=== PATIENT | male | born 1945 | race Caucasian/White ===

== ENCOUNTER 2019-08-12 12:36 | Outpatient (CLI) | payer MEDICARE, MEDICAID, SELFPAY ==
--- NOTE | 2019-08-12 16:00 | XR_ITS ---
WS: [id number] LUMBAR SPINE FLEXION AND EXTENSION TECHNIQUE: 3 views of the lumbar spine: Lateral neutral, flexion, and extension views. CLINICAL INFORMATION: Low back COMPARISON: None. FINDINGS: Normal lumbar alignment on the neutral view. No instability on the flexion and extension views. Moderate spondylitic changes with anterior wedging T12, L1, and L2. Anterior hypertrophic changes in the lower thoracic and upper lumbar spine. Moderate facet arthropathy L4-L5 and L5-S1. Aortic calcifi cation. XR/XR lumbar spine f/e only [id number] IMPRESSION: 1. Normal lumbar alignment on the neutral view. No instability on flexion/exte nsion. 2. Chronic anterior wedging T12, L1, L2.
== END 2019-08-12 12:37 | disposition home or self-care (01) ==
LOC: RADWPI 12:42
PROVIDERS: Family Provider Family Medicine; PCP Nurse Practitioner; Visit Provider Licensed Practical Nurse
DX: M54.5 Low back pain (principal); M48.55XA Collapsed vertebra, not elsewhere classified, thoracolumbar region, initial encounter for fracture; X58.XXXA Exposure to other specified factors, initial encounter
CPT/HCPCS: 72120

== ENCOUNTER 2019-08-12 13:11 | Outpatient (CLI) | payer MEDICARE, MEDICAID, SELFPAY ==
--- NOTE | 2019-08-12 15:30 | MR_ITS ---
WS: [id number] MRI LUMBAR SPINE NONCONTRAST TECHNIQUE: Sagittal T1, T2 and STIR imaging. Axial T1 and T2 imaging. CLINICAL INFORMATION: ACUTE LOW BACK PAIN COMPARISON: None. FINDINGS: Mild lumbar curve. No acute compression. No high-grade central canal stenosis. Mild spondylitic barajas es. L1-L2: Mild annular bulging. Mild facet arthropathy. Spinal canal and foramen are patent. L2-L3: Mild annular bulging with slight narrowing of the subarticular recess bilaterally. Mild facet arthropathy. L3-L4: Mild annular bulging with slight narrowing of the left subarticular recess. Mild to moderate f acet arthropathy. Mild left and no significant right foraminal narrowing. L4-L5: Mild annular bulging with slight effacement of ventral thecal sac. Moderate facet arthropathy. Spinal canal and foramen are patent. L5-S1: Mild disc osteophyte complex with endplate ridging. Mild left greater than right bony foramina l narrowing. Mild facet arthropathy. Spinal canal is patent. Bilateral renal cortical atrophy. Partially visualized renal cysts. Normal caliber infrarenal abdomin al aorta. Mild spondylitic changes in the cervical spine seen on the sterile technician imaging. MR/MR lumbar spine wo con* [id number] IMPRESSION: 1. Mild lumbar curve. No acute compression. No high-grade central canal stenos is. 2. Annular bulging L3-4 with slight impingement traversing left L4 nerve root. Mild left foraminal narrowing at this level. Mild to moderate facet arthropath y at this level. 3. Mild left greater than right L5-S1 bony foraminal narrowing. 4. Minimal narrowing of the left subarticular recess L2-3. 5. Moderate facet arthropathy L4-5.
== END 2019-08-12 13:12 | disposition home or self-care (01) ==
LOC: RADWPI 13:16
PROVIDERS: Family Provider Family Medicine; PCP Nurse Practitioner; Visit Provider Nurse Practitioner
DX: M54.5 Low back pain (principal); M47.896 Other spondylosis, lumbar region
CPT/HCPCS: 72148

== ENCOUNTER 2020-11-06 10:29 | Emergency (ER) | payer MEDICARE, MEDICAID, SELFPAY ==
[2020-11-06 10:54] VITALS: BP 143/85; PULSE 76; RESP 16; TEMP 36.8; O2SAT 95; BMI 25.8
[2020-11-06 11:02] VITALS: BP 138/80; PULSE 72; RESP 18; O2SAT 100
--- NOTE | 2020-11-06 11:11 | ED_ITS ---
HPI - Eye Problem General: Chief complaint: Eye Problems Stated complaint: L eye/red, possably poked it with something Time Seen by Provider: 11/06/20 10:37 History of Present Illness: HPI Narrative: 75-year-old male presents with painless red eye. Patient noticed this morning. He does not recall poking himself in the eye or any other kind of trauma it is not affecting his vision he has no eye pain or discomfort. Patient is on aspirin and Plavix chief complaint: eye redness Onset (ago): hour(s) Onset description: sudden Duration: constant Location: left eye Place: home Mechanism: none Severity: mild Associated symptoms: Denies cough, fever(s), headache(s), nausea, neck pain, numbness, rhinorrhea, short of breath, vomiting or weakness Treatments Prior to Arrival: none Review of Systems Const: Denies: fever(s) ENMT: Denies: throat pain, ear or mastoid pain, nasal discharge or nasal congestion Card: Denies: chest pain, edema, dyspnea on exertion or orthopnea Resp: Denies: dyspnea, productive cough or non-productive cough GI: Denies: nausea or vomiting : Denies: flank pain, dysuria, urinary frequency or urinary urgency Musc: Denies: neck pain Skin/Breast: Denies: rash or pruritus Neuro: Denies: headache(s) PFSH ED PFSH: Medical History Cancer of prostate Intervertebral disc disorder with radiculopathy of lumbosacral region Surgical History Hx of heart surgery Family History Father Lung disease Mother Chronic kidney disease (CKD) Hypertension Social History Smoking and tobacco status: former smoker Alcohol intake: never Household members: spouse Marital status: Current occupational status: retired History of recent travel: No Physical Exam Const: COMMON NORMALS: no acute distress GENERAL APPEARANCE: cooperative and comfortable ORIENTATION/CONSCIOUSNESS: Yes awake, Yes oriented to person, Yes oriented to place and Yes oriented to time HENMT: COMMON NORMALS: normocephalic and atraumatic HEAD & SCALP: normocephalic and atraumatic Eye: COMMON NORMALS: Equal, round and reactive pupils present, EOMs intact bilaterally and no scleral icterus GENERAL EYE: normal light reflex VISUAL ACUITY: Yes acuity normal VISUAL EDEN: No peripheral vision loss, No central vision loss, No left visual field cut and No right visual field cut SCLERA: scleral abnormal Laterality of scleral abnormality: positive left hemorrhage (Mild) PUPIL: Yes Equal, round and reactive pupils present DIRECT OPHTHALMOSCOPY: Yes normal light reflex OTHER: Subconjunctival hemorrhage left eye inferior to the cornea no chemosis no evidence of foreign bodies the rest of the sclera superiorly appears normal. There is no purulent drainage. Neck/C-Spine: COMMON NORMALS: no JVD Resp: COMMON NORMALS: normal respiratory effort, No retractions, No use of accessory muscles and clear to auscultation bilaterally AUSCULTATION: clear to auscultation bilaterally Cardio: COMMON NORMALS: no JVD, regular rate, regular rhythm and No murmurs present (Cardio) RATE: regular rate RHYTHM: regular rhythm Neuro: SENSORIUM/ORIENTATION: Yes oriented to person, Yes oriented to place and Yes oriented to time Course Vital Signs: Vital signs: Vital Signs Temperature 98.2 F 11/06/20 10:54 Pulse Rate 72 11/06/20 11:17 Respiratory Rate 18 11/06/20 11:17 Blood Pressure 138/80 11/06/20 11:17 Pulse Oximetry 100 11/06/20 11:17 MDM - Eye Problem MDM Narrative: Medical decision making narrative: Discussed diagnosis. Can use cold compresses. Patient reassured to follow-up with his primary care doctor return if has any worsening or change in vision. Discharge Plan Discharge Patient Disposition: Home Clinical Impression: Subconjunctival hemorrhage Condition: Stable Prescriptions: No Action One-A-Day Men's 50Plus(ginkgo) 400-300-120 mcg-mcg-mg tablet PO DAILY RF: 0 docusate sodium [Colace] 100 mg capsule 100 mg PO DAILY RF: 0 sennosides 25 mg tablet 25 mg PO DAILY RF: 0 carvedilol [Coreg] 6.25 mg tablet 6.25 mg PO BID RF: 0 duloxetine [Cymbalta] 60 mg capsule,delayed release(DR/EC) 60 mg PO DAILY RF: 0 Protonix [address] for susp in packet 40 mg PO DAILY RF: 0 clopidogrel 75 mg tablet 75 mg PO DAILY RF: 0 cyanocobalamin (vitamin B-12) 1,000 mcg/mL syringe 1,000 mcg .Route .MONTHLY RF: 0 divalproex 250 mg tablet,delayed release (DR/EC) 250 mg PO DAILY RF: 0 escitalopram oxalate 10 mg tablet 10 mg PO DAILY RF: 0 gabapentin 300 mg capsule 300 mg PO QID RF: 0 lisinopril 10 mg tablet 10 mg PO DAILY RF: 0 losartan 50 mg tablet 50 mg PO DAILY RF: 0 mirtazapine 15 mg tablet 15 mg PO DAILY RF: 0 pravastatin 10 mg tablet 10 mg PO DAILY RF: 0 ropinirole 1 mg tablet 1 mg PO DAILY RF: 0 topiramate 25 mg tablet 25 mg PO BID RF: 0 Discharge Orders: Discharge ED (Routine); Ordered 11/06/20 Ordered By: Jr Seymour Referrals: Joseline Madison FNP [Primary Care Provider] - Discharge Diet: Usual diet Discharge Activity: Resume usual activity Patient Instructions: Opioid Safety Activity Restrictions/Additional Instructions: Follow-up if worsens as any change in vision. 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
[2020-11-06 11:17] VITALS: BP 138/80; PULSE 72; RESP 18; O2SAT 100
== END 2020-11-06 11:17 | disposition home or self-care (01) ==
PROVIDERS: Emergency Provider Family Medicine; PCP Nurse Practitioner
DX: H11.32 Conjunctival hemorrhage, left eye (principal); Z85.46 Personal history of malignant neoplasm of prostate; Z87.891 Personal history of nicotine dependence
CPT/HCPCS: 99282

== ENCOUNTER 2021-03-22 09:30 | Outpatient (CLI) | payer MEDICARE, MEDICAID, SELFPAY ==
--- NOTE | 2021-03-22 09:37 | USCV_ITS ---
Camilo Zuniga Age: 76 Gender: M : 1945 Exam Date: 03/22/2021 09:37 Ordering Phys: Joseline Madison AUTOMOBILE LOCATOR Technologist: Melanie Arias Barrel Endshaker Adjuster [place] [facility] [place]: INTERMITTENT CLADICATION RIGHT LEFT Brachial 140.00 mmHg Brachial 152.00 mmHg Pressure (mmHg) Waveform Pressure (mmHg) Waveform 166.00 DIESEL ENGINE ENGINEER 169.00 157.00 DPA 153.00 1.09 Ankle/Brachial Index 1.11 131.00 Pre-Exercise Toe Pressure 133.00 0.86 Pre-Exercise Toe/Brachial Index 0.88 FINDINGS Normal resting KEVIN on the left side Normal resting TBI on the left side CONCLUSIONS No significant arterial obstruction on the left side, based on the above findings Dr Holly Lora MD [facility] (Electronically Signed) Final Date: 22 March 2021 17:53 S
== END 2021-03-22 09:31 | disposition home or self-care (01) ==
PROVIDERS: PCP Nurse Practitioner; Visit Provider Nurse Practitioner
DX: I73.9 Peripheral vascular disease, unspecified (principal)
CPT/HCPCS: 93922

== ENCOUNTER 2021-07-22 10:48 | Emergency (ER) | payer MEDICARE, MEDICAID, SELFPAY ==
[2021-07-22 10:55] VITALS: BP 159/75; PULSE 76; RESP 18; TEMP 36.8; O2SAT 99
--- NOTE | 2021-07-22 11:24 | ECG_ITS ---
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 Measurements Intervals [place] Rate: 65 P: 77 FL: 194 QRS: 5 QRSD: 90 T: 77 QT: 383 QTc: 400 Interpretive Statements SINUS RHYTHM WITH SINUS ARRHYTHMIA No previous ECG available for comparison Electronically Signed On 07-22-2021 20:19:10 CDT by Holly Lora M.D. [id number]
--- NOTE | 2021-07-22 11:24 | CT_ITS ---
WS: [id number] CT HEAD TECHNIQUE: Noncontrast CT of the head obtained from the skullbase to the vertex. CLINICAL INFORMATION: AMS COMPARISON: MRI 2019 DLP: 844.[address] scans at [facility] use at least one of these dose optimization techniques: automated e xposure control; mA and/or kV adjustment per patient size (includes targeted exams where dose is matc hed to clinical indication); or iterative reconstruction. FINDINGS: No evidence of intracranial hemorrhage or mass effect. Ventricular system and basal cisterns are emery nt. Moderate small vessel changes with moderate parenchymal volume loss. Chronic lacunar infarcts in the periventricular white matter and RIGHT caudate. Chronic lacunar infarcts in the bilateral basal g anglia. Intracranial vascular calcification. Paranasal sinuses are well aerated. Mastoid air cells we ll aerated CT/CT head wo con* [id number] IMPRESSION: 1. No evidence of intracranial hemorrhage or mass effect. 2. Moderate small vessel changes with moderate parenchymal volume loss. 3. Chronic lacunar infarcts in the bilateral basal ganglia. 4. Intracranial vascular calcification. 5. No acute intracranial findings.
--- NOTE | 2021-07-22 11:29 | W.ED.PSYCHS ---
HPI - Psych General: Chief Complaint: Psychiatric Symptoms Stated Complaint: psych eval Time Seen by Provider: 07/22/21 11:03 Source: patient and family (Spouse and daughter) Mode of arrival: ambulatory Limitations: no limitations History of Present Illness: This patient was transported to the emergency department by his daughter as well as his spouse this morning. They report that he has had changes in his behavior over the past several weeks. They also alleged that he has been smoking marijuana on occasion and they are concerned there might be something other than marijuana in the substance has been smoking given his changes in behavior. His daughter reports that he has been making references to a lot and that she saw him yesterday with multiple cigarette prater to his perineum upper legs and genitalia. They have provided an affidavit of support for further mental health evaluation. The patient denies using any street drugs. He denies any particular complaints at this time. He does launched into a soliloquy about and life in the [place] of life. MD complaint: suicidal ideation Context: recent drug abuse and not taking psychiatric medications Associated symptoms: Reports delusions and suicidal ideation Review of Systems Const: Denies: fever(s) or chills Eyes: Denies: change in vision ENMT: Denies: throat pain, odynophagia or hoarseness Card: Denies: chest pain, palpitations or irregular heart rhythm Resp: Denies: dyspnea, productive cough or non-productive cough GI: Denies: abdominal pain, nausea or vomiting : Reports: erectile dysfunction; Denies: flank pain, difficulty urinating or dysuria Musc: Denies: neck pain, back pain or extremity pain Neuro: Denies: headache(s), numbness in extremities, weakness in extremities or difficulty walking Psych: Reports: suicidal ideation Endo: Denies: polyuria or polydipsia PFSH ED PFSH: Medical History Cancer of prostate Intervertebral disc disorder with radiculopathy of lumbosacral region Surgical History Hx of heart surgery Family History Father Lung disease Mother Chronic kidney disease (CKD) Hypertension Social History Smoking and tobacco status: former smoker Alcohol intake: never Household members: spouse Marital status: Current occupational status: retired History of recent travel: No Physical Exam Narrative: EXAM NARRATIVE: The patient makes good eye contact and appears to be comfortable. He is quite loquacious. Const: COMMON NORMALS: no acute distress, average body habitus and alert GENERAL APPEARANCE: cooperative HENMT: COMMON NORMALS: normocephalic, atraumatic, Normal nasal mucous membranes and turbinates present and moist oral mucous membranes HEAD & SCALP: normocephalic and atraumatic NOSE: Normal nasal mucous membranes and turbinates present Eye: COMMON NORMALS: Equal, round and reactive pupils present, EOMs intact bilaterally and conjunctivae normal CONJUNCTIVA: Yes conjunctivae normal PUPIL: Yes Equal, round and reactive pupils present Neck/C-Spine: COMMON NORMALS: full ROM, no lymphadenopathy, no JVD and No carotid bruits Lymph: LYMPHATIC: no lymphadenopathy noted Chest: COMMONS NORMALS: normal inspection of the chest Resp: COMMON NORMALS: normal respiratory effort, No retractions and No use of accessory muscles EFFORT & INSPECTION: Yes able to speak in complete sentences Cardio: COMMON NORMALS: no JVD, regular rate, regular rhythm, S2 normal heart sound present, No murmurs present (Cardio) and Peripheral pulses 2+ throughout RATE: regular rate RHYTHM: regular rhythm HEART SOUNDS: S2 normal heart sound present PERIPHERAL PULSES: Peripheral pulses 2+ throughout GI: COMMON NORMALS: Normal to inspection, nondistended, normoactive bowel sounds present and Soft to palpation PALPATION: Yes Soft to palpation : MALE GROIN/PERINEUM EXAM: Yes Genital lesions present (He has a circular crusted lesion on the skin of his left scrotum. No drain) PENIS: Genital lesions present (He has a circular crusted lesion on the skin of his left scrotum. No drain) Back/Pelvis: COMMON NORMALS: thoracic and lumbar spine normal to inspection, no thoracic nor lumbar tenderness and thoraco-lumbar ROM normal Extremity: COMMON NORMALS: full ROM, capillary refill normal, no joint enlargement and no pedal edema NARRATIVE EXTREMITY EXAM: External examination was remarkable on inspection for several ecchymosis on the anterior thighs bilaterally. Appear to be in a various stages of healing. Normal range of motion. No deformity etc. Neuro: COMMON NORMALS: moves all extremities, no focal motor deficits and no sensory deficits noted SENSORIUM/ORIENTATION: Yes alert CRANIAL NERVES: Yes CN normal except as noted Psych: COMMON NORMALS: cooperative and speech normal ACTIVITY/MOTOR BEHAVIOR: Yes appropriate eye contact SPEECH: Yes normal speech MOOD & AFFECT: Yes expansive affect THOUGHT PROCESS: Circumstantial thought process present, Loose association thought process present and Tangential thought process present THOUGHT CONTENT: Yes delusions ATTENTION/CONCENTRATION: Yes attention grossly intact INSIGHT: questionable Skin: COMMON NORMALS: turgor normal NARRATIVE SKIN EXAM: He has ecchymosis on skin of the anterior thighs as noted above. He also has the crusted circular lesion on his left scrotum. He also has a circular crusted lesion on the right lower abdomen. GENERAL SKIN EXAM: turgor normal Course Reevaluation(s): Reevaluation #1: Patient remains cooperative. All laboratories and other ancillary studies have returned. Only outlier that he shows a on a urine drug screen is positive for benzodiazepines. This is not on his usual medication list so it is unclear whether this is false positive or he has surreptitiously had access to this type of medication. We will be consulting outside mental health facilities for geriatric psych transfer. Time: 14:49 Reevaluation #2: Stable pending acceptance at an outside facility. Time: 17:57 Consultations: Consultation #1: I spoke with the advanced nurse practitioner from [facility] health facility and we discussed the patient's presentation and uncertainty of suicidality and need for further evaluation. I did express some concern that he might decide to elope once he arrived at their facility however they further discussed the patient's desire for further treatment and he expressed to them that he was desirous of same so the process was continued in terms of transfer to [facility]. Time: 22:57 Vital Signs: Vital signs: Vital Signs Temperature 98.3 F 07/22/21 10:55 Pulse Rate 62 07/22/21 19:36 Respiratory Rate 18 07/22/21 19:36 Blood Pressure 163/80 07/22/21 19:36 Pulse Oximetry 100 07/22/21 18:43 [facility] - Psych Medical Decision Making Patient presented with family to the emergency department because of concerns about self injury, suicidal ideation as well as change in behavior over the past several weeks. His clinical examination is reassuring today. He does have areas of what appears to be historically self inflicted injury but none of which constitutes any severe injury or evidence of infection etc. at this time. He has a rather bizarre affect with loosening of associations and some delusionary projection. His suicidality is indeterminate at this time. Thyroid studies as well as CT of the head are unrevealing for any potential contributing factors to his current psychosis. He is medically stable at this time to be evaluated by mental health facility. Lab Data I reviewed the patient's lab results. : 07/22/21 11:44 07/22/21 11:[address] 07/22/21 11:24 IMPRESSION: 1. No evidence of intracranial hemorrhage or mass effect. 2. Moderate small vessel changes with moderate parenchymal volume loss. 3. Chronic lacunar infarcts in the bilateral basal ganglia. 4. Intracranial vascular calcification. 5. No acute intracranial findings. Laboratory Results WBC 8.1 10^3/uL (4.0-10.0) 07/22/21 11:44 RBC 4.29 10^6/uL (4.1-5.3) 07/22/21 11:44 Hgb 13.9 g/dL (11.7-16.6) 07/22/21 11:44 Hct 43.1 % (42.0-52.0) 07/22/21 11:44 MCV 100.5 fl (80-94) H 07/22/21 11:44 MCH 32.4 pg (28.0-34.0) 07/22/21 11:44 MCHC 32.3 g/dL (30.0-36.0) 07/22/21 11:44 RDW 14.2 % (12.1-15.1) 07/22/21 11:44 Plt Count 304 10^3/cmm (130-400) 07/22/21 11:44 MPV 9.8 fL (7.4-10.4) 07/22/21 11:44 Neut % (Auto) 75.3 % 07/22/21 11:44 Lymph % (Auto) 15.7 % 07/22/21 11:44 [place] % (Auto) 8.3 % 07/22/21 11:44 Eos % (Auto) 0.2 % 07/22/21 11:44 Baso % (Auto) 0.4 % 07/22/21 11:44 Neut # (Auto) 6.10 10^3/uL (1.8-7.7) 07/22/21 11:44 Lymph # (Auto) 1.3 10^3/uL (0.8-4.8) 07/22/21 11:44 [place] # (Auto) 0.7 10^3/uL (0.2-0.9) 07/22/21 11:44 Eos # (Auto) 0.0 10^3/uL (0.0-0.8) 07/22/21 11:44 Baso # (Auto) 0.0 10^3/uL (0.0-0.1) 07/22/21 11:44 Nucleated RBC % (auto) 0 % 07/22/21 11:44 Nucleated RBCs # 0.0 /100WBC 07/22/21 11:44 Sodium 136 mmol/L (136-145) 07/22/21 11:44 Potassium 4.2 mmol/L (3.5-5.1) 07/22/21 11:44 Chloride 100 mmol/L (98-107) 07/22/21 11:44 Carbon Dioxide 21 mmol/L (22-29) L 07/22/21 11:44 Anion Gap 19.2 (5-19) H 07/22/21 11:44 BUN 22 mg/dL (8-23) 07/22/21 11:44 Creatinine 1.6 mg/dL (0.7-1.2) H 07/22/21 11:44 GFR Calculation Not Reportable 07/22/21 11:44 Glucose 80 mg/dL (65-115) 07/22/21 11:44 Calculated Osmolality 284 mOsm/kg (285-295) L 07/22/21 11:44 Calcium 9.0 mg/dL (8.5-10.5) 07/22/21 11:44 Total Bilirubin 0.3 mg/dL (0.15-1.2) 07/22/21 11:44 AST 19 U/L (0-40) 07/22/21 11:44 ALT 14 U/L (0-41) 07/22/21 11:44 Alkaline Phosphatase 61 IU/L (40-130) 07/22/21 11:44 Total Protein 7.1 g/dL (6.6-8.7) 07/22/21 11:44 Albumin 4.2 g/dL (3.5-5.2) 07/22/21 11:44 Globulin 2.9 g/dL (1.3-4.6) 07/22/21 11:44 Vitamin B12 1272 pg/mL (232-1245) H 07/22/21 11:44 Folate 10.0 ng/mL (4.5-32.2) 07/22/21 11:44 TSH 2.19 uIU/mL (0.27-4.20) 07/22/21 11:44 Free T4 0.82 ng/dL (0.82-1.77) 07/22/21 11:44 Urine Color Yellow (Yellow) 07/22/21 13:21 Urine Appearance Clear (CLEAR) 07/22/21 13:21 Urine pH 6 (5-7) 07/22/21 13:21 Ur Specific [place] 1.020 (1.005-1.030) 07/22/21 13:21 Urine Protein Neg (Negative) 07/22/21 13:21 Urine Glucose (UA) Norm (Normal) 07/22/21 13:21 Urine Ketones 2+ (Negative) H 07/22/21 13:21 Urine Blood Neg (Negative) 07/22/21 13:21 Urine Nitrate Negative (Negative) 07/22/21 13:21 Urine Bilirubin Neg (Negative) 07/22/21 13:21 Urine Urobilinogen Norm mg/dL (Negative) 07/22/21 13:21 Ur Leukocyte Esterase Negative (Negative) 07/22/21 13:21 Urine RBC Cancelled 07/22/21 13:21 Urine WBC Cancelled 07/22/21 13:21 Ur Squamous Epith Cells Cancelled 07/22/21 13:21 Ur Transition Epith Cell Cancelled 07/22/21 13:21 Ur Renal Epithelial Cell Cancelled 07/22/21 13:21 Calcium Oxalate Crystal Cancelled 07/22/21 13:21 Uric Acid Crystals Cancelled 07/22/21 13:21 Triple Phos Crystals Cancelled 07/22/21 13:21 Other Crystals Cancelled 07/22/21 13:21 Amorphous Sediment Cancelled 07/22/21 13:21 Urine Bacteria Cancelled 07/22/21 13:21 Hyaline Casts Cancelled 07/22/21 13:21 Fine Granular Casts Cancelled 07/22/21 13:21 Coarse Granular Casts Cancelled 07/22/21 13:21 RBC Casts Cancelled 07/22/21 13:21 Other Casts Cancelled 07/22/21 13:21 Urine Mucus Cancelled 07/22/21 13:21 Urine Trichomonas Cancelled 07/22/21 13:21 Urine Yeast Cancelled 07/22/21 13:21 Urine Sperm Cancelled 07/22/21 13:21 Ur Oval Fat Bodies Cancelled 07/22/21 13:21 Salicylates < 0.3 mg/dL (3-10) L 07/22/21 11:44 Urine Opiates Screen Negative ng/mL (Negative) 07/22/21 13:21 Acetaminophen < 5.0 ug/mL (10-30) L 07/22/21 11:44 Ur Barbiturates Screen Negative ng/mL (Negative) 07/22/21 13:21 Ur Phencyclidine Scrn Negative ng/mL (Negative) 07/22/21 13:21 Ur Amphetamines Screen Negative ng/mL (Negative) 07/22/21 13:21 U Benzodiazepines Scrn Positive ng/mL (Negative) H 07/22/21 13:21 Urine Cocaine Screen Negative ng/mL (Negative) 07/22/21 13:21 U Marijuana (THC) Screen Negative ng/mL (Negative) 07/22/21 13:21 Ethyl Alcohol < 10 mg/dL (0-10) 07/22/21 11:44 RPR Nonreactive (Nonreactive) 07/22/21 11:44 SARS-CoV-2 Ag (Rapid) Negative (Negative) 07/22/21 17:24 EKG Data EKG 1: I personally reviewed and interpreted this EKG as follows: EKG interpretation time: 11:43 Interpretation: Patient's resting EKG shows ventricular rate of 65 bpm. Predominant rate is sinus with occasional episode of sinus arrhythmia. [place] QRS interval and durations are normal. QTc duration is normal. [place] is normal as well. No acute ST-T wave changes. Discharge Plan Discharge Clinical Impression: Acute psychosis, Suicidal ideation Condition: Stable Prescriptions: No Action docusate sodium [Colace] 100 mg capsule 100 mg PO QAM 0RF carvedilol [Coreg] 6.25 mg tablet 6.25 mg PO BID 0RF Rx Instructions: must administer with a meal/food clopidogrel 75 mg tablet 75 mg PO QAM 0RF divalproex 250 mg tablet,delayed release (DR/EC) 250 mg PO QAM 0RF losartan 50 mg tablet 50 mg PO BEDTIME 0RF ropinirole 1 mg tablet 1 mg PO BEDTIME 0RF topiramate 25 mg tablet 25 mg PO BID 0RF hydralazine 10 mg tablet 10 mg PO BID 0RF prazosin 1 mg capsule 1 mg PO BEDTIME 0RF isosorbide mononitrate 30 mg tablet extended release 24 hr 30 mg PO QAM 0RF pantoprazole 40 mg tablet,delayed release (DR/EC) 40 mg PO QAM 0RF cyanocobalamin (vitamin B-12) 1,000 mcg/mL Solution 1,000 mcg IM Q30D 0RF furosemide 20 mg tablet 20 mg PO DAILY PRN (Reason: Edema) 0RF albuterol sulfate 90 mcg/actuation HFA aerosol inhaler 2 puff INHALATION Q6H PRN (Reason: Shortness Of Breath) 0RF Men's Multivitamin 400-20-300 mcg Tablet 1 tab PO DAILY 0RF Discharge Orders: Transfer Out of Facility (Order); Ordered 07/22/21 Ordered By: Trevin Marrero Referrals: Joseline Madison FNP [Primary Care Provider] - Coding Level of Care Code ED Nurse Emergency Room for Chg Fwd Exam Comprehensive
[2021-07-22 11:48] LABS: Basophils % 0.4 %; Eosinophils % 0.2 %; Hematocrit 43.1 % (42.0-52.0); Hemoglobin 13.9 g/dL (11.7-16.6); Lymphocytes # 1.3 10^3/uL (0.8-4.8); Lymphocytes % 15.7 %; Mean Corpuscular HGB Conc 32.3 g/dL (30.0-36.0); Mean Corpuscular Hemoglobin 32.4 pg (28.0-34.0); Mean Corpuscular Volume 100.5 fl (80-94); Mean Platelet Volume 9.8 fL (7.4-10.4); Monocytes # 0.7 10^3/uL (0.2-0.9); Monocytes % 8.3 %; Neutrophils % 75.3 %; Nucleated Red Blood Cells % 0 %; Platelet Count 304 10^3/cmm (130-400); Red Blood Count 4.29 10^6/uL (4.1-5.3); Red Cell Distribution Width 14.2 % (12.1-15.1); White Blood Count 8.1 10^3/uL (4.0-10.0)
--- NOTE | 2021-07-22 11:58 | PC.PHAR ---
pts daughters states she takes care of the pts medications-pts daughter states stop giving the pt prazosin 1mg on 07/18/21-states she thinks it was causing the pt problems-notes are made in the pharmacy comments
[2021-07-22 12:25] LABS: Alanine Aminotransferase 14 U/L (0-41); Albumin Level 4.2 g/dL (3.5-5.2); Alkaline Phosphatase 61 IU/L (40-130); Anion Gap 19.2 (5-19); Aspartate Amino Transferase 19 U/L (0-40); Blood Urea Nitrogen 22 mg/dL (8-23); Carbon Dioxide 21 mmol/L (22-29); Chloride 100 mmol/L (98-107); Globulin 2.9 g/dL (1.3-4.6); Glucose 80 mg/dL (65-115); Osmolality Calculated 284 mOsm/kg (285-295); Potassium 4.2 mmol/L (3.5-5.1); Sodium 136 mmol/L (136-145); Thyroid Stimulating Hormone 2.19 uIU/mL (0.27-4.20); Total Bilirubin 0.3 mg/dL (0.15-1.2); Total Protein 7.1 g/dL (6.6-8.7)
[2021-07-22 12:32] LABS: Acetaminophen < 5.0 ug/mL (10-30); Salicylate < 0.3 mg/dL (3-10)
[2021-07-22 13:06] LABS: Alcohol Level < 10 mg/dL (0-10)
[2021-07-22 14:15] LABS: Charge for UA Resulting for Rev
[2021-07-22 14:25] LABS: Add Urine Microscopic? NO; Bilirubin Urine Neg (Negative); Blood Urine Neg (Negative); Glucose Urine UA Norm (Normal); Ketones Urine 2+ (Negative); Leukocyte Esterase Urine Negative (Negative); Nitrate Urine Negative (Negative); Protein Urine Neg (Negative); Urine Appearance Clear (CLEAR); Urine Color Yellow (Yellow); Urobilinogen Urine Norm (Negative); pH Urine 6 (5-7)
[2021-07-22 14:31] LABS: Amphetamines Screen Urine Negative (Negative); Barbiturates Screen Urine Negative (Negative); Benzodiazepines Screen Urine Positive (Negative); Cocaine Screen Urine Negative (Negative); Opiate Screen Urine Negative (Negative); PCP Screen Urine Negative (Negative); THC Screen Urine Negative (Negative)
[2021-07-22 18:00] LABS: SARS Covid-2 Antigen Negative (Negative)
[2021-07-22 18:26] LABS: Free T4 Free Thyroxine 0.82 ng/dL (0.82-1.77)
[2021-07-22 18:33] LABS: Rapid Plasma Reagin Syphilis Nonreactive (Nonreactive)
[2021-07-22 18:43] VITALS: BP 159/79; PULSE 59; RESP 16; O2SAT 100
[2021-07-22 18:46] LABS: Vitamin B12 1272 pg/mL (232-1245)
[2021-07-22 19:36] VITALS: BP 163/80; PULSE 62; RESP 18
[2021-07-22 23:15] VITALS: BP 134/69; PULSE 62; RESP 16; TEMP 36.7; O2SAT 97
[2021-07-23 00:42] VITALS: BP 134/69; PULSE 62; RESP 16; O2SAT 97
== END 2021-07-23 00:45 ==
PROVIDERS: Emergency Provider Emergency Medicine; PCP Nurse Practitioner
DX: F23 Brief psychotic disorder (principal); R45.851 Suicidal ideations
CPT/HCPCS: 70450; 80053; 80306; 80307; 81003; 82607; 82746; 84439; 84443; 85025; 86592; 87426; 93005; 99285

== ENCOUNTER 2021-09-12 18:26 | Inpatient (IN) | payer MEDICARE, MEDICAID, SELFPAY ==
[2021-09-12] VITALS (9 sets, daily range): BP systolic 141–172; BP diastolic 66–81; PULSE 45–49; RESP 12–22; TEMP 36.9; O2SAT 97–100; BMI 20.7; BMI 20.5
--- NOTE | 2021-09-12 18:58 | XRR_ITS ---
PROCEDURE INFORMATION: Exam: XR Chest Exam date and time: 09/12/2021 7:16 PM Age: 76 years old Clinical indication: Angina; Additional info: Cp TECHNIQUE: Imaging protocol: Radiologic exam of the chest. Views: 1 view. COMPARISON: No relevant prior studies available. FINDINGS: Lungs: Calcified granuloma in the left lung. The lungs are otherwise clear. Pleural spaces: Unremarkable. No pleural effusion. No pneumothorax. Heart/Mediastinum: Unremarkable. No cardiomegaly. Bones/joints: Unremarkable. XR/XR chest 1V portable [id number] IMPRESSION: No acute finding.
--- NOTE | 2021-09-12 18:58 | ECG_ITS ---
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 Measurements Intervals Tyler Rate: 44 P: 64 IL: 215 QRS: 3 QRSD: 90 T: 62 QT: 449 QTc: 388 Interpretive Statements SINUS BRADYCARDIA WITH FIRST DEGREE AV BLOCK Compared to ECG 07/22/2021 11:41:17 First degree AV block now present Sinus rhythm no longer present Sinus arrhythmia no longer present Electronically Signed On 09-12-2021 23:25:45 CDT by Zach Hamilton M.D. [email or web address] medical centerAppSenseadena fayette medical center.Onsite Care/store/OM/[id number]
--- NOTE | 2021-09-12 19:08 | W.ED.GENADLT ---
HPI - General Adult General: Chief complaint: General Medical Stated complaint: Low B/P Time Seen by Provider: 09/12/21 18:40 Source: patient Mode of arrival: ambulatory Limitations: no limitations History of Present Illness: 76-year-old male states that over the last 5 to 6 days he has been having increasing dizziness along with syncopal events. He states that he has had multiple episodes of passing out. He states that he just feels heavy and he has had low heart rate and low blood pressure. He states anytime he stands he feels like he is going to pass out. He is bradycardic here he does take carvedilol at home. He denies any pain anywhere denies headache denies chest pain. Denies any shortness of breath. Denies any fever cough. Associated symptoms: Reports syncope; Deny dyspnea, headache(s), nausea, rash or vomiting Review of Systems Const: Denies: fever(s), chills, body aches or change in appetite Eyes: Denies: blurry vision or eye discomfort ENMT: Denies: throat pain or dental pain Card: Reports: syncope and pre-syncope Resp: Denies: dyspnea GI: Denies: abdominal pain, nausea, vomiting or diarrhea : Denies: dysuria Musc: Denies: neck pain or back pain Skin/Breast: Denies: rash Neuro: Denies: headache(s) Psych: Denies: depression Steve/Lymph: Denies: easy bruising All/Imm: Denies: urticaria PFSH ED PFSH: Medical History Cancer of prostate Intervertebral disc disorder with radiculopathy of lumbosacral region Psychiatric care Surgical History Hx of heart surgery Family History Father Lung disease Mother Chronic kidney disease (CKD) Hypertension Social History Smoking and tobacco status: former smoker Alcohol intake: never Household members: spouse Marital status: Current occupational status: retired History of recent travel: No Physical Exam Const: COMMON NORMALS: no acute distress, patient oriented x3 and healthy appearing HENMT: COMMON NORMALS: normocephalic and atraumatic HEAD & SCALP: normocephalic and atraumatic Eye: COMMON NORMALS: Equal, round and reactive pupils present and EOMs intact bilaterally PUPIL: Yes Equal, round and reactive pupils present Neck/C-Spine: COMMON NORMALS: full ROM and supple Chest: COMMONS NORMALS: normal inspection of the chest and normal palpation of entire chest wall Resp: COMMON NORMALS: normal respiratory effort, No retractions, No use of accessory muscles and clear to auscultation bilaterally AUSCULTATION: clear to auscultation bilaterally Cardio: COMMON NORMALS: regular rate, regular rhythm and No murmurs present (Cardio) RATE: regular rate and bradycardic RHYTHM: regular rhythm GI: COMMON NORMALS: Normal to inspection, nondistended, normoactive bowel sounds present, Soft to palpation, non-tender and no masses PALPATION: Yes Soft to palpation Extremity: COMMON NORMALS: normal to inspection and full ROM Neuro: COMMON NORMALS: patient oriented x3, moves all extremities and no focal motor deficits Psych: COMMON NORMALS: mental status grossly normal, Normal thought process present and cooperative THOUGHT PROCESS: Normal thought process present Skin: COMMON NORMALS: no rashes or lesions noted and no wounds GENERAL SKIN EXAM: no rashes or lesions noted Course Vital Signs: Vital signs: Vital Signs Temperature 98.5 F 09/12/21 18:47 Pulse Rate 48 L 09/12/21 20:00 Respiratory Rate 16 09/12/21 20:00 Blood Pressure 164/78 09/12/21 20:00 Pulse Oximetry 100 09/12/21 20:00 [facility] - General Adult Medical Decision Making Patient presents here with syncopal events. He is bradycardic here and hyponatremic who could be causing the syncope his blood pressure here has been normal he states its been running low at home. He is on carvedilol. Spoke to the hospitalist and will admit at this time for observation. Lab Data : 09/12/21 19:13 09/12/21 19:13 Radiology Impressions Chest X-Ray 09/12/21 18:58 IMPRESSION: No acute finding. Laboratory Results WBC 6.0 10^3/uL (4.0-10.0) 09/12/21 19:13 RBC 3.74 10^6/uL (4.1-5.3) L 09/12/21 19:13 Hgb 12.2 g/dL (11.7-16.6) 09/12/21 19:13 Hct 34.2 % (42.0-52.0) L 09/12/21 19:13 MCV 91.4 fl (80-94) 09/12/21 19:13 MCH 32.6 pg (28.0-34.0) 09/12/21 19:13 MCHC 35.7 g/dL (30.0-36.0) 09/12/21 19:13 RDW 12.8 % (12.1-15.1) 09/12/21 19:13 Plt Count 264 10^3/cmm (130-400) 09/12/21 19:13 MPV 9.6 fL (7.4-10.4) 09/12/21 19:13 Neut % (Auto) 55.8 % 09/12/21 19:13 Lymph % (Auto) 33.3 % 09/12/21 19:13 Eagle % (Auto) 9.2 % 09/12/21 19:13 Eos % (Auto) 1.0 % 09/12/21 19:13 Baso % (Auto) 0.5 % 09/12/21 19:13 Neut # (Auto) 3.35 10^3/uL (1.8-7.7) 09/12/21 19:13 Lymph # (Auto) 2.0 10^3/uL (0.8-4.8) 09/12/21 19:13 Eagle # (Auto) 0.6 10^3/uL (0.2-0.9) 09/12/21 19:13 Eos # (Auto) 0.1 10^3/uL (0.0-0.8) 09/12/21 19:13 Baso # (Auto) 0.0 10^3/uL (0.0-0.1) 09/12/21 19:13 Nucleated RBC % (auto) 0 % 09/12/21 19:13 Nucleated RBCs # 0.0 /100WBC 09/12/21 19:13 Sodium 126 mmol/L (136-145) L 09/12/21 19:13 Potassium 4.2 mmol/L (3.5-5.1) 09/12/21 19:13 Chloride 91 mmol/L (98-107) L 09/12/21 19:13 Carbon Dioxide 25 mmol/L (22-29) 09/12/21 19:13 Anion Gap 14.2 (5-19) 09/12/21 19:13 BUN 15 mg/dL (8-23) 09/12/21 19:13 Creatinine 1.4 mg/dL (0.7-1.2) H 09/12/21 19:13 GFR Calculation Not Reportable 09/12/21 19:13 Glucose 92 mg/dL (65-115) 09/12/21 19:13 Calculated Osmolality 262 mOsm/kg (285-295) L 09/12/21 19:13 Calcium 8.9 mg/dL (8.5-10.5) 09/12/21 19:13 Total Bilirubin 0.3 mg/dL (0.15-1.2) 09/12/21 19:13 AST 15 U/L (0-40) 09/12/21 19:13 ALT 11 U/L (0-41) 09/12/21 19:13 Alkaline Phosphatase 59 IU/L (40-130) 09/12/21 19:13 Troponin T Baseline 14 ng/L (0-15) 09/12/21 19:13 NT-Pro-B Natriuret Pep 884 pg/mL (0-450) H 09/12/21 19:13 Total Protein 6.9 g/dL (6.6-8.7) 09/12/21 19:13 Albumin 4.1 g/dL (3.5-5.2) 09/12/21 19:13 Globulin 2.8 g/dL (1.3-4.6) 09/12/21 19:13 EKG Data EKG 1: I personally reviewed and interpreted this EKG as follows: EKG interpretation date: 09/12/21 EKG interpretation time: 19:05 Interpretation: sinus carlos hr [address] or t wave abnormalities qrs 90 qtc 401 Computer generated interpretation: Chest X-Ray 09/12/21 18:58 IMPRESSION: No acute finding. Discharge Plan Discharge Patient Disposition: Admitted As Inpatient Clinical Impression: Syncope, Bradycardia, Hyponatremia Condition: Stable Coding Level of Care Code ED Amusement [employer]creation Card Checker for Chg Fwd Exam Comprehensive
[2021-09-12 19:29] LABS: Basophils % 0.5 %; Eosinophils # 0.1 10^3/uL (0.0-0.8); Hematocrit 34.2 % (42.0-52.0); Hemoglobin 12.2 g/dL (11.7-16.6); Lymphocytes % 33.3 %; Mean Corpuscular HGB Conc 35.7 g/dL (30.0-36.0); Mean Corpuscular Hemoglobin 32.6 pg (28.0-34.0); Mean Corpuscular Volume 91.4 fl (80-94); Mean Platelet Volume 9.6 fL (7.4-10.4); Monocytes # 0.6 10^3/uL (0.2-0.9); Monocytes % 9.2 %; Neutrophils # 3.35 10^3/uL (1.8-7.7); Neutrophils % 55.8 %; Nucleated Red Blood Cells % 0 %; Platelet Count 264 10^3/cmm (130-400); Red Blood Count 3.74 10^6/uL (4.1-5.3); Red Cell Distribution Width 12.8 % (12.1-15.1)
[2021-09-12 20:03] LABS: Troponin(5th) Baseline 14 ng/L (0-15)
[2021-09-12 20:08] LABS: Alanine Aminotransferase 11 U/L (0-41); Albumin Level 4.1 g/dL (3.5-5.2); Alkaline Phosphatase 59 IU/L (40-130); Anion Gap 14.2 (5-19); Aspartate Amino Transferase 15 U/L (0-40); Blood Urea Nitrogen 15 mg/dL (8-23); Calcium 8.9 mg/dL (8.5-10.5); Carbon Dioxide 25 mmol/L (22-29); Chloride 91 mmol/L (98-107); Globulin 2.8 g/dL (1.3-4.6); Glucose 92 mg/dL (65-115); NT Pro B Type Natriuretic Pept 884 pg/mL (0-450); Osmolality Calculated 262 mOsm/kg (285-295); Potassium 4.2 mmol/L (3.5-5.1); Sodium 126 mmol/L (136-145); Total Bilirubin 0.3 mg/dL (0.15-1.2); Total Protein 6.9 g/dL (6.6-8.7)
--- NOTE | 2021-09-12 20:58 | ECG_ITS ---
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 Measurements Intervals Raymond Rate: 46 P: 62 VT: 221 QRS: -1 QRSD: 94 T: 67 QT: 467 QTc: 408 Interpretive Statements SINUS BRADYCARDIA WITH FIRST DEGREE AV BLOCK Compared to ECG 09/12/2021 19:05:49 No significant changes Electronically Signed On 09-12-2021 23:26:04 CDT by Zach Hamilton M.D. [email or web address] va medical [email or web address]'s hospital of columbus.ipvive/store/OM/[id number]
[2021-09-12 21:14] LABS: Troponin 5 2HR 12.48 ng/L (0-15)
[2021-09-12 21:25] LABS: Troponin 5 2HR Delta -1.52 ABS# (0-10)
--- NOTE | 2021-09-12 23:15 | PM.HP ---
Providers/Chief Complaint Admitting Physician: Liseth Haque MD Primary Care Provider: GILLIAN Peters Chief Complaint: Low B/P History of Present Illness Camilo Zuniga is a 76 year old male who was brought to the emergency room today by his daughter and his with chief complaints of recurrent syncope that has been happening over the past 1 week. Episodes are described as passing out when patient goes from being completely normal to excessively somnolent all of a sudden, slumps over, has had his dentures fall out of his mouth several times, lasts for about 5 minutes at a time. No tonic-clonic movements or no postictal complaints after any of these episodes. Symptoms have happened with a frequency of at least 3-4 times over the past week, estimates may have been more frequent, perhaps missed at nighttime. No clear precipitant identified for the symptoms. Patient complains of mild chest discomfort during some of these episodes, however denies any palpitations, dyspnea. On 1 such episode 1 week ago, he was noted to be hypotensive with systolic blood pressure in the 50s to 60s and also bradycardic in the 40s. He has a history of CHF, CAD for which she had a stent placed several years ago in [place]. He is also on Lasix which has recently been discontinued 1 week ago due to findings of hyponatremia and possible dehydration when evaluated by primary care provider a week ago. Recent history is significant for acute psychotic episode in early July 2021 for which he had presented to the emergency room and transferred thereafter to a [facility] facility in [place]. It appears that the episode was attributed to a combination of topiramate and unknown drug use. Per his family, one of his family members had recently brought him medical marijuana for restless legs , however later it was suspected that the cigarettes were additionally laced with K2. Since his admission in July, he has been taken off of topiramate, divalproex has been reduced to once a day. He was additionally prescribed an antipsychotic, however family is uncertain of the name at this point. They will bring the records in the morning. He followed up with his primary care provider 1 week ago and was noted to have hyponatremia(sodium not known at this time), hyperkalemia. His medications were adjusted and he was taken off Lasix. Temazepam was additionally added which helped with his sleep. Since cutting back on divalproex, his mental status is much improved per the family. At this present time he is alert awake oriented , at his baseline. Hyponatremia was attributed to dehydration and patient was advised to drink plenty of water. Family estimates he is drinking about 6 L of free well water a day. He did take additional sodium chloride tablets 1 week ago for 3 days and then discontinued the same. Sodium today is noted again to be low at 126. Other past history is notable for CKD stage III, baseline creatinine between 1.4-1.6. He has longstanding urinary incontinence since prostate surgery 14 years ago. Topiramate was additionally prescribed several years ago for a diagnosis of suspected bipolar personality disorder. He has CAD CHF as stated above, has not had an echocardiogram in at least 3 to 4 years. Also notable history of CEA on the right side and multiple mini strokes . CT head taken 1 month ago showed moderate small vessel changes and chronic lacunar infarcts in bilateral basal ganglia. Mental status is currently back to baseline, much improved since 1 month ago. No recent history of fever, chills, abdominal pain, nausea or vomiting. Had diarrhea 2 days ago which is now resolved. Has a history of chronic cough, suspected to be related to COPD. Family has needed to use prn oxygen at home, with noted oxygen levels down to 67% on some occasions. has noted bilateral lower extremity swelling since stopping the Lasix. Review of Systems General: Reports: 10 or more systems reviewed and unremarkable except in HPI and below Const: Denies: fever(s), chills or body aches Eyes: Denies: change in vision, blurry vision or photophobia ENMT: Reports: hoarseness; Denies: throat pain, enlarged tonsils, odynophagia or nasal congestion Card: Denies: chest pain, palpitations, irregular heart rhythm, edema, swelling of feet/ankles, lightheadedness, pre-syncope, dyspnea on exertion or orthopnea Resp: Denies: dyspnea, productive cough, non-productive cough, wheezing, stridor, pain on inspiration, change in phlegm color, hemoptysis or chest congestion GI: Denies: abdominal pain, nausea, vomiting, hematemesis, coffee ground emesis, dysphagia, heartburn, diarrhea, constipation, GI cramping, change in stool character, hematochezia or melena : Denies: flank pain, dysuria, urinary frequency, urinary urgency, urinary hesitancy or hematuria Musc: Denies: neck pain, back pain, extremity pain, joint swelling, joint warmth or deformity Neuro: Denies: headache(s), numbness in extremities, weakness in extremities, sensory changes, difficulty walking, frequent falls, dizziness, vertigo, behavioral changes, Slurred speech present or seizure-like activity Psych: Denies: anxiety, depression, suicidal ideation or homicidal ideation Endo: Denies: polyuria, polydipsia, tired all the time, cold intolerance or hot flashes Steve/Lymph: Denies: easy bruising or easy bleeding Medications/Allergies Home Medications Medication Instructions Recorded Confirmed Last Taken Type carvedilol 6.25 mg tablet (Coreg) 6.25 mg PO BID 08/04/19 07/22/21 07/21/21 History clopidogrel 75 mg tablet 75 mg PO QAM 08/04/19 07/22/21 07/21/21 History divalproex 250 mg tablet,delayed 250 mg PO QAM tab 08/04/19 07/22/21 07/21/21 History release losartan 50 mg tablet 50 mg PO BEDTIME 08/04/19 07/22/21 07/21/21 History ropinirole 1 mg tablet 1 mg PO BEDTIME 08/04/19 07/22/21 07/21/21 History topiramate 25 mg tablet 25 mg PO BID 08/04/19 07/22/21 07/21/21 History docusate sodium 100 mg capsule 100 mg PO QAM 08/06/19 07/22/21 07/21/21 History (Colace) albuterol sulfate 90 mcg/actuation 2 puff INHALATION Q6H PRN 07/22/21 07/22/21 Unknown History aerosol inhaler cyanocobalamin (vitamin B-12) 1,000 mcg IM Q30D 07/22/21 07/22/21 Unknown History 1,000 mcg/mL injection solution furosemide 20 mg tablet 20 mg PO DAILY PRN 07/22/21 07/22/21 Unknown History hydralazine 10 mg tablet 10 mg PO BID 07/22/21 07/22/21 07/21/21 History isosorbide mononitrate 30 mg 30 mg PO QAM 07/22/21 07/22/21 07/21/21 History tablet,extended release 24 hr lgurhbhr-ohfqfjla-pthxz acid 400 1 tab PO DAILY 07/22/21 07/22/21 07/21/21 History mcg-vit K 20 mcg-lycop 300 mcg tablet (Men's Multivitamin) pantoprazole 40 mg tablet,delayed 40 mg PO QAM 07/22/21 07/22/21 07/21/21 History release prazosin 1 mg capsule 1 mg PO BEDTIME 07/22/21 07/22/21 07/18/21 History pts daughter stopped Allergies Allergy/AdvReac Type Severity Reaction Status Date / Time No Known Allergies Allergy Verified 07/22/21 11:47 Additional Medication Information Above medication list is currently not confirmed, family will bring in most recent medication list tomorrow morning PFSH Acute PFSH: Medical History (Updated 09/12/21 @ 23:36 by Liseth Haque MD) Benign essential HTN Cancer of prostate Combined hyperlipidemia Intervertebral disc disorder with radiculopathy of lumbosacral region Pernicious anemia Psychiatric care Surgical History (Updated 09/12/21 @ 23:36 by Liseth Haque MD) History of heart artery stent Hx of heart surgery Family History Father Lung disease Mother Chronic kidney disease (CKD) Hypertension Social History Smoking and tobacco status: former smoker Alcohol intake: never Household members: spouse Marital status: Current occupational status: retired History of recent travel: No Other PFSH information: Supplemental PFSH Information: Patient has a history of coronary artery disease, stents placed several years ago, CHF, restless leg syndrome, remote history of hepatitis, uncertain at this time if it was hepatitis B or C, history of carotid endarterectomy on the right side, possible COPD, CVA, CKD stage III Vitals/I&O/Wt Last Vital Signs Temp 98.5 F 09/12/21 18:47 Pulse 45 L 09/12/21 21:00 Resp 16 09/12/21 21:00 BP 159/76 09/12/21 21:00 Pulse Ox 99 09/12/21 21:00 Weight last 48 hrs Weight 63.503 kg Physical Exam Narrative: GEN: Awake, alert and oriented, no acute distress, lying comfortably in bed HEENT: PERRLA, EOMI Chest: Anterior chest wall small lipoma versus fibroma approximately 3 x 3 cm in size noted just below the left shoulder. CVS: S1S2 N RS: CTA B/L Abd: Soft, nt/nd , bs+, no hepatosplenomegaly WEED CONTROLLER: no grossfocal neuro motordeficits, moves all extremities in bed, no facial asymmetry Extremities: Minimal bilateral pitting edema Data : 09/12/21 19:13 09/12/21 19:13 Other Labs: Radiology Impressions Chest X-Ray 09/12/21 18:58 IMPRESSION: No acute finding. Laboratory Results WBC 6.0 10^3/uL (4.0-10.0) 09/12/21 19:13 RBC 3.74 10^6/uL (4.1-5.3) L 09/12/21 19:13 Hgb 12.2 g/dL (11.7-16.6) 09/12/21 19:13 Hct 34.2 % (42.0-52.0) L 09/12/21 19:13 MCV 91.4 fl (80-94) 09/12/21 19:13 MCH 32.6 pg (28.0-34.0) 09/12/21 19:13 MCHC 35.7 g/dL (30.0-36.0) 09/12/21 19:13 RDW 12.8 % (12.1-15.1) 09/12/21 19:13 Plt Count 264 10^3/cmm (130-400) 09/12/21 19:13 MPV 9.6 fL (7.4-10.4) 09/12/21 19:13 Neut % (Auto) 55.8 % 09/12/21 19:13 Lymph % (Auto) 33.3 % 09/12/21 19:13 Gates % (Auto) 9.2 % 09/12/21 19:13 Eos % (Auto) 1.0 % 09/12/21 19:13 Baso % (Auto) 0.5 % 09/12/21 19:13 Neut # (Auto) 3.35 10^3/uL (1.8-7.7) 09/12/21 19:13 Lymph # (Auto) 2.0 10^3/uL (0.8-4.8) 09/12/21 19:13 Gates # (Auto) 0.6 10^3/uL (0.2-0.9) 09/12/21 19:13 Eos # (Auto) 0.1 10^3/uL (0.0-0.8) 09/12/21 19:13 Baso # (Auto) 0.0 10^3/uL (0.0-0.1) 09/12/21 19:13 Nucleated RBC % (auto) 0 % 09/12/21 19:13 Nucleated RBCs # 0.0 /100WBC 09/12/21 19:13 Sodium 126 mmol/L (136-145) L 09/12/21 19:13 Potassium 4.2 mmol/L (3.5-5.1) 09/12/21 19:13 Chloride 91 mmol/L (98-107) L 09/12/21 19:13 Carbon Dioxide 25 mmol/L (22-29) 09/12/21 19:13 Anion Gap 14.2 (5-19) 09/12/21 19:13 BUN 15 mg/dL (8-23) 09/12/21 19:13 Creatinine 1.4 mg/dL (0.7-1.2) H 09/12/21 19:13 GFR Calculation Not Reportable 09/12/21 19:13 Glucose 92 mg/dL (65-115) 09/12/21 19:13 Calculated Osmolality 262 mOsm/kg (285-295) L 09/12/21 19:13 Calcium 8.9 mg/dL (8.5-10.5) 09/12/21 19:13 Total Bilirubin 0.3 mg/dL (0.15-1.2) 09/12/21 19:13 AST 15 U/L (0-40) 09/12/21 19:13 ALT 11 U/L (0-41) 09/12/21 19:13 Alkaline Phosphatase 59 IU/L (40-130) 09/12/21 19:13 Troponin T Baseline 14 ng/L (0-15) 09/12/21 19:13 Troponin T 120 Minute 12.48 ng/L (0-15) 09/12/21 20:40 Delta Troponin T -1.52 ABS# (0-10) L 09/12/21 20:40 NT-Pro-B Natriuret Pep 884 pg/mL (0-450) H 09/12/21 19:13 Total Protein 6.9 g/dL (6.6-8.7) 09/12/21 19:13 Albumin 4.1 g/dL (3.5-5.2) 09/12/21 19:13 Globulin 2.8 g/dL (1.3-4.6) 09/12/21 19:13 A&P Assessment and plan (1) Syncope: Recurrent syncope over the past week. Cause currently under evaluation. Possibilities include related to bradycardia as noted on EKG today. At the time of exam patient is noted to have sinus bradycardia on telemetry with heart rate ranging between 46 to 58 bpm. EKG today is without any acute ST-T wave changes. Baseline troponin and 2-hour delta negative for ACS. Denies current chest pain. Check echocardiogram. Patient has a past medical history of coronary artery disease and some regional wall motion abnormalities per daughter's history, however findings of last echocardiogram are not available at this time. Past history additionally of carotid endarterectomy, will check carotid bilateral ultrasound today Overnight telemetry monitoring. Reported episode of hypotension and bradycardia 1 week ago, will hold hydralazine for now. Blood pressure currently ranging between 1 40-1 60 systolic. Continuing losartan and Imdur. Check orthostatics. Per family patient's mentation is currently back to normal after having had an acute psychotic episode 1 month ago, thought to be related to illicit substances in combination with topiramate. The latter has since been discontinued. Patient's hyponatremia with sodium levels of 126 may be contributing, however appears less likely given that family reports overall gross improvement with regards to mental status. History of hypoxia at home with O2 sats down to 67%, thought to be related to undiagnosed COPD. Patient does have a chronic cough, not recently worsened. Chest x-ray is clear. At this present time patient is saturating between 94 to 98% on room air at rest. Past history of hepatitis B versus C, will check serology and ammonia levels. LFTS within range Status: Acute (2) Bradycardia: May be related to carvedilol, will hold the same for now and monitor patient closely on telemetry. echocardiogram as above. Status: Acute (3) Hyponatremia: Hypotonic hyponatremia on labs with serum osmolality 262, sodium 126. Check urine lytes Per history, evaluated by PCP 1 week ago at which point sodium was also noted to be low, however unknown number at this time. It was thought to be related to dehydration. Alternate possibilities include SIADH related to recent changes in psych medications versus excessive free water consumption to the tune of 6 L/d. Has a history of CHF, however not grossly fluid overloaded at this time. Fluid restriction to 1.5L /day Repeat CMP with am labs Status: Acute Plan # CAD: continue Plavix # h/o COPD: Continue albuterol prn , no signs of exacerbation currently # recent acute psychosis, resolved. # CHF, unknown if systolic or diastolic, f/up echocardiogram. # CKD III, cr currently at baseline. Attestations Medical Necessity Statement*: Anticipate >2midnight admission for evaluation of recurrent syncope, hyponatremia and bradycardia. Coding Level of Care Code Acute Director Of Personnel for Jennifer Lopez Diagnoses Syncope R55 Bradycardia R00.1 Hyponatremia E87.1
[2021-09-12 23:41] LABS: Potassium, Radom Urine 7 mmol/L; Urine Random Sodium 23 mmol/L
[2021-09-12 23:42] LABS: Urine Random Chloride 16 mmol/L
[2021-09-13] VITALS (13 sets, daily range): BP systolic 103–175; BP diastolic 49–88; PULSE 46–91; RESP 16–18; TEMP 36.4–37; O2SAT 94–99
--- NOTE | 2021-09-13 00:10 | USCV_ITS ---
Camilo Zuniga Age: 76 Gender: M : 1945 Exam Date: 09/13/2021 02:12 Ordering Phys: Liseth Haque MD Technologist: DOMINIQUE [place] [facility] [place]: recurrent syncope. No hx cardiac intervention per patient. BP: 175 / 88 HR: 46 Rhythm: Sinus bradycardia Technical Quality: Adequate MEASUREMENTS (Male / Female) Normal Values 2D ECHO LV Diastolic Diameter PLAX 4.0 cm 4.2 - 5.9 / 3.9 - 5.3 cm LV Systolic Diameter PLAX 2.6 cm IVS Diastolic Thickness 1.3 cm 0.6 - 1.0 / 0.6 - 0.9 cm IVS Systolic Thickness 1.9 cm LVPW Diastolic Thickness 1.1 cm 0.6 - 1.0 / 0.6 - 0.9 cm LVPW Systolic Thickness 1.6 cm LVOT Diameter 2.1 cm LV Ejection Fraction 2D Teich 63.8 % LV Ejection Fraction MOD 2C 68.4 % LV Ejection Fraction 2C AL 68.5 % LA Diameter 4.0 cm LA Width 3.4 cm LA Height 4.7 cm RA Width 3.3 cm RA Height 4.7 cm Aorta at Sinotubular Diameter 3.1 cm IVC Diameter 1.5 cm M-MODE Aortic Annulus Diameter 3.3 cm LA Ao Ratio MM 1.2 MV E Point Septal Separation 0.4 cm DOPPLER AV Peak Velocity 97.0 cm/s LVOT Peak Velocity 95.0 cm/s AV Area Cont Eq vti 3.2 cm squared AV Area Cont Eq pk 3.3 cm squared MV Peak Velocity 110.0 cm/s MV Area PHT 5.0 cm squared Mitral E to A Ratio 0.8 MV E' Velocity 39.5 cm/s Mitral E to MV E' Ratio 9.6 Mitral E to LV E' Lateral Ratio 10.9 Mitral E to LV E' Septal Ratio 8.6 TR Peak Velocity 240.8 cm/s TR Peak Gradient 23.2 mmHg TV Peak E Velocity 50.0 cm/s Right Atrial Pressure 5.0 mmHg Pulmonary Artery Systolic Pressu 28.2 mmHg PV Peak Velocity 116.0 cm/s FINDINGS Left Ventricle Normal left ventricular size and systolic function, EF 68 %. No regional wall motion abnormalities. Mild left ventricular hypertrophy. Grade I/IV diastolic dysfunction (abnormal relaxation filling pattern), normal to mildly elevated filling pressures. Right Ventricle The right ventricle is normal in size and function. Right Atrium The right atrium is normal in size. Left Atrium The left atrium is normal in size. Mitral Valve Trace mitral valve regurgitation. Aortic Valve Thickened aortic valve. Tricuspid Valve Trace tricuspid valve regurgitation. Pulmonic Valve No gross abnormalities noted Pericardium Normal pericardium without effusion. Aorta Normal ascending aorta dimension. IVC Normal IVC dimension with >50% respiratory change of the inferior vena cava. CONCLUSIONS Normal left ventricular size and systolic function, EF 68 %. No regional wall motion abnormalities. Mild left ventricular hypertrophy. Grade I/IV diastolic dysfunction (abnormal relaxation filling pattern), normal to mildly elevated filling pressures. Trace mitral valve regurgitation. Trace tricuspid valve regurgitation. Estimated pulmonary artery peak systolic pressure 28 mmHg. There is no pericardial effusion. There are no intracardiac masses. No similar previous studies are available for comparison Dr Holly Lora MD FAC (Electronically Signed) Final Date: 13 September 2021 07:46 S
--- NOTE | 2021-09-13 00:10 | USCV_ITS ---
Camilo Zuniga Age: 76 Gender: M : 1945 Exam Date: 09/13/2021 01:36 Ordering Phys: Liseth Hqaue MD Technologist: DOMINIQUE [place]am Location[place] [facility] [place]ication: RECURENT SYNCOPE Risk Factors: Previous Vascular Surgery: Right Brachial BP: / Left Brachial BP: / Right Left Velocity (cm/s) Spectral Plaque Velocity (cm/s) Spectral Plaque Syst/Diast Broadening Syst/Diast Broadening 63.90/ 15.40 Prox CCA 78.90 / 22.30 60.60/ 12.10 Mid CCA 77.60 / 21.00 55.90/ 14.00 Distal CCA 65.70 / 17.10 122.30/27.60 Prox ICA 133.10/ 32.40 129.10/28.40 Mid ICA 131.30/ 30.60 71.70/ 22.10 Distal ICA 116.90/ 43.20 56.70 ECA 65.70 2.02 ICA/CCA 1.69 Antegrade Vertebral Antegrade / cm/s / cm/s Tri Subclavian Tri FINDINGS Comparison: none available. No significant elevation of systolic or diastolic velocities. Mild plaque in the bifurcations. Antegrade vertebral arteries. CONCLUSIONS Bilateral ICA stenosis less than 50%. Mild carotid atherosclerosis. Dr. Sana Hernandez DO (Electronically Signed) Final Date: 14 September 2021 09:47 S
[2021-09-13] MEDS: temazepam 15 mg Capsule PO ×2 (00:36→21:00)
[2021-09-13 00:48] LABS: Ammonia 15 umol/L (16-60)
--- NOTE | 2021-09-13 00:58 | ECG_ITS ---
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 Measurements Intervals Angela Rate: 47 P: 66 VT: 218 QRS: -33 QRSD: 96 T: 78 QT: 460 QTc: 408 Interpretive Statements SINUS BRADYCARDIA WITH FIRST DEGREE AV BLOCK LEFT AXIS DEVIATION [QRS AXIS < -30] POSSIBLE RIGHT VENTRICULAR CONDUCTION DELAY [RSR (QR) IN V1/V2] SEPTAL MYOCARDIAL INFARCTION , OF INDETERMINATE AGE [40+ ms Q WAVE IN V1/V2] Compared to ECG 09/12/2021 20:58:34 Left-axis deviation now present Myocardial infarct finding now present Electronically Signed On 09-13-2021 20:10:19 CDT by Holly Lora M.D. [id number]
[2021-09-13 02:46] LABS: Basophils % 0.5 %; Eosinophils # 0.1 10^3/uL (0.0-0.8); Eosinophils % 1.3 %; Hematocrit 32.4 % (42.0-52.0); Hemoglobin 11.5 g/dL (11.7-16.6); Lymphocytes # 1.8 10^3/uL (0.8-4.8); Lymphocytes % 29.1 %; Mean Corpuscular HGB Conc 35.5 g/dL (30.0-36.0); Mean Corpuscular Hemoglobin 32.2 pg (28.0-34.0); Mean Corpuscular Volume 90.8 fl (80-94); Mean Platelet Volume 9.9 fL (7.4-10.4); Monocytes # 0.6 10^3/uL (0.2-0.9); Monocytes % 10.6 %; Neutrophils % 58.3 %; Nucleated Red Blood Cells % 0 %; Platelet Count 247 10^3/cmm (130-400); Red Blood Count 3.57 10^6/uL (4.1-5.3); Red Cell Distribution Width 12.5 % (12.1-15.1)
[2021-09-13 03:17] LABS: Troponin 5 6HR 15.06 ng/L (0-15)
[2021-09-13 03:19] LABS: Troponin 5 6HR Delta 1.06 ng/L (0-12)
[2021-09-13 03:20] LABS: Thyroid Stimulating Hormone 2.45 uIU/mL (0.27-4.20)
[2021-09-13 03:26] LABS: Cortisol Random 7.64 ug/dL (2.47-19.5)
[2021-09-13 03:32] LABS: Hepatitis A Antibody IgM Non-Reactive (Nonreactive); Hepatitis B Core AB, Total Reactive (Nonreactive); Hepatitis B Surface AB 516.6 (11.5-1000); Hepatitis B Surface Antigen Non-Reactive (Nonreactive); Hepatitis C Virus Antibody Non-Reactive (Nonreactive)
[2021-09-13 05:52] LABS: Alanine Aminotransferase 10 U/L (0-41); Albumin Level 3.9 g/dL (3.5-5.2); Alkaline Phosphatase 52 IU/L (40-130); Anion Gap 13.1 (5-19); Aspartate Amino Transferase 13 U/L (0-40); Blood Urea Nitrogen 14 mg/dL (8-23); Calcium 8.8 mg/dL (8.5-10.5); Carbon Dioxide 26 mmol/L (22-29); Chloride 96 mmol/L (98-107); Globulin 2.6 g/dL (1.3-4.6); Glucose 86 mg/dL (65-115); Osmolality Calculated 272 mOsm/kg (285-295); Potassium 4.1 mmol/L (3.5-5.1); Sodium 131 mmol/L (136-145); Total Bilirubin 0.4 mg/dL (0.15-1.2); Total Protein 6.5 g/dL (6.6-8.7)
[2021-09-13] MEDS: docusate sodium 100 mg Capsule PO (06:13)
[2021-09-13] MEDS: enoxaparin 30 mg/0.3 mL Syringe SUBCUT (06:13)
[2021-09-13] MEDS: clopidogrel 75 mg Tablet PO (06:13)
[2021-09-13] MEDS: isosorbide mononitrate ER 30 mg Tablet PO (06:13)
[2021-09-13] MEDS: pantoprazole DR 40 mg Tablet PO (09:17)
--- NOTE | 2021-09-13 11:54 | PC.CHAP ---
Pastoral Care Encounter/Spiritual Assessment Type of Contact [] Declined roll grinder visit [] Patient/Family/Request visit [] Outpatient visit [] Follow-up visit [] Physician referral [] Code/Alert [x] Routine visit [] Staff referral [] Actively dying [] Patient sleeping [] Family support [] [] Out of room [] Palliative care [] [] Receiving care in room [] Pre-surgical visit [] Trauma [] Long length of stay [] ICU visit [] Other: Relational/Emotional Strength [x] Patient feels connected with others/family/visitors/staff [] Distress [] Loneliness/isolation [] Abandonment Spirituality of Patient [x] Person of Linh [] Attends Jehovah[employer] Witness of their Lin[place] [x] Believes in Prayer [] Reads Bible or Pentecostalism materials [] There are Spiritual issues to be addressed 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 Interventions [x] Prayer [x] Active listening [x] Non-anxious presence [x] Spiritual/emotional support [] Crisis/trauma care [] Spiritual counseling [] Bereavement support [] Provided bereavement packet [] Provided Bible/devotional materials [] Provided toy/stuffed animal, coloring book to patient or family member [] Provided Communion [] Anointing/Protem [] Salvation [x] Completed spiritual assessment [] Other: Impact on Illness or Injury [] Angry [] Fearful [] Anxious [] Often cries [] Exhaustion [] Unable to work [] Unable to attend voodoo [] Unable to walk/stand [] Unable to read [] Unable to drive [] Unable to eat/drink [] Unable to sleep [] Unable to be with family [] Patient intubated [] Other: Summary Time spent with patient 15 min
--- NOTE | 2021-09-13 17:33 | PC.PHAR ---
pt unable to verify - pt states daughter helps with medications - attempted to call daughter with no response. verified by Laurel Barros
--- NOTE | 2021-09-13 17:55 | P.PN_ITS ---
Subjective Subjective: Patient was examined this morning, nursing staff at bedside, patient is alert oriented x3, follows all commands, is able to stand on his own, his orthostats systolic blood pressures dropped about 10 points when he stands up, but no lightheadedness, dizziness, he tells me that he thinks it is all the psychotropic medications he has been on has been causing his lightheadedness, his passing out episodes, and his low heart rate -He tells me that the reason he was started on psychotropic medications, was because he was going through a personal rediscover he -He tells me that he believes in the [employer] [place] and there fire dance, he tells me that he attempted as fire ants, but was too physically grueling -So he has been trying to rediscover himself through different stoics and classical fingers, trying to achieve enlightenment, and trying to discover himself, he has been trying to discover peace within himself -He denies any suicidal ideation, no homicidal ideation, denies seeing or hearing things are not there -Currently he denies any lightheadedness, no dizziness, no nausea, no vomiting Vitals/I&O/Wt Last Vital Signs Temp 98.3 F 09/13/21 16:00 Pulse 52 L 09/13/21 16:00 Resp 16 09/13/21 16:00 BP 126/88 09/13/21 16:00 Pulse Ox 96 09/13/21 16:00 09/13/21 09/13/21 09/13/21 06:59 14:59 22:59 Intake Total 480 / 480 360 / 360 Output Total 1100 / 1100 Balance -620 / -620 360 / 360 Weight last 48 hrs Weight 63.503 kg Weight 63.049 kg Weight 63.503 kg Physical Exam Const: COMMON NORMALS: no acute distress and patient oriented x3 Resp: COMMON NORMALS: normal respiratory effort, No retractions, No use of accessory muscles and clear to auscultation bilaterally AUSCULTATION: clear to auscultation bilaterally Cardio: COMMON NORMALS: regular rate, regular rhythm, S1 normal heart sound present and S2 normal heart sound present RATE: regular rate RHYTHM: regular rhythm HEART SOUNDS: S1 normal heart sound present and S2 normal heart sound present GI: COMMON NORMALS: Normal to inspection, nondistended, normoactive bowel sounds present, Soft to palpation, non-tender and No hepatosplenomegaly present PALPATION: Yes Soft to palpation and Yes No hepatosplenomegaly present Extremity: COMMON NORMALS: no pedal edema Neuro: COMMON NORMALS: patient oriented x3, CN's II-XII intact bilaterally, moves all extremities and no focal motor deficits Psych: ATTITUDE: Yes calm SPEECH: Yes excessive and Yes rapid MOOD & AFFECT: Yes euthymic mood THOUGHT PROCESS: disorganized THOUGHT CONTENT: No Suicidality present, No Homicidality present, No delusions and No Hallucination(s) present Data : 09/13/21 01:45 09/13/21 04:56 A&P Assessment and plan (1) Syncope: Recurrent syncope over the past week. Cause currently under evaluation. Possibilities include related to bradycardia as noted on EKG today. At the time of exam patient is noted to have sinus bradycardia on telemetry with heart rate ranging between 46 to 58 bpm. EKG today is without any acute ST-T wave changes. Baseline troponin and 2-hour delta negative for ACS. Denies current chest pain. Check echocardiogram. Patient has a past medical history of coronary artery disease and some regional wall motion abnormalities per daughter's history, however findings of last echocardiogram are not available at this time. Past history additionally of carotid endarterectomy, will check carotid bilateral ultrasound today Overnight telemetry monitoring. Reported episode of hypotension and bradycardia 1 week ago, will hold hydralazine for now. Blood pressure currently ranging between 1 40-1 60 systolic. Continuing losartan and Imdur. Check orthostatics. Per family patient's mentation is currently back to normal after having had an acute psychotic episode 1 month ago, thought to be related to illicit substances in combination with topiramate. The latter has since been discontinued. Patient's hyponatremia with sodium levels of 126 may be contributing, however appears less likely given that family reports overall gross improvement with regards to mental status. History of hypoxia at home with O2 sats down to 67%, thought to be related to undiagnosed COPD. Patient does have a chronic cough, not recently worsened. Chest x-ray is clear. At this present time patient is saturating between 94 to 98% on room air at rest. -Will obtain CT of the head, carotid artery ultrasound, cardiac echo, telemetry monitoring -Repeat orthostatic vitals -Likely syncope related to psychotropic medications, polypharmacy Status: Acute (2) Bradycardia: May be related to carvedilol, will hold the same for now and monitor patient closely on telemetry. echocardiogram as above. Status: Acute (3) Hyponatremia: Hypotonic hyponatremia on labs with serum osmolality 262, sodium 131 Check urine lytes Per history, evaluated by PCP 1 week ago at which point sodium was also noted to be low, however unknown number at this time. It was thought to be related to dehydration. Alternate possibilities include SIADH related to recent changes in psych medications versus excessive free water consumption to the tune of 6 L/d. Has a history of CHF, however not grossly fluid overloaded at this time. Fluid restriction to 1.5L /day Repeat CMP with am labs Status: Acute Plan # CAD: continue Plavix # h/o COPD: Continue albuterol prn , no signs of exacerbation currently # recent acute psychosis, resolved. # CHF, unknown if systolic or diastolic, f/up echocardiogram. # CKD III, cr currently at baseline. #History of acute psychosis, does have pressured speech, no suicidal ideation, no homicidal ideation, denies seeing hearing things are not there, his speech does seem pressured, does have grandiose ideas, will have psychiatry come by and see him Attestations Medical Necessity Statement*: Patient requires hospitalization for hyponatremia, bradycardia, syncope Coding Level of Care Code Acute Retrieval Specialist for Jennifer Lopez Diagnoses Syncope R55 Bradycardia R00.1 Hyponatremia E87.1
--- NOTE | 2021-09-13 20:47 | PC.NURSE ---
i reported low pulse 58 to nurse
[2021-09-13] MEDS: prazosin 1 mg Capsule PO (21:00)
[2021-09-13] MEDS: ropinirole 1 mg Tablet PO (21:00)
[2021-09-14] VITALS (7 sets, daily range): BP systolic 119–134; BP diastolic 69–74; PULSE 51–79; RESP 16–18; TEMP 36.6–36.8; O2SAT 94–99
[2021-09-14 04:59] LABS: Basophils % 0.6 %; Eosinophils # 0.1 10^3/uL (0.0-0.8); Eosinophils % 1.5 %; Hemoglobin 11.7 g/dL (11.7-16.6); Lymphocytes # 2.2 10^3/uL (0.8-4.8); Lymphocytes % 31.4 %; Mean Corpuscular HGB Conc 34.4 g/dL (30.0-36.0); Mean Corpuscular Hemoglobin 32.1 pg (28.0-34.0); Mean Corpuscular Volume 93.2 fl (80-94); Mean Platelet Volume 9.9 fL (7.4-10.4); Monocytes # 0.7 10^3/uL (0.2-0.9); Monocytes % 10.6 %; Neutrophils # 3.83 10^3/uL (1.8-7.7); Neutrophils % 55.6 %; Nucleated Red Blood Cells % 0 %; Platelet Count 251 10^3/cmm (130-400); Red Blood Count 3.65 10^6/uL (4.1-5.3); White Blood Count 6.9 10^3/uL (4.0-10.0)
[2021-09-14 05:16] LABS: Alanine Aminotransferase 9 U/L (0-41); Albumin Level 3.7 g/dL (3.5-5.2); Alkaline Phosphatase 53 IU/L (40-130); Anion Gap 13.5 (5-19); Aspartate Amino Transferase 11 U/L (0-40); Blood Urea Nitrogen 24 mg/dL (8-23); Carbon Dioxide 27 mmol/L (22-29); Chloride 97 mmol/L (98-107); Globulin 2.6 g/dL (1.3-4.6); Glucose 90 mg/dL (65-115); Osmolality Calculated 280 mOsm/kg (285-295); Phosphorus 4.1 mg/dL (2.5-4.5); Potassium 4.5 mmol/L (3.5-5.1); Sodium 133 mmol/L (136-145); Total Bilirubin 0.2 mg/dL (0.15-1.2); Total Protein 6.3 g/dL (6.6-8.7)
--- NOTE | 2021-09-14 08:00 | CT_ITS ---
WS: [id number] CT HEAD NONCONTRAST HISTORY: ams TECHNIQUE: Contiguous axial imaging performed through the brain in 2.5 mm imaging. Bone and soft tiss ue windows. Sagittal and coronal reformats reviewed. All CT scans at [facility] use at least one of these dose optimization techniques: automated exposure control; mA and/or kV adjustment per pa tient size (includes targeted exams where dose is matched to clinical indication); or iterative recon struction. DLP: 1507.42 mGy.cm COMPARISON: 07/22/2021 No acute intracranial hemorrhage, midline shift or mass effect. Moderate small vessel ischemic changes and atrophy. Remote lacunar infarcts in the caudate heads. Sma ll lacunar infarcts in the external capsules bilaterally. Ventricles: Normal size with no hydrocephalus. No inferior displacement of cerebellar tonsils. Paranasal sinuses: As visualized are clear. Mastoid air cells: Well pneumatized. Calvarium and scalp: Skull is intact with no soft tissue edema or swelling. CT/CT head wo con* [id number] IMPRESSION: 1. No acute intracranial hemorrhage or edema. 2. Moderate atrophy and small vessel ischemic disease and chronic lacunar infa rcts, stable.
[2021-09-14] MEDS: pantoprazole DR 40 mg Tablet PO (09:55)
[2021-09-14] MEDS: clopidogrel 75 mg Tablet PO (09:55)
[2021-09-14] MEDS: docusate sodium 100 mg Capsule PO (09:55)
[2021-09-14] MEDS: enoxaparin 30 mg/0.3 mL Syringe SUBCUT (09:55)
[2021-09-14] MEDS: isosorbide mononitrate ER 30 mg Tablet PO (09:55)
--- NOTE | 2021-09-14 12:45 | PM.DCS ---
Discharge Providers Date of Admission: 09/12/21 20:35 Date of Discharge: September 14, 2021 Attending Provider at Admission: Liseth Haque MD Attending Provider at Discharge: Maximino Persaud MD Primary Care Provider: GILLIAN Peters Diagnoses at Discharge Discharge Diagnosis (1) Syncope: Status: Acute (2) Bradycardia: Status: Acute (3) Hyponatremia: Status: Acute Reason for Visit Reason for Visit: Low B/P Hospital Course Hospital Course This is a 76-year-old male with a past medical history of prostate cancer status post prostatectomy, history of CAD, history of CHF, history of stent placement, history of CVA, history of TIAs, CKD stage III, history of COPD, recently had a hospitalization at external facility for acute psychosis episode, at a geriatric psychiatric facility, in [place], was started on multiple psychotropic medications. Since then he describes feeling lightheaded, dizzy, presyncopal symptoms, concerns for low sodium, and low heart rate Patient was admitted to [facility] for hyponatremia, presyncope, bradycardia For his hyponatremia, likely a combination of Depakote, Topamax, and losartan. These medications were stopped during his hospitalization, his serum sodiums improved to 133, no repeat episodes of lightheadedness or dizziness. On discharge discontinue these medications. Follow-up with primary care provider for recheck serum sodium in 1 week. For his bradycardia, EKG showed first-degree AV block, he continued to have bradycardia episodes during his hospitalizations, his orthostats were unremarkable, no significant telemetry events. Likely a combination of his carvedilol, and hydralazine which have been stopped. Continue to discontinue on discharge, follow-up with cardiology in 1 week. Patient was advised if he were to have recurrent lightheadedness or dizziness episode, the emergency room. ct head 1.? No acute intracranial hemorrhage or edema. 2.? Moderate atrophy and small vessel ischemic disease and chronic lacunar infarcts, stable carotid artery us Bilateral ICA stenosis less than 50%. ?Mild carotid atherosclerosis. cardiac echo Normal left ventricular size and systolic function, EF 68 %. No ?regional wall motion abnormalities. Mild left ventricular ?hypertrophy. Grade I/IV diastolic dysfunction (abnormal ?relaxation filling pattern), normal to mildly elevated filling ?pressures. ?Trace mitral valve regurgitation. ?Trace tricuspid valve regurgitation. ?Estimated pulmonary artery peak systolic pressure 28 mmHg. ?There is no pericardial effusion. ?There are no intracardiac masses. ?No similar previous studies are available for comparison For his psychotropic medications -He was taking Risperdal but this was stopped roughly 2 weeks ago due to concerns for hyponatremia, presyncope, continue to discontinue on discharge -I have stopped his Topamax, Depakote -Psychiatry evaluated patient, no changes, follow-up with [facility] Physical Exam Const: COMMON NORMALS: no acute distress and patient oriented x3 Neck/C-Spine: COMMON NORMALS: no JVD Resp: COMMON NORMALS: normal respiratory effort, No retractions, No use of accessory muscles and clear to auscultation bilaterally AUSCULTATION: clear to auscultation bilaterally Cardio: COMMON NORMALS: no JVD, regular rhythm, S1 normal heart sound present and S2 normal heart sound present RATE: bradycardic RHYTHM: regular rhythm HEART SOUNDS: S1 normal heart sound present and S2 normal heart sound present GI: COMMON NORMALS: Normal to inspection, nondistended, normoactive bowel sounds present, Soft to palpation, non-tender and No hepatosplenomegaly present PALPATION: Yes Soft to palpation and Yes No hepatosplenomegaly present Extremity: COMMON NORMALS: no pedal edema Neuro: COMMON NORMALS: patient oriented x3 Psych: COMMON NORMALS: mental status grossly normal Discharge Data Studies Completed and Pending Completed Studies During Hospitalization Category Date Time Status CT head wo con* [id number] Routine Cat Scan 09/14/21 08:00 Completed XR chest 1V portable [id number] Stat Exams 09/12/21 18:58 Completed CV carotid duplex BI* [id number] Routine Ultrasound 09/13/21 00:10 Completed CV. echo complete* [id number] Routine Ultrasound 09/13/21 00:10 Completed Pending at discharge Category Date Time Status Complete Blood Count w/Auto AM LABS Lab 09/15/21 04:00 Ordered Complete Blood Count w/Auto AM LABS Lab 09/16/21 04:00 Ordered Comprehensive Metabolic Panel AM LABS Lab 09/15/21 04:00 Ordered Comprehensive Metabolic Panel AM LABS Lab 09/16/21 04:00 Ordered Magnesium AM LABS Lab 09/15/21 04:00 Ordered Magnesium AM LABS Lab 09/16/21 04:00 Ordered Phosphorus AM LABS Lab 09/15/21 04:00 Ordered Phosphorus AM LABS Lab 09/16/21 04:00 Ordered Radiology Impressions Chest X-Ray 09/12/21 18:58 IMPRESSION: No acute finding. Head CT 09/14/21 08:00 IMPRESSION: 1. No acute intracranial hemorrhage or edema. 2. Moderate atrophy and small vessel ischemic disease and chronic lacunar infarcts, stable. Laboratory Results WBC 6.9 10^3/uL (4.0-10.0) 09/14/21 04:09 RBC 3.65 10^6/uL (4.1-5.3) L 09/14/21 04:09 Hgb 11.7 g/dL (11.7-16.6) 09/14/21 04:09 Hct 34.0 % (42.0-52.0) L 09/14/21 04:09 MCV 93.2 fl (80-94) 09/14/21 04:09 MCH 32.1 pg (28.0-34.0) 09/14/21 04:09 MCHC 34.4 g/dL (30.0-36.0) 09/14/21 04:09 RDW 13.0 % (12.1-15.1) 09/14/21 04:09 Plt Count 251 10^3/cmm (130-400) 09/14/21 04:09 MPV 9.9 fL (7.4-10.4) 09/14/21 04:09 Neut % (Auto) 55.6 % 09/14/21 04:09 Lymph % (Auto) 31.4 % 09/14/21 04:09 Menard % (Auto) 10.6 % 09/14/21 04:09 Eos % (Auto) 1.5 % 09/14/21 04:09 Baso % (Auto) 0.6 % 09/14/21 04:09 Neut # (Auto) 3.83 10^3/uL (1.8-7.7) 09/14/21 04:09 Lymph # (Auto) 2.2 10^3/uL (0.8-4.8) 09/14/21 04:09 Menard # (Auto) 0.7 10^3/uL (0.2-0.9) 09/14/21 04:09 Eos # (Auto) 0.1 10^3/uL (0.0-0.8) 09/14/21 04:09 Baso # (Auto) 0.0 10^3/uL (0.0-0.1) 09/14/21 04:09 Nucleated RBC % (auto) 0 % 09/14/21 04:09 Nucleated RBCs # 0.0 /100WBC 09/14/21 04:09 Sodium 133 mmol/L (136-145) L 09/14/21 04:09 Potassium 4.5 mmol/L (3.5-5.1) 09/14/21 04:09 Chloride 97 mmol/L (98-107) L 09/14/21 04:09 Carbon Dioxide 27 mmol/L (22-29) 09/14/21 04:09 Anion Gap 13.5 (5-19) 09/14/21 04:09 BUN 24 mg/dL (8-23) H 09/14/21 04:09 Creatinine 1.5 mg/dL (0.7-1.2) H 09/14/21 04:09 GFR Calculation Not Reportable 09/14/21 04:09 Glucose 90 mg/dL (65-115) 09/14/21 04:09 Calculated Osmolality 280 mOsm/kg (285-295) L 09/14/21 04:09 Calcium 9.0 mg/dL (8.5-10.5) 09/14/21 04:09 Phosphorus 4.1 mg/dL (2.5-4.5) 09/14/21 04:09 Magnesium 2.0 mg/dL (1.7-2.3) 09/14/21 04:09 Total Bilirubin 0.2 mg/dL (0.15-1.2) 09/14/21 04:09 AST 11 U/L (0-40) 09/14/21 04:09 ALT 9 U/L (0-41) 09/14/21 04:09 Alkaline Phosphatase 53 IU/L (40-130) 09/14/21 04:09 Ammonia 15 umol/L (16-60) L 09/12/21 23:35 Troponin T Baseline 14 ng/L (0-15) 09/12/21 19:13 Troponin T 120 Minute 12.48 ng/L (0-15) 09/12/21 20:40 Delta Troponin T -1.52 ABS# (0-10) L 09/12/21 20:40 Troponin T Hi Sens 6Hr 15.06 ng/L (0-15) H 09/13/21 01:45 Troponin T Hi Sens 6Hr Delta 1.06 ng/L (0-12) 09/13/21 01:45 NT-Pro-B Natriuret Pep 884 pg/mL (0-450) H 09/12/21 19:13 Total Protein 6.3 g/dL (6.6-8.7) L 09/14/21 04:09 Albumin 3.7 g/dL (3.5-5.2) 09/14/21 04:09 Globulin 2.6 g/dL (1.3-4.6) 09/14/21 04:09 TSH 2.45 uIU/mL (0.27-4.20) 09/13/21 01:45 TSH Cancelled 09/13/21 01:45 Random Cortisol 7.64 ug/dL (2.47-19.5) 09/13/21 01:45 Ur Random Sodium 23 mmol/L 09/12/21 23:27 Ur Random Potassium 7 mmol/L 09/12/21 23:27 Ur Random Chloride 16 mmol/L 09/12/21 23:27 Hepatitis A IgM Ab Non-reactive (Nonreactive) 09/12/21 01:45 Hep Bs Antigen Non-reactive (Nonreactive) 09/12/21 01:45 Hep Bs Antibody 516.6 (11.5-1000) 09/12/21 01:45 Hep B Core Total Ab Reactive (Nonreactive) H 09/12/21 01:45 Hepatitis C Antibody Non-reactive (Nonreactive) 09/12/21 01:45 Vitals Last Vital Signs Temp 98.1 F 09/14/21 07:59 Pulse 51 L 09/14/21 11:51 Resp 18 09/14/21 11:51 BP 134/73 09/14/21 11:51 Pulse Ox 94 09/14/21 11:51 Discharge Plan Discharge Patient Disposition: Home Condition: Stable Prescriptions: Continued docusate sodium [Colace] 100 mg capsule 100 mg PO QAM 0RF clopidogrel 75 mg tablet 75 mg PO QAM 0RF ropinirole 1 mg tablet 1 mg PO BEDTIME 0RF temazepam 15 mg capsule 15 mg PO BEDTIME 0RF prazosin 1 mg capsule 1 mg PO BEDTIME 0RF pantoprazole 40 mg tablet,delayed release (DR/EC) 40 mg PO QAM 0RF cyanocobalamin (vitamin B-12) 1,000 mcg/mL Solution 1,000 mcg IM Q30D 0RF furosemide 20 mg tablet 20 mg PO DAILY PRN (Reason: Edema) 0RF albuterol sulfate 90 mcg/actuation HFA aerosol inhaler 2 puff INHALATION Q6H PRN (Reason: Shortness Of Breath) 0RF Men's Multivitamin 400-20-300 mcg Tablet 1 tab PO DAILY 0RF Changed isosorbide mononitrate 30 mg tablet extended release 24 hr 15 mg PO QAM Qty: 0 0RF Discontinued carvedilol [Coreg] 6.25 mg tablet 6.25 mg PO BID 0RF Rx Instructions: must administer with a meal/food divalproex 250 mg tablet,delayed release (DR/EC) 250 mg PO QAM 0RF losartan 50 mg tablet 50 mg PO BEDTIME 0RF topiramate 25 mg tablet 25 mg PO DAILY 0RF sodium chloride 1 gram Tablet 1,000 mg PO DAILY 0RF hydralazine 10 mg tablet 10 mg PO BID 0RF Discharge Orders: Discharge Order (Routine); Ordered 09/14/21 Ordered By: Maximino Persaud Referrals: Holly Lora MD [Physician] - 11/09/21 2:15 pm (sinus bradycardia) Joseline Madison FNP [Primary Care Provider] - 09/21/21 10:15 am Discharge Diet: Cardiac Discharge Activity: Resume usual activity Patient Instructions: Bradycardia, Syncope, Hyponatremia, Opioid Safety Activity Restrictions/Additional Instructions: - Please follow-up with cardiology -If you have recurrent lightheadedness, dizziness episodes please go to the emergency room -If you have thoughts of hurting yourself, thoughts of hurting others, or seeing or hearing things that are not there, please call 911 or go to the emergency room Discharge Attestations Time Spent in Discharge Care*: less than 30 min Quality Metrics Clinical Quality Measures [ No reported AMI, CVA or VTE this stay] Coding Level of Care Code Acute Chg FW DC note Exam Detailed Diagnoses Syncope R55 Bradycardia R00.1 Hyponatremia E87.1
[2021-09-14 13:05] LABS: Add Urine Microscopic? NO; Charge for UA Resulting for Rev
[2021-09-14 13:25] LABS: Bilirubin Urine Neg (Negative); Blood Urine Neg (Negative); Glucose Urine UA Norm (Normal); Ketones Urine Negative (Negative); Leukocyte Esterase Urine Negative (Negative); Nitrate Urine Negative (Negative); Protein Urine Neg (Negative); Specific Gravity, Urine 1.015 (1.005-1.030); Urine Appearance Clear (CLEAR); Urine Color Yellow (Yellow); Urobilinogen Urine Norm (Negative); pH Urine 5 (5-7)
== END 2021-09-14 16:37 | disposition home or self-care (01) | DRG 312 ==
LOC: ER 22:54 → MEDSURG 09-13 00:13
PROVIDERS: Admitting Provider Student in an Organized Health Care Education/Training Program; Emergency Provider Emergency Medicine; PCP Nurse Practitioner; Visit Provider Family Medicine
DX: R55 Syncope and collapse (principal); E87.1 Hypo-osmolality and hyponatremia; R00.1 Bradycardia, unspecified; I50.9 Heart failure, unspecified; I25.10 Atherosclerotic heart disease of native coronary artery without angina pectoris; N18.30 Chronic kidney disease, stage 3 unspecified; Z79.02 Long term (current) use of antithrombotics/antiplatelets; Z95.5 Presence of coronary angioplasty implant and graft; G25.81 Restless legs syndrome; Z86.73 Personal history of transient ischemic attack (TIA), and cerebral infarction without residual deficits; J44.9 Chronic obstructive pulmonary disease, unspecified; Z85.46 Personal history of malignant neoplasm of prostate
CPT/HCPCS: 36415; 70450; 71045; 80053; 81003; 82140; 82436; 82533; 83735; 83880; 84100; 84133; 84300; 84443; 84484; 85025; 86705; 86706; 86709; 86803; 87340; 93005; 93306; 93880; 96372; 99285; J1650

== ENCOUNTER 2021-09-25 22:37 | Emergency (ER) | payer MEDICARE, MEDICAID, SELFPAY ==
[2021-09-25 22:43] VITALS: BP 161/83; PULSE 54; RESP 17; TEMP 36.6; O2SAT 98; BMI 20.7
[2021-09-25 23:24] VITALS: BP 173/86; PULSE 61; RESP 17; O2SAT 100
--- NOTE | 2021-09-25 23:36 | XRR_ITS ---
PROCEDURE INFORMATION: Exam: XR Chest Exam date and time: 09/25/2021 11:42 PM Age: 76 years old Clinical indication: Other: Syncope TECHNIQUE: Imaging protocol: Radiologic exam of the chest. Views: 1 view. COMPARISON: CR (CHEST, ) 09/12/2021 7:16 PM FINDINGS: Lungs: Stable calcified nodularity seen in left mid hemithorax. Pleural spaces: Unremarkable. No pleural effusion. No pneumothorax. Heart/Mediastinum: Unremarkable. No cardiomegaly. Bones/joints: Unremarkable. XR/XR chest 1V portable [id number] IMPRESSION: There are no acute chest findings. Stable appearance of the chest compared with 09/12/2021.
--- NOTE | 2021-09-25 23:36 | CTR_ITS ---
PROCEDURE INFORMATION: Exam: CT Head Without Contrast Exam date and time: 09/25/2021 11:52 PM Age: 76 years old Clinical indication: Weakness, extremity; Prior surgery; Surgery date: 6+ months; Surgery type: Carotids; Additional info: Syncope TECHNIQUE: Imaging protocol: Computed tomography of the head without contrast. Radiation optimization: All CT scans at this facility use at least one of these dose optimization techniques: automated exposure control; mA and/or kV adjustment per patient size (includes targeted exams where dose is matched to clinical indication); or iterative reconstruction. COMPARISON: CT head wo con* [id number] 09/14/2021 8:30 AM RADIATION DOSE METRICS: Total DLP (mGy-cm): 1060.78 FINDINGS: Brain: There is mild diffuse cerebral atrophy. Patchy areas of hypoattenuation are seen in the deep white matter the cerebral hemispheres compatible with deep white matter microvascular disease. Focal hypoattenuation seen within the basal ganglia and external capsules bilaterally, left slightly more prominent than right compatible with chronic lacunar infarctions. These appear stable compared with 09/14/2021. Cerebral ventricles: No ventriculomegaly. Paranasal sinuses: Visualized sinuses are unremarkable. No fluid levels. Mastoid air cells: Visualized mastoid air cells are well aerated. Bones/joints: Unremarkable. No acute fracture. Soft tissues: Unremarkable. CT/CT head wo con* [id number] IMPRESSION: There are no acute intracranial findings. Stable head CT compared with 09/14/2021.
--- NOTE | 2021-09-25 23:36 | ECG_ITS ---
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 Measurements Intervals Sabina Rate: 51 P: 59 ID: [id number] QRS: -38 QRSD: 93 T: 70 QT: 440 QTc: 406 Interpretive Statements SINUS BRADYCARDIA LEFT AXIS DEVIATION [QRS AXIS < -30] Compared to ECG 09/13/2021 02:50:13 First degree AV block no longer present Myocardial infarct finding no longer present Electronically Signed On 09-26-2021 18:22:49 CDT by Zach Hamilton M.D. [email or web address]
[2021-09-25 23:44] LABS: Basophils % 0.5 %; Eosinophils # 0.1 10^3/uL (0.0-0.8); Eosinophils % 1.1 %; Hemoglobin 11.2 g/dL (11.7-16.6); Lymphocytes # 1.7 10^3/uL (0.8-4.8); Lymphocytes % 29.9 %; Mean Corpuscular HGB Conc 33.9 g/dL (30.0-36.0); Mean Corpuscular Hemoglobin 32.8 pg (28.0-34.0); Mean Corpuscular Volume 96.8 fl (80-94); Mean Platelet Volume 9.1 fL (7.4-10.4); Monocytes # 0.6 10^3/uL (0.2-0.9); Monocytes % 10.6 %; Neutrophils % 57.7 %; Nucleated Red Blood Cells % 0 %; Platelet Count 237 10^3/cmm (130-400); Red Blood Count 3.41 10^6/uL (4.1-5.3); Red Cell Distribution Width 13.4 % (12.1-15.1); White Blood Count 5.6 10^3/uL (4.0-10.0)
[2021-09-25 23:48] LABS: Add Urine Microscopic? NO; Charge for UA Resulting for Rev
[2021-09-25 23:52] LABS: Bilirubin Urine Neg (Negative); Blood Urine Neg (Negative); Glucose Urine UA Norm (Normal); Ketones Urine Negative (Negative); Leukocyte Esterase Urine Negative (Negative); Nitrate Urine Negative (Negative); Protein Urine Neg (Negative); Specific Gravity, Urine 1.005 (1.005-1.030); Urine Appearance Clear (CLEAR); Urine Color Yellow (Yellow); Urobilinogen Urine Norm (Negative); pH Urine 6 (5-7)
[2021-09-25 23:59] LABS: Troponin(5th) Baseline 15 ng/L (0-15)
[2021-09-26 00:05] LABS: Alanine Aminotransferase 13 U/L (0-41); Albumin Level 3.9 g/dL (3.5-5.2); Alkaline Phosphatase 66 IU/L (40-130); Anion Gap 15.1 (5-19); Aspartate Amino Transferase 14 U/L (0-40); Blood Urea Nitrogen 19 mg/dL (8-23); Calcium 8.6 mg/dL (8.5-10.5); Carbon Dioxide 25 mmol/L (22-29); Chloride 98 mmol/L (98-107); Globulin 2.8 g/dL (1.3-4.6); Glucose 88 mg/dL (65-115); NT Pro B Type Natriuretic Pept 616 pg/mL (0-450); Osmolality Calculated 280 mOsm/kg (285-295); Potassium 4.1 mmol/L (3.5-5.1); Sodium 134 mmol/L (136-145); Total Bilirubin 0.2 mg/dL (0.15-1.2); Total Protein 6.7 g/dL (6.6-8.7)
--- NOTE | 2021-09-26 00:20 | ED_ITS ---
HPI - Syncope General: Chief Complaint: Syncope Stated Complaint: passing out episodes Time Seen by Provider: 09/25/21 23:00 History of Present Illness: 76-year-old male, admitted recently for bradycardia. He was taken off of his carvedilol. He returns tonight with repeated episodes of near syncope or falling out. He notes that his eyes stay open, and he can somewhat hear and know what is going on around him during these episodes, but he is unable to bring himself out of these episodes. He never fully loses consciousness. There is no confusion following. He denies chest pa in during these episodes. He denies significant shortness of breath. These are happening multiple times per day. He has not been taking his carvedilol. The only medications he takes or what is listed. MD complaint: felt faint and almost passed out Onset (ago): day(s) Description of event: other Prodromal symptoms: none Witnessed: Yes - by Bystander Context: at rest Injuries sustained associated with event: none Associated symptoms: Deny abdominal pain, chest pain, fever(s), headache(s), lightheadedness, nausea, short of breath or weakness History: history of CAD Review of Systems Const: Denies: fever(s) Eyes: Denies: change in vision ENMT: Denies: throat pain Card: Denies: chest pain or lightheadedness GI: Denies: abdominal pain or nausea Neuro: Denies: headache(s) PFS ED PFSH: Medical History Benign essential HTN Cancer of prostate Combined hyperlipidemia Intervertebral disc disorder with radiculopathy of lumbosacral region Pernicious anemia Psychiatric care Surgical History History of heart artery stent Hx of heart surgery Family History Father Lung disease Mother Chronic kidney disease (CKD) Hypertension Social History Smoking and tobacco status: former smoker Alcohol intake: never Household members: spouse Marital status: Current occupational status: retired History of recent travel: No Physical Exam Const: COMMON NORMALS: no acute distress and alert 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 HENMT: COMMON NORMALS: normocephalic, atraumatic and Normal external nose present HEAD & SCALP: normocephalic and atraumatic NOSE: Normal external nose present TEETH & GINGIVA: Yes edentulous Eye: COMMON NORMALS: Equal, round and reactive pupils present and EOMs intact bilaterally PUPIL: Yes Equal, round and reactive pupils present Neck/C-Spine: GENERAL: Yes trachea midline Chest: CHEST: Yes Symmetrical chest wall rise Resp: COMMON NORMALS: normal respiratory effort, No use of accessory muscles and clear to auscultation bilaterally AUSCULTATION: clear to auscultation bilaterally Cardio: COMMON NORMALS: regular rhythm RATE: bradycardic RHYTHM: regular rhythm GI: COMMON NORMALS: Normal to inspection, nondistended, normoactive bowel sounds present and Soft to palpation PALPATION: Yes Soft to palpation Extremity: COMMON NORMALS: normal to inspection and no pedal edema Neuro: FERNANDEZ COMA SCALE: document GCS findings Fernandez coma scale eye opening: Spontaneous Fernandez coma scale verbal response: Orientated [place] coma scale motor response: Obey commands Fernandez coma scale total score: 15 SENSORIUM/ORIENTATION: Yes alert SPEECH: speech normal SENSORY EXAM: Yes extremities (Intact) MOTOR EXAM: Normal motor muscle tone present throughout Psych: COMMON NORMALS: mental status grossly normal and cooperative Course Vital Signs: Vital signs: Vital Signs Temperature 97.9 F 09/25/21 22:43 Pulse Rate 61 09/26/21 01:12 Respiratory Rate 17 09/26/21 01:12 Blood Pressure 160/87 09/26/21 01:12 Pulse Oximetry 100 09/26/21 01:12 MDM - Syncope Medical Decision Making 76-year-old male with near syncopal episodes. He is bradycardic on exam. EKG shows sinus bradycardia with a MT interval of 21 ms. Rate is 50. He has left axis deviation and no acute ST changes. His chest x-ray is negative for acute change. His head CT is negative. His hemoglobin is 11. His creatinine is 1.5 which is his baseline. He has mild to moderately hypertensive here. Differential diagnosis includes bradycardia that is symptomatic, partial seizure, narcolepsy, etc. Results explained to patient and family. We will set the patient up for an outpatient Holter monitor. Further work-up as an outpatient. Lab Data : 09/25/21 23:24 09/25/21 23:24 Radiology Impressions Chest X-Ray 09/25/21 23:36 IMPRESSION: There are no acute chest findings. Stable appearance of the chest compared with 09/12/2021. Head CT 09/25/21 23:36 IMPRESSION: There are no acute intracranial findings. Stable head CT compared with 09/14/2021. Laboratory Results WBC 5.6 10^3/uL (4.0-10.0) 09/25/21 23:24 RBC 3.41 10^6/uL (4.1-5.3) L 09/25/21 23:24 Hgb 11.2 g/dL (11.7-16.6) L 09/25/21 23:24 Hct 33.0 % (42.0-52.0) L 09/25/21 23:24 MCV 96.8 fl (80-94) H 09/25/21 23:24 MCH 32.8 pg (28.0-34.0) 09/25/21 23:24 MCHC 33.9 g/dL (30.0-36.0) 09/25/21 23:24 RDW 13.4 % (12.1-15.1) 09/25/21 23:24 Plt Count 237 10^3/cmm (130-400) 09/25/21 23:24 MPV 9.1 fL (7.4-10.4) 09/25/21 23:24 Neut % (Auto) 57.7 % 09/25/21 23:24 Lymph % (Auto) 29.9 % 09/25/21 23:24 Wilkin % (Auto) 10.6 % 09/25/21 23:24 Eos % (Auto) 1.1 % 09/25/21 23:24 Baso % (Auto) 0.5 % 09/25/21 23:24 Neut # (Auto) 3.20 10^3/uL (1.8-7.7) 09/25/21 23: Lymph # (Auto) 1.7 10^3/uL (0.8-4.8) 09/25/21 23:24 Wilkin # (Auto) 0.6 10^3/uL (0.2-0.9) 09/25/21 23:24 Eos # (Auto) 0.1 10^3/uL (0.0-0.8) 09/25/21 23:24 Baso # (Auto) 0.0 10^3/uL (0.0-0.1) 09/25/21 23:24 Nucleated RBC % (auto) 0 % 09/25/21 23:24 Nucleated RBCs # 0.0 /100WBC 09/25/21 23:24 Sodium 134 mmol/L (136-145) L 09/25/21 23:24 Potassium 4.1 mmol/L (3.5-5.1) 09/25/21 23:24 Chloride 98 mmol/L (98-107) 09/25/21 23:24 Carbon Dioxide 25 mmol/L (22-29) 09/25/21 23:24 Anion Gap 15.1 (5-19) 09/25/21 23:24 BUN 19 mg/dL (8-23) 09/25/21 23:24 Creatinine 1.5 mg/dL (0.7-1.2) H 09/25/21 23:24 GFR Calculation Not Reportable 09/25/21 23:24 Glucose 88 mg/dL (65-115) 09/25/21 23:24 Calculated Osmolality 280 mOsm/kg (285-295) L 09/25/21 23:24 Calcium 8.6 mg/dL (8.5-10.5) 09/25/21 23:24 Total Bilirubin 0.2 mg/dL (0.15-1.2) 09/25/21 23:24 AST 14 U/L (0-40) 09/25/21 23:24 ALT 13 U/L (0-41) 09/25/21 23:24 Alkaline Phosphatase 66 IU/L (40-130) 09/25/21 23:24 Troponin T Baseline 15 ng/L (0-15) 09/25/21 23:24 NT-Pro-B Natriuret Pep 616 pg/mL (0-450) H 09/25/21 23:24 Total Protein 6.7 g/dL (6.6-8.7) 09/25/21 23:24 Albumin 3.9 g/dL (3.5-5.2) 09/25/21 23:24 Globulin 2.8 g/dL (1.3-4.6) 09/25/21 23:24 Urine Color Yellow (Yellow) 09/25/21 23:45 Urine Appearance Clear (CLEAR) 09/25/21 23:45 Urine pH 6 (5-7) 09/25/21 23:45 Ur Specific [place] 1.005 (1.005-1.030) 09/25/21 23:45 Urine Protein Neg (Negative) 09/25/21 23:45 Urine Glucose (UA) Norm (Normal) 09/25/21 23:45 Urine Ketones Negative (Negative) 09/25/21 23:45 Urine Blood Neg (Negative) 09/25/21 23:45 Urine Nitrate Negative (Negative) 09/25/21 23:45 Urine Bilirubin Neg (Negative) 09/25/21 23:45 Urine Urobilinogen Norm mg/dL (Negative) 09/25/21 23:45 Ur Leukocyte Esterase Negative (Negative) 09/25/21 23:45 Discharge Plan Discharge Patient Disposition: Home Clinical Impression: Pre-syncope, Bradycardia, sinus Condition: Stable Prescriptions: No Action docusate sodium [Colace] 100 mg capsule 100 mg PO QAM 0RF clopidogrel 75 mg tablet 75 mg PO QAM 0RF ropinirole 1 mg tablet 1 mg PO BEDTIME 0RF temazepam 15 mg capsule 15 mg PO BEDTIME 0RF isosorbide mononitrate 30 mg tablet extended release 24 hr 15 mg PO QAM Qty: 0 0RF prazosin 1 mg capsule 1 mg PO BEDTIME 0RF pantoprazole 40 mg tablet,delayed release (DR/EC) 40 mg PO QAM 0RF cyanocobalamin (vitamin B-12) 1,000 mcg/mL Solution 1,000 mcg IM Q30D 0RF furosemide 20 mg tablet 20 mg PO DAILY PRN (Reason: Edema) 0RF albuterol sulfate 90 mcg/actuation HFA aerosol inhaler 2 puff INHALATION Q6H PRN (Reason: Shortness Of Breath) 0RF Men's Multivitamin 400-20-300 mcg Tablet 1 tab PO DAILY 0RF Discharge Orders: Discharge ED (Routine); Ordered 09/26/21 Ordered By: Mark Walker Other Ambulatory Orders: ECG holter monitor 14 Days (Routine) Timeframe: 1 Week Facility: [facility] - Location: Radiology Ordered By: Mark Walker Referrals: Joseline Madison FNP [Primary Care Provider] - 1-3 days Patient Instructions: Bradycardia (ED), Near Syncope (ED) Activity Restrictions/Additional Instructions: Return for worsening episodes of syncope or passing out, chest discomfort, mental status changes, episodes of seizure, or other concerning symptoms. You will get a call to set up your outpatient Holter monitor. Coding Level of Care Code ED Molder Labels for Jennifer Fwd Exam Comprehensive
[2021-09-26 01:12] VITALS: BP 160/87; PULSE 61; RESP 17; O2SAT 100
--- NOTE | 2021-09-27 14:21 | DCPLANNER ---
Addendum entered by Dayanna Lizama 10/11/21 13:38: chef manager was told that the halter monitor was supposed to be cancelled. Original Note: chef manager had message to schedule an outpatient 14 day halter monitor for patient. chef manager sent order to heart care, patients information will be printed and reviewed. Clinic will call patient with appointment information.
== END 2021-09-26 01:38 | disposition home or self-care (01) ==
PROVIDERS: Emergency Provider Emergency Medicine; PCP Nurse Practitioner
DX: R55 Syncope and collapse (principal); R00.1 Bradycardia, unspecified; I10 Essential (primary) hypertension; E78.2 Mixed hyperlipidemia; Z79.02 Long term (current) use of antithrombotics/antiplatelets; Z87.891 Personal history of nicotine dependence
CPT/HCPCS: 70450; 71045; 80053; 81003; 83880; 84484; 85025; 93005; 99285

== ENCOUNTER 2021-09-26 20:32 | Emergency (ER) | payer MEDICARE, MEDICAID, SELFPAY ==
--- NOTE | 2021-09-26 20:33 | XRR_ITS ---
PROCEDURE INFORMATION: Exam: XR Chest Exam date and time: 09/26/2021 10:22 PM Age: 76 years old Clinical indication: Angina; Additional info: Cp TECHNIQUE: Imaging protocol: Radiologic exam of the chest. Views: 1 view. COMPARISON: CR (CHEST, ) 09/25/2021 11:42 PM FINDINGS: Lungs: Left mid lung field calcified granuloma similar to prior exam. Pleural spaces: Unremarkable. No pleural effusion. No pneumothorax. Heart/Mediastinum: Unremarkable. No cardiomegaly. Bones/joints: Unremarkable. XR/XR chest 1V portable [id number] IMPRESSION: Negative for infiltrate.
[2021-09-26 20:39] VITALS: BP 156/84; PULSE 66; RESP 16; TEMP 36.1; O2SAT 99; BMI 20.7
[2021-09-26 22:14] VITALS: BP 181/86; PULSE 53; RESP 18; O2SAT 100
[2021-09-26 22:30] VITALS: BP 185/87; PULSE 53; RESP 16; O2SAT 100
[2021-09-26 22:40] LABS: Basophils # 0.1 10^3/uL (0.0-0.1); Basophils % 0.9 %; Eosinophils # 0.1 10^3/uL (0.0-0.8); Eosinophils % 1.2 %; Hematocrit 37.4 % (42.0-52.0); Hemoglobin 13.2 g/dL (11.7-16.6); Lymphocytes # 2.2 10^3/uL (0.8-4.8); Lymphocytes % 31.4 %; Mean Corpuscular HGB Conc 35.3 g/dL (30.0-36.0); Mean Corpuscular Volume 93.5 fl (80-94); Mean Platelet Volume 9.2 fL (7.4-10.4); Monocytes # 0.6 10^3/uL (0.2-0.9); Monocytes % 9.1 %; Neutrophils # 3.91 10^3/uL (1.8-7.7); Neutrophils % 57.1 %; Nucleated Red Blood Cells % 0 %; Platelet Count 263 10^3/cmm (130-400); Red Cell Distribution Width 13.2 % (12.1-15.1); White Blood Count 6.8 10^3/uL (4.0-10.0)
--- NOTE | 2021-09-26 22:51 | W.ED.GENADLT ---
HPI - General Adult General: Chief complaint: General Medical Stated complaint: Lethargic/low heart rate Time Seen by Provider: 09/26/21 22:08 Source: patient Mode of arrival: ambulatory Limitations: no limitations History of Present Illness: 76-year-old male has been seen here multiple times for lightheadedness syncopal events. He states that today he is been sitting down and had multiple events where he had closed his eyes does not remember what happens but did have a full passing out. He denies any chest pain denies any headache denies any seizure-like activity has no focal deficits or slurred speech he states. Associated symptoms: Deny chest pain, dyspnea, headache(s), nausea, rash or vomiting Review of Systems Const: Denies: fever(s), chills, body aches or change in appetite Eyes: Denies: blurry vision or eye discomfort ENMT: Denies: throat pain or dental pain Card: Denies: chest pain Resp: Denies: dyspnea GI: Denies: abdominal pain, nausea, vomiting or diarrhea : Denies: dysuria Musc: Denies: neck pain or back pain Skin/Breast: Denies: rash Neuro: Denies: headache(s) Psych: Denies: depression Steve/Lymph: Denies: easy bruising All/Imm: Denies: urticaria PFSH ED PFSH: Medical History Benign essential HTN Cancer of prostate Combined hyperlipidemia Intervertebral disc disorder with radiculopathy of lumbosacral region Pernicious anemia Psychiatric care Surgical History History of heart artery stent Hx of heart surgery Family History Father Lung disease Mother Chronic kidney disease (CKD) Hypertension Social History Smoking and tobacco status: former smoker Alcohol intake: never Household members: spouse Marital status: Current occupational status: retired History of recent travel: No Physical Exam Const: COMMON NORMALS: no acute distress, patient oriented x3 and healthy appearing HENMT: COMMON NORMALS: normocephalic and atraumatic HEAD & SCALP: normocephalic and atraumatic Eye: COMMON NORMALS: Equal, round and reactive pupils present and EOMs intact bilaterally PUPIL: Yes Equal, round and reactive pupils present Neck/C-Spine: COMMON NORMALS: full ROM and supple Chest: COMMONS NORMALS: normal inspection of the chest and normal palpation of entire chest wall Resp: COMMON NORMALS: normal respiratory effort, No retractions, No use of accessory muscles and clear to auscultation bilaterally AUSCULTATION: clear to auscultation bilaterally Cardio: COMMON NORMALS: regular rate, regular rhythm and No murmurs present (Cardio) RATE: regular rate RHYTHM: regular rhythm GI: COMMON NORMALS: Normal to inspection, nondistended, normoactive bowel sounds present, Soft to palpation, non-tender and no masses PALPATION: Yes Soft to palpation Extremity: COMMON NORMALS: normal to inspection and full ROM Neuro: COMMON NORMALS: patient oriented x3, moves all extremities and no focal motor deficits Psych: COMMON NORMALS: mental status grossly normal, Normal thought process present and cooperative THOUGHT PROCESS: Normal thought process present Skin: COMMON NORMALS: no rashes or lesions noted and no wounds GENERAL SKIN EXAM: no rashes or lesions noted Course Vital Signs: Vital signs: Vital Signs Temperature 97 F L 09/26/21 20:39 Pulse Rate 53 L 09/26/21 22:30 Respiratory Rate 16 09/26/21 22:30 Blood Pressure 185/87 09/26/21 22:30 Pulse Oximetry 100 09/26/21 22:30 [facility] - General Adult Medical Decision Making Patient presents here with syncopal events he is well-appearing here he seen here yesterday he is admitted here recently as well he had a head CT yesterday was normal patient's blood work here is normal he stable for discharge I did recommend follow-up with his PCP likely needs an outpatient MRI he is return if worsening they understand agree to plan. Lab Data : 09/26/21 22:35 09/26/21 22:51 Radiology Impressions Chest X-Ray 09/26/21 20:33 IMPRESSION: Negative for infiltrate. Laboratory Results WBC 6.8 10^3/uL (4.0-10.0) 09/26/21 22:35 RBC 4.00 10^6/uL (4.1-5.3) L 09/26/21 22:35 Hgb 13.2 g/dL (11.7-16.6) 09/26/21: Hct 37.4 % (42.0-52.0) L 09/26/21: MCV 93.5 fl (80-94) 09/26/21: MCH 33.0 pg (28.0-34.0) 09/26/21: MCHC 35.3 g/dL (30.0-36.0) 09/26/21: RDW 13.2 % (12.1-15.1) 09/26/21: Plt Count 263 10^3/cmm (130-400) 09/26/21: MPV 9.2 fL (7.4-10.4) 09/26/21: Neut % (Auto) 57.1 % 09/26/21: Lymph % (Auto) 31.4 % 09/26/21: [place] % (Auto) 9.1 % 09/26/21: Eos % (Auto) 1.2 % 09/26/21: Baso % (Auto) 0.9 % 09/26/21: Neut # (Auto) 3.91 10^3/uL (1.8-7.7) 09/26/21: Lymph # (Auto) 2.2 10^3/uL (0.8-4.8) 09/26/21: [place] # (Auto) 0.6 10^3/uL (0.2-0.9) 09/26/21: Eos # (Auto) 0.1 10^3/uL (0.0-0.8) 09/26/21: Baso # (Auto) 0.1 10^3/uL (0.0-0.1) 09/26/21: Nucleated RBC % (auto) 0 % 09/26/21: Nucleated RBCs # 0.0 /100WBC 09/26/21: Sodium 131 mmol/L (136-145) L 09/26/21: Potassium 3.7 mmol/L (3.5-5.1) 09/26/21: Chloride 94 mmol/L (98-107) L 09/26/21 22:51 Carbon Dioxide 24 mmol/L (22-29) 09/26/21 22:51 Anion Gap 16.7 (5-19) 09/26/21 22:51 BUN 16 mg/dL (8-23) 09/26/21 22:51 Creatinine 1.5 mg/dL (0.7-1.2) H 09/26/21 22:51 GFR Calculation Not Reportable 09/26/21 22:51 Glucose 88 mg/dL (65-115) 09/26/21 22:51 Calculated Osmolality 273 mOsm/kg (285-295) L 09/26/21 22:51 Calcium 8.8 mg/dL (8.5-10.5) 09/26/21 22:51 Total Bilirubin 0.3 mg/dL (0.15-1.2) 09/26/21 22:51 AST 16 U/L (0-40) 09/26/21 22:51 ALT 16 U/L (0-41) 09/26/21 22:51 Alkaline Phosphatase 63 IU/L (40-130) 09/26/21 22:51 Troponin T Baseline 16 ng/L (0-15) H 09/26/21 22:35 Troponin T 120 Minute 16.10 ng/L (0-15) H 09/27/21 00:00 Delta Troponin T 0.10 ABS# (0-10) 09/27/21 00:00 Total Protein 7.2 g/dL (6.6-8.7) 09/26/21 22:51 Albumin 4.1 g/dL (3.5-5.2) 09/26/21 22:51 Globulin 3.1 g/dL (1.3-4.6) 09/26/21 22:51 Discharge Plan Discharge Patient Disposition: Home Clinical Impression: Syncope Qualifiers: Syncope type: unspecified Qualified Code(s): R55 - Syncope and collapse Condition: Stable Prescriptions: No Action docusate sodium [Colace] 100 mg capsule 100 mg PO QAM 0RF clopidogrel 75 mg tablet 75 mg PO QAM 0RF ropinirole 1 mg tablet 1 mg PO BEDTIME 0RF temazepam 15 mg capsule 15 mg PO BEDTIME 0RF isosorbide mononitrate 30 mg tablet extended release 24 hr 15 mg PO QAM Qty: 0 0RF prazosin 1 mg capsule 1 mg PO BEDTIME 0RF pantoprazole 40 mg tablet,delayed release (DR/EC) 40 mg PO QAM 0RF cyanocobalamin (vitamin B-12) 1,000 mcg/mL Solution 1,000 mcg IM Q30D 0RF furosemide 20 mg tablet 20 mg PO DAILY PRN (Reason: Edema) 0RF albuterol sulfate 90 mcg/actuation HFA aerosol inhaler 2 puff INHALATION Q6H PRN (Reason: Shortness Of Breath) 0RF Men's Multivitamin 400-20-300 mcg Tablet 1 tab PO DAILY 0RF Discharge Orders: Discharge ED (Routine); Ordered 09/27/21 Ordered By: Vazquez Cedeno Referrals: Joseline Madison FNP [Primary Care Provider] - 1-3 days Discharge Diet: Advance as tolerated Discharge Activity: Resume usual activity Patient Instructions: Syncope (ED) Coding Level of Care Code ED Membership Advisor for Jennifer Fwd Exam Comprehensive
[2021-09-26 23:04] LABS: Troponin(5th) Baseline 16 ng/L (0-15)
[2021-09-26 23:11] LABS: Alanine Aminotransferase 16 U/L (0-41); Albumin Level 4.1 g/dL (3.5-5.2); Alkaline Phosphatase 63 IU/L (40-130); Anion Gap 16.7 (5-19); Aspartate Amino Transferase 16 U/L (0-40); Blood Urea Nitrogen 16 mg/dL (8-23); Calcium 8.8 mg/dL (8.5-10.5); Carbon Dioxide 24 mmol/L (22-29); Chloride 94 mmol/L (98-107); Globulin 3.1 g/dL (1.3-4.6); Glucose 88 mg/dL (65-115); Osmolality Calculated 273 mOsm/kg (285-295); Potassium 3.7 mmol/L (3.5-5.1); Sodium 131 mmol/L (136-145); Total Bilirubin 0.3 mg/dL (0.15-1.2); Total Protein 7.2 g/dL (6.6-8.7)
[2021-09-27 01:00] VITALS: BP 164/84; PULSE 57; RESP 20; O2SAT 98
[2021-09-27 01:13] VITALS: BP 164/84; PULSE 57; RESP 20; O2SAT 98
== END 2021-09-27 01:15 | disposition home or self-care (01) ==
PROVIDERS: Emergency Provider Emergency Medicine; PCP Nurse Practitioner
DX: R55 Syncope and collapse (principal); Z79.02 Long term (current) use of antithrombotics/antiplatelets; I10 Essential (primary) hypertension; E78.2 Mixed hyperlipidemia; Z87.891 Personal history of nicotine dependence
CPT/HCPCS: 71045; 80053; 84484; 85025; 99285

== ENCOUNTER 2021-10-30 20:35 | Emergency (ER) | payer MEDICARE, MEDICAID, SELFPAY ==
--- NOTE | 2021-10-30 20:37 | XRR_ITS ---
PROCEDURE INFORMATION: Exam: XR Chest Exam date and time: 10/30/2021 8:54 PM Age: 76 years old Clinical indication: Chest pressure and other: Under left arm; Patient HX: C/O pain under left arm has been gradually increasing. HX of prostate cancer; Additional info: Cp TECHNIQUE: Imaging protocol: Radiologic exam of the chest. Views: 1 view. COMPARISON: CR (CHEST, ) 09/26/2021 10:22 PM FINDINGS: Lungs: There is calcified granuloma in the left lung. Visualized portions of the right lung are clear. Pleural spaces: Unremarkable. No pleural effusion. No pneumothorax. Heart/Mediastinum: Heart is within normal limits of size. Bones/joints: There are degenerative changes in the thoracic spine. XR/XR chest 1V portable [id number] IMPRESSION: No acute infiltrate.
--- NOTE | 2021-10-30 20:37 | ECG_ITS ---
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 Measurements Intervals Roma Rate: 64 P: 65 IN: 210 QRS: -37 QRSD: 95 T: 69 QT: 412 QTc: 427 Interpretive Statements SINUS RHYTHM WITH FIRST DEGREE AV BLOCK LEFT AXIS DEVIATION [QRS AXIS < -30] Compared to ECG 09/25/2021 23:13:24 First degree AV block now present Sinus bradycardia no longer present Electronically Signed On 10-31-2021 17:36:35 CDT by Zach Hamilton M.D. [id number]
[2021-10-30 20:39] VITALS: BP 171/80; PULSE 64; RESP 16; TEMP 36.8; O2SAT 96
--- NOTE | 2021-10-30 23:00 | ED_ITS ---
HPI - Chest Pain General: Chief Complaint: Chest Pain Stated Complaint: cp Time Seen by Provider: 10/30/21 22:53 Source: patient Mode of arrival: ambulatory Limitations: no limitations History of Present Illness: 76-year-old male states that roughly 4 to 5 hours ago he started having some sharp left-sided chest pain. He states that it hurts worse when he moves his arm and he has a tender spot he states is over his left chest wall when he touches it reproduces the pain. He denies any shortness of b reath denies any diaphoresis or nausea denies any fevers or cough. Associated symptoms: Deny abdominal pain, dyspnea, fever(s), nausea or vomiting Review of Systems Const: Denies: fever(s), chills, body aches or change in appetite Eyes: Denies: blurry vision or eye discomfort ENMT: Denies: throat pain or dental pain Card: Reports: chest pain Resp: Denies: dyspnea GI: Denies: abdominal pain, nausea, vomiting or diarrhea : Denies: dysuria Musc: Denies: neck pain or back pain Skin/Breast: Denies: rash Neuro: Denies: headache(s) Psych: Denies: depression Steve/Lymph: Denies: easy bruising All/Imm: Denies: urticaria PFSH ED PFSH: Medical History Benign essential HTN Cancer of prostate Combined hyperlipidemia Intervertebral disc disorder with radiculopathy of lumbosacral region Pernicious anemia Psychiatric care Surgical History History of heart artery stent Hx of heart surgery Family History Father Lung disease Mother Chronic kidney disease (CKD) Hypertension Social History Smoking and tobacco status: former smoker Alcohol intake: never Household members: spouse Marital status: Current occupational status: retired History of recent travel: No Physical Exam Const: COMMON NORMALS: no acute distress, patient oriented x3 and healthy appearing HENMT: COMMON NORMALS: normocephalic and atraumatic HEAD & SCALP: normocephalic and atraumatic Eye: COMMON NORMALS: Equal, round and reactive pupils present and EOMs intact bilaterally PUPIL: Yes Equal, round and reactive pupils present Neck/C-Spine: COMMON NORMALS: full ROM and supple Chest: COMMONS NORMALS: normal inspection of the chest OTHER: Point tender to left chest wall reproduces his pain Resp: COMMON NORMALS: normal respiratory effort, No retractions, No use of accessory muscles and clear to auscultation bilaterally AUSCULTATION: clear to auscultation bilaterally Cardio: COMMON NORMALS: regular rate, regular rhythm and No murmurs present (Cardio) RATE: regular rate RHYTHM: regular rhythm GI: COMMON NORMALS: Normal to inspection, nondistended, normoactive bowel sounds present, Soft to palpation, non-tender and no masses PALPATION: Yes Soft to palpation Extremity: COMMON NORMALS: normal to inspection and full ROM Neuro: COMMON NORMALS: patient oriented x3, moves all extremities and no focal motor deficits Psych: COMMON NORMALS: mental status grossly normal, Normal thought process present and cooperative THOUGHT PROCESS: Normal thought process present Skin: COMMON NORMALS: no rashes or lesions noted and no wounds GENERAL SKIN EXAM: no rashes or lesions noted Course Vital Signs: Vital signs: Vital Signs Temperature 98.3 F 10/30/21 20:39 Pulse Rate 64 10/30/21 20:39 Respiratory Rate 16 10/30/21 20:39 Blood Pressure 171/80 10/30/21 20:39 Pulse Oximetry 96 10/30/21 20:39 Oxygen Delivery Me thod 10/30/21 20:39 MDM - Chest Pain Medical Decision Making Patient presents with chest pain is likely chest wall pain he is point tender over the left side of his chest his troponin here is negative x-ray and EKG are normal he stable for discharge he is to follow-up with PCP and return if worsening. Lab Data : 10/30/21 22:50 10/30/21 22:50 Radiology Impressions Chest X-Ray 10/30/21 20:37 IMPRESSION: No acute infiltrate. Laboratory Results WBC 8.3 10^3/uL (4.0-10.0) 10/30/21 22:50 RBC 3.90 10^6/uL (4.1-5.3) L 10/30/21 22:50 Hgb 12.9 g/dL (11.7-16.6) 10/30/21 22:50 Hct 38.3 % (42.0-52.0) L 10/30/21:50 MCV 98.2 fl (80-94) H 10/30/21 22:50 MCH 33.1 pg (28.0-34.0) 10/30/21 22:50 MCHC 33.7 g/dL (30.0-36.0) 10/30/21 22:50 RDW 13.2 % (12.1-15.1) 10/30/21 22:50 Plt Count 295 10^3/cmm (130-400) 10/30/21 22:50 MPV 9.5 fL (7.4-10.4) 10/30/21 22:50 Neut % (Auto) 62.8 % 10/30/21 22:50 Lymph % (Auto) 26.4 % 10/30/21 22:50 [place] % (Auto) 8.2 % 10/30/21 22:50 Eos % (Auto) 1.7 % 10/30/21 22:50 Baso % (Auto) 0.5 % 10/30/21 22:50 Neut # (Auto) 5.20 10^3/uL (1.8-7.7) 10/30/21 22:50 Lymph # (Auto) 2.2 10^3/uL (0.8-4.8) 10/30/21 22:50 [place] # (Auto) 0.7 10^3/uL (0.2-0.9) 10/30/21 22:50 Eos # (Auto) 0.1 10^3/uL (0.0-0.8) 10/30/21 22:50 Baso # (Auto) 0.0 10^3/uL (0.0-0.1) 10/30/21 22:50 Nucleated RBC % (auto) 0 % 10/30/21:50 Nucleated RBCs # 0.0 /100WBC 10/30/21 22:50 Sodium 135 mmol/L (136-145) L 10/30/21 22:50 Potassium 4.5 mmol/L (3.5-5.1) 10/30/21 22:50 Chloride 96 mmol/L (98-107) L 10/30/21 22:50 Carbon Dioxide 27 mmol/L (22-29) 10/30/21 22:50 Anion Gap 16.5 (5-19) 10/30/21 22:50 BUN 17 mg/dL (8-23) 10/30/21 22:50 Creatinine 1.4 mg/dL (0.7-1.2) H 10/30/21 22:50 GFR Calculation Not Reportable 10/30/21 22:50 Glucose 86 mg/dL (65-115) 10/30/21 22:50 Calculated Osmolality 281 mOsm/kg (285-295) L 10/30/21 22:50 Calcium 9.3 mg/dL (8.5-10.5) 10/30/21 22:50 Total Bilirubin 0.3 mg/dL (0.15-1.2) 10/30/21 22:50 AST 19 U/L (0-40) 10/30/21 22:50 ALT 16 U/L (0-41) 10/30/21 22:50 Alkaline Phosphatase 72 IU/L (40-130) 10/30/21 22:50 Troponin T Baseline 15 ng/L (0-15) 10/30/21 22:50 Total Protein 7.2 g/dL (6.6-8.7) 10/30/21 22:50 Albumin 4.0 g/dL (3.5-5.2) 10/30/21 22:50 Globulin 3.2 g/dL (1.3-4.6) 10/30/21 22:50 EKG Data EKG 1: I personally reviewed and interpreted this EKG as follows: EKG interpretation date: 10/30/21 EKG interpretation time: 20:44 Interpretation: nsr hr [address] or t wave abnormalities qrs 95 qtc 422 Discharge Plan Discharge Patient Disposition: Home Clinical Impression: Chest wall pain Condition: Stable Prescriptions: New Naprosyn 500 mg tablet 500 mg PO BID PRN (Reason: pain) Qty: 20 0RF No Action docusate sodium [Colace] 100 mg capsule 100 mg PO QAM clopidogrel 75 mg tablet 75 mg PO QAM ropinirole 1 mg tablet 1 mg PO BEDTIME temazepam 15 mg capsule 15 mg PO BEDTIME isosorbide mononitrate 30 mg tablet extended release 24 hr 15 mg PO QAM Qty: 0 0RF prazosin 1 mg capsule 1 mg PO BEDTIME pantoprazole 40 mg tablet,delayed release (DR/EC) 40 mg PO QAM cyanocobalamin (vitamin B-12) 1,000 mcg/mL Solution 1,000 mcg IM Q30D furosemide 20 mg tablet 20 mg PO DAILY PRN (Reason: Edema) albuterol sulfate 90 mcg/actuation HFA aerosol inhaler 2 puff INHALATION Q6H PRN (Reason: Shortness Of Breath) Men's Multivitamin 400-20-300 mcg Tablet 1 tab PO DAILY Discharge Orders: Discharge ED (Routine); Ordered 10/30/21 Ordered By: Vazquez Cedeno Referrals: Joseline Madison FNP [Primary Care Provider] - 1-3 days Discharge Diet: Advance as tolerated Discharge Activity: Resume usual activity Patient Instructions: Chest Pain (ED) Coding Level of Care Code ED 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
[2021-10-30 23:02] LABS: Basophils % 0.5 %; Eosinophils # 0.1 10^3/uL (0.0-0.8); Eosinophils % 1.7 %; Hematocrit 38.3 % (42.0-52.0); Hemoglobin 12.9 g/dL (11.7-16.6); Lymphocytes # 2.2 10^3/uL (0.8-4.8); Lymphocytes % 26.4 %; Mean Corpuscular HGB Conc 33.7 g/dL (30.0-36.0); Mean Corpuscular Hemoglobin 33.1 pg (28.0-34.0); Mean Corpuscular Volume 98.2 fl (80-94); Mean Platelet Volume 9.5 fL (7.4-10.4); Monocytes # 0.7 10^3/uL (0.2-0.9); Monocytes % 8.2 %; Neutrophils % 62.8 %; Nucleated Red Blood Cells % 0 %; Platelet Count 295 10^3/cmm (130-400); Red Cell Distribution Width 13.2 % (12.1-15.1); White Blood Count 8.3 10^3/uL (4.0-10.0)
[2021-10-30 23:24] LABS: Alanine Aminotransferase 16 U/L (0-41); Alkaline Phosphatase 72 IU/L (40-130); Aspartate Amino Transferase 19 U/L (0-40); Blood Urea Nitrogen 17 mg/dL (8-23); Calcium 9.3 mg/dL (8.5-10.5); Carbon Dioxide 27 mmol/L (22-29); Chloride 96 mmol/L (98-107); Globulin 3.2 g/dL (1.3-4.6); Glucose 86 mg/dL (65-115); Osmolality Calculated 281 mOsm/kg (285-295); Sodium 135 mmol/L (136-145); Total Bilirubin 0.3 mg/dL (0.15-1.2); Total Protein 7.2 g/dL (6.6-8.7)
[2021-10-30 23:25] LABS: Anion Gap 16.5 (5-19); Potassium 4.5 mmol/L (3.5-5.1)
[2021-10-30 23:28] LABS: Troponin(5th) Baseline 15 ng/L (0-15)
[2021-10-31 00:06] VITALS: BP 173/85; PULSE 56; RESP 20; O2SAT 96
== END 2021-10-31 00:08 | disposition home or self-care (01) ==
PROVIDERS: Emergency Provider Emergency Medicine; PCP Nurse Practitioner
DX: R07.89 Other chest pain (principal); Z79.02 Long term (current) use of antithrombotics/antiplatelets; I10 Essential (primary) hypertension; Z85.46 Personal history of malignant neoplasm of prostate; E78.2 Mixed hyperlipidemia; Z87.891 Personal history of nicotine dependence
CPT/HCPCS: 71045; 80053; 84484; 85025; 93005; 99285

== ENCOUNTER 2021-12-01 19:07 | Emergency (ER) | payer MEDICARE, MEDICAID, SELFPAY | END 2021-12-01 19:47 | disposition left against medical advice (07) | LOC: ER 19:10 | PROVIDERS: Emergency Provider Family Medicine; PCP Nurse Practitioner | DX: Z53.21 Procedure and treatment not carried out due to patient leaving prior to being seen by health care provider (principal) ==

== ENCOUNTER 2021-12-27 11:35 | Emergency (ER) | payer MEDICARE, MEDICAID, SELFPAY ==
[2021-12-27 11:37] VITALS: BP 103/65; PULSE 91; RESP 18; TEMP 36.4; O2SAT 99; BMI 24.9
--- NOTE | 2021-12-27 11:53 | CT_ITS ---
WS: [id number] CT ABDOMEN AND PELVIS WITH CONTRAST HISTORY: abd pain TECHNIQUE: Imaging performed of the abdomen and pelvis with IV contrast. Single phase imaging of the abdomen. Coronal and sagittal reformats are submitted. All CT scans at [facility] use at [address] one of these dose optimization techniques: automated exposure control; mA and/or kV adjustment per patient size (includes targeted exams where dose is matched to clinical indication); or iterative re construction. IV CONTRAST: Omnipaque 350; 95 mL IV. Oral contrast: No DLP: 339.12 mGy.cm COMPARISON: None available. Lower thorax: Mild hyperinflation of the lung bases. Heart is normal size. No hiatal hernia. Liver/biliary system: Numerous small low-attenuation lesions throughout the liver. There are multiple tubular low-attenuation lesions within the LEFT lobe of the liver. Suspect this is duct related but no centrally obstructing lesion is identified. There are a few scattered low-attenuation lesions whic h are too small to characterize. Gallbladder: Normal. No gallstones or wall thickening. No pericholecystic fluid. Pancreas: Normal size pancreas and pancreatic duct. No adjacent inflammation. Spleen: Normal size spleen. No mass or infarct. Adrenal glands: Normal. Right kidney: Mild cortical thinning. There are a few very small superficial hypodensities. No renal obstruction. Left kidney: Cortical hypodensities. Mildly hyperdense cortical mass measuring 11 mm from the upper p ole may be early renal cell neoplasm. The remaining cortical hypodensities are too small to character ize or cysts. Aorta: Mild atherosclerosis with no aneurysm. Lymphadenopathy: None. Free fluid: None. GI tract: Fluid distended stomach. No small bowel obstruction. There are a few loops of small bowel w ith increased fluid. No obstructive pattern. Increased fecal material in the distal colon. No mass or obstruction. Abdominal wall: Unremarkable abdominal wall. No hernia. Pelvis: No free fluid or adenopathy within the pelvis. Bones: Mild degenerative changes throughout the facet joints. CT/CT abdomen pelvis w con* [id number] IMPRESSION: 1. No acute abdominal or pelvic abnormalities are identified. 2. Solid low-attenuation mass upper pole LEFT kidney suspicious for small sharonda l cell neoplasm. Recommend follow-up renal mass CT protocol in 3 months. There are additional too small to characterize hypodensities and cysts within each ki dney also. 3. Tubular low-attenuation masses in the LEFT lobe of the liver are probably a bnormally dilated ducts. No centrally obstructing neoplasm is identified. Recom mend short-term follow-up. CT follow-up in 3 months can be performed. This can be performed at the same time as the renal mass CT protocol. Evaluating for pos sible cholangiocarcinoma. 4. Atherosclerosis aorta.
--- NOTE | 2021-12-27 11:54 | W.ED.GENADLT ---
HPI - General Adult General: Chief complaint: Abdominal Pain Stated complaint: Abd pain Time Seen by Provider: 12/27/21 11:53 History of Present Illness: Patient is a 76-year-old male with history of hypertension, left-sided inguinal hernia, hyperlipidemia, previous prostate CA s/p prostatectomy presenting to the emergency room with complaints of left-sided groin pain. Patient tells me that he noticed a bulge in the left groin for the last 6-month. Last week, patient has had increasing pain while he was at [facility] [place]. Since discharge from [place], patient continues to have intermittent pain. Patient reports yesterday and today the pain has gotten significantly worse. Patient has intermittent bouts of pain associate with nausea without vomiting. Patient still able to have stool without any issues. In addition,, patient complains of left testicular pain. Patient denies any fever/chills, new penile discharge, dysuria, hematuria or polyuria. Patient denies any prior abdominal surgeries. Denies any melena/hematochezia. Onset:acute on chronic for 1 week Duration:ongoing Location:home Severity:moderate Associated symptoms: Deny chest pain, dyspnea, nausea, rash, palpitations or vomiting Review of Systems Const: Denies: fever(s) or chills Eyes: Denies: change in vision ENMT: Denies: mouth pain Card: Denies: chest pain or palpitations Resp: Denies: dyspnea or non-productive cough GI: Denies: abdominal pain, nausea, vomiting or diarrhea : Reports: other (+L groin pain and bulge, +L testicualr pain); Denies: dysuria Musc: Denies: extremity pain Skin/Breast: Denies: rash or new lesions Neuro: Denies: weakness in extremities Psych: Reports: other (Normal mood) Steve/Lymph: Denies: easy bruising PFSH ED PFSH: Medical History Benign essential HTN Cancer of prostate Combined hyperlipidemia Intervertebral disc disorder with radiculopathy of lumbosacral region Pernicious anemia Psychiatric care Surgical History History of heart artery stent Hx of heart surgery Family History Father Lung disease Mother Chronic kidney disease (CKD) Hypertension Social History Smoking and tobacco status: former smoker Alcohol intake: never Household members: spouse Marital status: Current occupational status: retired History of recent travel: No Physical Exam Const: COMMON NORMALS: alert HENMT: COMMON NORMALS: atraumatic HEAD & SCALP: atraumatic MOUTH: moist mucous membranes not abnormal Eye: COMMON NORMALS: EOMs intact bilaterally and conjunctivae normal CONJUNCTIVA: Yes conjunctivae normal Neck/C-Spine: COMMON NORMALS: full ROM and supple Resp: COMMON NORMALS: normal respiratory effort and clear to auscultation bilaterally AUSCULTATION: clear to auscultation bilaterally Cardio: COMMON NORMALS: regular rate RATE: regular rate GI: COMMON NORMALS: Soft to palpation and non-tender PALPATION: Yes Soft to palpation Extremity: COMMON NORMALS: full ROM Neuro: SENSORIUM/ORIENTATION: Yes alert MOTOR EXAM: No Abnormal motor strength present and Other motor observations present (no focal motor deficits) Psych: COMMON NORMALS: speech normal SPEECH: Yes normal speech MOOD & AFFECT: Yes euthymic mood Course Vital Signs: Vital signs: Vital Signs Temperature 97.6 F 12/27/21 11:37 Pulse Rate 67 12/27/21 13:26 Respiratory Rate 23 H 12/27/21 13:26 Blood Pressure 115/72 12/27/21 12:10 Pulse Oximetry 99 12/27/21 11:37 Oxygen Delivery Me thod 12/27/21 13:26 MDM - General Adult Medical Decision Making 68-year-old male presenting to the emergency room for evaluation of left groin pain and left-sided testicular pain on exam, patient has mild left testicular tenderness palpation. There is no swelling induration. Normal testicular lie. There is no palpable hernia. Ultrasound negative for any acute finding. Lactate within normal. CT abdomen pelvis negative for any acute emergent pathology. Patient was found to have dilated liver duct and left pole mass. Patient is hemodynamically stable in no acute distress. Patient does not complain acute pain currently. Lab work-up showed a sodium 124. Instructed patient follow-up with his primary care provider in 1 week for reassessment of sodium. Patient is also found to have creatinine 1.4 similar to baseline. Incidental findings of L kidney lesion and liver lesion discussed extensively with patient. Patient received a copy of the CT report with the documented findings. Patient is instructed to follow up urgently with specialists. I have given patient follow up with our test case developer to be seen by our outpatient by oncology for new findings of kidney mass. Patient aware of a call from our test case developer to schedule for appointment(s) and verbalizes understanding of the importance of following up. Disposition: Discharge. Patient counseled regarding diagnostic impression, treatment plan. Patient given ED strict return precautions to return for continuation, worsening, or development of new symptoms. Instructed to f/u w/ PCP and Urology regarding symptoms today. Patient verbalized understanding. Lab Data : 12/27/21 12:05 12/27/21 12:05 Radiology Impressions Abdomen/Pelvis CT 12/27/21 11:53 IMPRESSION: 1. No acute abdominal or pelvic abnormalities are identified. 2. Solid low-attenuation mass upper pole LEFT kidney suspicious for small renal cell neoplasm. Recommend follow-up renal mass CT protocol in 3 months. There are additional too small to characterize hypodensities and cysts within each kidney also. 3. Tubular low-attenuation masses in the LEFT lobe of the liver are probably abnormally dilated ducts. No centrally obstructing neoplasm is identified. Recommend short-term follow-up. CT follow-up in 3 months can be performed. This can be performed at the same time as the renal mass CT protocol. Evaluating for possible cholangiocarcinoma. 4. Atherosclerosis aorta. Scrotum Ultrasound 12/27/21 12:55 IMPRESSION: NORMAL TESTICULAR ULTRASOUND. Laboratory Results WBC 8.8 10^3/uL (4.0-10.0) 12/27/21 12:05 RBC 3.68 10^6/uL (4.1-5.3) L 12/27/21 12:05 Hgb 12.1 g/dL (11.7-16.6) 12/27/21 12:05 Hct 35.0 % (42.0-52.0) L 12/27/21 12:05 MCV 95.1 fl (80-94) H 12/27/21 12:05 MCH 32.9 pg (28.0-34.0) 12/27/21 12:05 MCHC 34.6 g/dL (30.0-36.0) 12/27/21 12:05 RDW 13.1 % (12.1-15.1) 12/27/21 12:05 Plt Count 304 10^3/cmm (130-400) 12/27/21 12:05 MPV 9.5 fL (7.4-10.4) 12/27/21 12:05 Neut % (Auto) 80.3 % 12/27/21 12:05 Lymph % (Auto) 10.4 % 12/27/21 12:05 Harrison % (Auto) 7.8 % 12/27/21 12:05 Eos % (Auto) 0.8 % 12/27/21 12:05 Baso % (Auto) 0.2 % 12/27/21 12:05 Neut # (Auto) 7.09 10^3/uL (1.8-7.7) 12/27/21 12:05 Lymph # (Auto) 0.9 10^3/uL (0.8-4.8) 12/27/21 12:05 Harrison # (Auto) 0.7 10^3/uL (0.2-0.9) 12/27/21 12:05 Eos # (Auto) 0.1 10^3/uL (0.0-0.8) 12/27/21 12:05 Baso # (Auto) 0.0 10^3/uL (0.0-0.1) 12/27/21 12:05 Nucleated RBC % (auto) 0 % 12/27/21 12:05 Nucleated RBCs # 0.0 /100WBC 12/27/21 12:05 Sodium 124 mmol/L (136-145) L 12/27/21 12:05 Potassium 4.8 mmol/L (3.5-5.1) 12/27/21 12:05 Chloride 88 mmol/L (98-107) L 12/27/21 12:05 Carbon Dioxide 26 mmol/L (22-29) 12/27/21 12:05 Anion Gap 14.8 (5-19) 12/27/21 12:05 BUN 13 mg/dL (8-23) 12/27/21 12:05 Creatinine 1.4 mg/dL (0.7-1.2) H 12/27/21 12:05 GFR Calculation Not Reportable 12/27/21 12:05 Glucose 106 mg/dL (65-115) 12/27/21 12:05 Calculated Osmolality 259 mOsm/kg (285-295) L 12/27/21 12:05 Lactate 1.6 mmol/L (0.5-2.2) 12/27/21 12:05 Calcium 8.6 mg/dL (8.5-10.5) 12/27/21 12:05 Total Bilirubin 0.4 mg/dL (0.15-1.2) 12/27/21 12:05 AST 15 U/L (0-40) 12/27/21 12:05 ALT 13 U/L (0-41) 12/27/21 12:05 Alkaline Phosphatase 71 U/L (40-130) 12/27/21 12:05 Total Protein 6.6 g/dL (6.6-8.7) 12/27/21 12:05 Albumin 3.9 g/dL (3.5-5.2) 12/27/21 12:05 Globulin 2.7 g/dL (1.3-4.6) 12/27/21 12:05 Lipase 29 U/L (13-60) 12/27/21 12:05 Urine Color Yellow (Yellow) 12/27/21 12:10 Urine Appearance Clear (CLEAR) 12/27/21 12:10 Urine pH 5 (5-7) 12/27/21 12:10 Ur Specific Dearing 1.015 (1.005-1.030) 12/27/21 12:10 Urine Protein Trace (Negative) 12/27/21 12:10 Urine Glucose (UA) Norm (Normal) 12/27/21 12:10 Urine Ketones 1+ (Negative) H 12/27/21 12:10 Urine Blood Neg (Negative) 12/27/21 12:10 Urine Nitrate Negative (Negative) 12/27/21 12:10 Urine Bilirubin Neg (Negative) 12/27/21 12:10 Urine Urobilinogen 1 mg/dL (Negative) H 12/27/21 12:10 Ur Leukocyte Esterase Trace (Negative) H 12/27/21 12:10 Urine RBC 0-4 /hpf (0-2) H 12/27/21 12:10 Urine WBC 0-4 /hpf (0-5) H 12/27/21 12:10 Ur Squamous Epith Cells 0-4 /hpf (0-5) H 12/27/21 12:10 Amorphous Sediment Not Reportable 12/27/21 12:10 Urine Bacteria Trace /hpf (NONE) 12/27/21 12:10 Imaging Data Other Imaging: Radiologist's impression: [facility] [address] [place] [id number] Ultrasound Report Signed Patient: Camilo Zuniga Unit #: [id number] : 1945 Age/Sex: 76 / M ADM Date: 12/27/21 Loc: ER Room/Bed: Attending Dr: Ordering Provider/Ordering MD: Lauro Beckford MD Date of Service: 12/27/21 Procedure(s): US scrotum [id number] Accession Number(s): [id number] Report Number: [id number] WS: [id number] TESTICULAR ULTRASOUND HISTORY: groin pain COMPARISON: None available. TECHNIQUE: Real-time and color Doppler imaging or utilized to perform a testicular ultrasound. Right testicle: 4.0 cm x 2.1 cm x 1.4 cm. Normal size and echogenicity. No mass or torsion. Normal color Doppler is present throughout. Systolic and diastolic velocities are both present. No significant hydrocele. Right epididymis: Normal epididymis with no increased vascularity. Left testicle: 3.4 cm x 2.0 cm x 1.4 cm. Normal size and echogenicity. No mass or torsion. Normal color Doppler is present throughout. Systolic and diastolic velocities are both present. No significant hydrocele. Left epididymis: Normal epididymis with no increased vascularity. US/US scrotum [id number] IMPRESSION: ? NORMAL TESTICULAR ULTRASOUND. ? ? Dictated By: Sana Hernandez DO Signed By: Sana Hernandez DO Signed Date/Time: 12/27/21 1400 DD/ 1358 [facility] [address] [place] [id number] Scan Report Signed Patient: Camilo Zuniga Unit #: [id number] : 1945 Age/Sex: 76 / M ADM Date: 12/27/21 Loc: ER Room/Bed: Attending Dr: Ordering Provider/Ordering MD: Lauro Beckford MD Date of Service: 12/27/21 Procedure(s): CT abdomen pelvis w con* [id number] Accession Number(s): [id number] Report Number: [id number] WS: [id number] CT ABDOMEN AND PELVIS WITH CONTRAST HISTORY: abd pain TECHNIQUE: Imaging performed of the abdomen and pelvis with IV contrast.? Single phase imaging of the abdomen. Coronal and sagittal reformats are submitted.? All CT scans at [facility] use at least one of these dose optimization techniques: automated exposure control; mA and/or kV adjustment per patient size (includes targeted exams where dose is matched to clinical indication); or iterative reconstruction. IV CONTRAST: Omnipaque 350; 95 mL IV. Oral contrast: No DLP: 339.12 mGy.cm COMPARISON: None available. Lower thorax: Mild hyperinflation of the lung bases. Heart is normal size. No hiatal hernia. Liver/biliary system: Numerous small low-attenuation lesions throughout the liver. There are multiple tubular low-attenuation lesions within the LEFT lobe of the liver. Suspect this is duct related but no centrally obstructing lesion is identified. There are a few scattered low-attenuation lesions which are too small to characterize. Gallbladder: Normal. No gallstones or wall thickening. No pericholecystic fluid.? Pancreas: Normal size pancreas and pancreatic duct. No adjacent inflammation. Spleen: Normal size spleen. No mass or infarct. Adrenal glands: Normal. Right kidney: Mild cortical thinning. There are a few very small superficial hypodensities. No renal obstruction. Left kidney: Cortical hypodensities. Mildly hyperdense cortical mass measuring 11 mm from the upper pole may be early renal cell neoplasm. The remaining cortical hypodensities are too small to characterize or cysts. Aorta: Mild atherosclerosis with no aneurysm. Lymphadenopathy: None. Free fluid: None. GI tract: Fluid distended stomach. No small bowel obstruction. There are a few loops of small bowel with increased fluid. No obstructive pattern. Increased fecal material in the distal colon. No mass or obstruction. Abdominal wall: Unremarkable abdominal wall. No hernia. Pelvis: No free fluid or adenopathy within the pelvis. Bones: Mild degenerative changes throughout the facet joints. CT/CT abdomen pelvis w con* [id number] IMPRESSION: ? 1.? No acute abdominal or pelvic abnormalities are identified. 2.? Solid low-attenuation mass upper pole LEFT kidney suspicious for small renal cell neoplasm. Recommend follow-up renal mass CT protocol in 3 months. There are additional too small to characterize hypodensities and cysts within each kidney also. 3.? Tubular low-attenuation masses in the LEFT lobe of the liver are probably abnormally dilated ducts. No centrally obstructing neoplasm is identified. Recommend short-term follow-up. CT follow-up in 3 months can be performed. This can be performed at the same time as the renal mass CT protocol. Evaluating for possible cholangiocarcinoma. 4.? Atherosclerosis aorta. ? Dictated By: Sana Hernandez DO Signed By: Sana Hernandez DO Signed Date/Time: 12/27/21 1323 DD/ 1310 Discharge Plan Discharge Patient Disposition: Home Clinical Impression: Hyponatremia Condition: Stable Prescriptions: New sodium chloride 1 gram tablet 1,000 mg PO DAILY 5 Days Qty: 5 0RF No Action clopidogrel 75 mg tablet 75 mg PO QAM naproxen [Naprosyn] 500 mg tablet 500 mg PO BID PRN (Reason: pain) Qty: 20 0RF risperidone 0.25 mg tablet 0.25 mg PO BID temazepam 30 mg Capsule 30 mg PO BEDTIME ropinirole 2 mg Tablet 2 mg PO BEDTIME buspirone 10 mg Tablet 10 mg PO TID Lexapro 10 mg Tablet 10 mg PO BEDTIME pantoprazole 40 mg tablet,delayed release (DR/EC) 40 mg PO QAM furosemide 20 mg tablet 20 mg PO DAILY PRN (Reason: Edema) albuterol sulfate 90 mcg/actuation HFA aerosol inhaler 2 puff INHALATION Q6H PRN (Reason: Shortness Of Breath) Discharge Orders: Discharge ED (Routine); Ordered 12/27/21 Ordered By: Lauro Beckford Referrals: Joseline Madison, OFFICE SERVICES REPRESENTATIVE [Primary Care Provider] - Discharge Diet: Advance as tolerated Discharge Activity: Increase activity as tolerated Patient Instructions: Abdominal Pain (ED), Groin Pain (ED) Activity Restrictions/Additional Instructions: Please come back if you have any worsening abdominal pain, fever or chills, nausea or vomiting, diarrhea, blood in the stool, inability hold down liquid or solids, or any new concerning complaints. Please have your sodium checked next week. Please take your salt tablets. Our test case developer will have you follow-up with Dr. Bruce in the next few days for left sided kidney mass. You would be expected to have a phone call with our test case developer who will put you on the schedule. You can expect a call from us in the next 2-3 days. If you don't hear from us, call us back in the emergency room at [phone]. Here's a copy of your CT report. Please follow up with your primary care provider an oncologist to determine your left kidney lesion [address] [address] [address] Scan Report Signed Patient: Camilo Zuniga Unit #: [id number] : 1945 Age/Sex: 76 / M ADM Date: 12/27/21 Loc: ER Room/Bed: Attending Dr: Ordering Provider/Ordering MD: Lauro Beckford MD Date of Service: 12/27/21 Procedure(s): CT abdomen pelvis w con* [id number] Accession Number(s): [id number] Report Number: [id number] WS: [id number] CT ABDOMEN AND PELVIS WITH CONTRAST HISTORY: abd pain TECHNIQUE: Imaging performed of the abdomen and pelvis with IV contrast.? Single phase imaging of the abdomen. Coronal and sagittal reformats are submitted.? All CT scans at [facility] use at least one of these dose optimization techniques: automated exposure control; mA and/or kV adjustment per patient size (includes targeted exams where dose is matched to clinical indication); or iterative reconstruction. IV CONTRAST: Omnipaque 350; 95 mL IV. Oral contrast: No DLP: 339.12 mGy.cm COMPARISON: None available. Lower thorax: Mild hyperinflation of the lung bases. Heart is normal size. No hiatal hernia. Liver/biliary system: Numerous small low-attenuation lesions throughout the liver. There are multiple tubular low-attenuation lesions within the LEFT lobe of the liver. Suspect this is duct related but no centrally obstructing lesion is identified. There are a few scattered low-attenuation lesions which are too small to characterize. Gallbladder: Normal. No gallstones or wall thickening. No pericholecystic fluid.? Pancreas: Normal size pancreas and pancreatic duct. No adjacent inflammation. Spleen: Normal size spleen. No mass or infarct. Adrenal glands: Normal. Right kidney: Mild cortical thinning. There are a few very small superficial hypodensities. No renal obstruction. Left kidney: Cortical hypodensities. Mildly hyperdense cortical mass measuring 11 mm from the upper pole may be early renal cell neoplasm. The remaining cortical hypodensities are too small to characterize or cysts. Aorta: Mild atherosclerosis with no aneurysm. Lymphadenopathy: None. Free fluid: None. GI tract: Fluid distended stomach. No small bowel obstruction. There are a few loops of small bowel with increased fluid. No obstructive pattern. Increased fecal material in the distal colon. No mass or obstruction. Abdominal wall: Unremarkable abdominal wall. No hernia. Pelvis: No free fluid or adenopathy within the pelvis. Bones: Mild degenerative changes throughout the facet joints. CT/CT abdomen pelvis w con* [id number] IMPRESSION: ? 1.? No acute abdominal or pelvic abnormalities are identified. 2.? Solid low-attenuation mass upper pole LEFT kidney suspicious for small renal cell neoplasm. Recommend follow-up renal mass CT protocol in 3 months. There are additional too small to characterize hypodensities and cysts within each kidney also. 3.? Tubular low-attenuation masses in the LEFT lobe of the liver are probably abnormally dilated ducts. No centrally obstructing neoplasm is identified. Recommend short-term follow-up. CT follow-up in 3 months can be performed. This can be performed at the same time as the renal mass CT protocol. Evaluating for possible cholangiocarcinoma. 4.? Atherosclerosis aorta. ? Dictated By: Sana Hernandez DO Signed By: Sana Hernandez DO Signed Date/Time: 12/27/21 1323 DD/ 1310 Coding Level of Care Code ED Stretching Machine Operator for Chg Fwd Exam Comprehensive
[2021-12-27 12:10] VITALS: BP 115/72; PULSE 71
[2021-12-27 12:31] LABS: Lactate (Lactic Acid level) 1.6 mmol/L (0.5-2.2)
[2021-12-27 12:32] LABS: Alanine Aminotransferase 13 U/L (0-41); Albumin Level 3.9 g/dL (3.5-5.2); Alkaline Phosphatase 71 U/L (40-130); Anion Gap 14.8 (5-19); Aspartate Amino Transferase 15 U/L (0-40); Blood Urea Nitrogen 13 mg/dL (8-23); Calcium 8.6 mg/dL (8.5-10.5); Carbon Dioxide 26 mmol/L (22-29); Chloride 88 mmol/L (98-107); Globulin 2.7 g/dL (1.3-4.6); Glucose 106 mg/dL (65-115); Lipase 29 U/L (13-60); Osmolality Calculated 259 mOsm/kg (285-295); Potassium 4.8 mmol/L (3.5-5.1); Sodium 124 mmol/L (136-145); Total Bilirubin 0.4 mg/dL (0.15-1.2); Total Protein 6.6 g/dL (6.6-8.7)
[2021-12-27 12:36] LABS: Add Urine Culture? No; Add Urine Microscopic? YES; Bacteria Urine TRACE /hpf; Bilirubin Urine Neg (Negative); Blood Urine Neg (Negative); Glucose Urine UA Norm (Normal); Ketones Urine 1+ (Negative); Leukocyte Esterase Urine Trace (Negative); Nitrate Urine Negative (Negative); Protein Urine Trace (Negative); RBC Urine 0-4 /hpf (0-2); Specific Gravity, Urine 1.015 (1.005-1.030); Squamous Epithelial Cell Urine 0-4 /hpf (0-5); Urine Appearance Clear (CLEAR); Urine Color Yellow (Yellow); Urobilinogen Urine 1 mg/dL (Negative); WBC Urine 0-4 /hpf (0-5); pH Urine 5 (5-7)
--- NOTE | 2021-12-27 12:55 | US_ITS ---
WS: [id number] TESTICULAR ULTRASOUND HISTORY: groin pain COMPARISON: None available. TECHNIQUE: Real-time and color Doppler imaging or utilized to perform a testicular ultrasound. Right testicle: 4.0 cm x 2.1 cm x 1.4 cm. Normal size and echogenicity. No mass or torsion. Normal color Doppler is present throughout. Systolic and diastolic velocities are both present. No significant hydrocele. Right epididymis: Normal epididymis with no increased vascularity. Left testicle: 3.4 cm x 2.0 cm x 1.4 cm. Normal size and echogenicity. No mass or torsion. Normal color Doppler is present throughout. Systolic and diastolic velocities are both present. No significant hydrocele. Left epididymis: Normal epididymis with no increased vascularity. US/US scrotum [id number] IMPRESSION: NORMAL TESTICULAR ULTRASOUND.
[2021-12-27 13:05] LABS: Basophils % 0.2 %; Eosinophils # 0.1 10^3/uL (0.0-0.8); Eosinophils % 0.8 %; Hemoglobin 12.1 g/dL (11.7-16.6); Lymphocytes # 0.9 10^3/uL (0.8-4.8); Lymphocytes % 10.4 %; Mean Corpuscular HGB Conc 34.6 g/dL (30.0-36.0); Mean Corpuscular Hemoglobin 32.9 pg (28.0-34.0); Mean Corpuscular Volume 95.1 fl (80-94); Mean Platelet Volume 9.5 fL (7.4-10.4); Monocytes # 0.7 10^3/uL (0.2-0.9); Monocytes % 7.8 %; Neutrophils # 7.09 10^3/uL (1.8-7.7); Neutrophils % 80.3 %; Nucleated Red Blood Cells % 0 %; Platelet Count 304 10^3/cmm (130-400); Red Blood Count 3.68 10^6/uL (4.1-5.3); Red Cell Distribution Width 13.1 % (12.1-15.1); White Blood Count 8.8 10^3/uL (4.0-10.0)
[2021-12-27] MEDS: iohexol 350 mg/mL 100 mL Btl IV (13:09)
[2021-12-27 13:26] VITALS: PULSE 67; RESP 23
--- NOTE | 2021-12-28 11:02 | DCPLANNER ---
Addendum entered by Dayanna Lizama 12/28/21 14:15: manager massage department received the following message from the urology clinic regarding referral: Urology and General Surgery does not do kidney biopsy's. In the past we have referred them to a building service worker. Sorry for the inconvenience. Please let us know if you have any questions. Thank you, Shelia manager massage department referred patient back to his primary care physician, so that the primary care physician can have close follow up with patient regarding follow up. Primary cares office stated that the office would take care of the referral to a building service worker for patient. manager massage department faxed patients information to Joseline Madison office. Original Note: manager massage department had message to refer [facility]. manager massage department called the center and spoke with Desiree, gave clinic patients information. manager massage department was told that patient would need to be seen by someone else before being seen by the cancer center, because patient needs to have a diagnosis of cancer so that patient can be treated. manager massage department sent patients information to the urology clinic to be reviewed, to see if patient can be seen at the clinic or where patient needs to be seen so that treatment can be started.
== END 2021-12-27 14:45 | disposition home or self-care (01) ==
PROVIDERS: Family Medicine; Emergency Provider Emergency Medicine; PCP Nurse Practitioner
DX: E87.1 Hypo-osmolality and hyponatremia (principal); Z79.02 Long term (current) use of antithrombotics/antiplatelets; I10 Essential (primary) hypertension; Z85.46 Personal history of malignant neoplasm of prostate; E78.2 Mixed hyperlipidemia; Z87.891 Personal history of nicotine dependence
CPT/HCPCS: 74177; 76870; 80053; 81001; 83605; 83690; 85025; 99285; Q9967

== ENCOUNTER 2021-12-28 10:36 | Emergency (ER) | payer MEDICARE, MEDICAID, SELFPAY ==
[2021-12-28 10:54] VITALS: BP 154/86; PULSE 82; RESP 16; TEMP 36.6; O2SAT 99; BMI 19.8
[2021-12-28 11:56] LABS: Basophils % 0.3 %; Eosinophils % 0.4 %; Hematocrit 34.3 % (42.0-52.0); Hemoglobin 11.9 g/dL (11.7-16.6); Lymphocytes # 0.8 10^3/uL (0.8-4.8); Lymphocytes % 8.9 %; Mean Corpuscular HGB Conc 34.7 g/dL (30.0-36.0); Mean Corpuscular Hemoglobin 33.1 pg (28.0-34.0); Mean Corpuscular Volume 95.3 fl (80-94); Mean Platelet Volume 9.2 fL (7.4-10.4); Monocytes # 0.6 10^3/uL (0.2-0.9); Monocytes % 6.8 %; Neutrophils # 7.44 10^3/uL (1.8-7.7); Neutrophils % 83.2 %; Nucleated Red Blood Cells % 0 %; Platelet Count 315 10^3/cmm (130-400); Red Cell Distribution Width 13.3 % (12.1-15.1)
[2021-12-28 12:00] VITALS: PULSE 67; O2SAT 94
--- NOTE | 2021-12-28 12:12 | ED_ITS ---
HPI - General Adult General: Chief complaint: GI Bleed Stated complaint: Blood from rectum Time Seen by Provider: 12/28/21 11:33 History of Present Illness: Patient is a 76-year-old male with a history of Hypertension, hyperlipidemia, pernicious anemia, left inguinal hernia, previous prostate CA status post prostatectomy presenting to the emergency room with concerns of blood in the stool x 2 episodes since discharge from the ED yesterday. Patient was initially seen yesterday for concerns of left-sided inguinal hernia pain. At that point, patient had a CT scan which showed new kidney lesions without any findings of diverticulitis or diverticulosis. In addition, patient's ultrasound was negative for any inguinal hernia or testicular pathology. Since discharge from the hospital yesterday, patient reported 2 episodes of bloody stool. Lower abdominal pain that radiates towards the back. Patient denies any hematuria, polyuria or dysuria. Patient reports nausea without any episodes of vomiting. Family became concerned for blood in the stool and decided come to the emergency room for evaluation. Onset: yesterrday night Duration:ongoing x 2 episodes of bloody stools Location:home Severity:moderate Associated symptoms: Reports nausea; Deny chest pain, dyspnea, rash, palpitations or vomiting Review of Systems Const: Denies: fever(s) or chills Eyes: Denies: change in vision ENMT: Denies: mouth pain Card: Denies: chest pain or palpitations Resp: Denies: dyspnea or non-productive cough GI: Reports: nausea and other (+constipation/blood in stool x 2 ); Denies: abdominal pain, vomiting or diarrhea : Denies: dysuria Musc: Denies: extremity pain Skin/Breast: Denies: rash or new lesions Neuro: Denies: weakness in extremities Psych: Reports: other (Normal mood) Steve/Lymph: Denies: easy bruising PFSH ED PFSH: Medical History Benign essential HTN Cancer of prostate Combined hyperlipidemia Intervertebral disc disorder with radiculopathy of lumbosacral region Pernicious anemia Psychiatric care Surgical History History of heart artery stent Hx of heart surgery Family History Father Lung disease Mother Chronic kidney disease (CKD) Hypertension Social History Smoking and tobacco status: former smoker Alcohol intake: never Household members: spouse Marital status: Current occupational status: retired History of recent travel: No Physical Exam Const: COMMON NORMALS: alert HENMT: COMMON NORMALS: atraumatic HEAD & SCALP: atraumatic MOUTH: moist mucous membranes not abnormal Eye: COMMON NORMALS: EOMs intact bilaterally and conjunctivae normal CONJUNCTIVA: Yes conjunctivae normal Neck/C-Spine: COMMON NORMALS: full ROM and supple Resp: COMMON NORMALS: normal respiratory effort and clear to auscultation bilaterally AUSCULTATION: clear to auscultation bilaterally Cardio: COMMON NORMALS: regular rate RATE: regular rate GI: COMMON NORMALS: Soft to palpation and non-tender PALPATION: Yes Soft to palpation OTHER: No focal TTP. NO guarding rebound, guarding, rigidity. No CVA tenderness to percussion. Neg Yoder/Neg McBurney's point tenderness, no suprabupic tenderness to palpation. Extremity: COMMON NORMALS: full ROM Neuro: SENSORIUM/ORIENTATION: Yes alert MOTOR EXAM: No Abnormal motor strength present and Other motor observations present (no focal motor deficits) Psych: COMMON NORMALS: speech normal SPEECH: Yes normal speech MOOD & AFFECT: Yes euthymic mood Course Vital Signs: Vital signs: Vital Signs Temperature 97.8 F 12/28/21 10:54 Pulse Rate 77 12/28/21 13:34 Respiratory Rate 16 12/28/21 10:54 Blood Pressure 182/91 12/28/21 13:34 Pulse Oximetry 95 12/28/21 13:34 Oxygen Delivery Me thod 12/28/21 13:34 [facility] - General Adult Medical Decision Making Patient is a 76-year-old male with a history of Hypertension, hyperlipidemia, pernicious anemia, left inguinal hernia, previous prostate CA status post prostatectomy presenting to the emergency room with concerns of blood in the stool x 2 episodes since discharge from the ED yesterday. On exam, patient hemodynamically stable. Closed exam did not show any hemorrhoids or anal fissure. Patient is noted to have mild streaks of blood in the stool. Patient's lab work-up showed hemoglobin 11.9 similar to baseline. Sodium 128 which is improving from 124 yesterday. Creatinine 1.5 which is similar to baseline. While observed in the emergency room, patient had an episode of shaking episode requiring Versed. Family tells me that patient has had extensive work-up in the past for these shaking episode and was never diagnosed with seizure. Patient is now back to baseline tolerating p.o. without any difficulty. At the present time, I discussed case with Dr. Gonzalez who recommend close outpatient follow-up in the office. No suspicion for other acute intra-abdominal pathology including SBO, biliary pathology, appendicitis, diverticulitis, or other emergent condition requiring surgery. I have given patient follow up with our rehabilitation case coordinator to be seen by our outpatient Dr. Gonzalez to determine if patient needs colonoscopy for bloody stool. Patient aware of a call from our rehabilitation case coordinator to schedule for appointment(s) and verbalizes understanding of the importance of following up. Rx Maalox/pepcid PRN dyspepsia, and zofran PRN nausea/vomiting Disposition: Discharge. Patient counseled regarding diagnostic impression, treatment plan. Patient given ED strict return precautions to return for contin uation, worsening, or development of new symptoms. Instructed to f/u w/ PCP and Dr. Gonzalez regarding symptoms today. Patient verbalized understanding. Lab Data : 12/28/21 11:50 12/28/21 11:50 Laboratory Results WBC 9.0 10^3/uL (4.0-10.0) 12/28/21 11:50 RBC 3.60 10^6/uL (4.1-5.3) L 12/28/21 11:50 Hgb 11.9 g/dL (11.7-16.6) 12/28/21 11:50 Hct 34.3 % (42.0-52.0) L 12/28/21 11:50 MCV 95.3 fl (80-94) H 12/28/21 11:50 MCH 33.1 pg (28.0-34.0) 12/28/21 11:50 MCHC 34.7 g/dL (30.0-36.0) 12/28/21 11:50 RDW 13.3 % (12.1-15.1) 12/28/21 11:50 Plt Count 315 10^3/cmm (130-400) 12/28/21 11:50 MPV 9.2 fL (7.4-10.4) 12/28/21 11:50 Neut % (Auto) 83.2 % 12/28/21 11:50 Lymph % (Auto) 8.9 % 12/28/21 11:50 Chambers % (Auto) 6.8 % 12/28/21 11:50 Eos % (Auto) 0.4 % 12/28/21 11:50 Baso % (Auto) 0.3 % 12/28/21 11:50 Neut # (Auto) 7.44 10^3/uL (1.8-7.7) 12/28/21 11:50 Lymph # (Auto) 0.8 10^3/uL (0.8-4.8) 12/28/21 11:50 Chambers # (Auto) 0.6 10^3/uL (0.2-0.9) 12/28/21 11:50 Eos # (Auto) 0.0 10^3/uL (0.0-0.8) 12/28/21 11:50 Baso # (Auto) 0.0 10^3/uL (0.0-0.1) 12/28/21 11:50 Nucleated RBC % (auto) 0 % 12/28/21 11:50 Nucleated RBCs # 0.0 /100WBC 12/28/21 11:50 Sodium 128 mmol/L (136-145) L 12/28/21 11:50 Potassium 4.8 mmol/L (3.5-5.1) 12/28/21 11:50 Chloride 92 mmol/L (98-107) L 12/28/21 11:50 Carbon Dioxide 25 mmol/L (22-29) 12/28/21 11:50 Anion Gap 15.8 (5-19) 12/28/21 11:50 BUN 14 mg/dL (8-23) 12/28/21 11:50 Creatinine 1.5 mg/dL (0.7-1.2) H 12/28/21 11:50 GFR Calculation Not Reportable 12/28/21 11:50 Glucose 90 mg/dL (65-115) 12/28/21 11:50 Calculated Osmolality 266 mOsm/kg (285-295) L 12/28/21 11:50 Calcium 8.7 mg/dL (8.5-10.5) 12/28/21 11:50 Total Bilirubin 0.2 mg/dL (0.15-1.2) 12/28/21 11:50 AST 16 U/L (0-40) 12/28/21 11:50 ALT 15 U/L (0-41) 12/28/21 11:50 Alkaline Phosphatase 79 U/L (40-130) 12/28/21 11:50 Total Protein 6.8 g/dL (6.6-8.7) 12/28/21 11:50 Albumin 3.9 g/dL (3.5-5.2) 12/28/21 11:50 Globulin 2.9 g/dL (1.3-4.6) 12/28/21 11:50 Lipase 28 U/L (13-60) 12/28/21 11:50 Discharge Plan Discharge Patient Disposition: Home Clinical Impression: Blood per rectum Condition: Stable Prescriptions: New Maalox Advanced 1,000-60 mg tablet,chewable 1 tab PO TID PRN (Reason: abdominal pain) 7 Days Qty: 21 0RF Pepcid 20 mg tablet 20 mg PO BID PRN (Reason: abdominal pain) 10 Days Qty: 20 0RF ondansetron 4 mg tablet,disintegrating 4 mg PO TID PRN (Reason: nausea and vomiting) 4 Days Qty: 12 0RF No Action clopidogrel 75 mg tablet 75 mg PO QAM risperidone 0.25 mg tablet 0.25 mg PO BID temazepam 30 mg Capsule 30 mg PO BEDTIME ropinirole 2 mg Tablet 2 mg PO BEDTIME buspirone 10 mg Tablet 10 mg PO TID escitalopram oxalate [Lexapro] 10 mg Tablet 10 mg PO BEDTIME Miralax 17 gram/dose Powder 4 g PO DAILY PRN (Reason: Constipation) Excedrin Migraine 250-250-65 mg Tablet 1 tab PO Q6H PRN (Reason: Migraine Headache) pantoprazole 40 mg tablet,delayed release (DR/EC) 40 mg PO QAM furosemide 20 mg tablet 20 mg PO DAILY PRN (Reason: Edema) albuterol sulfate 90 mcg/actuation HFA aerosol inhaler 2 puff INHALATION Q6H PRN (Reason: Shortness Of Breath) Discharge Orders: Discharge ED (Routine); Ordered 12/28/21 Ordered By: Lauro Beckford Referrals: Joseline Madison, CLINICAL NUTRITIONIST [Primary Care Provider] - Discharge Diet: Advance as tolerated Discharge Activity: Increase activity as tolerated Patient Instructions: Rectal Bleeding (ED) Activity Restrictions/Additional Instructions: Please come back if you have any worsening abdominal pain, fever or chills, nausea or vomiting, diarrhea, blood in the stool, inability hold down liquid or solids, or any new concerning complaints. Our rehabilitation case coordinator will have you follow-up with Dr. Gonzalez in the next few days. You would be expected to have a phone call with our rehabilitation case coordinator who will put you on the schedule. You can expect a call from us in the next 2-3 days. If you don't hear from us, call us back in the emergency room at [phone]. Coding Level of Care Code ED Extension Supervisor for Jennifer Fwd Exam Comprehensive
[2021-12-28 12:31] LABS: Alanine Aminotransferase 15 U/L (0-41); Albumin Level 3.9 g/dL (3.5-5.2); Alkaline Phosphatase 79 U/L (40-130); Aspartate Amino Transferase 16 U/L (0-40); Blood Urea Nitrogen 14 mg/dL (8-23); Calcium 8.7 mg/dL (8.5-10.5); Carbon Dioxide 25 mmol/L (22-29); Chloride 92 mmol/L (98-107); Globulin 2.9 g/dL (1.3-4.6); Glucose 90 mg/dL (65-115); Lipase 28 U/L (13-60); Osmolality Calculated 266 mOsm/kg (285-295); Sodium 128 mmol/L (136-145); Total Bilirubin 0.2 mg/dL (0.15-1.2); Total Protein 6.8 g/dL (6.6-8.7)
[2021-12-28 12:34] LABS: Anion Gap 15.8 (5-19); Potassium 4.8 mmol/L (3.5-5.1)
[2021-12-28 12:48] VITALS: BP 190/161; PULSE 77; O2SAT 97
[2021-12-28] MEDS: midazolam 1 mg/mL INJ 2 mL 2 MG IVP (13:32)
[2021-12-28 13:34] VITALS: BP 182/91; PULSE 77; O2SAT 95
--- NOTE | 2021-12-28 14:36 | DCPLANNER ---
Addendum entered by Dayanna Lizama 01/04/22 14:54: subcontract manager received the following message from the general surgery clinic regarding follow up appointment: phone call kept ringing mailing patient a letter due to multiple times attempted to reach patient. Patient will need to see dr. Celeste On 12/29/21 @ 14:57 Jill Gómez Wrote To [employer] Front Off per Shelia Patient will need to see dr. Celeste due to [facility] attempted to call patient and he hung up twice. On 12/28/21 @ 14:40 Jill Gómez Wrote To [employer] Off [facility] patient.. Will need to check with our manger to double check. but dr. Gonzalez Cannot see [facility] as of right now in the office. subcontract manager spoke with patients daughter and explained that when patient is ready to schedule an appointment to just call clinic and schedule an appointment. Original Note: subcontract manager had message to schedule a follow up appointment for patient with general surgery. subcontract manager sent patients information to the front office staff at general surgery. Patients information will be printed and reviewed. Clinic will call patient with appointment information.
== END 2021-12-28 14:48 | disposition home or self-care (01) ==
PROVIDERS: Emergency Provider Emergency Medicine; PCP Nurse Practitioner
DX: K62.5 Hemorrhage of anus and rectum (principal); Z79.02 Long term (current) use of antithrombotics/antiplatelets; I10 Essential (primary) hypertension; Z85.46 Personal history of malignant neoplasm of prostate; E78.2 Mixed hyperlipidemia; Z87.891 Personal history of nicotine dependence
CPT/HCPCS: 80053; 82274; 83630; 83690; 85025; 87506; 96374; 99284; J2250

== ENCOUNTER → 2022-02-16 09:44 | Outpatient (BNVA) | payer MEDICARE, MEDICAID, SELFPAY | PROVIDERS: PCP Nurse Practitioner; Referring Provider Nurse Practitioner; Visit Provider Physician Assistant | DX: X58.XXXA Exposure to other specified factors, initial encounter (principal); S32.029A Unspecified fracture of second lumbar vertebra, initial encounter for closed fracture; S32.039A Unspecified fracture of third lumbar vertebra, initial encounter for closed fracture; M47.816 Spondylosis without myelopathy or radiculopathy, lumbar region; M47.818 Spondylosis without myelopathy or radiculopathy, sacral and sacrococcygeal region | CPT/HCPCS: 72100; 99203 ==

== ENCOUNTER 2022-02-16 11:45 | Outpatient (CLI) | payer MEDICARE, MEDICAID, SELFPAY | END 2022-02-16 11:46 | disposition home or self-care (01) | LOC: SPT 11:48 | PROVIDERS: PCP Nurse Practitioner; Visit Provider Physician Assistant | DX: Z46.89 Encounter for fitting and adjustment of other specified devices (principal); S32.000D Wedge compression fracture of unspecified lumbar vertebra, subsequent encounter for fracture with routine healing; X58.XXXD Exposure to other specified factors, subsequent encounter; M51.17 Intervertebral disc disorders with radiculopathy, lumbosacral region | CPT/HCPCS: 97760; L0456 ==

== ENCOUNTER 2022-03-09 08:58 | Outpatient (CLI) | payer MEDICARE, MEDICAID, SELFPAY ==
--- NOTE | 2022-03-09 08:45 | MR_ITS ---
WS: [id number] MRI LUMBAR SPINE NONCONTRAST TECHNIQUE: Sagittal T1, T2 and STIR imaging. Axial T1 and T2 imaging. CLINICAL INFORMATION: pain COMPARISON: MRI August 12, 2019 FINDINGS: Mild lumbar curve. Compression fracture superior endplate L3 with diffuse edema. No significant retro pulsion. Mild loss vertebral body height measuring approximately 20%. Small amount of edema in the di sc space at L2-L3. Findings consistent with recent acute compression. New anterior wedging at T1 with new mild compression of the superior endplate at T3. This appears new since the prior MRI August 12, 2019. This is probably chronic. L1-L2: Mild annular bulging. Mild facet arthropathy. Spinal canal and foramen are patent. L2-L3: Mild annular bulging with slight narrowing of the subarticular recess bilaterally LEFT greater than RIGHT. Mild facet arthropathy. Mild LEFT foraminal narrowing. L3-L4: Mild annular bulging with slight effacement of the ventral thecal sac. Mild LEFT foraminal meredith rowing. Moderate facet arthropathy. Spinal canal and RIGHT foramen are patent. L4-L5:Mild annular bulging with narrowing of the subarticular recess bilaterally. Impingement daily ing L5 nerve roots bilaterally. Moderate facet arthropathy. Foramen are patent. L5-S1: Mild disc osteophytic ridging. Spinal canal is patent. Mild RIGHT foraminal narrowing. Partially visualized solid appearing LEFT renal lesion measuring 13 mm suspicious for renal neoplasm. Recommend further evaluation with ultrasound. Additional smaller cortical cyst LEFT kidney. Edema partially visualized in the far RIGHT lateral sacrum and ilium. This is indeterminant and inade quately visualized. This can be further evaluated with MRI sacrum. IMPRESSION: 1. Solid appearing lesion upper pole LEFT kidney measuring 13 x 12 mm suspicious for renal neoplasm. Recommend further evaluation with ultrasound or contrast-enhanced CT. 2. Mild compression superior endplate L3 with diffuse edema consistent with acute compression. Only minimal loss vertebral body height measuring 20%. No retropulsion. Edema in the disc space. 3. No other acute compression fractures. 4. Annular bulging L4-L5 with slight impingement traversing L5 nerve roots bilaterally. 5. Mild narrowing of the subarticular recess bilaterally L2-L3 with mild LEFT foraminal narrowing. 6. Mild LEFT L3-L4 and RIGHT L5-S1 foraminal narrowing. 7. Edema partially visualized in the far RIGHT lateral sacrum and ilium. This is indeterminant and i nadequately visualized. This can be further evaluated with MRI sacrum. 8. New anterior wedging at T1 with new mild compression of the superior endplate at T3. This appears new since the prior MRI August 12, 2019 but appears chronic..
== END 2022-03-09 08:59 | disposition home or self-care (01) ==
LOC: RAD 08:59
PROVIDERS: PCP Nurse Practitioner; Visit Provider Physician Assistant
DX: N28.9 Disorder of kidney and ureter, unspecified (principal); M51.26 Other intervertebral disc displacement, lumbar region; R60.0 Localized edema; M48.54XA Collapsed vertebra, not elsewhere classified, thoracic region, initial encounter for fracture
CPT/HCPCS: 72148

== ENCOUNTER → 2022-03-16 13:01 | Outpatient (BNVA) | payer MEDICARE, MEDICAID, SELFPAY | PROVIDERS: PCP Nurse Practitioner; Visit Provider Physician Assistant | DX: X58.XXXA Exposure to other specified factors, initial encounter (principal); S32.030A Wedge compression fracture of third lumbar vertebra, initial encounter for closed fracture | CPT/HCPCS: 99213 ==

== ENCOUNTER 2022-04-03 12:22 | Outpatient (CLI) | payer MEDICARE, MEDICAID, SELFPAY | END 2022-04-03 12:23 | disposition home or self-care (01) | LOC: RT 12:24 | PROVIDERS: PCP Nurse Practitioner; Visit Provider Orthopaedic Surgery | DX: Z13.6 Encounter for screening for cardiovascular disorders (principal) | CPT/HCPCS: 93005 ==

== ENCOUNTER 2022-04-10 05:41 | Day surgery (SDC) | payer MEDICARE, MEDICAID, SELFPAY ==
--- NOTE | 2022-04-03 07:57 | ECG_ITS ---
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 Measurements Intervals [place] Rate: 78 P: 60 IA: 202 QRS: -26 QRSD: 88 T: 80 QT: 358 QTc: 409 Interpretive Statements SINUS RHYTHM BORDERLINE LEFT AXIS DEVIATION [QRS AXIS < -20] NONSPECIFIC T-WAVE ABNORMALITY Compared to ECG 10/30/2021 20:44:16 T-wave abnormality now present First degree AV block no longer present Electronically Signed On 04-03-2022 10:00:17 GERONTOLOGICAL NURSE PRACTITIONER by Zach Hamilton M.D. [email or web address] general [email or web address] [email or web address] [id number]
[2022-04-03 08:22] VITALS: BMI 19.5
[2022-04-03 09:41] LABS: Anion Gap 13.5 (5-19); Blood Urea Nitrogen 22 mg/dL (8-23); Calcium 9.7 mg/dL (8.5-10.5); Carbon Dioxide 26 mmol/L (22-29); Chloride 100 mmol/L (98-107); Glucose 91 mg/dL (65-115); Osmolality Calculated 283 mOsm/kg (285-295); Potassium 4.5 mmol/L (3.5-5.1); Sodium 135 mmol/L (136-145)
--- NOTE | 2022-04-03 15:11 | P.ANESASSM_ITS ---
Pre-Anesthetic Assessment Height/Weight: Height 1.75 m Weight 59.874 kg Preop Diagnosis: L3 Compression Fracture Operation Date: 04/10/22 07:00 Proposed Procedures p Kyphoplasty L3 24217/S32.030A(Not Applicable) - Adalid Huerta DO Familial anesthetic complications: none Was Beta Rickey taken within 24 hours: N/A Was Clonidine taken within 24 hours: N/A Social No alcohol and No tobacco (h/o smoking) Exam alert, oriented x 3 and regular rate & rhythm Airway Submandibular: within normal limits Cervical ROM: within normal limits Mallampati: Class II Dentition: false Pulmonary Chronic Obstructive Pulmonary Disease CV/HEM Coronary Artery Disease (stent), Hypertension, Myocardial Infarction and Peripheral Vascular Disease GI Gastroesophageal Reflux Disease Neuropsych Anxiety and Depression schizoaffective Anesthetic Plan ASA status: 3 Anesthesia: General Medications/Allergies Home Medications Medication Instructions Recorded Confirmed Last Taken Type clopidogrel 75 mg tablet 75 mg PO QAM 08/04/19 04/03/22 12/28/21 History albuterol sulfate 90 mcg/actuation 2 puff inhalation Q6H PRN 07/22/21 04/03/22 Unknown History aerosol inhaler Shortness Of Breath furosemide 20 mg tablet 20 mg PO DAILY PRN Edema 07/22/21 04/03/22 Unknown History pantoprazole 40 mg tablet,delayed 40 mg PO QAM 07/22/21 04/03/22 04/02/22 History release escitalopram oxalate 10 mg tablet 10 mg PO BEDTIME 12/27/21 04/03/22 12/27/21 History (Lexapro) risperidone 0.25 mg tablet 0.25 mg PO BID 12/27/21 04/03/22 04/02/22 History ropinirole 2 mg tablet 2 mg PO BEDTIME 12/27/21 04/03/22 04/02/22 History temazepam 30 mg capsule 30 mg PO BEDTIME 12/27/21 04/03/22 04/02/22 History excvcoj-fgykmsevblokp-lxsfiiel 250 1 tab PO Q6H PRN Migraine Headache 12/28/21 04/03/22 12/28/21 History mg-250 mg-65 mg tablet (Excedrin Migraine) polyethylene glycol 3350 17 4 g PO DAILY PRN Constipation 12/28/21 04/03/22 Unknown History gram/dose oral powder (Miralax) TLSO Brace #1 ea 02/16/22 03/16/22 Unknown Rx paliperidone palmitate 156 mg/mL 156 mg IM Q30D 02/16/22 04/03/22 04/01/22 History intramuscular syringe (Invega Sustenna) tramadol 50 mg tablet 50 mg PO Q4H PRN pain #30 tabs 03/16/22 04/03/22 Unknown Rx Allergies Allergy/AdvReac Type Severity Reaction Status Date / Time simvastatin Allergy Unknown Verified 03/16/22 13:09 [facility] Anesthesia Medical History Benign essential HTN Cancer of prostate Combined hyperlipidemia Intervertebral disc disorder with radiculopathy of lumbosacral region Pernicious anemia Psychiatric care Surgical History History of heart artery stent Hx of heart surgery Family History Father Lung disease Mother Chronic kidney disease (CKD) Hypertension Social History Smoking and tobacco status: former smoker Alcohol intake: never Household members: spouse Marital status: Current occupational status: retired History of recent travel: No Data Anesthesia 04/03/22 08:30 BMP 04/03/22 08:30 Sodium 135 L Potassium 4.5 Chloride 100 Carbon Dioxide 26 BUN 22 Creatinine 1.5 H Glucose 91 Calcium 9.7 Cardiac Studies: Echocardiogram 09/13/21
[2022-04-10] VITALS (8 sets, daily range): BP systolic 110–177; BP diastolic 59–96; PULSE 59–72; RESP 10–18; TEMP 36.1–37.1; O2SAT 95–100
--- NOTE | 2022-04-10 05:45 | SC_ITS ---
WS: [id number] Exam: C-arm FL for Kyphoplasty Date/Time of Exam: 04/10/2022 5:45 AM Reason For Exam: L3 Kyphoplasty AP and lateral intraoperative C-arm images of the lower lumbar spine are submitted for evaluation. Th e images depict kyphoplasty involving the L3 vertebral body. The appearance is satisfactory. Moderat e compression fracture of L3 is noted showing some additional loss in vertebral height since the [facility] study of 02/16/2022. SC/C-arm FL for Kyphoplasty IMPRESSION: 1. L3 kyphoplasty satisfactory in appearance.
[2022-04-10] MEDS: sodium chloride 0.9% 1,000 ML 30 ML IV (06:10)
--- NOTE | 2022-04-10 06:37 | W.PM.OPSUD ---
Surgery/Procedure H&P Update DATE OF PROCEDURE: April 10, 2022 DATE H&P PERFORMED: 03/16/22 PREOP DIAGNOSIS: L3 Compression Fracture PLANNED PROCEDURE: Operation Date: 04/10/22 07:00 Proposed Procedures p Kyphoplasty L3 68698/S32.030A(Not Applicable) - Adalid Huerta DO
--- NOTE | 2022-04-10 06:43 | P.ANESUD_ITS ---
Pre-Anesthetic Update Pre-Anesthetic Assessment: Date of Surgery/Procedure: 04/10/22 Preop Vanessa gnosis: L3 Compression Fracture Proposed Procedure: Operation Date: 04/10/22 07:00 Proposed Procedures p Kyphoplasty L3 62615/S32.030A(Not Applicable) - Adalid Huerta, DO Any changes to Pre-Anesthetic Assessment?: No Last Intake: Intake Last Liquid Date 04/09/22 Last Liquid Time 19:30 Last Solid Date 04/09/22 Last Solid Time 19:30 Vitals: Temperature 98.8 F 04/10/22 06:00 Temperature Source Temporal Artery S can 04/10/22 06:00 Pulse Rate 72 04/10/22 06:00 Respiratory Rate 18 04/10/22 06:00 Blood Pressure 110/59 04/10/22 06:00 Blood Pressure Reema n 76 04/10/22 06:00 Pulse Oximetry 99 04/10/22 06:00 Oxygen Delivery Me thod 04/10/22 06:05 Exam: Pre-Anes Outpt Exam: alert, oriented x 3, clear to auscultation bilaterally and regular rate & rhythm Cardiac Studies: Echocardiogram 09/13/21
[2022-04-10] MEDS: ceFAZolin 2,000 MG in sodium chloride 0.9% (plus) 50 ML 100 MG IV (06:57)
[2022-04-10] MEDS: iohexol 300 mg/mL 50 mL Btl (OR ONLY) XX (07:30)
--- NOTE | 2022-04-10 08:04 | P.OP_ITS ---
Operative Report Date of procedure: April 10, 2022 Pre-op diagnosis: Preop Diagnosis wedge oteoporotic traumatic L3 Compression Fracture Post-op diagnosis: same Procedure done: 1. L3 Kyphoplasty 2. Biopsy L3 vertebral body Pathology: L3 Vertebral body Surgeon: Adalid Huerta [employer] Supervisor: none Estimated blood loss (mL): 5 Procedure: 1. L3 Kyphoplasty 2. Biopsy L3 vertebral body Patient is brought to the operative suite after undergoing anesthesia was placed in the prone position orders and patient well-padded. Patient was prepped rakesh ped in sterile fashion. Skin incision is made over the L3 vertebral body over the left pedicle. This was confirmed under C-arm guidance. The C-arm was biplanar we had to see arms in the room AP and lateral fluoroscopy were taken throughout the entire case. The starting awl was inserted. Then a biopsy was taken and this was done with a biopsy tube and was used to tap it and bone from this was then sent to pathology. The drill was then inserted and then the balloon was inserted the balloon was elevated and then removed after deflating and then the cement was injected AP lateral fluoroscopy ensure the cement was in poor position. And then tubes were removed AP lateral fluoroscopy ensure that the cement was in good position as was the fracture. And wound was irrigated and closed with nylon suture. Sterile dressings were applied patient was transferred to the PACU in stable condition.
[2022-04-10] MEDS: HYDROcodone-acetaminophen 5-325 mg Tablet 1 TAB PO (08:32)
--- NOTE | 2022-04-10 16:27 | ANE.PACU2 ---
Inpatient post-anesthesia follow up: Airway intact: Yes Vital signs: Temperature 97.5 F Pulse Rate 59 Respiratory Rate 18 Blood Pressure 177/96 Pulse Oximetry 96 Oxygen Delivery Me thod Room Air Oxygen Flow Rate 6 Fraction of Inspir ed Oxygen Hydration adequate: Yes Nausea and vomiting: No Pain level: 1 Mental status: Baseline
== END 2022-04-10 09:01 | disposition home or self-care (01) ==
PROVIDERS: Anesthesiology; PCP Nurse Practitioner; Visit Provider Orthopaedic Surgery
PROC: (CPT 20251; principal; 2022-04-10 07:00)
DX: S32.030A Wedge compression fracture of third lumbar vertebra, initial encounter for closed fracture (principal); X58.XXXA Exposure to other specified factors, initial encounter; J44.9 Chronic obstructive pulmonary disease, unspecified; I25.10 Atherosclerotic heart disease of native coronary artery without angina pectoris; Z95.5 Presence of coronary angioplasty implant and graft; I10 Essential (primary) hypertension; I25.2 Old myocardial infarction; I73.9 Peripheral vascular disease, unspecified; K21.9 Gastro-esophageal reflux disease without esophagitis; F41.9 Anxiety disorder, unspecified; F32.A Depression, unspecified; Z79.82 Long term (current) use of aspirin; Z87.891 Personal history of nicotine dependence
CPT/HCPCS: 20251; 22514; 76000; 80048; 88307; 88311; J0131; J0690; J1100; J2370; J2405; J2704; J3010; J3490; J7030

== ENCOUNTER → 2022-05-02 08:12 | Outpatient (BNVA) | payer MEDICARE, MEDICAID, SELFPAY | PROVIDERS: PCP Nurse Practitioner; Visit Provider Orthopaedic Surgery | DX: M48.56XD Collapsed vertebra, not elsewhere classified, lumbar region, subsequent encounter for fracture with routine healing (principal) | CPT/HCPCS: 99213 ==

== ENCOUNTER → 2022-06-29 08:17 | Outpatient (BNVA) | payer MEDICARE, MEDICAID, SELFPAY | PROVIDERS: PCP Nurse Practitioner; Visit Provider Physician Assistant | DX: Z98.890 Other specified postprocedural states (principal); S32.030A Wedge compression fracture of third lumbar vertebra, initial encounter for closed fracture; X58.XXXA Exposure to other specified factors, initial encounter | CPT/HCPCS: 99213 ==

== ENCOUNTER 2022-07-13 10:33 | Emergency (ER) | payer MEDICARE, MEDICAID, SELFPAY ==
[2022-07-13] VITALS (7 sets, daily range): BP systolic 98–174; BP diastolic 4–94; PULSE 63–75; RESP 16; TEMP 36; O2SAT 95–98
--- NOTE | 2022-07-13 10:53 | ECG_ITS ---
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 Measurements Intervals [place] Rate: 73 P: 132 IA: 212 QRS: -9 QRSD: 97 T: 129 QT: 376 QTc: 414 Interpretive Statements ECTOPIC ATRIAL RHYTHM WITH FIRST DEGREE AV BLOCK POSSIBLE LEFT ATRIAL ENLARGEMENT [-0.1mV P-WAVE IN V1/V2] MODERATE T-WAVE ABNORMALITY, CONSIDER LATERAL ISCHEMIA [-0.1+ mV T-WAVE IN I/aVL/V5/V6] Compared to ECG 04/03/2022 08:34:36 Ectopic atrial rhythm now present First degree AV block now present Possible ischemia now present Sinus rhythm no longer present T-wave abnormality still present Electronically Signed On 07-13-2022 16:14:34 CDT by Kwadwo Baldwin M.D. [id number] f
--- NOTE | 2022-07-13 12:56 | CT_ITS ---
WS: [id number] CT HEAD TECHNIQUE: Noncontrast CT of the head obtained from the skullbase to the vertex. CLINICAL INFORMATION: weakness, dizziness COMPARISON: CT September 2021 DLP: 997.[address] scans at [facility] use at least one of these dose optimization techniques: automated e xposure control; mA and/or kV adjustment per patient size (includes targeted exams where dose is matc hed to clinical indication); or iterative reconstruction. FINDINGS: No evidence of intracranial hemorrhage or mass effect. Ventricular system and basal cisterns are emery nt. Moderate small vessel changes with moderate parenchymal volume loss. Tiny chronic lacunar infarct RIGHT caudate. Vascular calcification. No extra-axial fluid collections. No evidence of mass or mass effect. LEFT maxillary sinusitis with air-fluid level. Mastoid air cells well aerated. Normal posterior nasop harynx. CT/CT head wo con* [id number] IMPRESSION: 1. No evidence of intracranial hemorrhage or mass effect. 2. Moderate small vessel changes. Moderate parenchymal volume loss. 3. Vascular calcification. 4. Tiny chronic lacunar infarct RIGHT caudate. 5. LEFT maxillary sinusitis with air-fluid level. 6. No acute intracranial findings.
[2022-07-13 13:05] LABS: Basophils # 0.1 10^3/uL (0.0-0.1); Basophils % 0.7 %; Eosinophils # 0.1 10^3/uL (0.0-0.8); Eosinophils % 1.7 %; Hematocrit 37.8 % (42.0-52.0); Hemoglobin 12.2 g/dL (11.7-16.6); Lymphocytes # 1.7 10^3/uL (0.8-4.8); Mean Corpuscular HGB Conc 32.3 g/dL (30.0-36.0); Mean Corpuscular Hemoglobin 31.3 pg (28.0-34.0); Mean Corpuscular Volume 96.9 fl (80-94); Mean Platelet Volume 9.1 fL (7.4-10.4); Monocytes # 0.7 10^3/uL (0.2-0.9); Monocytes % 8.5 %; Neutrophils # 5.75 10^3/uL (1.8-7.7); Neutrophils % 68.9 %; Nucleated Red Blood Cells % 0 %; Platelet Count 302 10^3/cmm (130-400); Red Cell Distribution Width 13.6 % (12.1-15.1); White Blood Count 8.4 10^3/uL (4.0-10.0)
[2022-07-13 13:22] LABS: Alanine Aminotransferase 12 U/L (0-41); Albumin Level 4.1 g/dL (3.5-5.2); Alkaline Phosphatase 63 U/L (40-130); Anion Gap 13.4 (5-19); Aspartate Amino Transferase 18 U/L (0-40); Blood Urea Nitrogen 26 mg/dL (8-23); Calcium 9.1 mg/dL (8.5-10.5); Carbon Dioxide 28 mmol/L (22-29); Chloride 96 mmol/L (98-107); Globulin 3.2 g/dL (1.3-4.6); Glucose 89 mg/dL (65-115); Osmolality Calculated 280 mOsm/kg (285-295); Potassium 4.4 mmol/L (3.5-5.1); Sodium 133 mmol/L (136-145); Total Bilirubin 0.2 mg/dL (0.15-1.2); Total Protein 7.3 g/dL (6.6-8.7)
--- NOTE | 2022-07-13 14:24 | ED_ITS ---
HPI - Dizziness General: Chief Complaint: Dizziness Stated Complaint: Low B/P sent by PCP Time Seen by Provider: 07/13/22 12:54 Source: patient Mode of arrival: ambulatory History of Present Illness: HPI Narrative: 77-year-old male presents emergency room complaining of dizziness and lightheadedness been going on for over a month. He also reported having low blood pressures at times. No get lightheaded and pale he feels fine at this point he has no focal neurologic deficits. No recent change in medications. He does take a pretty large dose of temazepam each night. He is on clopidogrel. He has no symptoms at this time. MD elicited complaint: dizziness and lightheadedness Onset (ago): month(s) (1) Timing: gradual onset and unsure Severity: mild Description: lightheadedness and off-balance Exacerbating factors: nothing Relieving factors: nothing Associated symptoms: Denies abnormal vaginal bleeding, change in hearing, chest pain, chills, cough, diaphoresis, ear discharge, ear pressure, fevers/chills, headache(s), malaise, nausea, nasal congestion, palpitations, rash, short of breath, syncope, tinnitus, vomiting or weakness Associated neuro symptoms: Deny confusion, difficulty speaking, dysphagia, diplopia, extremity weakness, facial numbness, facial weakness, gait changes, numbness in extremities or visual changes Review of Systems Const: Denies: fever(s), chills, fatigue, malaise or diaphoresis ENMT: Denies: ear discharge, change in hearing, tinnitus or nasal congestion Card: Denies: chest pain, palpitations or syncope Resp: Denies: dyspnea, productive cough or non-productive cough GI: Denies: nausea, vomiting or dysphagia : Denies: flank pain, dysuria, urinary frequency or urinary urgency Skin/Breast: Denies: rash or pruritus Neuro: Denies: headache(s), numbness in extremities or confusion PFSH ED PFSH: Medical History Benign essential HTN Cancer of prostate Combined hyperlipidemia Intervertebral disc disorder with radiculopathy of lumbosacral region Pernicious anemia Psychiatric care Surgical History History of heart artery stent Hx of heart surgery Family History Father Lung disease Mother Chronic kidney disease (CKD) Hypertension Social History Smoking and tobacco status: former smoker Alcohol intake: never Substance/Drug Use: never Household members: spouse Marital status: Current occupational status: retired Physical Exam Const: GENERAL APPEARANCE: cooperative and comfortable ORIENT ATION/CONSCIOUSNESS: Yes awake, Yes oriented to person, Yes oriented to place and Yes oriented to time HENMT: COMMON NORMALS: normocephalic, atraumatic and hearing grossly normal bilaterally HEAD & SCALP: normocephalic and atraumatic Resp: COMMON NORMALS: normal respiratory effort, No retractions, No use of accessory muscles and clear to auscultation bilaterally AUSCULTATION: clear to auscultation bilaterally Cardio: COMMON NORMALS: regular rate, regular rhythm and No murmurs present (Cardio) RATE: regular rate RHYTHM: regular rhythm GI: COMMON NORMALS: Soft to palpation and No hepatosplenomegaly present AUSCULTATION: Yes normoactive bowel sounds PALPATION: Yes Soft to palpation, No Tenderness to palpation present (GI), No Guarding due to palpation present (GI) and Yes No hepatosplenomegaly present Extremity: COMMON NORMALS: normal to inspection, capillary refill normal, no clubbing, cyanosis or edema, no calf tenderness and no pedal edema Neuro: SENSORIUM/ORIENTATION: Yes oriented to person, Yes oriented to place and Yes oriented to time Skin: COMMON NORMALS: no rashes or lesions noted GENERAL SKIN EXAM: no rashes or lesions noted Course Vital Signs: Vital signs: Vital Signs Temperature 96.8 F L 07/13/22 10:48 Pulse Rate 67 07/13/22 15:10 Respiratory Rate 16 07/13/22 10:48 Blood Pressure 147/4 07/13/22 15:10 Pulse Oximetry 95 07/13/22 15:10 Oxygen Delivery Me thod Room Air 07/13/22 12:41 MDM - Dizziness Medical Decision Making Labs imaging and EKG reviewed no acute ST changes noted. CT head unremarkable. Patient has had the symptoms for quite some time blood pressure stable orthostatics normal we will discharge him to his primary care doctor. No sign of focal ongoing neurologic deficits. Follow-up with his primary care doctor to monitor blood pressure. He is asymptomatic at this time. Medical Records I reviewed the patient's medical records. Lab Data I reviewed the patient's lab results. 07/13/22 12:50 07/13/22 12:[address] 07/13/22 12:56 IMPRESSION: 1. No evidence of intracranial hemorrhage or mass effect. 2. Moderate small vessel changes. Moderate parenchymal volume loss. 3. Vascular calcification. 4. Tiny chronic lacunar infarct RIGHT caudate. 5. LEFT maxillary sinusitis with air-fluid level. 6. No acute intracranial findings. Laboratory Results WBC 8.4 10^3/uL (4.0-10.0) 07/13/22 12:50 RBC 3.90 10^6/uL (4.1-5.3) L 07/13/22 12:50 Hgb 12.2 g/dL (11.7-16.6) 07/13/22 12:50 Hct 37.8 % (42.0-52.0) L 07/13/22 12:50 MCV 96.9 fl (80-94) H 07/13/22 12:50 MCH 31.3 pg (28.0-34.0) 07/13/22 12:50 MCHC 32.3 g/dL (30.0-36.0) 07/13/22 12:50 RDW 13.6 % (12.1-15.1) 07/13/22 12:50 Plt Count 302 10^3/cmm (130-400) 07/13/22 12:50 MPV 9.1 fL (7.4-10.4) 07/13/22 12:50 Neut % (Auto) 68.9 % 07/13/22 12:50 Lymph % (Auto) 20.0 % 07/13/22 12:50 [place] % (Auto) 8.5 % 07/13/22 12:50 Eos % (Auto) 1.7 % 07/13/22 12:50 Baso % (Auto) 0.7 % 07/13/22 12:50 Neut # (Auto) 5.75 10^3/uL (1.8-7.7) 07/13/22 12:50 Lymph # (Auto) 1.7 10^3/uL (0.8-4.8) 07/13/22 12:50 [place] # (Auto) 0.7 10^3/uL (0.2-0.9) 07/13/22 12:50 Eos # (Auto) 0.1 10^3/uL (0.0-0.8) 07/13/22 12:50 Baso # (Auto) 0.1 10^3/uL (0.0-0.1) 07/13/22 12:50 Nucleated RBC % (auto) 0 % 07/13/22 12:50 Nucleated RBCs # 0.0 /100WBC 07/13/22 12:50 Sodium 133 mmol/L (136-145) L 07/13/22 12:50 Potassium 4.4 mmol/L (3.5-5.1) 07/13/22 12:50 Chloride 96 mmol/L (98-107) L 07/13/22 12:50 Carbon Dioxide 28 mmol/L (22-29) 07/13/22 12:50 Anion Gap 13.4 (5-19) 07/13/22 12:50 BUN 26 mg/dL (8-23) H 07/13/22 12:50 Creatinine 1.5 mg/dL (0.7-1.2) H 07/13/22 12:50 GFR Calculation Not Reportable 07/13/22 12:50 Glucose 89 mg/dL (65-115) 07/13/22 12:50 Calculated Osmolality 280 mOsm/kg (285-295) L 07/13/22 12:50 Calcium 9.1 mg/dL (8.5-10.5) 07/13/22 12:50 Total Bilirubin 0.2 mg/dL (0.15-1.2) 07/13/22 12:50 AST 18 U/L (0-40) 07/13/22 12:50 ALT 12 U/L (0-41) 07/13/22 12:50 Alkaline Phosphatase 63 U/L (40-130) 07/13/22 12:50 Total Protein 7.3 g/dL (6.6-8.7) 07/13/22 12:50 Albumin 4.1 g/dL (3.5-5.2) 07/13/22 12:50 Globulin 3.2 g/dL (1.3-4.6) 07/13/22 12:50 Discharge Plan Discharge Patient Disposition: Home Clinical Impression: Dizziness, Benign essential HTN Condition: Stable Prescriptions: No Action clopidogrel 75 mg tablet 75 mg PO QAM Invega Sustenna 156 mg/mL syringe 156 mg IM Q30D (DME) TLSO Mackenzie See Rx Instructions .Route .MEDSUPPLY Qty: 1 0RF Rx Instructions: As directed tramadol 50 mg tablet 50 mg PO Q4H PRN (Reason: pain) Qty: 30 0RF temazepam 30 mg Capsule 30 mg PO BEDTIME ropinirole 2 mg Tablet 2 mg PO BEDTIME polyethylene glycol 3350 [Miralax] 17 gram/dose Powder 4 g PO DAILY PRN (Reason: Constipation) pantoprazole 40 mg tablet,delayed release (DR/EC) 40 mg PO QAM furosemide 20 mg tablet 20 mg PO DAILY PRN (Reason: Edema) albuterol sulfate 90 mcg/actuation HFA aerosol inhaler 2 puff INHALATION Q6H PRN (Reason: Shortness Of Breath) buspirone 10 mg tablet 10 mg PO QPM gabapentin 300 mg capsule 300 mg PO QID dicyclomine 10 mg capsule 10 mg PO DAILY Discharge Orders: Discharge ED (Routine); Ordered 07/13/22 Ordered By: Jr Seymour Referrals: Joseline Madison FNP [Primary Care Provider] - Discharge Diet: Usual diet Discharge Activity: Resume usual activity Patient Instructions: Opioid Safety, Pain Management Activity Restrictions/Additional Instructions: Thank you for choosing [facility] for your healthcare needs today. Please realize this is an emergency room and that we are providing you with a me dical screening exam and this may not be complete and all inclusive of all the testing and or work up that you may need to determine your ailment or severity of your illness. It is very important that you follow up as instructed or that you return to the Emergency Department should you have concerns or if your condition changes or worsens in any way. You were seen today for lightheaded and dizziness. You had also mentioned that you had low blood pressure at times. Your blood pressure here was normal including blood pressure sitting lying and standing. The remainder of your labs and head CT were not significantly abnormal. Your creatinine is mildly elevated and should be monitored by your primary care doctor. Recommend you follow-up with your doctor within the next week to reevaluate. Coding Level of Care Code ED [employer] Manager for Jennifer Lopez
== END 2022-07-13 15:11 | disposition home or self-care (01) ==
PROVIDERS: Emergency Provider Family Medicine; PCP Nurse Practitioner
DX: I10 Essential (primary) hypertension (principal); R42 Dizziness and giddiness
CPT/HCPCS: 70450; 80053; 85025; 93005; 99285

== ENCOUNTER 2022-07-23 21:15 | Emergency (ER) | payer MEDICARE, MEDICAID, SELFPAY ==
[2022-07-23 21:16] VITALS: BP 109/76; PULSE 75; RESP 16; TEMP 36.6; O2SAT 95; BMI 21.4
[2022-07-23 21:42] VITALS: BP 119/64; PULSE 66; RESP 16; O2SAT 94
--- NOTE | 2022-07-23 21:44 | XRR_ITS ---
PROCEDURE INFORMATION: Exam: XR Chest Exam date and time: 07/23/2022 10:07 PM Age: 77 years old Clinical indication: Other: Poss aspiration of food; Additional info: Concerned for aspirated food TECHNIQUE: Imaging protocol: Radiologic exam of the chest. Views: 2 views. COMPARISON: CR XR chest 1V portable [id number] 10/30/2021 8:54 PM FINDINGS: Lungs: Lungs are clear bilaterally. Stable calcified granuloma in the left lower lobe. There is no evidence for aspirated food contents on the chest radiograph. Pleural spaces: No pleural effusion. No pneumothorax. Heart/Mediastinum: The cardiac silhouette and mediastinal contours are unremarkable. Vasculature: Stable vascular calcifications in the aorta. Bones/joints: Unremarkable for age. XR/XR chest 2V* [id number] IMPRESSION: 1. No acute cardiopulmonary process. 2. Stable calcified granuloma in the left lower lobe. There is no evidence for aspirated food contents on the chest radiograph. CT scan of the chest may be obtained for further evaluation if there is continuing clinical concern for aspirated food. 3. Incidental/nonacute findings are listed in the report.
--- NOTE | 2022-07-23 21:47 | ED_ITS ---
HPI - SOB/Dyspnea General: Chief Complaint: Airway/Esophagus Foreign Body Stated Complaint: Choking On A Potato Time Seen by Provider: 07/23/22 21:32 History of Present Illness: HPI Narrative: 77-year-old male presents to the emergency department with a family chief complaint of throat pain apparently prior to arrival the patient was eating a hot potato was trying to swallow it whole in which he got the potato stuck in his upper airway in which she was in acute respiratory distress. The patient was able to get it dislodged while his was helping him he presents to the ER with no difficulty breathing currently reports a moderate sore throat he rep orts no abdominal pain or chest pain. Patient was brought in for further assessment and management. Apparently patient is a known history of esophageal issues in which he has to thoroughly chew or grind his food. Associated symptoms: Deny abdominal pain, chest pain, extremity pain, fever(s), nausea, palpitations or vomiting Review of Systems General: Reports: 10 or more systems reviewed and unremarkable except in HPI and below Const: Denies: fever(s), chills, fatigue or malaise Eyes: Denies: change in vision or blurry vision Card: Denies: chest pain or palpitations Resp: Reports: dyspnea and other (Throat pain) GI: Denies: abdominal pain, nausea or vomiting : Denies: flank pain Musc: Denies: extremity pain or extremity swelling Skin/Breast: Denies: rash or pruritus Neuro: Denies: headache(s) Psych: Denies: anxiety or depression Steve/Lymph: Denies: easy bleeding All/Imm: Denies: urticaria, throat swelling or facial swelling PFSH ED PFSH: Medical History Benign essential HTN Cancer of prostate Combined hyperlipidemia Intervertebral disc disorder with radiculopathy of lumbosacral region Pernicious anemia Psychiatric care Surgical History History of heart artery stent Hx of heart surgery Family History Father Lung disease Mother Chronic kidney disease (CKD) Hypertension Social History Smoking and tobacco status: former smoker Alcohol intake: never Substance/Drug Use: never Household members: spouse Marital status: Current occupational status: retired Physical Exam Narrative: EXAM NARRATIVE: Patient appears nontoxic appears in no obvious acute respiratory distress. Const: COMMON NORMALS: no acute distress, patient oriented x3 and healthy appearing HENMT: COMMON NORMALS: normocephalic, atraumatic and Normal nasal mucous membranes and turbinates present (Mild erythema appreciated the posterior oropharynx no obvious exudates) HEAD & SCALP: normocephalic and atraumatic NOSE: Normal nasal mucous membranes and turbinates present (Mild erythema appreciated the posterior oropharynx no obvious exudates) OTHER: No stridor apparent no respiratory issues apparent oxygenation is 96% on room air Eye: COMMON NORMALS: Equal, round and reactive pupils present and EOMs intact bilaterally PUPIL: Yes Equal, round and reactive pupils present Neck/C-Spine: COMMON NORMALS: full ROM, supple and no JVD Lymph: LYMPHATIC: no lymphadenopathy noted Chest: COMMONS NORMALS: normal inspection of the chest and normal palpation of entire chest wall Resp: COMMON NORMALS: normal respiratory effort, No retractions and clear to auscultation bilaterally EFFORT & INSPECTION: Yes able to speak in complete sentences and Yes symmetric chest movement AUSCULTATION: clear to auscultation bilaterally Cardio: COMMON NORMALS: no JVD, regular rate and regular rhythm RATE: regular rate RHYTHM: regular rhythm GI: COMMON NORMALS: Normal to inspection, nondistended, normoactive bowel sounds present, Soft to palpation and non-tender INSPECTION: Yes normal to inspection PALPATION: Yes Soft to palpation : COMMON NORMALS: Yes no CVA tenderness BLADDER/KIDNEY EXAM: Yes no CVA tenderness Back/Pelvis: COMMON NORMALS: no CVA tenderness Extremity: COMMON NORMALS: normal to inspection and full ROM Neuro: COMMON NORMALS: patient oriented x3, CN's II-XII intact bilaterally, moves all extremities and no focal motor deficits Psych: COMMON NORMALS: mental status grossly normal, Normal thought process present, cooperative and normal affect THOUGHT PROCESS: Normal thought process present Skin: COMMON NORMALS: no rashes or lesions noted GENERAL SKIN EXAM: no rashes or lesions noted Course Vital Signs: Vital signs: Vital Signs Temperature 97.8 F 07/23/22 21:16 Pulse Rate 66 07/23/22 21:42 Respiratory Rate 16 07/23/22 21:42 Blood Pressure 119/64 07/23/22 21:42 Pulse Oximetry 94 07/23/22 21:42 Oxygen Delivery Me thod Room Air 07/23/22 21:16 MDM - SOB/Dyspnea Medical Decision Making Due to patient's symptoms and condition a dose of oral Decadron will be provided patient will undergo up p.o. challenge to further rule out esophageal food bolus in which a basic chest x-ray will be obtained patient will be continued to be observed in the ER in which he had additional aspiration risk or other additional concerns anticipate discharge home. Patient be started on additional steroids for home next couple days advised use [id number] Tylenol or ibuprofen per package instructions for any breakthrough discomfort or throat pain which patient found advised to return the interim if any of his symptoms persist or worsen otherwise follow with primary care in 3 to 5 days Lab Data Labs/Radiology: Radiology Impressions Chest X-Ray 07/23/22 21:44 IMPRESSION: 1. No acute cardiopulmonary process. 2. Stable calcified granuloma in the left lower lobe. There is no evidence for aspirated food contents on the chest radiograph. CT scan of the chest may be obtained for further evaluation if there is continuing clinical concern for aspirated food. 3. Incidental/nonacute findings are listed in the report. Discharge Plan Discharge Patient Disposition: Home Clinical Impression: Aspiration of food Qualifiers: Encounter type: sequela Qualified Code(s): T17.928S - Food in respiratory tract, part unspecified causing other injury, sequela Condition: Stable Prescriptions: New prednisone 20 mg tablet 20 mg PO BID 3 Days Qty: 6 0RF No Action clopidogrel 75 mg tablet 75 mg PO QAM Invega Sustenna 156 mg/mL syringe 156 mg IM Q30D (DME) TLSO Kamce See Rx Instructions .Route .MEDSUPPLY Qty: 1 0RF Rx Instructions: As directed tramadol 50 mg tablet 50 mg PO Q4H PRN (Reason: pain) Qty: 30 0RF temazepam 30 mg Capsule 30 mg PO BEDTIME ropinirole 2 mg Tablet 2 mg PO BEDTIME polyethylene glycol 3350 [Miralax] 17 gram/dose Powder 4 g PO DAILY PRN (Reason: Constipation) pantoprazole 40 mg tablet,delayed release (DR/EC) 40 mg PO QAM furosemide 20 mg tablet 20 mg PO DAILY PRN (Reason: Edema) albuterol sulfate 90 mcg/actuation HFA aerosol inhaler 2 puff INHALATION Q6H PRN (Reason: Shortness Of Breath) buspirone 10 mg tablet 10 mg PO QPM gabapentin 300 mg capsule 300 mg PO QID dicyclomine 10 mg capsule 10 mg PO DAILY Discharge Orders: Discharge ED (Routine); Ordered 07/23/22 Ordered By: Sudhakar Gomez Referrals: Joseline Madison FNP [Primary Care Provider] - Discharge Diet: Soft Mechanical Discharge Activity: Increase activity as tolerated Patient Instructions: Aspiration Precautions (ED) Activity Restrictions/Additional Instructions: Please follow-up with your doctor in 2 to 3 days, please take medications as prescribed please chew to chew your food and grind it up prior to eating it is reduce likelihood of this happening again please return the interim if any of your symptoms persist or worse. Coding Level of Care Code ED Insurance Actuary for Jennifer Lopez
[2022-07-23] MEDS: dexamethasone 4 mg Tablet 10 MG PO (21:50)
[2022-07-23 22:48] VITALS: BP 119/64; PULSE 66; RESP 16; TEMP 36.6; O2SAT 94
== END 2022-07-23 22:50 | disposition home or self-care (01) ==
PROVIDERS: Emergency Provider Emergency Medicine; PCP Nurse Practitioner
DX: T17.928A Food in respiratory tract, part unspecified causing other injury, initial encounter (principal); Z79.02 Long term (current) use of antithrombotics/antiplatelets; I10 Essential (primary) hypertension; Z85.46 Personal history of malignant neoplasm of prostate; E78.2 Mixed hyperlipidemia; Z87.891 Personal history of nicotine dependence; X58.XXXA Exposure to other specified factors, initial encounter
CPT/HCPCS: 71046; 99283; J8540

== ENCOUNTER 2022-11-10 19:12 | Emergency (ER) | payer MEDICARE, MEDICAID, SELFPAY ==
[2022-11-10 19:25] VITALS: BP 123/75; PULSE 74; RESP 16; TEMP 36.8; O2SAT 100; BMI 21.4
[2022-11-10 19:33] VITALS: BP 160/97; PULSE 71; RESP 14; O2SAT 96
[2022-11-10] MEDS: dexamethasone 10 mg/mL INJ IM (20:31)
[2022-11-10] MEDS: diphenhydrAMINE 50 mg Capsule PO (20:31)
[2022-11-10 21:05] VITALS: RESP 18; O2SAT 98
--- NOTE | 2022-11-10 22:20 | ED_ITS ---
HPI - Skin/Abscess/Foreign Bdy General: Chief complaint: Skin/Abscess/Foreign Body Stated complaint: right ear bleed Time Seen by Provider: 11/10/22 20:02 Source: patient and family Mode of arrival: ambulatory Limitations: no limitations History of Present Illness: Patient presents to the emergency department today accompanied by his family for evaluation treatment of concerns for foreign body in the right ear. Patient states that today he thought he felt a bug go into his ear. He used his finger and fingernail to try and take it out. Patient did get out a clump of something hard and black but, has had bleeding from the ear canal since that time. Family is also concerned as the patient has a rash on his face arms, lower legs, and somewhat on his abdomen. Patient states that they itch. Patient's also indicates she has similar spots. They have many dogs in the home and, they admit they have not had them treated for fleas recently and the dogs have been spending quite a bit of time outside. Review of Systems General: Reports: 10 or more systems reviewed and unremarkable except in HPI and below PFSH ED PFSH: Medical History Benign essential HTN Cancer of prostate Combined hyperlipidemia Intervertebral disc disorder with radiculopathy of lumbosacral region Pernicious anemia Surgical History History of heart artery stent Hx of heart surgery Family History Father Lung disease Mother Chronic kidney disease (CKD) Hypertension Social History Smoking and tobacco status: former smoker Alcohol intake: never Substance/Drug Use: never Household members: spouse Marital status: Current occupational status: retired Physical Exam Const: COMMON NORMALS: no acute distress, patient oriented x3 and alert HENMT: OTHER: Right TM shows no signs of trauma or perforation. Patient has an obvious abrasion with small amount of fresh blood present on the posterior wall of the mid right EAC. There is also dried blood throughout the canal and on the pinna of the ear. No signs of any retained foreign body. No cerumen present. Eye: COMMON NORMALS: Equal, round and reactive pupils present, EOMs intact bilaterally and conjunctivae normal CONJUNCTIVA: Yes conjunctivae normal PUPIL: Yes Equal, round and reactive pupils present Neck/C-Spine: COMMON NORMALS: no JVD Lymph: LYMPHATIC: no lymphadenopathy noted Resp: COMMON NORMALS: normal respiratory effort, No retractions and No use of accessory muscles Cardio: COMMON NORMALS: no JVD and regular rate RATE: regular rate : COMMON NORMALS: Yes no CVA tenderness BLADDER/KIDNEY EXAM: Yes no CVA tenderness Back/Pelvis: COMMON NORMALS: no CVA tenderness, thoracic and lumbar spine normal to inspection and thoraco-lumbar ROM normal Extremity: COMMON NORMALS: normal to inspection, full ROM and no pedal edema Neuro: COMMON NORMALS: patient oriented x3 SENSORIUM/ORIENTATION: Yes alert Skin: NARRATIVE SKIN EXAM: Patient's rash is comprised of several small, erythematous spots-most with a punctate central scabbing from scratching. No spots on the hands or wrists. No spots on the feet. Chest and back are spared for the most part. Course Vital Signs: Vital signs: Vital Signs Temperature 98.3 F 11/10/22 19:25 Pulse Rate 71 11/10/22 19:33 Respiratory Rate 18 11/10/22 21:05 Blood Pressure 160/97 11/10/22 19:33 Pulse Oximetry 98 11/10/22 21:05 Oxygen Delivery Me thod Room Air 11/10/22 19:25 MDM - Skin/Abscess/Foreign Bdy Medicial Decision Making Discussed with patient finding of a mid right EAC abrasion from trauma either from the foreign body or, his fingernail. Encouraged him not to stick anything else into the ear canal. We will treat with antibiotic eardrops to prevent infection of the wound. Patient's rash could very well be that of fleas. I do not think it is bedbugs as there are many dozen spots but, not 100s. Patient's webspaces, hands, and wrists are all spared and do not seem to be moving in an upward pattern from the extremities. Also, spots are on the face. I do not think this correlates with scabies. They do have many animals in the home which been quite a bit of time outside and have not been treated for fleas. Patient is given medication to help with the itching but, indicated the animals need to be checked and, treatment for carpet and linens/furniture in the home should also be checked and treated. Recommended follow-up appointment primary care for recheck next week. Differential Diagnosis Likely viral exanthem, herpes zoster, cellulitis, eczema, insect bites, impetigo and contact dermatitis Discharge Plan Discharge Patient Disposition: Home Clinical Impression: Abrasion of right ear canal, Dermatitis Condition: Stable Prescriptions: New fgzjfmxh-fedewhsgv-FN 3.5-10,000-1 mg/mL-unit/mL-% drops,suspension 4 drp otic (ear) Q8H Qty: 10 0RF prednisone 20 mg tablet 20 mg PO BID 5 Days Qty: 10 0RF No Action clopidogrel 75 mg tablet 75 mg PO QAM Invega Sustenna 156 mg/mL syringe 156 mg IM Q30D (DME) TLSO Brace See Rx Instructions .Route .MEDSUPPLY Qty: 1 0RF Rx Instructions: As directed tramadol 50 mg tablet 50 mg PO Q4H PRN (Reason: pain) Qty: 30 0RF temazepam 30 mg Capsule 30 mg PO BEDTIME ropinirole 2 mg Tablet 2 mg PO BEDTIME polyethylene glycol 3350 [Miralax] 17 gram/dose Powder 4 g PO DAILY PRN (Reason: Constipation) pantoprazole 40 mg tablet,delayed release (DR/EC) 40 mg PO QAM furosemide 20 mg tablet 20 mg PO DAILY PRN (Reason: Edema) albuterol sulfate 90 mcg/actuation HFA aerosol inhaler 2 puff INHALATION Q6H PRN (Reason: Shortness Of Breath) buspirone 10 mg tablet 10 mg PO QPM gabapentin 300 mg capsule 300 mg PO QID dicyclomine 10 mg capsule 10 mg PO DAILY Discharge Orders: Discharge ED (Routine); Ordered 11/10/22 Ordered By: Muna Medeiros Referrals: Joseline Madison FNP [Primary Care Provider] - Discharge Diet: Usual diet Discharge Activity: Increase activity as tolerated Activity Restrictions/Additional Instructions: Your examination shows no signs of damage to your eardrum. I see no signs of any residual foreign material. There is an abrasion in the ear canal which is causing the blood and, does put you at risk for infection. We are starting you on antibiotic eardrops. Apply 4 drops to your right ear as it is facing upwards and allow to saturate in the ear for 5 minutes before placing your head upright again. Do this 3 times a day for 1 week. Do not stick anything else in the ear as it can cause reinjury. I also think the itching you are experiencing is secondary to some type of bites-quite possibly fleabites and I do recommend treating pets, cloth furniture, and carpets for potential flea infestation. I provided you some medication for the next few days which you can take in addition to more Benadryl to help with your itching. Follow-up with primary care next week. Coding Level of Care Code ED Painter Chassis for Jennifer Lopez
== END 2022-11-10 21:06 | disposition home or self-care (01) ==
PROVIDERS: Emergency Provider Physician Assistant; PCP Nurse Practitioner
DX: S00.411A Abrasion of right ear, initial encounter (principal); L30.9 Dermatitis, unspecified; X58.XXXA Exposure to other specified factors, initial encounter
CPT/HCPCS: 96372; 99284; J1100; Q0163

== ENCOUNTER 2023-02-09 11:18 | Emergency (ER) | payer MEDICARE, MEDICAID, SELFPAY ==
[2023-02-09 12:01] VITALS: BP 121/74; PULSE 78; RESP 18; TEMP 36.6; O2SAT 97
[2023-02-09 12:04] LABS: Basophils # 0.1 10^3/uL (0.0-0.1); Basophils % 0.8 %; Eosinophils # 0.1 10^3/uL (0.0-0.8); Hematocrit 38.8 % (37-53); Lymphocytes # 1.4 10^3/uL (0.8-4.8); Lymphocytes % 17.7 %; Mean Corpuscular HGB Conc 32.2 g/dL (30-55); Mean Corpuscular Hemoglobin 30.6 pg (27-33); Mean Corpuscular Volume 95.1 fl (82-101); Mean Platelet Volume 9.3 fL (7.4-10.4); Monocytes # 0.5 10^3/uL (0.2-0.9); Monocytes % 6.9 %; Neutrophils # 5.66 10^3/uL (1.8-7.7); Neutrophils % 73.5 %; Nucleated Red Blood Cells % 0 %; Platelet Count 271 10^3/cmm (157-399); Red Blood Count 4.08 10^6/uL (3.85-5.65); Red Cell Distribution Width 13.8 % (12.1-15.1)
[2023-02-09 12:31] LABS: Alanine Aminotransferase 12 U/L (0-41); Albumin Level 3.6 g/dL (3.5-5.2); Alkaline Phosphatase 67 U/L (40-130); Anion Gap 14.7 (5-19); Aspartate Amino Transferase 17 U/L (0-40); Blood Urea Nitrogen 20 mg/dL (8-23); Calcium 9.3 mg/dL (8.5-10.5); Carbon Dioxide 25 mmol/L (22-29); Chloride 104 mmol/L (98-107); Globulin 3.1 g/dL (1.3-4.6); Glucose 117 mg/dL (65-115); Lipase 21 U/L (13-60); Osmolality Calculated 292 mOsm/kg (285-295); Potassium 4.7 mmol/L (3.5-5.1); Sodium 139 mmol/L (136-145); Total Bilirubin 0.2 mg/dL (0.15-1.2); Total Protein 6.7 g/dL (6.6-8.7)
--- NOTE | 2023-02-09 14:11 | XRR_ITS ---
PROCEDURE INFORMATION: Exam: XR Abdomen Exam date and time: 02/09/2023 2:45 PM Age: 78 years old Clinical indication: Generalized; Prior surgery; Surgery date: 6+ months; Surgery type: Prostatectomy; Patient HX: Abdominal pain; Constipation x 3 days; Nausea; HX prostate ca/hernia TECHNIQUE: Imaging protocol: Radiologic exam of the abdomen. Views: Frontal supine view of the abdomen. 1 View. COMPARISON: CT abdomen pelvis w con* [id number] 12/27/2021 12:56 PM FINDINGS: Tubes, catheters and devices: There are several pelvic clips. Gastrointestinal tract: Nondilated air containing large and small bowel loops. Mild to moderate fecal burden. Bones/joints: No acute findings. Mid lumbar kyphoplasty. XR/XR abdomen 1V* [id number] IMPRESSION: No acute findings.
--- NOTE | 2023-02-09 15:20 | PC.PHAR ---
SPOUSE STATES PT ONLY TAKING GALANTAMINE 8 MG, MEMANTINE 10 MG, AND FAMOTIDINE 20 MG. PTS' MED LIST SHOWS RECENT MEDS FOLLOWS: INVEGA SUSTENNA 156MG/ML FILLED 01/31/23, CLPIDOGREL 75 MG FILLED 11/26 90DS, PANTOPRAZOLE 40 MG FILLED 12/09 90DS. 02/09/23
[2023-02-09 16:02] LABS: Add Urine Microscopic? NO; Charge for UA Resulting for Rev
--- NOTE | 2023-02-09 16:03 | W.ED.ABDPA2 ---
HPI - Abdominal Pain General: Chief Complaint: Abdominal Pain Stated Complaint: reported pain in abd, nasuea, vomitting, gas Time Seen by Provider: 02/09/23 13:47 History of Present Illness: 78-year-old male presents to the emergency department with his family members. Patient states that he has had intermittent sharp cramping abdominal pain for several months. His daughter states that the patient has a history of intermittent constipation she feels that this may be the same issue. He states that sometimes after he eats the pain will come and go and waves. He denies nausea or vomiting. He does take MiraLAX intermittently for his constipation. At present the patient states his discomfort is a 1 or 2 when it does occur. Associated Symptoms: Reports constipation Review of Systems General: Reports: 10 or more systems reviewed and unremarkable except in HPI and below GI: Reports: abdominal pain and constipation PFSH ED PFSH: Medical History Benign essential HTN Cancer of prostate Combined hyperlipidemia Intervertebral disc disorder with radiculopathy of lumbosacral region Pernicious anemia Surgical History History of heart artery stent Hx of heart surgery Family History Father Lung disease Mother Chronic kidney disease (CKD) Hypertension Social History Smoking and tobacco/nicotine status: former use of tobacco/nicotine Alcohol intake: never Substance/Drug Use: never Household members: spouse Marital status: Current occupational status: retired Physical Exam Narrative: EXAM NARRATIVE: Constitutional: the patient appears well nourished and with normal development. Vital signs reviewed as documented. HENMT: Normocephalic, atraumatic. Extermal ears with normal appearance without drainage. Nose without drainage, normal appearance. Mucus membranes moist. Neck is supple, No jugular venous distension, trachea is midline, no appreciable carotid bruits. No lymphadenopathy. No meningeal signs. Flexion, extension and lateral rotation is without pain. Eyes: Pupils are equal, round, reactive to light and accommodation. No scleral icterus. Extra-ocular movement are intact. Thorax is symmetrical and with equal rise and fall with respirations. Resp: Lungs are clear to auscultation. No wheezes, rales, crackles or ronchi at present. Cardio: Regular rate and rhythm. Positive S1, S2. No appreciable murmurs, rubs or gallops. GI: Abdominal exam reveals normal bowel sounds to all quadrants. No organomegaly. No obvious palpable masses noted. No hepatomegally appreciated. Soft, nontender to palpation. Extremity: Extremities are non-edematous and both femoral and pedal pulses are 2+ and equal bilaterally. Moves all extremities well, sensation in all extremities. Neuro: Alert and oriented x4, person, place, time and situation. Cranial nerves II through XII are grossly intact, there is no focal neurological deficits that I can appreciate at present. Motor strength in the upper and lower extremities are equal and bilateral 5/5. Psych: Cooperative, calm, normal thought process, appropriate judgment. Skin: No lesions, rashes. No gross abnormalities noted. Back: Symmetrical, no obvious deformity, No CVA tenderness Course Vital Signs: Vital signs: Vital Signs Temperature 97.9 F 02/09/23 12:01 Pulse Rate 78 02/09/23 12:01 Respiratory Rate 18 02/09/23 12:01 Blood Pressure 121/74 02/09/23 12:01 Pulse Oximetry 97 02/09/23 12:01 Oxygen Delivery Me thod Room Air 02/09/23 12:01 MDM - Abdominal Pain Medical Decision Making Physical exam completed and documented, CBC, CMP and urinalysis obtained. I did obtain a plain film radiograph which demonstrates moderate stool burden with excessive gas. Patient is having a bowel movement and passing gas which lends against the diagnosis of obstruction. The family member state that he is more distended and has excessive flatus when he takes the MiraLAX. Differential diagnosis includes viral gastroenteritis, constipation, obstipation, dehydration. Medical Records I reviewed the patient's medical records. Lab Data I reviewed the patient's lab results. 02/09/23 11:58 02/09/23 11:58 Labs/Radiology: Radiology Impressions Abdomen X-Ray 02/09/23 14:11 IMPRESSION: No acute findings. Laboratory Results WBC 7.70 10^3/uL (3.29-11.43) 02/09/23 11:58 RBC 4.08 10^6/uL (3.85-5.65) 02/09/23 11:58 Hgb 12.50 g/dL (11.27-16.99) 02/09/23 11:58 Hct 38.8 % (37-53) 02/09/23 11:58 MCV 95.1 fl (82-101) 02/09/23 11:58 MCH 30.6 pg (27-33) 02/09/23 11:58 MCHC 32.2 g/dL (30-55) 02/09/23 11:58 RDW 13.8 % (12.1-15.1) 02/09/23 11:58 Plt Count 271 10^3/cmm (157-399) 02/09/23 11:58 MPV 9.3 fL (7.4-10.4) 02/09/23 11:58 Neut % (Auto) 73.5 % 02/09/23 11:58 Lymph % (Auto) 17.7 % 02/09/23 11:58 [place] % (Auto) 6.9 % 02/09/23 11:58 Eos % (Auto) 1.0 % 02/09/23 11:58 Baso % (Auto) 0.8 % 02/09/23 11:58 Neut # (Auto) 5.66 10^3/uL (1.8-7.7) 02/09/23 11:58 Lymph # (Auto) 1.4 10^3/uL (0.8-4.8) 02/09/23 11:58 [place] # (Auto) 0.5 10^3/uL (0.2-0.9) 02/09/23 11:58 Eos # (Auto) 0.1 10^3/uL (0.0-0.8) 02/09/23 11:58 Baso # (Auto) 0.1 10^3/uL (0.0-0.1) 02/09/23 11:58 Nucleated RBC % (auto) 0 % 02/09/23 11:58 Nucleated RBCs # 0.0 /100WBC 02/09/23 11:58 Sodium 139 mmol/L (136-145) 02/09/23 11:58 Potassium 4.7 mmol/L (3.5-5.1) 02/09/23 11:58 Chloride 104 mmol/L (98-107) 02/09/23 11:58 Carbon Dioxide 25 mmol/L (22-29) 02/09/23 11:58 Anion Gap 14.7 (5-19) 02/09/23 11:58 BUN 20 mg/dL (8-23) 02/09/23 11:58 Creatinine 1.9 mg/dL (0.7-1.2) H 02/09/23 11:58 GFR Calculation Not Reportable 02/09/23 11:58 Glucose 117 mg/dL (65-115) H 02/09/23 11:58 Calculated Osmolality 292 mOsm/kg (285-295) 02/09/23 11:58 Calcium 9.3 mg/dL (8.5-10.5) 02/09/23 11:58 Total Bilirubin 0.2 mg/dL (0.15-1.2) 02/09/23 11:58 AST 17 U/L (0-40) 02/09/23 11:58 ALT 12 U/L (0-41) 02/09/23 11:58 Alkaline Phosphatase 67 U/L (40-130) 02/09/23 11:58 Total Protein 6.7 g/dL (6.6-8.7) 02/09/23 11:58 Albumin 3.6 g/dL (3.5-5.2) 02/09/23 11:58 Globulin 3.1 g/dL (1.3-4.6) 02/09/23 11:58 Lipase 21 U/L (13-60) 02/09/23 11:58 Urine Color Yellow (Yellow) 02/09/23 15:56 Urine Appearance Clear (CLEAR) 02/09/23 15:56 Urine pH 6 (5-7) 02/09/23 15:56 Ur Specific [place] 1.015 (1.005-1.030) 02/09/23 15:56 Urine Protein Neg (Negative) 02/09/23 15:56 Urine Glucose (UA) Norm (Normal) 02/09/23 15:56 Urine Ketones 1+ (Negative) H 02/09/23 15:56 Urine Blood Neg (Negative) 02/09/23 15:56 Urine Nitrate Negative (Negative) 02/09/23 15:56 Urine Bilirubin Neg (Negative) 02/09/23 15:56 Urine Urobilinogen Norm mg/dL (Negative) 02/09/23 15:56 Ur Leukocyte Esterase Negative (Negative) 02/09/23 15:56 All radiology interpretation(s) finalized by discharge Discharge Plan Discharge Patient Disposition: Home Clinical Impression: Constipation, Excessive flatus Condition: Stable Prescriptions: New Senna-S 8.6-50 mg tablet 2 tab-cap PO DAILY Qty: 60 0RF No Action clopidogrel 75 mg tablet 75 mg PO QAM Invega Sustenna 156 mg/mL syringe 156 mg IM Q30D (DME) TLSO Brace See Rx Instructions .Route .MEDSUPPLY Qty: 1 0RF Rx Instructions: As directed famotidine 20 mg Tablet 20 mg PO BID galantamine 8 mg Tablet 8 mg PO BID Rx Instructions: administer with AM and PM meals memantine 10 mg Tablet 10 mg PO BID pantoprazole 40 mg tablet,delayed release (DR/EC) 40 mg PO QAM Discharge Orders: Discharge ED (Routine); Ordered 02/09/23 Ordered By: Idris Franks Referrals: Joseline Madison FNP [Primary Care Provider] - Discharge Diet: Advance as tolerated Discharge Activity: Resume usual activity Patient Instructions: Opioid Safety, Pain Management Activity Restrictions/Additional Instructions: Activity Restrictions/Additional Instructions: Thank you for choosing [facility] for your healthcare needs today. Please realize that you were seen in the Emergency Department and that we are providing you with an emergency medical screening exam and this may not be complete and all inclusive of all the testing and or medical work-up that you may need to determine your ailment or severity of your illness. It is very important that you follow-up as instructed with your Primary care provider or Specialist for additional evaluation and to discuss your medical treatment plan. You may return to the Emergency Department should you have concerns or if your condition changes or worsens in any way. Coding Level of Care Code ED Signal Operator Linguist for Jennifer Lopez
[2023-02-09 16:08] LABS: Bilirubin Urine Neg (Negative); Blood Urine Neg (Negative); Glucose Urine UA Norm (Normal); Ketones Urine 1+ (Negative); Leukocyte Esterase Urine Negative (Negative); Nitrate Urine Negative (Negative); Protein Urine Neg (Negative); Specific Gravity, Urine 1.015 (1.005-1.030); Urine Appearance Clear (CLEAR); Urine Color Yellow (Yellow); Urobilinogen Urine Norm (Negative); pH Urine 6 (5-7)
== END 2023-02-09 17:00 | disposition home or self-care (01) ==
PROVIDERS: Physician Assistant; Emergency Provider Internal Medicine; PCP Nurse Practitioner
DX: K59.00 Constipation, unspecified (principal); R14.3 Flatulence; Z79.02 Long term (current) use of antithrombotics/antiplatelets; I10 Essential (primary) hypertension; E78.2 Mixed hyperlipidemia; Z85.46 Personal history of malignant neoplasm of prostate; Z87.891 Personal history of nicotine dependence
CPT/HCPCS: 36415; 74018; 80053; 81003; 83690; 85025; 99284

== ENCOUNTER → 2023-03-23 11:27 | Outpatient (BNVA) | payer MEDICARE, MEDICAID, SELFPAY | PROVIDERS: PCP Nurse Practitioner; Visit Provider Surgery | DX: K92.2 Gastrointestinal hemorrhage, unspecified (principal); R10.9 Unspecified abdominal pain; K59.00 Constipation, unspecified | CPT/HCPCS: 99204 ==

== ENCOUNTER 2023-03-28 11:15 | Outpatient (CLI) | payer MEDICARE, MEDICAID, SELFPAY ==
--- NOTE | 2023-03-28 12:00 | CT_ITS ---
WS: [id number] CT ABDOMEN AND PELVIS WITH CONTRAST HISTORY: f/u of liver and kidney lesions TECHNIQUE: Imaging performed of the abdomen and pelvis with IV contrast. Single phase imaging of the abdomen. Coronal and sagittal reformats are submitted. All CT scans at [facility] use at [address] one of these dose optimization techniques: automated exposure control; mA and/or kV adjustment per patient size (includes targeted exams where dose is matched to clinical indication); or iterative re construction. IV CONTRAST: Omnipaque 350; 100 mL IV. Oral contrast: Yes. DLP: 369.89 mGy.cm COMPARISON: 12/27/2021 Lower thorax: Lung bases are clear. Heart is normal size. No hiatal hernia. Liver/biliary system: Normal size liver. There are multiple low-attenuation nodules predominantly in the LEFT lobe of the liver which appear tubular in configuration. Very similar compared to the prior examination. There are additional smaller cysts in the RIGHT lobe adjacent to the gallbladder fossa. There has been no progression or change since 12/27/2021. Probably a benign process. Gallbladder: Contracted. No para cholecystic fluid. Pancreas: Normal size pancreas and pancreatic duct. No adjacent inflammation. Spleen: Normal size spleen. No mass or infarct. Adrenal glands: Normal. Right kidney: Mild cortical thinning. No obstruction or mass. Left kidney: Moderate atrophy and cortical thinning. Previously described heterogeneous mass in the L EFT kidney has significantly decreased in size suggesting this was a benign cyst that has collapsed n ow measuring 7 mm as compared to 11 mm on the prior study. There is an additional smaller hyperdense mass measuring 8 mm that is new directly posteriorly. Aorta: Mild atherosclerosis with no aneurysm. Lymphadenopathy: None. Free fluid: None. GI tract: Moderate air distention of the stomach. No small bowel obstruction. Mild increased arthropa thy colon. No obstructive pattern. Normal appendix. Abdominal wall: Fat containing umbilical hernia. Pelvis: No free fluid or adenopathy within the pelvis. Mild diffuse bladder wall thickening. Bones: L3 vertebroplasty. IMPRESSION: 1. Previously described solid-appearing mass in the LEFT kidney has decreased in size from 11 mm to 7 mm. This is probably a complex cyst. 2. Tubular dilated cystic structures in the LEFT lobe of the liver and adjacent to the gallbladder a re similar to the prior study with no increase in extent. No solid mass. 3. No GI tract obstruction, no ascites or adenopathy. 4. New hyperdense mass measuring 8 mm extending posterior from the LEFT mid LEFT kidney. May be a he morrhagic cyst, cyst with increased protein, or early renal cell neoplasm. Consider follow-up renal C T mass protocol in 6 months.
[2023-03-28] MEDS: iohexol 350 mg/mL 500 mL Btl (per mL) PO (12:14)
[2023-03-28 12:42] LABS: Blood Urea Nitrogen 20 mg/dL (8-23)
[2023-03-28] MEDS: iohexol 350 mg/mL 500 mL Btl (per mL) IV (12:47)
== END 2023-03-28 11:16 | disposition home or self-care (01) ==
LOC: RAD 11:16
PROVIDERS: PCP Nurse Practitioner; Visit Provider Surgery
DX: R16.0 Hepatomegaly, not elsewhere classified (principal); N28.89 Other specified disorders of kidney and ureter
CPT/HCPCS: 74177; 82565; 84520; Q9967

== ENCOUNTER 2023-05-21 09:41 | Emergency (ER) | payer MEDICARE, MEDICAID, SELFPAY ==
[2023-05-21 10:04] VITALS: BP 173/90; PULSE 71; RESP 16; TEMP 36.5; O2SAT 93; BMI 25.1
--- NOTE | 2023-05-21 10:23 | XRR_ITS ---
PROCEDURE INFORMATION: Exam: XR Right Shoulder Exam date and time: 05/21/2023 10:40 AM Age: 78 years old Clinical indication: Injury or trauma; Fall; Blunt trauma (contusions or hematomas); Shoulder; Right; Additional info: Trauma/fall TECHNIQUE: Imaging protocol: Radiologic exam of the right shoulder. Views: 2 or more views. COMPARISON: [place] [id number] 05/21/2023 10:40 AM FINDINGS: Bones/joints: Slightly displaced comminuted fracture through the proximal right humerus. This extends from the surgical neck into the humeral head. Superimposed acromioclavicular and glenohumeral narrowing and spurring. Soft tissues: Normal. XR/XR shoulder RT min 2V* [id number] IMPRESSION: Fracture of the proximal humerus.
--- NOTE | 2023-05-21 10:23 | XRR_ITS ---
PROCEDURE INFORMATION: Exam: XR Right Humerus Exam date and time: 05/21/2023 10:40 AM Age: 78 years old Clinical indication: Injury or trauma; Fall; Blunt trauma (contusions or hematomas); Arm, upper; Right; Additional info: Trauma/fall TECHNIQUE: Imaging protocol: Radiologic exam of the right humerus. Views: 2 or more views. COMPARISON: CR XR shoulder RT min 2V* [id number] 05/21/2023 10:40 AM FINDINGS: Bones/joints: Mildly comminuted and minimally displaced fracture through the proximal head and neck of the right humerus. No more distal injury is seen. Soft tissues: Normal. XR/[place] [id number] IMPRESSION: Fracture of the proximal humerus.
--- NOTE | 2023-05-21 10:24 | ED_ITS ---
HPI - Extremity Injury (Upper) General: Chief Complaint: Fall Stated Complaint: fall,(05/20/23) right arm pain Time Seen by Provider: 05/21/23 10:10 Source: patient and family Mode of arrival: wheelchair Limitations: no limitations History of Present Illness: Patient is an 78-year-old male presents to ED today for evaluation of a right arm injury that he sustained yesterday following a fall. Family states he was walking at the park and slipped on [place] gravel and fell onto the right arm/shoulder. They state he complained of discomfort all evening long and was agreeable to come to the emergency department today. He denies striking his head or LOC during the fall. He is not having any neck or back pain. MD complaint: injury to: right, shoulder and arm Onset (ago): day(s) (yesterday) Other Extremity Injury: Right: shoulder Other injuries: none Place: outdoors Severity: moderate Relieving factors: immobilization Exacerbating factors: movement of extremity Context: fall Associated symptoms: Reports no associated symptoms; Denies neck pain or weakness in extremities Review of Systems Eyes: Denies: change in vision or blurry vision Card: Denies: chest pain, palpitations, syncope or pre-syncope Resp: Denies: dyspnea, pain on inspiration or chest congestion GI: Denies: abdominal pain or nausea Musc: Reports: extremity pain ( arm) and joint pain (R shoulder); Denies: neck pain or back pain Skin/Breast: Denies: rash Neuro: Denies: headache(s), numbness in extremities, weakness in extremities or sensory changes [facility] ED PFSH: Medical History Pernicious anemia Benign essential HTN Combined hyperlipidemia Intervertebral disc disorder with radiculopathy of lumbosacral region Cancer of prostate Surgical History History of heart artery stent Hx of heart surgery Family History Father Lung disease Mother Chronic kidney disease (CKD) Hypertension Social History Smoking and tobacco/nicotine status: former use of tobacco/nicotine Alcohol intake: never Substance/Drug Use: never Household members: spouse Marital status: Current occupational status: retired Physical Exam Const: COMMON NORMALS: no acute distress, patient oriented x3, no limitations and alert GENERAL APPEARANCE: cooperative ORIENTATION/CONSCIOUSNESS: Yes awake, Yes oriented to person and Yes oriented to time HENMT: COMMON NORMALS: normocephalic and atraumatic HEAD & SCALP: normal to inspection, normocephalic and atraumatic Neck/C-Spine: GENERAL: Yes normal visual inspection CERVICAL SPINE: No Cervical spine tenderness Chest: COMMONS NORMALS: normal inspection of the chest and normal palpation of entire chest wall Resp: COMMON NORMALS: normal respiratory effort and clear to auscultation bilaterally AUSCULTATION: clear to auscultation bilaterally Back/Pelvis: COMMON NORMALS: thoracic and lumbar spine normal to inspection and no thoracic nor lumbar tenderness Extremity: COMMON NORMALS: capillary refill normal and no clubbing, cyanosis or edema GENERAL: Yes normal exam except as noted RIGHT UPPER EXTREMITY: Yes shoulder joint and Yes upper arm OTHER: states his whole R upper extremity hurts and he holds arm against his body; careful examination reveals no obvious bony tenderness throughout hand or wrist and no deformities noted here; pulses are intact along with sensation; he does not seem to have any bony tenderness around the elbow; he reports maximum pain to R shoulder and upper arm that worsens with movement of wrist/elbow joints; he maintains flexion/extension of the wrist and digits against resistance and does not complain of dorsal paresthesias Neuro: COMMON NORMALS: patient oriented x3, moves all extremities, no focal motor deficits and no sensory deficits noted SENSORIUM/ORIENTATION: Yes alert, Yes oriented to person and Yes oriented to time Skin: TRAUMA: no lacerations or abrasions Course Vital Signs: Vital signs: Vital Signs Temperature 97.7 F 05/21/23 10:04 Pulse Rate 69 05/21/23 10:57 Respiratory Rate 14 05/21/23 10:38 Blood Pressure 185/92 05/21/23 10:57 Pulse Oximetry 95 05/21/23 10:57 Oxygen Delivery Me thod Room Air 05/21/23 10:57 MDM - Extremity Injury (Upper) Medical Decision Making Patient here with a proximal humeral fracture. He was placed in a sling and case management referral will be placed for orthopedic follow-up. Medical Records I reviewed the patient's medical records. Lab Data Radiology Impressions Humerus X-Ray 05/21/23 10:23 IMPRESSION: Fracture of the proximal humerus. Shoulder X-Ray 05/21/23 10:23 IMPRESSION: Fracture of the proximal humerus. All radiology interpretation(s) finalized by discharge Discharge Plan Discharge Patient Disposition: Home Clinical Impression: Fracture of proximal end of humerus Qualifiers: Encounter type: initial encounter Fracture type: closed Fracture morphology: other fracture Fracture alignment: nondisplaced Laterality: right Qualified Code(s): S42.294A - Other nondisplaced fracture of upper end of right humerus, initial encounter for closed fracture Condition: Stable Prescriptions: New hydrocodone-acetaminophen 5-325 mg tablet 1 tab PO Q6H PRN (Reason: pain) Qty: 14 0RF No Action (DME) TLSO Brace See Rx Instructions .Route .MEDSUPPLY Qty: 1 0RF Rx Instructions: As directed temazepam 30 mg capsule 30 mg PO QPM lactulose 10 gram/15 mL solution 30 ml PO BID PRN (Reason: Constipation) Linzess 290 mcg capsule 290 mcg PO DAILY pregabalin 100 mg capsule 100 mg PO BID biotin 5 mg Tablet 5 mg PO QPM melatonin 10 mg Tablet 10 mg PO QPM Senna-S 8.6-50 mg tablet 2 tab-cap PO DAILY PRN (Reason: Constipation) tramadol 50 mg tablet 50 mg PO Q6H bumetanide 1 mg tablet 1 mg PO DAILY pantoprazole 40 mg tablet,delayed release (DR/EC) 40 mg PO QAM Discharge Orders: Discharge ED (Routine); Ordered 05/21/23 Ordered By: Megha Emery Referrals: Joseline Madison FNP [Primary Care Provider] - Patient Instructions: Proximal Humerus Fracture (ED), Opioid Safety, Pain Management Activity Restrictions/Additional Instructions: You need to stay in your sling at all times apart from showering or bathing. Case management should reach out to you later this week to set you up with your follow-up orthopedic appointment. I will write you for pain medications. Do not take this with your normal tramadol. At any time you can get by with [id number] pain medications and your tramadol-do this. If you need something stronger we will have the hydrocodone you can use in place of the tramadol. Coding Level of Care Code ED Drug Inspector for Jennifer Lopez
[2023-05-21 10:38] VITALS: RESP 14; O2SAT 96
[2023-05-21] MEDS: morphine 4 mg/mL SDV 1 mL IM (10:38)
[2023-05-21 10:57] VITALS: BP 185/92; PULSE 69; O2SAT 95
--- NOTE | 2023-05-22 09:03 | DCPLANNER ---
Message sent to Ortho - follow-up orthopedic appointment JAE
== END 2023-05-21 11:50 | disposition home or self-care (01) ==
PROVIDERS: Emergency Provider Physician Assistant; PCP Nurse Practitioner
DX: S42.294A Other nondisplaced fracture of upper end of right humerus, initial encounter for closed fracture (principal); I10 Essential (primary) hypertension; E78.2 Mixed hyperlipidemia; Z85.46 Personal history of malignant neoplasm of prostate; Z87.891 Personal history of nicotine dependence; W01.0XXA Fall on same level from slipping, tripping and stumbling without subsequent striking against object, initial encounter; Y92.830 Public park as the place of occurrence of the external cause
CPT/HCPCS: 73030; 73060; 96372; 99284; J2270

== ENCOUNTER → 2023-05-25 08:24 | Outpatient (BNVA) | payer MEDICARE, MEDICAID, SELFPAY | PROVIDERS: PCP Nurse Practitioner; Referring Provider Physician Assistant; Visit Provider Student in an Organized Health Care Education/Training Program | DX: S42.294A Other nondisplaced fracture of upper end of right humerus, initial encounter for closed fracture (principal); W01.0XXA Fall on same level from slipping, tripping and stumbling without subsequent striking against object, initial encounter | CPT/HCPCS: 23600; 73030; 99203 ==

== ENCOUNTER → 2023-07-10 12:48 | Outpatient (BNVA) | payer MEDICARE, MEDICAID, SELFPAY | PROVIDERS: PCP Nurse Practitioner; Visit Provider Student in an Organized Health Care Education/Training Program | DX: S42.294A Other nondisplaced fracture of upper end of right humerus, initial encounter for closed fracture (principal); W17.89XA Other fall from one level to another, initial encounter | CPT/HCPCS: 73030; 99213 ==

== ENCOUNTER 2023-07-16 12:48 | Outpatient (CLI) | payer MEDICARE, MEDICAID, SELFPAY ==
[2023-07-16 13:24] LABS: Basophils # 0.1 10^3/uL (0.0-0.1); Basophils % 0.7 %; Eosinophils # 0.2 10^3/uL (0.0-0.8); Eosinophils % 2.1 %; Hematocrit 39.8 % (37-53); Lymphocytes % 26.6 %; Mean Corpuscular HGB Conc 32.9 g/dL (30-55); Mean Corpuscular Hemoglobin 31.2 pg (27-33); Mean Corpuscular Volume 94.8 fl (82-101); Mean Platelet Volume 10.3 fL (7.4-10.4); Monocytes # 0.7 10^3/uL (0.2-0.9); Neutrophils # 4.59 10^3/uL (1.8-7.7); Neutrophils % 61.5 %; Nucleated Red Blood Cells % 0 %; Platelet Count 269 10^3/cmm (157-399); Red Cell Distribution Width 14.2 % (12.1-15.1); White Blood Count 7.47 10^3/uL (3.29-11.43)
[2023-07-16 13:48] LABS: Calcium 8.7 mg/dL (8.5-10.5)
[2023-07-16 13:54] LABS: Parathyroid Hormone 35.5 pg/mL (15-65)
[2023-07-16 14:08] LABS: 25 Hydroxy Vitamin D 34 ng/mL (30-100); Albumin Level 4.1 g/dL (3.5-5.2); Anion Gap 15.5 (5-19); Blood Urea Nitrogen 21 mg/dL (8-23); Calcium 8.6 mg/dL (8.5-10.5); Carbon Dioxide 25 mmol/L (22-29); Chloride 103 mmol/L (98-107); Glucose 107 mg/dL (65-115); Phosphorus 4.4 mg/dL (2.5-4.5); Potassium 4.5 mmol/L (3.5-5.1); Sodium 139 mmol/L (136-145)
[2023-07-16 16:15] LABS: Creatinine Urine, Random 29 mg/dL (39-259); Microalbum Creatinine Ratio Ur 34 mg/dL (0-20); Microalbumin Random Urine 1 ug/dL (0-20)
== END 2023-07-16 12:49 | disposition home or self-care (01) ==
LOC: LAB 12:55
PROVIDERS: Visit Provider Internal Medicine
DX: I13.0 Hypertensive heart and chronic kidney disease with heart failure and stage 1 through stage 4 chronic kidney disease, or unspecified chronic kidney disease (principal); N18.32 Chronic kidney disease, stage 3b; I50.32 Chronic diastolic (congestive) heart failure; E55.9 Vitamin D deficiency, unspecified
CPT/HCPCS: 36415; 80069; 82044; 82306; 82310; 83970; 85025

== ENCOUNTER 2023-07-30 10:13 | Outpatient (RCR) | payer MEDICARE, MEDICAID, SELFPAY | END 2023-08-17 23:59 | disposition home or self-care (01) | LOC: SPT 10:13 | PROVIDERS: PCP Nurse Practitioner; Visit Provider Student in an Organized Health Care Education/Training Program | DX: S42.201D Unspecified fracture of upper end of right humerus, subsequent encounter for fracture with routine healing (principal); X58.XXXD Exposure to other specified factors, subsequent encounter | CPT/HCPCS: 97110; 97161 ==

== ENCOUNTER 2023-07-30 16:02 | Inpatient (IN) | payer MEDICARE, MEDICAID, SELFPAY ==
[2023-07-30] VITALS (7 sets, daily range): BP systolic 151–184; BP diastolic 79–94; PULSE 69–86; RESP 16–25; TEMP 36.4–36.6; O2SAT 95–96; BMI 27.0
--- NOTE | 2023-07-30 16:10 | XRR_ITS ---
PROCEDURE INFORMATION: Exam: XR Chest Exam date and time: 07/30/2023 4:27 PM Age: 78 years old Clinical indication: Other: Dizzy; Additional info: AMS TECHNIQUE: Imaging protocol: Radiologic exam of the chest. Views: 1 view. COMPARISON: CR XR chest 2V* [id number] 07/23/2022 10:07 PM FINDINGS: Lungs: Mild atelectasis in the lung bases. Calcified granuloma in the left lung. Shallow inspiration. The lungs are otherwise clear. Pleural spaces: Unremarkable. No pleural effusion. No pneumothorax. Heart/Mediastinum: Unremarkable. No cardiomegaly. Diaphragm: Gas-filled colon, interposed beneath the right diaphragm. Bones/joints: Chronic appearing incompletely healed proximal right humerus fracture. XR/XR chest 1V portable [id number] IMPRESSION: No acute findings.
--- NOTE | 2023-07-30 16:22 | ECG_ITS ---
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 Measurements Intervals [place] Rate: 66 P: 52 MD: 205 QRS: -45 QRSD: 97 T: 86 QT: 401 QTc: 422 Interpretive Statements SINUS RHYTHM PATTERN CONSISTENT WITH PULMONARY DISEASE LEFT ANTERIOR FASCICULAR BLOCK [QRS AXIS <= -45, QR IN I, RS IN II] SEPTAL MYOCARDIAL INFARCTION , OF INDETERMINATE AGE [40+ ms Q WAVE IN V1/V2] Compared to ECG 07/13/2022 10:53:13 Left anterior fascicular block now present Myocardial infarct finding now present Ectopic atrial rhythm no longer present First degree AV block no longer present T-wave abnormality no longer present Possible ischemia no longer present Electronically Signed On 07-30-2023 18:00:25 CDT by Holly Lora M.D. [email or web address]
[2023-07-30 16:49] LABS: Basophils % 0.3 %; Eosinophils # 0.2 10^3/uL (0.0-0.8); Eosinophils % 1.4 %; Hematocrit 46.3 % (37-53); Lymphocytes # 2.4 10^3/uL (0.8-4.8); Lymphocytes % 19.3 %; Mean Corpuscular HGB Conc 32.6 g/dL (30-55); Mean Corpuscular Hemoglobin 31.4 pg (27-33); Mean Corpuscular Volume 96.3 fl (82-101); Mean Platelet Volume 9.7 fL (7.4-10.4); Monocytes # 0.9 10^3/uL (0.2-0.9); Monocytes % 7.3 %; Neutrophils # 8.74 10^3/uL (1.8-7.7); Neutrophils % 71.4 %; Nucleated Red Blood Cells % 0 %; Platelet Count 296 10^3/cmm (157-399); Red Blood Count 4.81 10^6/uL (3.85-5.65); Red Cell Distribution Width 14.5 % (12.1-15.1); White Blood Count 12.24 10^3/uL (3.29-11.43)
[2023-07-30 17:04] LABS: Alanine Aminotransferase 18 U/L (0-41); Albumin Level 4.4 g/dL (3.5-5.2); Alkaline Phosphatase 130 U/L (40-130); Anion Gap 16.2 (5-19); Aspartate Amino Transferase 20 U/L (0-40); Blood Urea Nitrogen 36 mg/dL (8-23); Calcium 8.4 mg/dL (8.5-10.5); Carbon Dioxide 31 mmol/L (22-29); Chloride 99 mmol/L (98-107); Creatinine Clr Calc Pharmacy 34.4226; Globulin 3.7 g/dL (1.3-4.6); Glucose 102 mg/dL (65-115); Osmolality Calculated 303 mOsm/kg (285-295); Potassium 4.2 mmol/L (3.5-5.1); Sodium 142 mmol/L (136-145); Total Bilirubin 0.4 mg/dL (0.15-1.2); Total Protein 8.1 g/dL (6.6-8.7)
--- NOTE | 2023-07-30 18:35 | CTR_ITS ---
PROCEDURE INFORMATION: Exam: CTA Head With Contrast, Arteriography Exam date and time: 07/30/2023 7:26 PM Age: 78 years old Clinical indication: Visual disturbance; Additional info: Vision loss TECHNIQUE: Imaging protocol: Computed tomographic angiography of the head with contrast. Exam focused on the arteries. 3D rendering (Not supervised by radiologist): MIP and/or 3D reconstructed images were created by the technologist. Radiation optimization: All CT scans at this facility use at least one of these dose optimization techniques: automated exposure control; mA and/or kV adjustment per patient size (includes targeted exams where dose is matched to clinical indication); or iterative reconstruction. Contrast material: OMNI 250; Contrast volume: 80 ml; Contrast route: INTRAVENOUS (IV); COMPARISON: CT head wo con* [id number] 07/30/2023 7:01 PM RADIATION DOSE METRICS: Total DLP (mGy-cm): 512 FINDINGS: ANTERIOR CIRCULATION: Right internal carotid artery: Mild calcified plaque in the right carotid siphon without significant stenosis. Right middle cerebral artery: No occlusion or significant stenosis. No aneurysm. Right anterior cerebral artery: No occlusion or significant stenosis. No aneurysm. Left internal carotid artery: Mild calcified plaque in the left carotid siphon without significant stenosis. Left middle cerebral artery: No occlusion or significant stenosis. No aneurysm. Left anterior cerebral artery: No occlusion or significant stenosis. No aneurysm. POSTERIOR CIRCULATION: Right vertebral artery: Congenitally small right vertebral artery. The artery is well opacified with contrast and without stenosis. Left vertebral artery: No occlusion or significant stenosis. No aneurysm. Basilar artery: Approximate 4 mm distal left basilar artery aneurysm. No evidence of rupture. Right posterior cerebral artery: No occlusion or significant stenosis. No aneurysm. Left posterior cerebral artery: Congenitally small P1 segment of the left posterior cerebral artery with a patent posterior communicating artery. No stenosis or filling defect visualized. Brain: Hypodensity in the cortex and subcortical white matter of the medial left occipital lobe appears less conspicuous than on the previous noncontrast study. Moderate hypodensities in supratentorial periventricular and subcortical white matter, consistent with microangiopathy. No intracranial hemorrhage. Cerebral ventricles: No ventriculomegaly. Bones/joints: Unremarkable. No acute fracture. Soft tissues: Unremarkable. PROCEDURE INFORMATION: Exam: CTA Neck With Contrast Exam date and time: 07/30/2023 7:26 PM Age: 78 years old Clinical indication: Visual disturbance; Additional info: Vision loss TECHNIQUE: Imaging protocol: Computed tomographic angiography of the neck with contrast. Exam focused on the cervical segments of the vasculature. 3D rendering (Not supervised by radiologist): MIP and/or 3D reconstructed images were created by the technologist. Radiation optimization: All CT scans at this facility use at least one of these dose optimization techniques: automated exposure control; mA and/or kV adjustment per patient size (includes targeted exams where dose is matched to clinical indication); or iterative reconstruction. Contrast material: OMNI 250; Contrast volume: 80 ml; Contrast route: INTRAVENOUS (IV); COMPARISON: CT head wo con* [id number] 07/30/2023 7:01 PM RADIATION DOSE METRICS: Total DLP (mGy-cm): 512 FINDINGS: Right common carotid artery: No stenosis. No dissection or occlusion. Right internal carotid artery: Calcified and noncalcified plaque in the proximal right internal carotid artery with kinking and 30% stenosis. Right external carotid artery: No occlusion or stenosis of the origin. Left common carotid artery: Calcified plaque in the distal left common carotid artery without significant stenosis. Left internal carotid artery: Calcified plaque in the proximal left internal carotid artery with 0% stenosis. Left external carotid artery: No occlusion or stenosis of the origin. Right vertebral artery: Congenitally small right vertebral artery. There is faint contrast intermittently visualized in the proximal, mid and distal artery with intervening segments severe stenosis or near complete occlusion. Left vertebral artery: No stenosis. No dissection or occlusion. Left subclavian artery: Calcified plaque in the proximal left subclavian artery without significant stenosis. Lymph nodes: Prominent mediastinal and hilar lymph nodes are most likely reactive. Soft tissues: Normal. No significant soft tissue swelling. Bones/joints: Degenerative cervical spine. Mild superior T1 and T3 compression fractures. Lungs: Mild dependent atelectasis in both lungs. Parenchymal scarring in the left lung apex with calcifications. CT/CT angio headneck* [id number] IMPRESSION: 1. No large artery occlusion or stenosis. 2. 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 3. Acute versus subacute infarct in the medial left occipital lobe appears less conspicuous. IMPRESSION: 1. 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 This could represent vasculitis, atherosclerosis, or intraluminal thrombus. Dissection is considered less likely but cannot be entirely excluded. 2. Plaque with kinking in the proximal right internal carotid artery with 30% stenosis. REFERENCES: NASCET CRITERIA. The degree of stenosis in the cervical segment of the internal carotid artery is based on NASCET criteria. Normal is no stenosis. Mild is less than 50% stenosis. Moderate is 50-69% stenosis. Severe is 70% to 99% stenosis. Total occlusion is no detectable patent lumen.
--- NOTE | 2023-07-30 18:35 | CTR_ITS ---
PROCEDURE INFORMATION: Exam: CT Head Without Contrast Exam date and time: 07/30/2023 7:01 PM Age: 78 years old Clinical indication: Dizziness and visual disturbance; Additional info: Vision loss TECHNIQUE: Imaging protocol: Computed tomography of the head without contrast. Radiation optimization: All CT scans at this facility use at least one of these dose optimization techniques: automated exposure control; mA and/or kV adjustment per patient size (includes targeted exams where dose is matched to clinical indication); or iterative reconstruction. COMPARISON: CT head wo con* [id number] 07/13/2022 1:23 PM RADIATION DOSE METRICS: Total DLP (mGy-cm): 1063.43 FINDINGS: Brain: Diffuse cortical volume loss, in keeping with patient age. Stable moderate hypodensities in supratentorial periventricular and subcortical white matter, consistent with microangiopathy. No intracranial hemorrhage. New hypodensity in the cortex and subcortical white matter of the medial left occipital lobe. Cerebral ventricles: No ventriculomegaly. Paranasal sinuses: Visualized sinuses are unremarkable. No fluid levels. Mastoid air cells: Visualized mastoid air cells are well aerated. Orbital cavities: Prior cataract surgery. Bones: Unremarkable. No acute fracture. Soft tissues: Unremarkable. Vasculature: No hyperdense artery. CT/CT head wo con* [id number] IMPRESSION: 1. Acute versus subacute infarct in the medial left occipital lobe.
--- NOTE | 2023-07-30 18:56 | ED_ITS ---
HPI - Neuro Symptoms/Deficit 2 General: Chief Complaint: Neuro Symptoms/Deficit Stated Complaint: dr jaramillo, blurred vision, dizzy, weakness Time Seen by Provider: 07/30/23 18:32 Source: patient Mode of arrival: ambulatory Limitations: no limitations History of Present Illness: 78-year-old male states over the last 3 days he has lost peripheral vision on the right side of his periphery of both eyes. He states he had had a lens replacement done in May and thought it may be that and saw his portable router operator Dr. Reese today and had a normal eye exam and Dr. Reese told him is concerned he could have had a stroke patient states he is also had some dizziness unsteady gait and some slight confusion. He had mild headaches as well. Associated symptoms: Reports headache(s); Deny chest pain, nausea or vomiting Review of Systems 2 Const: Denies: fever(s), chills, body aches or change in appetite Eyes: Reports: change in vision ENMT: Denies: throat pain or dental pain Card: Denies: chest pain Resp: Denies: dyspnea GI: Denies: abdominal pain, nausea, vomiting or diarrhea Musc: Denies: neck pain or back pain Skin/Breast: Denies: rash Neuro: Reports: headache(s) PFSH ED 2 PFSH: Medical History Pernicious anemia Benign essential HTN Combined hyperlipidemia Intervertebral disc disorder with radiculopathy of lumbosacral region Cancer of prostate Surgical History History of heart artery stent Hx of heart surgery Family History Father Lung disease Mother Chronic kidney disease (CKD) Hypertension Social History Smoking and tobacco/nicotine status: former use of tobacco/nicotine Alcohol intake: never Substance/Drug Use: never Household members: spouse Marital status: Current occupational status: retired NIH stroke score 2 NIHSS: Level Of Consciousness - 1a: 0 Level Of Consciousness Questions - 1b: Both Correct Level Of Consciousness Commands - 1c: Both Correct Best Gaze - 2: Normal Visual Avila - 3: Complete Hemianopia Facial Palsy - 4: Normal Motor Arm Right - 5: No Drift Motor Arm Left - 5: No Drift Motor Leg Right - 6: No Drift Motor Leg Left - 6: No Drift Limb Ataxia - 7: A bsent Sensory - 8: Normal Best Language - 9: No Aphasia Dysarthia - 10: Normal Extinction And Inattention - 11: 0 Score: Total Score: 2 Physical Exam 2 Const: COMMON NORMALS: no acute distress, patient oriented x3 and healthy appearing HENMT: COMMON NORMALS: normocephalic and atraumatic HEAD & SCALP: n ormocephalic and atraumatic Eye: COMMON NORMALS: Equal, round and reactive pupils present and EOMs intact bilaterally PUPIL: Yes Equal, round and reactive pupils present OTHER: Vision loss to right peripheral vision Neck/C-Spine: COMMON NORMALS: full ROM and supple Chest: COMMONS NORMALS: normal inspection of the chest and normal palpation of entire chest wall Resp: COMMON NORMALS: normal respiratory effort, No retractions, No use of accessory muscles and clear to auscultation bilaterally AUSCULTATION: clear to auscultation bilaterally Cardio: COMMON NORMALS: regular rate, regular rhythm and No murmurs present (Cardio) RATE: regular rate RHYTHM: regular rhythm GI: COMMON NORMALS: Normal to inspection, nondistended, normoactive bowel sounds present, Soft to palpation, non-tender and no masses PALPATION: Yes Soft to palpation Extremity: COMMON NORMALS: normal to inspection and full ROM Neuro: COMMON NORMALS: patient oriented x3 and moves all extremities S PEECH: speech normal Psych: COMMON NORMALS: mental status grossly normal, Normal thought process present and cooperative THOUGHT PROCESS: Normal thought process present Skin: COMMON NORMALS: no rashes or lesions noted and no wounds GENERAL SKIN EXAM: no rashes or lesions noted Course 2 Vital Signs: Vital signs: Vital Signs Temperature 97.5 F L 07/30/23 16:15 Pulse Rate 70 07/30/23 16:15 Respiratory Rate 16 07/30/23 16:15 Blood Pressure 151/83 07/30/23 16:15 Pulse Oximetry 96 07/30/23 16:15 Oxygen Delivery Me thod Room Air 07/30/23 16:15 MDM - Neuro Symptoms/Deficit Medical Decision Making Patient presents with right peripheral vision loss CT does show likely of septal stroke symptoms been going on for days he is out of any treatment window I spoke to the hospitalist will admit. Medical Records I reviewed the patient's medical records. Lab Data I reviewed the patient's lab results. 07/30/23 16:38 07/30/23 16:38 Radiology Impressions Chest X-Ray 07/30/23 16:10 IMPRESSION: No acute findings. Head CT 07/30/23 18:35 IMPRESSION: 1. Acute versus subacute infarct in the medial left occipital lobe. Laboratory Results WBC 12.24 10^3/uL (3.29-11.43) H 07/30/23 16:38 RBC 4.81 10^6/uL (3.85-5.65) 07/30/23 16:38 Hgb 15.10 g/dL (11.27-16.99) 07/30/23 16:38 Hct 46.3 % (37-53) 07/30/23 16:38 MCV 96.3 fl (82-101) 07/30/23 16:38 MCH 31.4 pg (27-33) 07/30/23 16:38 MCHC 32.6 g/dL (30-55) 07/30/23 16:38 RDW 14.5 % (12.1-15.1) 07/30/23 16:38 Plt Count 296 10^3/cmm (157-399) 07/30/23 16:38 MPV 9.7 fL (7.4-10.4) 07/30/23 16:38 Neut % (Auto) 71.4 % 07/30/23 16:38 Lymph % (Auto) 19.3 % 07/30/23 16:38 Harper % (Auto) 7.3 % 07/30/23 16:38 Eos % (Auto) 1.4 % 07/30/23 16:38 Baso % (Auto) 0.3 % 07/30/23 16:38 Neut # (Auto) 8.74 10^3/uL (1.8-7.7) H 07/30/23 16:38 Lymph # (Auto) 2.4 10^3/uL (0.8-4.8) 07/30/23 16:38 Harper # (Auto) 0.9 10^3/uL (0.2-0.9) 07/30/23 16:38 Eos # (Auto) 0.2 10^3/uL (0.0-0.8) 07/30/23 16:38 Baso # (Auto) 0.0 10^3/uL (0.0-0.1) 07/30/23 16:38 Nucleated RBC % (auto) 0 % 07/30/23 16:38 Nucleated RBCs # 0.0 /100WBC 07/30/23 16:38 Sodium 142 mmol/L (136-145) 07/30/23 16:38 Potassium 4.2 mmol/L (3.5-5.1) 07/30/23 16:38 Chloride 99 mmol/L (98-107) 07/30/23 16:38 Carbon Dioxide 31 mmol/L (22-29) H 07/30/23 16:38 Anion Gap 16.2 (5-19) 07/30/23 16:38 BUN 36 mg/dL (8-23) H 07/30/23 16:38 Creatinine 1.8 mg/dL (0.7-1.2) H 07/30/23 16:38 GFR Calculation Not Reportable 07/30/23 16:38 Glucose 102 mg/dL (65-115) 07/30/23 16:38 Calculated Osmolality 303 mOsm/kg (285-295) H 07/30/23 16:38 Calcium 8.4 mg/dL (8.5-10.5) L 07/30/23 16:38 Total Bilirubin 0.4 mg/dL (0.15-1.2) 07/30/23 16:38 AST 20 U/L (0-40) 07/30/23 16:38 ALT 18 U/L (0-41) 07/30/23 16:38 Alkaline Phosphatase 130 U/L (40-130) 07/30/23 16:38 Total Protein 8.1 g/dL (6.6-8.7) 07/30/23 16:38 Albumin 4.4 g/dL (3.5-5.2) 07/30/23 16:38 Globulin 3.7 g/dL (1.3-4.6) 07/30/23 16:38 All radiology interpretation(s) finalized by discharge Discharge Plan Discharge Patient Disposition: Admitted As Inpatient Clinical Impression: Cerebrovascular accident Condition: Stable Prescriptions: No Action (DME) TLSO Brace See Rx Instructions .Route .MEDSUPPLY Qty: 1 0RF Rx Instructions: As directed temazepam 30 mg capsule 30 mg PO QPM lactulose 10 gram/15 mL solution 30 ml PO BID PRN (Reason: Constipation) Linzess 290 mcg capsule 290 mcg PO DAILY (DME) Shoulder Sling See Rx Instructions .Route .MEDSUPPLY Qty: 1 0RF Rx Instructions: As directed hydrocodone-acetaminophen 5-325 mg tablet 1 tab PO Q6H PRN (Reason: pain) 5 Days Qty: 20 0RF hydrocodone-acetaminophen 5-325 mg tablet 1 tab PO Q6H PRN (Reason: pain) 7 Days Qty: 28 0RF pregabalin 100 mg capsule 100 mg PO BID biotin 5 mg Tablet 5 mg PO QPM melatonin 10 mg Tablet 10 mg PO QPM Senna-S 8.6-50 mg tablet 2 tab-cap PO DAILY PRN (Reason: Constipation) tramadol 50 mg tablet 50 mg PO Q6H bumetanide 1 mg tablet 1 mg PO DAILY pantoprazole 40 mg tablet,delayed release (DR/EC) 40 mg PO QAM Referrals: Joseline Madison FNP [Primary Care Provider] - Coding Level of Care Code ED Differential Repairer for Jennifer Lopez
[2023-07-30] MEDS: iohexol 350 mg/mL 500 mL Btl (per mL) IV (19:09)
[2023-07-30] MEDS: sodium chloride 0.9% 1,000 ML 999 ML IV (19:47)
[2023-07-30 20:27] LABS: Add Urine Microscopic? NO; Charge for UA Resulting for Rev
[2023-07-30] MEDS: aspirin 81 mg Chew Tablet 324 MG PO (20:27)
[2023-07-30 20:40] LABS: Bilirubin Urine Neg (Negative); Blood Urine Neg (Negative); Glucose Urine UA Norm (Normal); Ketones Urine Negative (Negative); Nitrate Urine Negative (Negative); Protein Urine Neg (Negative); Sulfosalicylic Acid Urine Negative (Negative); Urine Appearance Clear (CLEAR); Urine Color Straw (Yellow); Urobilinogen Urine Norm (Negative); pH Urine 8 (5-7)
[2023-07-30 20:41] LABS: Leukocyte Esterase Urine Negative (Negative)
--- NOTE | 2023-07-30 22:14 | P.HP_ITS ---
Providers/Chief Complaint 2 Admitting Physician: Maximino Persaud MD Primary Care Provider: GILLIAN Peters Chief Complaint: dr jaramillo, blurred vision, dizzy, weakness History of Present Illness Camilo Zuniga is a 78 year old male recent fracture of the right humerus, history of pernicious anemia, hypertension, hyperlipidemia, cancer of the prostate, CAD, who presents to [facility] due to right peripheral vision loss, and unsteadiness on his feet. Patient tells me that on Sunday he noticed sudden onset of right peripheral vision loss, with unsteadiness on his feet, he tells me that he noticed blurriness in hazy lines in his right peripheral visual field that persisted to complete loss of his right peripheral visual field, with unsteadiness on his feet, and fatigue, no other focal weakness, no facial droop no slurring of his words, no weakness in any of his legs or his arms, no paresthesias, he did not want to come to the emergency room, so they waited until Sunday to go to Dr. Reese's office as they thought maybe it was his cataract that was producing an issue, Dr. Reese looked in his eye and did not see anything acute and directed the patient to come to the emergency room, here in the emergency room, he has been diagnosed with acute to subacute infarct of the medial left occipital lobe,NIH stroke scale 2, out of tPA window, out of window for any endovascular procedure, hospitalist team was called for admission Review of Systems 2 Const: Denies: fever(s) Eyes: Denies: change in vision Card: Denies: chest pain Resp: Denies: dyspnea GI: Denies: abdominal pain : Denies: flank pain Musc: Denies: back pain Neuro: Denies: headache(s) Medications/Allergies Home Medications Medication Instructions Recorded Confirmed Last Taken Type pantoprazole 40 mg tablet,delayed 40 mg PO QAM 07/22/21 07/10/23 05/21/23 History release TLSO Brace #1 ea 02/16/22 07/10/23 Unknown Rx lactulose 10 gram/15 mL oral 30 ml PO BID PRN Constipation 03/23/23 07/10/23 Unknown History solution linaclotide 290 mcg capsule 290 mcg PO DAILY 03/23/23 07/10/23 05/21/23 History (Linzess) temazepam 30 mg capsule 30 mg PO QPM 03/23/23 07/10/23 05/20/23 History biotin 5 mg tablet 5 mg PO QPM 05/21/23 07/10/23 05/20/23 History bumetanide 1 mg tablet 1 mg PO DAILY 05/21/23 07/10/23 05/21/23 History melatonin 10 mg tablet 10 mg PO QPM 05/21/23 07/10/23 05/20/23 History pregabalin 100 mg capsule 100 mg PO BID 05/21/23 07/10/23 05/21/23 History sennosides 8.6 mg-docusate sodium 2 tab-cap PO DAILY PRN Constipation 05/21/23 07/10/23 Unknown History 50 mg tablet (Senna-S) tramadol 50 mg tablet 50 mg PO Q6H 05/21/23 07/10/23 Unknown History Shoulder Sling #1 ea 05/25/23 07/10/23 Unknown Rx hydrocodone 5 mg-acetaminophen 325 1 tab PO Q6H PRN pain 7 days #28 05/25/23 07/10/23 Unknown Rx mg tablet tabs hydrocodone 5 mg-acetaminophen 325 1 tab PO Q6H PRN pain 5 days #20 06/14/23 07/10/23 Unknown Rx mg tablet tabs Allergies Allergy/AdvReac Type Severity Reaction Status Date / Time simvastatin Allergy Unknown Verified 07/30/23 16:20 PFSH Acute 2 PFSH: Medical History Pernicious anemia Benign essential HTN Combined hyperlipidemia Intervertebral disc disorder with radiculopathy of lumbosacral region Cancer of prostate Surgical History History of heart artery stent Hx of heart surgery Family History Father Lung disease Mother Chronic kidney disease (CKD) Hypertension Social History Smoking and tobacco/nicotine status: former use of tobacco/nicotine Alcohol intake: never Substance/Drug Use: never Household members: spouse Marital status: Current occupational status: retired Vitals/I&O/Wt Last Vital Signs Temp 97.5 F L 07/30/23 16:15 Pulse 69 07/30/23 21:00 Resp 18 07/30/23 21:00 BP 184/94 07/30/23 21:00 Pulse Ox 95 07/30/23 21:00 O2 Del Method Room Air 07/30/23 20:01 07/30/23 07/30/23 07/30/23 06:59 14:59 22:59 Intake Total 1000 / 1000 Balance 1000 / 1000 Weight last 48 hrs Weight 79.832 kg Physical Exam 2 Const: COMMON NORMALS: no acute distress and patient oriented x3 HENMT: COMMON NORMALS: normocephalic HEAD & SCALP: normocephalic Eye: COMMON NORMALS: Equal, round and reactive pupils present Neck/C-Spine: COMMON NORMALS: no JVD Resp: COMMON NORMALS: normal respiratory effort, No retractions, No use of accessory muscles and clear to auscultation bilaterally AUSCULTATION: clear to auscultation bilaterally Cardio: COMMON NORMALS: regular rate, regular rhythm, S1 normal heart sound present and S2 normal heart sound present RATE: regular rate RHYTHM: r egular rhythm HEART SOUNDS: S1 normal heart sound present and S2 normal heart sound present GI: COMMON NORMALS: Normal to inspection, nondistended, normoactive bowel sounds present, Soft to palpation and non-tender Extremity: COMMON NORMALS: no calf tenderness and no pedal edema OTHER: Right hand humerus, pain with palpation, minimal movement due to fracture Neuro: COMMON NORMALS: patient oriented x3, CN's II-XII intact bilaterally, moves all extremities and no focal motor deficits OTHER: Visual florez, right peripheral visual field loss, [id number] normal bilaterally, Psych: COMMON NORMALS: mental status grossly normal Data 07/30/23 16:38 07/30/23 16:38 A&P Assessment and plan (1) Cerebrovascular accident: Plan Acute CVA -Right peripheral visual loss, unsteadiness on his feet CT/CT angio headneck* [id number] IMPRESSION: 1. No large artery occlusion or stenosis. 2. 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 3. Acute versus subacute infarct in the medial left occipital lobe appears less conspicuous. IMPRESSION: 1. 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 This could represent vasculitis, atherosclerosis, or intraluminal thrombus. Dissection is considered less likely but cannot be entirely excluded. 2. Plaque with kinking in the proximal right internal carotid artery with 30% stenosis. ? Onset of symptoms was Sunday, out of tPA window, not a candidate for any vascular intervention currently -Spoke to neurology about CT scan findings, for distal basilar artery aneurysm, no acute intervention but it needs to be monitored, with repeat head CT with contrast in 6 months, for right vertebral segment narrowing and near complete occlusion, this also needs to be monitored as outpatient, will likely need to refer to neurosurgery Plan ? Monitor on MedSurg ? Neurochecks ? Night stroke scale ? Aspiration precautions ? Dysphagia screen ? PT OT ? Aspirin, Plavix ? Statin?cardiac echo ? Telemetry monitoring ? Out of the window for permissive hypertension, monitor blood pressures closely and treat ? Creatinine 1.8, received CTA with IV contrast, IV fluids monitor urine output monitor creatinine -ESR, ALEXIA ? Full code ? Lovenox for DVT prophylaxis Attestations 2 Medical Necessity Statement*: Patient requires hospitalization, inpatient, greater than 2 midnights, for acute CVA Diagnoses Cerebrovascular accident I63.9
[2023-07-30] MEDS: pantoprazole 40 mg SDV IVP (22:46)
[2023-07-30] MEDS: enoxaparin 40 mg/0.4 mL Syringe SUBCUT (22:46)
[2023-07-30] MEDS: sodium chloride 0.9% 1,000 ML 75 ML IV (22:47)
[2023-07-30] MEDS: atorvastatin 40 mg Tablet PO (23:21)
[2023-07-30] MEDS: temazepam 15 mg Capsule 30 MG PO (23:25)
[2023-07-30 23:31] LABS: INR 0.92 (0.8-1.2)
[2023-07-30 23:33] LABS: Erythrocyte Sedimentation Rate 9 mm/hr (0-10)
[2023-07-30 23:47] LABS: Chol HDL Ratio 3.16 mg/dL (1.0-5.00); Cholesterol 177 mg/dL (0-200); HDL Cholesterol 56 mg/dL (60-100); NT Pro B Type Natriuretic Pept 329 pg/mL (0-450); Thyroid Stimulating Hormone 2.57 uIU/mL (0.27-4.20); Triglycerides 404 mg/dL (0-150)
[2023-07-30 23:49] LABS: Estmated Average Glucose 111; Hemoglobin A1C 5.5 % (4.0-6.0)
[2023-07-31] VITALS: BP 160/72; PULSE 63; RESP 18; TEMP 36.7; O2SAT 95
[2023-07-31 00:05] LABS: LDL Cholesterol Direct 74 mg/dL (0-100)
[2023-07-31 00:56] VITALS: O2SAT 95
[2023-07-31 04:00] VITALS: BP 144/83; PULSE 68; RESP 18; TEMP 36.7; O2SAT 95
[2023-07-31 06:28] LABS: Basophils % 0.4 %; Eosinophils # 0.3 10^3/uL (0.0-0.8); Eosinophils % 2.5 %; Hematocrit 43.5 % (37-53); Lymphocytes # 1.3 10^3/uL (0.8-4.8); Lymphocytes % 11.2 %; Mean Corpuscular HGB Conc 32.6 g/dL (30-55); Mean Corpuscular Hemoglobin 30.9 pg (27-33); Mean Corpuscular Volume 94.6 fl (82-101); Mean Platelet Volume 10.2 fL (7.4-10.4); Monocytes # 0.8 10^3/uL (0.2-0.9); Monocytes % 7.1 %; Neutrophils # 8.89 10^3/uL (1.8-7.7); Neutrophils % 78.4 %; Nucleated Red Blood Cells % 0 %; Platelet Count 283 10^3/cmm (157-399); Red Cell Distribution Width 14.4 % (12.1-15.1); White Blood Count 11.33 10^3/uL (3.29-11.43)
[2023-07-31 06:44] LABS: Anion Gap 13.2 (5-19); Blood Urea Nitrogen 32 mg/dL (8-23); Calcium 8.4 mg/dL (8.5-10.5); Carbon Dioxide 30 mmol/L (22-29); Chloride 99 mmol/L (98-107); Creatinine Clr Calc Pharmacy 37.9151; Glucose 83 mg/dL (65-115); Osmolality Calculated 292 mOsm/kg (285-295); Potassium 4.2 mmol/L (3.5-5.1); Sodium 138 mmol/L (136-145)
--- OUTSIDE RECORDS SUMMARY | 2023-07-31 06:50 | XMS_ITS | Continuity of Care Document ---
Author Name Unknown Organization [facility] Address [facility] [address] 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 [place] [address]- Encounter Diagnosis Acute bronchitis(Discharge Diagnosis) - 07/23/23 Attending Physician: Joseline Ulloa Allergies, Adverse Reactions, Alerts No Known Allergies Assessment and Plan Extracted from: Title:Telehealth bronchitis Author:Joseline Ulloa Date:07/23/23 Impression and Plan Diagnosis Acute bronchitis ([id number] J20.9). Plan: Use Tylenol or Ibuprofen for pain or fever. Return to care if fevers last over 3 days or signs of respiratory distress or dehydration or not improving after 7- 10 days of symptoms. Patient Instructions: Counseled: Family, Regarding diagnosis, Regarding treatment, Regarding medications, Verbalized understanding. Orders Orders (Selected) Outpatient Orders Order [id number] office o/p est low meets or exceeds 20min (Charge): Quantity: 1, Acute bronchitis Prescriptions Prescribed Linzess 290 mcg oral capsule: = 1 cap(s), Oral, daily, # 90 cap(s), 21 Refill(s), Type: Maintenance, Pharmacy: [facility] #[id number], 1 cap(s) Oral daily, 67, in, 07/18/22 10:41:00 CDT, Height Measured, 163, lb, 02/26/23 10:21:00 SAFETY FIRE BOSS, Weight Measured Zithromax 250 mg oral tablet: = 1 packet(s), Oral, once, Instructions: as directed on package labeling, # 6 tab(s), 0 Refill(s), Type: Soft Stop, Pharmacy: [facility] #[id number], 1 packet(s) Oral once,Instr:as directed on package labeling, 67, in, 07/18/22 10:41:00 CDT, Heig... predniSONE 10 mg oral tablet: See Instructions, Instructions: 3x3 2x3 1x3, # 18 EA, 0 Refill(s), Type: Maintenance, Pharmacy: [facility] #[id number], 3x3 2x3 1x3, 67, in, 07/18/22 10:41:00 CDT, Height Measured, 163, lb, 02/26/23 10:21:00 SAFETY FIRE BOSS, Weight Measured. Immunizations Given and Recorded Vaccine Date Status Refusal Reason RSV vaccine preF3, recombinant 02/26/23 Given influenza virus vaccine, inactivated 01/25/23 Give n influenza virus vaccine, inactivated 01/30/22 Give n influenza virus vaccine, inactivated 01/19/21 Hemal rded influenza virus vaccine, inactivated 01/02/20 Give n influenza virus vaccine, inactivated 1 11/18/16 Re corded influenza virus vaccine, inactivated 01/12/12 Give n ZOS, shingles 2 07/27/17 Recorded ZOS, shingles 12/11/16 Recorded pneumococcal (PCV13) 12/11/16 Recorded influenza 11/04/15 Recorded 1Result Comment: [11/23/2016] high dose fluzone 2Result Comment: [08/06/2017] shingrix Medications Albuterol (Eqv-ProAir HFA) 90 mcg/inh inhalation aerosol 2 puff(s), Inhale, q6 hrs, # 6.7 g, 25, 2 Refill(s), Type: Maintenance, Pharmacy: [facility] #[id number], INHALE 2 PUFFS BY MOUTH EVERY 6 HOURS, 67, in, 01/19/21 13:36:00 CDT, Height Measured, 160, lb, 01/19/21 13:36:00 CDT, Weight Measured Start Date: 05/31/21 Status: Ordered Bentyl 10 mg oral capsule = 1 cap(s) ( 10 mg ), Oral, tid, Instructions: as needed, # 90 EA, 0 Refill(s), Type: Maintenance, Pharmacy: [facility] #[id number], 1 cap(s) Oral tid,Instr:as needed, 67, in, 05/31/22 14:44:00 CDT, Height Measured, 138, lb, 05/12/22 15:09:00 SAFETY FIRE BOSS, Weight Measured Start Date: 07/10/22 Status: Ordered bumetanide 1 mg oral tablet = 1 tab(s) ( 1 mg ), Oral, daily, # 90 tab(s), 0 Refill(s), Type: Maintenance, Pharmacy: [facility] #[id number], 1 tab(s) Oral daily, 67, in, 07/18/22 10:41:00 CDT, Height Measured, 163, lb, 02/26/23 10:21:00 SAFETY FIRE BOSS, Weight Measured Start Date: 04/30/23 Status: Ordered busPIRone 10 mg oral tablet = 1 tab(s) ( 10 mg ), Oral, tid, # 90 tab(s), 2 Refill(s), Type: Maintenance, Pharmacy: [facility] ([facility] ), 1 tab(s) Oral tid, , in, 07/18/22 10:41:00 CDT, Height Measured,149, lb, 07/18/22 10:41:00 CDT, Weight Measured Start Date: 09/08/22 Status: Ordered carvedilol 6.25 mg oral tablet = 1 tab(s), Oral, bid, # 180 tab(s), 1 Refill(s), Type: Maintenance, Pharmacy: [facility] [id number], TAKE 1 TABLET BY MOUTH TWICE DAILY, , in, 02/16/20 10:49:00 SAFETY FIRE BOSS, Height Measured,160, lb, 02/16/20 10:49:00 SAFETY FIRE BOSS, Weight Measured Start Date: 06/25/20 Status: Ordered clopidogrel 75 mg oral tablet = 1 tab(s), Oral, daily, # 90 tab(s), 1 Refill(s), Type: Maintenance, Pharmacy: [facility], TAKE 1 TABLET BY MOUTH DAILY, 67, in, 07/18/22 10:41:00 CDT, Height Measured, 163, lb, 02/26/23 10:21:00 SAFETY FIRE BOSS, Weight Measured Start Date: 04/19/23 Status: Ordered cyanocobalamin 1000 mcg/mL injectable solution See Instructions, Instructions: INJECT 1 ML INTRAMUSCULARLY MONTHLY AT DR OFFICE, # 1 mL, 11 Refill(s), Pharmacy: [facility], INJECT 1 ML INTRAMUSCULARLY MONTHLY AT DR JUAREZ Start Date: 11/19/18 Status: Ordered Cymbalta 60 mg oral delayed release capsule = 1 cap(s) ( 60 mg ), Oral, daily, # 90 cap(s), 1 Refill(s), Type: Maintenance, Pharmacy: [facility], D/C LEXAPRO, 1 cap(s) Oral daily, , in, 07/09/19 10:09:00 CDT, Height Measured, 160, lb, 07/09/19 10:09:00 CDT, Weight Measured Start Date: 07/09/19 Status: Ordered divalproex sodium 250 mg oral delayed release tablet = 1 tab(s), Oral, daily, # 90 tab(s), 0 Refill(s), Pharmacy: [facility], TAKE 1 TABLET BY MOUTH EVERY DAY, , in, 01/19/21 13:36:00 CDT, Height Measured, 160, lb, 01/19/21 13:36:00 CDT, Weight Measured Start Date: 04/26/21 Status: Ordered escitalopram 10 mg oral tablet = 1 tab(s), Oral, daily, # 90 tab(s), 1 Refill(s), Type: Maintenance, Pharmacy: [facility], TAKE 1 TABLET BY MOUTH DAILY, , in, 03/03/22 11:36:00 SAFETY FIRE BOSS, Height Measured, 138,lb, 03/03/22 11:36:00 SAFETY FIRE BOSS, Weight Measured Start Date: 03/30/22 Status: Ordered furosemide 20 mg oral tablet See Instructions, Instructions: TAKE 1 TABLET(20 MG) BY MOUTH DAILY, # 90 tab(s), 1 Refill(s), Type: Maintenance, Pharmacy: [facility], TAKE 1 TABLET(20 MG) BY MOUTH DAILY, , in, 01/19/21 13:36:00 CDT, Height Measured, 160, lb, 01/19/21 13:36:00 CDT, Weight Measured Start Date: 06/07/21 Status: Ordered Gabapentin 100 mg Gabapentin 100 mg, See Instructions, Instructions: 1 po tid, Supply, # 90 cap(s), 3 Refill(s), Type: Maintenance, Pharmacy: [facility] #[id number], 1 po tid, , in, 07/18/22 10:41:00 CDT, Height Measured, 149, lb, 07/18/22 10:41:00 CDT, Weight Measured Start Date: 11/28/22 Status: Ordered gabapentin 300 mg gabapentin 300 mg, See Instructions, Instructions: Take qid, Supply, # 120 EA, 3 Refill(s), Type: Maintenance, Pharmacy: [facility] #[id number], Take qid, 67, in, 07/18/22 10:41:00 CDT, Height Measured, 149, lb, 07/18/22 10:41:00 CDT, Weight Measured Start Date: 09/25/22 Status: Ordered gabapentin 300 mg oral capsule = 1 cap(s), Oral, qid, # 360 cap(s), 0 Refill(s), Type: Maintenance, Pharmacy: [facility] [id number], TAKE 1 CAPSULE BY MOUTH FOUR TIMES DAILY, , in, 07/09/19 10:09:00 CDT, Height Measured, 160, lb, 07/09/19 10:09:00 CDT, Weight Measured Start Date: 12/29/19 Status: Ordered Invega Sustenna 156 mg/mL intramuscular suspension, extended release = 1 mL, Subcutaneous, q4 wks, # 1 mL, 2 Refill(s), Type: Maintenance, Pharmacy: [facility] [id number] at [facility], INJECT 1 ML UNDER THE SKIN EVERY 4 WEEKS, , in, 07/18/22 10:41:00 CDT, Height Measured, 169, lb, 01/22/23 10:14:00 SAFETY FIRE BOSS, Weight Measured Start Date: 01/29/23 Status: Ordered isosorbide mononitrate 30 mg oral tablet, extended release = 1 tab(s) ( 30 mg ), Oral, qam, # 30 tab(s), 0 Refill(s), Type: Maintenance Start Date: 01/02/20 Status: Ordered lactulose 10 g/15 mL oral syrup = 30 mL ( 20 g ), Oral, bid, # 420 mL, 2 Refill(s), Type: Maintenance, Pharmacy: [facility] #[id number], 30 mL Oral bid, 67, in, 07/18/22 10:41:00 CDT, Height Measured, 163, lb, 02/26/23 10:21:00 SAFETY FIRE BOSS, Weight Measured Start Date: 02/26/23 Status: Ordered Linzess 290 mcg oral capsule = 1 cap(s), Oral, daily, # 90 cap(s), 21 Refill(s), Type: Maintenance, Pharmacy: [facility] #[id number], 1 cap(s) Oral daily, 67, in, 07/18/22 10:41:00 CDT, Height Measured, 163, lb, 02/26/23 10:21:00 SAFETY FIRE BOSS, Weight Measured Start Date: 07/23/23 Status: Ordered lisinopril 10 mg oral tablet = 1 tab(s) ( 10 mg ), Oral, daily, # 90 tab(s), 1 Refill(s), Type: Maintenance, Pharmacy: [facility], 1 tab(s) Oral daily, 67, in, 07/09/19 10:09:00 CDT, Height Measured, 160, lb, 07/09/19 10:09:00 CDT, Weight Measured Start Date: 07/09/19 Status: Ordered LORazepam 0.5 mg oral tablet = 1 tab(s) ( 0.5 mg ), Oral, q8 hrs, Instructions: PRN only agitation, PRN: for anxiety, # 30 tab(s), 0 Refill(s), Type: Maintenance, Pharmacy: [facility] #[id number], 1 tab(s) Oral q8 hrs,PRN:for anxiety,Instr:PRN only agitation, 67, in, 07/18/22 10:41:00 CDT, Height Measured, 149, lb, 07/18/22 10:41:00 CDT, Weight Measured Start Date: 09/25/22 Status: Ordered LORazepam 0.5 mg oral tablet = 1 tab(s) ( 0.5 mg ), Oral, q8 hrs, PRN: for anxiety, # 90 tab(s), 0 Refill(s), Type: Maintenance,Pharmacy: [facility] #[id number], 1 tab(s) Oral q8 hrs,PRN:for anxiety, 67, in, 07/18/22 10:41:00 CDT, Height Measured, 149, lb, 07/18/22 10:41:00 CDT, Weight Measured Start Date: 11/28/22 Status: Ordered losartan 25 mg oral tablet = 1 tab(s) ( 25 mg ), Oral, daily, # 90 tab(s), 0 Refill(s), Type: Maintenance, Pharmacy: [facility], 1 tab(s) Oral daily, 67, in, 10/04/21 11:22:00 CDT, Height Measured, 140.6, lb, 10/04/21 11:22:00 CDT, Weight Measured Start Date: 11/04/21 Status: Ordered losartan 50 mg oral tablet = 1 tab(s) ( 50 mg ), PO, Daily, # 90 tab(s), 1 Refill(s), Type: Maintenance, Pharmacy: [facility], 1 tab(s) Oral daily, 67, in, 07/09/19 10:09:00 CDT, Height Measured, 160, lb, 07/09/19 10:09:00 CDT, Weight Measured Start Date: 07/09/19 Status: Ordered Lyrica 100 mg oral capsule = 1 cap(s) ( 100 mg ), Oral, bid, # 60 cap(s), 2 Refill(s), Type: Maintenance, Pharmacy: [facility] #[id number], 1 cap(s) Oral bid, 67, in, 07/18/22 10:41:00 CDT, Height Measured, 163, lb, 02/26/23 10:21:00 SAFETY FIRE BOSS, Weight Measured Start Date: 07/23/23 Status: Ordered Lyrica 75 mg oral capsule = 1 cap(s) ( 75 mg ), Oral, bid, # 60 cap(s), 2 Refill(s), Type: Maintenance, Pharmacy: [facility] #[id number], 1 cap(s) Oral bid, 67, in, 07/18/22 10:41:00 CDT, Height Measured, 163, lb, 02/26/23 10:21:00 SAFETY FIRE BOSS, Weight Measured Start Date: 03/27/23 Status: Ordered Lyrica 75 mg oral capsule = 1 cap(s) ( 75 mg ), Oral, bid, # 60 cap(s), 0 Refill(s), Type: Maintenance, called to pharmacy (Rx) Start Date: 09/08/20 Status: Ordered mirtazapine 15 mg oral tablet = 1 tab(s), Oral, qhs, Instructions: * DISCARD REMAINDER CARLY*., # 90 tab(s), 1 Refill(s), Type: Maintenance, Pharmacy: [facility], TAKE 1 TABLET BY MOUTH EVERY NIGHT AT BEDTIME* DISCARD REMAINDER CARLY*, 67, in, 02/16/20 10:49:00 SAFETY FIRE BOSS, Height Measured, 160, lb, 02/16/20 10:49:00 SAFETY FIRE BOSS, Weight Measured Start Date: 06/25/20 Status: Ordered Mucinex 600 mg oral tablet, extended release = 1 tab(s) ( 600 mg ), Oral, q12 hr, # 60 tab(s), 0 Refill(s), Type: Maintenance, Pharmacy: [facility] #[id number], 1 tab(s) Oral q12 hr, 67, in, 07/18/22 10:41:00 CDT, Height Measured, 169, lb,01/22/23 10:14:00 SAFETY FIRE BOSS, Weight Measured Start Date: 01/22/23 Status: Ordered Mucinex 600 mg oral tablet, extended release = 1 tab(s) ( 600 mg ), Oral, q12 hr, # 60 tab(s), 3 Refill(s), Type: Maintenance, Pharmacy: [facility] #[id number], 1 tab(s) Oral q12 hr, 67, in, 09/05/21 9:23:00 CDT, Height Measured, 140, lb, 09/05/21 9:23:00 CDT, Weight Measured Start Date: 09/06/21 Status: Ordered pantoprazole 40 mg oral delayed release tablet See Instructions, Instructions: TAKE 1 TABLET BY MOUTH DAILY BEFORE BREAKFAST, # 90 tab(s), 1 Refill(s), Type: Maintenance, Pharmacy: [facility], TAKE 1 TABLET BY MOUTH DAILY BEFORE BREAKFAST, 67, in, 07/18/22 10:41:00 CDT, Height Measured, 163, lb, 02/26/23 10:21:00 SAFETY FIRE BOSS, Weight Measured Start Date: 04/19/23 Status: Ordered pravastatin 10 mg oral tablet = 1 tab(s), Oral, daily, # 90 tab(s), 0 Refill(s), Type: Maintenance, Pharmacy: [facility], TAKE 1 TABLET BY MOUTH DAILY, 67, in, 02/16/20 10:49:00 SAFETY FIRE BOSS, Height Measured, 160,lb, 02/16/20 10:49:00 SAFETY FIRE BOSS, Weight Measured Start Date: 03/26/20 Status: Ordered prazosin 1 mg oral capsule = 1 cap(s), Oral, qhs, Instructions: FOR SLEEP., # 90 cap(s), 1 Refill(s), Pharmacy: [facility], TAKE 1 CAPSULE BY MOUTH EVERY NIGHT AT BEDTIME FOR SLEEP, 67, in, 01/19/21 13:36:00 CDT, Height Measured, 160, lb, 01/19/21 13:36:00 CDT, Weight Measured Start Date: 03/16/21 Status: Ordered predniSONE 10 mg oral tablet See Instructions, Instructions: 3x3 2x3 1x3, # 18 EA, 0 Refill(s), Type: Maintenance, Pharmacy: [facility] #[id number], 3x3 2x3 1x3, 67, in, 07/18/22 10:41:00 CDT, Height Measured, 163, lb, 02/26/23 10:21:00 SAFETY FIRE BOSS, Weight Measured Start Date: 07/23/23 Status: Ordered risperiDONE 0.25 mg oral tablet See Instructions, Instructions: TAKE 1 TABLET BY MOUTH TWICE DAILY, # 60 tab(s), 1 Refill(s), Type:Maintenance, Pharmacy: [facility] [employer] [id number], TAKE 1 TABLET BY MOUTH TWICE DAILY, 67,in, 05/31/22 14:44:00 CDT, Height Measured, 138, lb, 05/12/22 15:09:00 SAFETY FIRE BOSS, Weight Measured Start Date: 06/13/22 Status: Ordered rOPINIRole 1 mg oral tablet = 1 tab(s), Oral, tid, # 270 tab(s), 1 Refill(s), Type: Maintenance, Pharmacy: [facility], TAKE 1 TABLET BY MOUTH THREE TIMES DAILY, 67, in, 05/31/22 14:44:00 CDT, Height Measured, 138, lb, 05/12/22 15:09:00 SAFETY FIRE BOSS, Weight Measured Start Date: 06/19/22 Status: Ordered sodium chloride 1 g oral tablet See Instructions, Instructions: 1 tablet daily for 3-5 days then may need to repeat, # 30 EA, 0 Refill(s), Type: Maintenance, Pharmacy: [facility] #[id number], 1 tablet daily for 3-5 days then may need to repeat, 67, in, 09/05/21 9:23:00 CDT, Height Measured, 140, lb, 09/05/21 9:23:00 CDT, Weight Measured Start Date: 09/06/21 Status: Ordered temazepam 30 mg oral capsule = 1 cap(s), Oral, qhs, PRN: NEEDED FOR SLEEP, # 90 cap(s), 0 Refill(s), Type: Maintenance, Pharmacy: [facility] #[id number], 1 cap(s) Oral qhs,PRN: NEEDED FOR SLEEP, 67, in, 07/18/22 10:41:00 CDT, Height Measured, 163, lb, 02/26/23 10:21:00 SAFETY FIRE BOSS, Weight Measured Start Date: 07/20/23 Stop Date: 10/20/23 Status: Ordered temazepam 30 mg oral capsule = 1 cap(s), Oral, qhs, PRN: NEEDED FOR SLEEP, # 90 cap(s), 2 Refill(s), Type: Maintenance, Pharmacy: [facility] #[id number], 1 cap(s) Oral qhs,PRN: NEEDED FOR SLEEP, 67, in, 07/18/22 10:41:00 CDT, Height Measured, 163, lb, 02/26/23 10:21:00 SAFETY FIRE BOSS, Weight Measured Start Date: 07/23/23 Status: Ordered topiramate 25 mg oral tablet = 1 tab(s), Oral, bid, # 180 tab(s), 0 Refill(s), Type: Maintenance, Pharmacy: [facility], TAKE 1 TABLET BY MOUTH TWICE DAILY, 67, in, 06/08/21 9:57:00 CDT, Height Measured, 149, lb, 06/08/21 9:57:00 CDT, Weight Measured Start Date: 06/21/21 Status: Ordered TOPIRAMATE 25MG TABLETS TOPIRAMATE 25MG TABLETS, 1 tab(s), Oral, bid, # 180 tab(s), 0 Refill(s), Type: Maintenance, Pharmacy: [facility], TAKE 1 TABLET BY MOUTH TWICE DAILY, 67, in, 11/01/20 14:02:00 CDT, Height Measured, 160, lb, 09/08/20 10:07:00 CDT, Weight Measured Start Date: 12/21/20 Status: Ordered TOPIRAMATE 25MG TABLETS TOPIRAMATE 25MG TABLETS, 1 tab(s), Oral, bid, # 180 tab(s), 1 Refill(s), Type: Maintenance, Pharmacy: [facility], TAKE 1 TABLET BY MOUTH TWICE DAILY, 67, in, 02/16/20 10:49:00 SAFETY FIRE BOSS, Height Measured, 160, lb, 02/16/20 10:49:00 SAFETY FIRE BOSS, Weight Measured Start Date: 06/25/20 Status: Ordered traMADol 50 mg oral tablet See Instructions, Instructions: 1-2 po q 6 hours prn leg and back pain, PRN: for pain, # 60 EA, 0 Refill(s), Type: Maintenance, Pharmacy: [facility] #[id number], 1-2 po q 6 hours prn leg and back pain,PRN:for pain, 67, in, 07/18/22 10:41:00 CDT, Height Measured, 169, lb, 01/22/23 10:14:00 SAFETY FIRE BOSS,Weight Measured Start Date: 01/22/23 Status: Ordered traMADol 50 mg oral tablet = 1 tab(s) ( 50 mg ), Oral, q6 hrs, PRN: for pain, # 60 tab(s), 0 Refill(s), Type: Maintenance, Pharmacy: [facility] #[id number], 1 tab(s) Oral q6 hrs,PRN:for pain, 67, in, 07/18/22 10:41:00 CDT, Height Measured, 163, lb, 02/26/23 10:21:00 SAFETY FIRE BOSS, Weight Measured Start Date: 05/14/23 Status: Ordered Tylenol with Codeine #3 oral tablet 1 tab(s), Oral, q6 hrs, PRN: for pain, # 30 tab(s), 0 Refill(s), Type: Maintenance, Pharmacy: [facility], 1 tab(s) Oral q6 hrs,PRN:for pain, 67, in, 01/30/22 14:20:00 SAFETY FIRE BOSS, Height Measured, 138, lb, 01/30/22 14:20:00 SAFETY FIRE BOSS, Weight Measured Start Date: 01/30/22 Status: Ordered Ventolin HFA 90 mcg/inh inhalation aerosol 2 puff(s), Inhale, qid, # 1 EA, 2 Refill(s), Type: Maintenance, Pharmacy: [facility], 2 puff(s) Inhale qid, 67, in, 05/12/22 15:09:00 SAFETY FIRE BOSS, Height Measured, 138, lb, 05/12/22 15:09:00 SAFETY FIRE BOSS, Weight Measured Start Date: 05/12/22 Status: Ordered Zithromax 250 mg oral tablet = 1 packet(s), Oral, once, Instructions: as directed on package labeling, # 6 tab(s), 0 Refill(s), Type: Soft Stop, Pharmacy: [facility] #[id number], 1 packet(s) Oral once,Instr:as directed on package labeling, 67, in, 07/18/22 10:41:00 CDT, Height Measured, 163, lb, 02/26/23 10:21:00 SAFETY FIRE BOSS, Weight Measured Start Date: 07/23/23 Status: Ordered Zofran ODT 8 mg oral tablet, disintegrating = 1 tab(s) ( 8 mg ), Oral, tid, # 45 EA, 2 Refill(s), Type: Maintenance, Pharmacy: [facility] #[id number], 1 tab(s) Oral tid, 67, in, 07/18/22 10:41:00 CDT, Height Measured, 163, lb, 02/26/23 10:21:00 SAFETY FIRE BOSS, Weight Measured Start Date: 02/26/23 Status: Ordered Problem List Condition Confirmation Course Effective Dates Status Health Status Informant Acute insomnia Confirmed Active Acute insomnia Confirmed Active Agitation due to dementia Confirmed Active Anxiety Confirmed Active Benign essential HTN Confirmed 06/13/12 Active Bipolar disorder, unspecified Confirmed Active CA - Cancer of Prostate Confirmed 06/13/12 Active Chronic kidney disease (CKD) Confirmed Active Chronic kidney disease, stage 3b Confirmed Active Chronic obstructive pulmonary disease, unspecified Confirmed Active Closed wedge compression fracture of L5 vertebra with delayed healing Confirmed Active Combined hyperlipidemia Confirmed 06/13/12 Active Peripheral autonomic neuropathy Confirmed Active Hypertensive heart and chronic kidney disease with heart failure and stage 1 through stage 4 chronic kidney disease, or unspecified chronic kidney disease Confirmed Active Progressive focal motor weakness Confirmed Active Pernicious anemia Confirmed Active Tobacco user Probable Diagnosis Active Diagnosis Diagnosis Type Effective Dates Health Status Clinical Service Informant Acute bronchitis Discharge Diagnosis 07/23/23 Non-Specified Social History Social History Type Response Smoking Status 10 or more cigarette s (1/2 pack or more)/day in last 30 days entered on: 09/05/21 Sex Male Note * Maciej Ortega MD: SIGN Maciej Ortega MD: SIGN, SIGN, VERIFY Event Display: Family Planning Note Authored Date: [id number] Patient: Camilo Zuniga Age: 78 years Sex: Male : 1945 Associated Diagnoses: Acute bronchitis Author: Joseline Ulloa Visit Information Date of Service: 07/23/2023 01:19 pm Performing Location: [facility] Primary Care Provider (PCP): Joseline Ulloa NPI# [id number] Referring Provider: No referring provider recorded for selected visit. Chief Complaint cough and congestion History of Present Illness Camilo is a telehealth visit for cough and congestion Low grade fever 100.3 and productive sputum Started 3 days ago Also needs refill of sleep meds and lyrica which he takes for his legs Review of Systems Constitutional Eye: Negative. Ear/Nose/Mouth/Throat: Negative except as documented in history of present illness. Respiratory: Negative except as documented in history of present illness. Cardiovascular: Negative. Gastrointestinal: Negative. Genitourinary: Negative. Hematology/Lymphatics: Negative. Endocrine: Negative. Immunologic: Negative. Musculoskeletal: Negative. Integumentary: Negative. Neurologic: Negative. All other systems reviewed and negative Health Status Allergies: Allergic Reactions (Selected) No known allergies Medications: (Selected) Prescriptions Prescribed Albuterol (Eqv-ProAir HFA) 90 mcg/inh inhalation aerosol: 2 puff(s), Inhale, q6 hrs, # 6.7 g, 25, 2Refill(s), Type: Maintenance, Pharmacy: [facility] #[id number], INHALE 2 PUFFS BY MOUTH EVERY 6 HOURS, , in, 01/19/21 13:36:00 CDT, Height Measured, 160, lb, 01/19/21 13:36:00 CDT, Weight Measured Bentyl 10 mg oral capsule: = 1 cap(s) ( 10 mg ), Oral, tid, Instructions: as needed, # 90 EA, 0 Refill(s), Type: Maintenance, Pharmacy: [facility] #[id number], 1 cap(s) Oral tid,Instr:as needed,, in, 05/31/22 14:44:00 CDT, Height Measured, 138, lb, 05/12/22 15:09:00 SAFETY FIRE BOSS... Cymbalta 60 mg oral delayed release capsule: = 1 cap(s) ( 60 mg ), Oral, daily, # 90 cap(s), 1 Refill(s), Type: Maintenance, Pharmacy: [facility] [id number], D/C LEXAPRO, 1 cap(s) Oral daily, , in, 07/09/19 10:09:00 CDT, Height Measured, 160, lb, 07/09/19 10:09:00 CDT, Weight Reema... Gabapentin 100 mg: Gabapentin 100 mg, See Instructions, Instructions: 1 po tid, Supply, # 90 cap(s), 3 Refill(s), Type: Maintenance, Pharmacy: [facility] #[id number], 1 po tid, , in, 07/18/22 10:41:00 CDT, Height Measured, 149, lb, 07/18/22 10:41:00 CDT, Weight M... Invega Sustenna 156 mg/mL intramuscular suspension, extended release: = 1 mL, Subcutaneous, q4 wks,# 1 mL, 2 Refill(s), Type: Maintenance, Pharmacy: [facility] [id number] at [facility], INJECT 1 ML UNDER THE SKIN EVERY 4 WEEKS, 67, in, 07/18/22 10:41:00 CDT, Height Measured, 169, lb, 01/22/23 10:14:00 SAFETY FIRE BOSS, Weight Measured... LORazepam 0.5 mg oral tablet: = 1 tab(s) ( 0.5 mg ), Oral, q8 hrs, Instructions: PRN only agitation, PRN: for anxiety, # 30 tab(s), 0 Refill(s), Type: Maintenance, Pharmacy: [facility] #[id number], 1 tab(s) Oral q8 hrs,PRN:for anxiety,Instr:PRN only agitation, , in, ... LORazepam 0.5 mg oral tablet: = 1 tab(s) ( 0.5 mg ), Oral, q8 hrs, PRN: for anxiety, # 90 tab(s), 0Refill(s), Type: Maintenance, Pharmacy: [facility] #[id number], 1 tab(s) Oral q8 hrs,PRN:for anxiety, , in, 07/18/22 10:41:00 CDT, Height Measured, 149, lb, 07/18/22 10:41:00... Linzess 290 mcg oral capsule: = 1 cap(s), Oral, daily, # 90 cap(s), 21 Refill(s), Type: Maintenance, Pharmacy: [facility] #[id number], 1 cap(s) Oral daily, , in, 07/18/22 10:41:00 CDT, Height Measured, 163, lb, 02/26/23 10:21:00 SAFETY FIRE BOSS, Weight Measured Lyrica 100 mg oral capsule: = 1 cap(s) ( 100 mg ), Oral, bid, # 60 cap(s), 2 Refill(s), Type: Maintenance, Pharmacy: [facility] #[id number], 1 cap(s) Oral bid, , in, 07/18/22 10:41:00 CDT, Height Measured, 163, lb, 02/26/23 10:21:00 SAFETY FIRE BOSS, Weight Measured Lyrica 75 mg oral capsule: = 1 cap(s) ( 75 mg ), Oral, bid, # 60 cap(s), 0 Refill(s), Type: Maintenance, called to pharmacy (Rx) Lyrica 75 mg oral capsule: = 1 cap(s) ( 75 mg ), Oral, bid, # 60 cap(s), 2 Refill(s), Type: Maintenance, Pharmacy: [facility] #[id number], 1 cap(s) Oral bid, 67, in, 07/18/22 10:41:00 CDT, Height Measured, 163, lb, 02/26/23 10:21:00 [employer], Weight Measured Mucinex 600 mg oral tablet, extended release: = 1 tab(s) ( 600 mg ), Oral, q12 hr, # 60 tab(s), 0 Refill(s), Type: Maintenance, Pharmacy: [facility] #[id number], 1 tab(s) Oral q12 hr, , in, 07/18/22 10:41:00 CDT, Height Measured, 169, lb, 01/22/23 10:14:00 [employer], Weight Measured Mucinex 600 mg oral tablet, extended release: = 1 tab(s) ( 600 mg ), Oral, q12 hr, # 60 tab(s), 3 Refill(s), Type: Maintenance, Pharmacy: [facility] #[id number], 1 tab(s) Oral q12 hr, , in, 09/05/21 9:23:00 CDT, Height Measured, 140, lb, 09/05/21 9:23:00 CDT, Weight Measured TOPIRAMATE 25MG TABLETS: TOPIRAMATE 25MG TABLETS, 1 tab(s), Oral, bid, # 180 tab(s), 0 Refill(s), Type: Maintenance, Pharmacy: [facility] [employer] [employer] [id number], TAKE 1 TABLET BY MOUTH TWICE DAILY,67, in, 11/01/20 14:02:00 CDT, Height Measured, 160, lb, 09/08/20 10:07:00 C... TOPIRAMATE 25MG TABLETS: TOPIRAMATE 25MG TABLETS, 1 tab(s), Oral, bid, # 180 tab(s), 1 Refill(s), Type: Maintenance, Pharmacy: [facility] [id number], TAKE 1 TABLET BY MOUTH TWICE DAILY,67, in, 02/16/20 10:49:00 SAFETY FIRE BOSS, Height Measured, 160, lb, 02/16/20 10:49:00 C... Tylenol with Codeine #3 oral tablet: 1 tab(s), Oral, q6 hrs, PRN: for pain, # 30 tab(s), 0 Refill(s), Type: Maintenance, Pharmacy: [facility], 1 tab(s) Oral q6 hrs,PRN:for pain, , in, 01/30/22 14:20:00 SAFETY FIRE BOSS, Height Measured, 138, lb, 01/30/22 14:20:00 SAFETY FIRE BOSS, Weigh... Ventolin HFA 90 mcg/inh inhalation aerosol: 2 puff(s), Inhale, qid, # 1 EA, 2 Refill(s), Type: Maintenance, Pharmacy: [facility], 2 puff(s) Inhale qid, , in, 05/12/22 15:09:00 SAFETY FIRE BOSS, Height Measured, 138, lb, 05/12/22 15:09:00 SAFETY FIRE BOSS, Weight Measured Zithromax 250 mg oral tablet: = 1 packet(s), Oral, once, Instructions: as directed on package labeling, # 6 tab(s), 0 Refill(s), Type: Soft Stop, Pharmacy: [facility] #[id number], 1 packet(s) Oral once,Instr:as directed on package labeling, , in, 07/18/22 10:41:00 CDT, Heig... Zofran ODT 8 mg oral tablet, disintegrating: = 1 tab(s) ( 8 mg ), Oral, tid, # 45 EA, 2 Refill(s), Type: Maintenance, Pharmacy: [facility] #[id number], 1 tab(s) Oral tid, 67, in, 07/18/22 10:41:00 CDT, Height Measured, 163, lb, 02/26/23 10:21:00 SAFETY FIRE BOSS, Weight Measured bumetanide 1 mg oral tablet: = 1 tab(s) ( 1 mg ), Oral, daily, # 90 tab(s), 0 Refill(s), Type: Maintenance, Pharmacy: [facility] #[id number], 1 tab(s) Oral daily, , in, 07/18/22 10:41:00 CDT, Height Measured, 163, lb, 02/26/23 10:21:00 SAFETY FIRE BOSS, Weight Measured busPIRone 10 mg oral tablet: = 1 tab(s) ( 10 mg ), Oral, tid, # 90 tab(s), 2 Refill(s), Type: Maintenance, Pharmacy: [facility] ([facility] ), 1 tab(s) Oral tid, , in, 07/18/22 10:41:00 CDT, Height Measured, 149, lb, 07/18/22 10:41:00 CDT, Weight Measured carvedilol 6.25 mg oral tablet: = 1 tab(s), Oral, bid, # 180 tab(s), 1 Refill(s), Type: Maintenance, Pharmacy: [facility], TAKE 1 TABLET BY MOUTH TWICE DAILY, , in, 02/16/20 10:49:00 SAFETY FIRE BOSS, Height Measured, 160, lb, 02/16/20 10:49:00 SAFETY FIRE BOSS, Weight Measured clopidogrel 75 mg oral tablet: = 1 tab(s), Oral, daily, # 90 tab(s), 1 Refill(s), Type: Maintenance, Pharmacy: [facility], TAKE 1 TABLET BY MOUTH DAILY, , in, 07/18/22 10:41:00 CDT, HeightMeasured, 163, lb, 02/26/23 10:21:00 SAFETY FIRE BOSS, Weight Measured cyanocobalamin 1000 mcg/mL injectable solution: See Instructions, Instructions: INJECT 1 ML INTRAMUSCULARLY MONTHLY AT DR OFFICE, # 1 mL, 11 Refill(s), Pharmacy: [facility], INJECT 1 ML INTRAMUSCULARLY MONTHLY AT DR OFFICE divalproex sodium 250 mg oral delayed release tablet: = 1 tab(s), Oral, daily, # 90 tab(s), 0 Refill(s), Pharmacy: [facility], TAKE 1 TABLET BY MOUTH EVERY DAY, 67, in, 01/19/21 13:36:00 CDT, Height Measured, 160, lb, 01/19/21 13:36:00 CDT, Weight Measured escitalopram 10 mg oral tablet: = 1 tab(s), Oral, daily, # 90 tab(s), 1 Refill(s), Type: Maintenance, Pharmacy: [facility], TAKE 1 TABLET BY MOUTH DAILY, , in, 03/03/22 11:36:00 SAFETY FIRE BOSS, Height Measured, 138, lb, 03/03/22 11:36:00 SAFETY FI[employer] BOSS, Weight Measured furosemide 20 mg oral tablet: See Instructions, Instructions: TAKE 1 TABLET(20 MG) BY MOUTH DAILY, # 90 tab(s), 1 Refill(s), Type: Maintenance, Pharmacy: [facility], TAKE 1 TABLET(20 MG) BY MOUTH DAILY, , in, 01/19/21 13:36:00 CDT, Height Measured, 160,... gabapentin 300 mg oral capsule: = 1 cap(s), Oral, qid, # 360 cap(s), 0 Refill(s), Type: Maintenance, Pharmacy: [facility], TAKE 1 CAPSULE BY MOUTH FOUR TIMES DAILY, , in, 07/09/19 10:09:00 CDT, Height Measured, 160, lb, 07/09/19 10:09:00 CDT, Weight Measured... gabapentin 300 mg: gabapentin 300 mg, See Instructions, Instructions: Take qid, Supply, # 120 EA, 3Refill(s), Type: Maintenance, Pharmacy: [facility] #[id number], Take qid, , in, 07/18/22 10:41:00 CDT, Height Measured, 149, lb, 07/18/22 10:41:00 CDT, Weight Brendan... lactulose 10 g/15 mL oral syrup: = 30 mL ( 20 g ), Oral, bid, # 420 mL, 2 Refill(s), Type: Maintenance, Pharmacy: [facility] #[id number], 30 mL Oral bid, , in, 07/18/22 10:41:00 CDT, Height Measured, 163, lb, 02/26/23 10:21:00 SAFETY FIRE BOSS, Weight Measured lisinopril 10 mg oral tablet: = 1 tab(s) ( 10 mg ), Oral, daily, # 90 tab(s), 1 Refill(s), Type: Maintenance, Pharmacy: [facility]26, 1 tab(s) Oral daily, , in, 07/09/19 10:09:00 CDT, Height Measured, 160, lb, 07/09/19 10:09:00 CDT, Weight Measured losartan 25 mg oral tablet: = 1 tab(s) ( 25 mg ), Oral, daily, # 90 tab(s), 0 Refill(s), Type: Maintenance, Pharmacy: [facility], 1 tab(s) Oral daily, , in, 10/04/21 11:22:00 CDT, Height Measured, 140.6, lb, 10/04/21 11:22:00 CDT, Weight Measured losartan 50 mg oral tablet: = 1 tab(s) ( 50 mg ), PO, Daily, # 90 tab(s), 1 Refill(s), Type: Maintenance, Pharmacy: [facility], 1 tab(s) Oral daily, , in, 07/09/19 10:09:00CDT, Height Measured, 160, lb, 07/09/19 10:09:00 CDT, Weight Measured mirtazapine 15 mg oral tablet: = 1 tab(s), Oral, qhs, Instructions: * DISCARD REMAINDER CARLY*., # 90 tab(s), 1 Refill(s), Type: Maintenance, Pharmacy: [facility], TAKE 1 TABLET BY MOUTH EVERY NIGHT AT BEDTIME* DISCARD REMAINDER CARLY*, , in, 02/16/20 10:... pantoprazole 40 mg oral delayed release tablet: See Instructions, Instructions: TAKE 1 TABLET BY MOUTH DAILY BEFORE BREAKFAST, # 90 tab(s), 1 Refill(s), Type: Maintenance, Pharmacy: [facility], TAKE 1 TABLET BY MOUTH DAILY BEFORE BREAKFAST, , in, 07/18/22 10:41:00 CDT, Height Measured,... pravastatin 10 mg oral tablet: = 1 tab(s), Oral, daily, # 90 tab(s), 0 Refill(s), Type: Maintenance, Pharmacy: [facility], TAKE 1 TABLET BY MOUTH DAILY, , in, 02/16/20 10:49:00 SAFETY FIRE BOSS, Height Measured, 160, lb, 02/16/20 10:49:00 SAFETY FIRE BOSS, Weight Measured prazosin 1 mg oral capsule: = 1 cap(s), Oral, qhs, Instructions: FOR SLEEP., # 90 cap(s), 1 Refill(s), Pharmacy: [facility], TAKE 1 CAPSULE BY MOUTH EVERY NIGHT AT BEDTIME FOR SLEEP, , in, 01/19/21 13:36:00 CDT, Height Measured, 160, lb, 01/19/21 13:36... predniSONE 10 mg oral tablet: See Instructions, Instructions: 3x3 2x3 1x3, # 18 EA, 0 Refill(s), Type: Maintenance, Pharmacy: [facility] #[id number], 3x3 2x3 1x3, 67, in, 07/18/22 10:41:00 CDT, Height Measured, 163, lb, 02/26/23 10:21:00 SAFETY FIRE BOSS, Weight Measured rOPINIRole 1 mg oral tablet: = 1 tab(s), Oral, tid, # 270 tab(s), 1 Refill(s), Type: Maintenance, Pharmacy: [facility], TAKE 1 TABLET BY MOUTH THREE TIMES DAILY, , in, 05/31/22 14:44:00 CDT, Height Measured, 138, lb, 05/12/22 15:09:00 SAFETY FIRE BOSS, Weight Measured... risperiDONE 0.25 mg oral tablet: See Instructions, Instructions: TAKE 1 TABLET BY MOUTH TWICE DAILY, # 60 tab(s), 1 Refill(s), Type: Maintenance, Pharmacy: [facility], TAKE 1TABLET BY MOUTH TWICE DAILY, , in, 05/31/22 14:44:00 CDT, Height Measured, 138, lb... sodium chloride 1 g oral tablet: See Instructions, Instructions: 1 tablet daily for 3-5 days then may need to repeat, # 30 EA, 0 Refill(s), Type: Maintenance, Pharmacy: [facility] #[id number], 1tablet daily for 3-5 days then may need to repeat, 67, in, 09/05/21 9:23:00 CDT, Hei... temazepam 30 mg oral capsule: = 1 cap(s), Oral, qhs, PRN: NEEDED FOR SLEEP, # 90 cap(s), 0 Refill(s), Type: Maintenance, Pharmacy: [facility] #[id number], 1 cap(s) Oral qhs,PRN: NEEDED FOR SLEEP, 67, in, 07/18/22 10:41:00 CDT, Height Measured, 163, lb, 02/26/23 10:21:00... topiramate 25 mg oral tablet: = 1 tab(s), Oral, bid, # 180 tab(s), 0 Refill(s), Type: Maintenance, Pharmacy: [facility], TAKE 1 TABLET BY MOUTH TWICE DAILY, , in, 06/08/21 9:57:00 CDT, Height Measured, 149, lb, 06/08/21 9:57:00 CDT, Weight Measured traMADol 50 mg oral tablet: = 1 tab(s) ( 50 mg ), Oral, q6 hrs, PRN: for pain, # 60 tab(s), 0 Refill(s), Type: Maintenance, Pharmacy: [facility] #[id number], 1 tab(s) Oral q6 hrs,PRN:for pain, , in, 07/18/22 10:41:00 CDT, Height Measured, 163, lb, 02/26/23 10:21:00 SAFETY FIRE BOSS, W... traMADol 50 mg oral tablet: See Instructions, Instructions: 1-2 po q 6 hours prn leg and back pain,PRN: for pain, # 60 EA, 0 Refill(s), Type: Maintenance, Pharmacy: [facility] #[id number], 1-2 po q 6 hours prn leg and back pain,PRN:for pain, 67, in, 07/18/22 10:41:00 CDT,... Documented Medications Documented isosorbide mononitrate 30 mg oral tablet, extended release: = 1 tab(s) ( 30 mg ), Oral, qam, # 30 tab(s), 0 Refill(s), Type: Maintenance, Medications *denotes recorded medication Cymbalta 60 mg oral delayed release capsule: 60 mg, 1 cap(s), Oral, daily, 90 cap(s), 1 Refill(s). LORazepam 0.5 mg oral tablet: 0.5 mg, 1 tab(s), Oral, q8 hrs, PRN only agitation, PRN: for anxiety,30 tab(s), 0 Refill(s). LORazepam 0.5 mg oral tablet: 0.5 mg, 1 tab(s), Oral, q8 hrs, PRN: for anxiety, 90 tab(s), 0 Refill(s). TOPIRAMATE 25MG TABLETS: 1 tab(s), Oral, bid, 180 tab(s), 1 Refill(s). TOPIRAMATE 25MG TABLETS: 1 tab(s), Oral, bid, 180 tab(s), 0 Refill(s). gabapentin 300 mg: See Instructions, Take qid, 120 EA, 3 Refill(s). Gabapentin 100 mg: See Instructions, 1 po tid, 90 cap(s), 3 Refill(s). Tylenol with Codeine #3 oral tablet: 1 tab(s), Oral, q6 hrs, PRN: for pain, 30 tab(s), 0 Refill(s). Albuterol (Eqv-ProAir HFA) 90 mcg/inh inhalation aerosol: 2 puff(s), Inhale, q6 hrs, 6.7 g, 2 Refill(s). Ventolin HFA 90 mcg/inh inhalation aerosol: 2 puff(s), Inhale, qid, 1 EA, 2 Refill(s). Zithromax 250 mg oral tablet: 1 packet(s), Oral, once, as directed on package labeling, 6 tab(s), 0Refill(s). bumetanide 1 mg oral tablet: 1 mg, 1 tab(s), Oral, daily, 90 tab(s), 0 Refill(s). busPIRone 10 mg oral tablet: 10 mg, 1 tab(s), Oral, tid, 90 tab(s), 2 Refill(s). carvedilol 6.25 mg oral tablet: 1 tab(s), Oral, bid, 180 tab(s), 1 Refill(s). clopidogrel 75 mg oral tablet: 1 tab(s), Oral, daily, 90 tab(s), 1 Refill(s). cyanocobalamin 1000 mcg/mL injectable solution: See Instructions, INJECT 1 ML INTRAMUSCULARLY MONTHLY AT DR OFFICE, 1 mL, 11 Refill(s). Bentyl 10 mg oral capsule: 10 mg, 1 cap(s), Oral, tid, as needed, 90 EA, 0 Refill(s). divalproex sodium 250 mg oral delayed release tablet: 1 tab(s), Oral, daily, 90 tab(s), 0 Refill(s). escitalopram 10 mg oral tablet: 1 tab(s), Oral, daily, 90 tab(s), 1 Refill(s). furosemide 20 mg oral tablet: See Instructions, TAKE 1 TABLET(20 MG) BY MOUTH DAILY, 90 tab(s), 1 Refill(s). gabapentin 300 mg oral capsule: 1 cap(s), Oral, qid, 360 cap(s), 0 Refill(s). Mucinex 600 mg oral tablet, extended release: 600 mg, 1 tab(s), Oral, q12 hr, 60 tab(s), 3 Refill(s). Mucinex 600 mg oral tablet, extended release: 600 mg, 1 tab(s), Oral, q12 hr, 60 tab(s), 0 Refill(s). *isosorbide mononitrate 30 mg oral tablet, extended release: 30 mg, 1 tab(s), Oral, qam, 30 tab(s),0 Refill(s). lactulose 10 g/15 mL oral syrup: 20 g, 30 mL, Oral, bid, 420 mL, 2 Refill(s). Linzess 290 mcg oral capsule: 1 cap(s), Oral, daily, 90 cap(s), 21 Refill(s). lisinopril 10 mg oral tablet: 10 mg, 1 tab(s), Oral, daily, 90 tab(s), 1 Refill(s). losartan 50 mg oral tablet: 50 mg, 1 tab(s), PO, Daily, 90 tab(s), 1 Refill(s). losartan 25 mg oral tablet: 25 mg, 1 tab(s), Oral, daily, 90 tab(s), 0 Refill(s). mirtazapine 15 mg oral tablet: 1 tab(s), Oral, qhs, * DISCARD REMAINDER CARLY*., 90 tab(s), 1 Refill(s). Zofran ODT 8 mg oral tablet, disintegratin mg, 1 tab(s), Oral, tid, 45 EA, 2 Refill(s). Invega Sustenna 156 mg/mL intramuscular suspension, extended release: 1 mL, Subcutaneous, q4 wks, 1mL, 2 Refill(s). pantoprazole 40 mg oral delayed release tablet: See Instructions, TAKE 1 TABLET BY MOUTH DAILY BEFORE BREAKFAST, 90 tab(s), 1 Refill(s). pravastatin 10 mg oral tablet: 1 tab(s), Oral, daily, 90 tab(s), 0 Refill(s). prazosin 1 mg oral capsule: 1 cap(s), Oral, qhs, FOR SLEEP., 90 cap(s), 1 Refill(s). predniSONE 10 mg oral tablet: See Instructions, 3x3 2x3 1x3, 18 EA, 0 Refill(s). Lyrica 75 mg oral capsule: 75 mg, 1 cap(s), Oral, bid, 60 cap(s), 0 Refill(s). Lyrica 75 mg oral capsule: 75 mg, 1 cap(s), Oral, bid, 60 cap(s), 2 Refill(s). Lyrica 100 mg oral capsule: 100 mg, 1 cap(s), Oral, bid, 60 cap(s), 2 Refill(s). rOPINIRole 1 mg oral tablet: 1 tab(s), Oral, tid, 270 tab(s), 1 Refill(s). risperiDONE 0.25 mg oral tablet: See Instructions, TAKE 1 TABLET BY MOUTH TWICE DAILY, 60 tab(s), 1Refill(s). sodium chloride 1 g oral tablet: See Instructions, 1 tablet daily for 3-5 days then may need to repeat, 30 EA, 0 Refill(s). temazepam 30 mg oral capsule: 1 cap(s), Oral, qhs, PRN: NEEDED FOR SLEEP, 90 cap(s), 0 Refill(s). topiramate 25 mg oral tablet: 1 tab(s), Oral, bid, 180 tab(s), 0 Refill(s). traMADol 50 mg oral tablet: See Instructions, 1-2 po q 6 hours prn leg and back pain, PRN: for pain, 60 EA, 0 Refill(s). traMADol 50 mg oral tablet: 50 mg, 1 tab(s), Oral, q6 hrs, PRN: for pain, 60 tab(s), 0 Refill(s). Problem list: All Problems Anxiety / SNOMED CT 63243207 / Confirmed Progressive focal motor weakness / SNOMED CT 36040065 / Confirmed Benign essential HTN / ICD-9-CM 401.1 / Confirmed Agitation due to dementia / SNOMED CT 4108347163 / Confirmed Acute insomnia / SNOMED CT 6722499483 / Confirmed Acute insomnia / SNOMED CT 6893689704 / Confirmed Closed wedge compression fracture of L5 vertebra with delayed healing / SNOMED CT 918399389 / Confirmed Chronic kidney disease (CKD) / SNOMED CT 2007078021 / Confirmed Hypertensive heart and chronic kidney disease with heart failure and stage 1 through stage 4 chronic kidney disease, or unspecified chronic kidney disease / SNOMED CT 458635431 / Confirmed Chronic kidney disease, stage 3b / SNOMED CT 1662362312 / Confirmed Combined hyperlipidemia / ICD-9-CM 272.2 / Confirmed Bipolar disorder, unspecified / SNOMED CT 54331934 / Confirmed Chronic obstructive pulmonary disease, unspecified / SNOMED CT 71593267 / Confirmed Peripheral autonomic neuropathy / SNOMED CT 849409238 / Confirmed CA - Cancer of Prostate / ICD-9-CM 185 / Confirmed Tobacco user / SNOMED CT 357486498 / Probable Pernicious anemia / SNOMED CT 370780531 / Confirmed Histories Past Medical History: No active or resolved past medical history items have been selected or recorded. Family History: No family history items have been selected or recorded. Procedure history: Include procedure history No active procedure history items have been selected or recorded. Social History: Tobacco Assessment: Current 10 or more cigarettes (1/2 pack or more)/day in last 30 days Physical Examination Defer Health Maintenance Recommendations Pending (in the next year) OverDue Annual Wellness Visit due 04/05/23 and every 1 years Due Body Mass Index Check due 07/19/23 and every 1 years Colorectal Cancer Screening due 07/23/23 Variable frequency Depression Screen due 07/23/23 and every 1 years Fall Risk Screen due 07/23/23 and every 1 years Glaucoma Screen due 07/23/23 and every 1 years HF - LVEF due 07/23/23 and every 1 years HF - Patient Education due 07/23/23 and every 1 years HIV Screen (if sexually active) due 07/23/23 and every 1 years IBT For Cardiovascular Disease due 07/23/23 and every 1 years Lung Cancer Screening Eligibility due 07/23/23 and every 1 years Prostate Cancer Screen due 07/23/23 and every 1 years Screen for STIs and HIBC to Prevent STIs due 07/23/23 and every 1 years Syphilis Screen (if sexually active) due 07/23/23 and every 1 years Due In Future Influenza Vaccine not due until 11/17/23 and every 1 years High Blood Pressure Screen not due until 02/27/24 and every 1 years Satisfied (in the past 1 year) Satisfied High Blood Pressure Screen on 02/26/23. High Blood Pressure Screen on 01/22/23. Influenza Vaccine on 01/25/23. Lipid Disorders Screen on 01/22/23. Lipid Disorders Screen on 01/22/23. Lipid Disorders Screen on 01/22/23. Lipid Disorders Screen on 01/22/23. Lipid Disorders Screen on 01/22/23. Impression and Plan Diagnosis Acute bronchitis (QRL99-KH J20.9). Plan: Use Tylenol or Ibuprofen for pain or fever. Return to care if fevers last over 3 days or signs of respiratory distress or dehydration or not improving after 7-10 days of symptoms. Patient Instructions: Counseled: Family, Regarding diagnosis, Regarding treatment, Regarding medications, Verbalized understanding. Orders Orders (Selected) Outpatient Orders Order [id number] office o/p est low meets or exceeds 20min (Charge): Quantity: 1, Acute bronchitis Prescriptions Prescribed Linzess 290 mcg oral capsule: = 1 cap(s), Oral, daily, # 90 cap(s), 21 Refill(s), Type: Maintenance, Pharmacy: [facility] #[id number], 1 cap(s) Oral daily, 67, in, 07/18/22 10:41:00 CDT, Height Measured, 163, lb, 02/26/23 10:21:00 SAFETY FIRE BOSS, Weight Measured Zithromax 250 mg oral tablet: = 1 packet(s), Oral, once, Instructions: as directed on package labeling, # 6 tab(s), 0 Refill(s), Type: Soft Stop, Pharmacy: [facility] #[id number], 1 packet(s) Oral once,Instr:as directed on package labeling, 67, in, 07/18/22 10:41:00 CDT, Heig... predniSONE 10 mg oral tablet: See Instructions, Instructions: 3x3 2x3 1x3, # 18 EA, 0 Refill(s), Type: Maintenance, Pharmacy: [facility] #[id number], 3x3 2x3 1x3, 67, in, 07/18/22 10:41:00 CDT, Height Measured, 163, lb, 02/26/23 10:21:00 SAFETY FIRE BOSS, Weight Measured. Electronically Signed on 07/23/23 01:40 PM Joseline Ulloa Electronically Signed on 07/23/23 02:21 PM Maciej Ortega MD Patient Care team information Care Team Personnel Name: Joseline Ulloa Position: EMR Mid-Level Access (Supervised) Member Role: Primary Care Physician Address: Address: [address] P: F: NAZIA Barragan [id number]
--- OUTSIDE RECORDS SUMMARY | 2023-07-31 06:50 | XMS_ITS | Patient Health Record ---
Author Name Unknown Organization [facility] Address [address] [place] [address] Care Team Providers Care [place] Name Role Phone Los INSTRUCTIONAL SPECIALIST, Joseline Primary Care Provider Unavail able MARY ALRA Unavailable [phone] Joselito Light Unavailable Unavailable Allergies Allergen (clinical drug ingredient) Drug/Non Drug Allergy documented on EMR Reaction Allergy Type Onset Date Status rosuvastatin Rosuvastatin Unknown Drug Allergy A ctive Reason For Referral Reason Referral to [employer] w/ SHADE Crawley rep Diagnosis 1 Left varicocele (I86 .1) Diagnosis 2 Left testicular pain (N50.812) Referral Organization [facility] Referring Provider First Name Joselito Referring Provider Last Name Kuldeep Referred Provider Judi Dozier Referred Provider Specialty Family Pract ice Referral Priority Routine Medications Medication SIG (Take, Route, Frequency, Duration) Notes Start Date End Date Status rOPINIRole HCl *Pick strength-form from Medispan for eRX* Active Losartan Potassium *Pick strength-form from Medispan for eRX* Active Temazepam *Pick strength-form from Medispan for eRX* Active Invega *Pick strength-form from Medispan for eRX* Active Escitalopram Oxalate *Pick strength-form from Medispan for eRX* Active Clopidogrel Bisulfate *Pick strength-form from Medispan for eRX* Active Pantoprazole Sodium *Pick strength-form from Medispan for eRX* Active Problems Problem Type SNOMED Code ICD Code Onset Dates Problem Status W/U Status Risk Notes Problem 35275637954903169 Left testicula r pain (N50.812) Active confirmed Problem Scrotal pain (N50.82) Active confirmed Problem 994805508 History of prostate cancer (Z85.46) Active confirmed Problem History of prostatectomy (Z90.79) Active confirmed Problem 71739091 Stress incontinence (N39.3) Active confirmed Problem 39534117 Pain in testicle , unspecified laterality (N50.819) Active confirmed Problem 397289006 Testicular swelling (N50.89) Active confirmed Problem 23126577 Left varicocele (I86.1) Active confirmed Problem 610742387 Other sysmptoms involving urinary system (788.99) 012 Active confirmed [id number] 911- Problem 23280883 Testosterone deficiency (257.2) 012 Active confirmed [id number] 911- Problem 548917400 Vitamin B12 deficiency (266.2) 012 Active confirmed [id number] 911- Problem 409987239 Weak urinary stream (788.62) 012 Problem resolved confirmed [id number]- Problem [id number] PVD with claudication (440.21) 012 Problem resolved confirmed [id number] 911- Problem [id number] Atherosclerosis of [place] extremity arteries (440.20) 012 Problem resolved confirmed [id number] 911- Problem 312278230 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) 012 Problem resolved confirmed [id number] 911- Problem 418463489 Erectile dysfunction (302.72) 012 Problem resolved confirmed [id number] 911- Problem 843096188 Rash (782.1) 012 Problem resolved confirmed [id number] 911- Vital Signs Heart Rate 78 /min 09/05/2022 Temperature 97.4 degrees Fahrenheit 09/05/2022 Blood pressure diastolic 65 mm Hg 09/05/2022 Weight-kg 60.06 kg 09/05/2022 Height 70 in 09/05/2022 Blood pressure systolic 136 mm Hg 09/05/2022 Weight 132.4 lbs 09/05/2022 BMI 19 kg/m2 09/05/2022 Encounters Encounter Location Date Provider Diagnosis [facility] [address] [place] [address] 09/05/2022 Joselito Light Left testicular pain N50.812 ; Left varicocele I86.1 ; Stress incontinence N39.3 ; Scrotal pain N50.82 ; History of prostatectomy Z90.79 ; History of prostate cancer Z85.46 and 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 urethra, unspecified stricture type N35.919 Assessments Encounter Date Diagnosis (ICD Code) Assessment Notes Treat ment Notes Treatment Clinical Notes 09/05/2022 Left testicular pain (ICD-10 - N50.812) 09/05/2022 Left varicocele (ICD-10 - I86.1) 09/05/2022 Stress incontinence (ICD-10 - N39.3) 09/05/2022 Scrotal pain (ICD-10 - N50.82) 09/05/2022 History of prostatectomy (ICD-10 - Z90.79) 09/05/2022 History of prostate cancer (ICD-10 - Z85.46) 09/05/2022 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 urethra, unspecified stricture type (ICD-10 - N35.919) Plan Of Treatment Pending Test Test Name Order Date PSA Diagnostic--[id number] 03/27/2022 PSA, TOTAL (5363) 03/06/2023 Insurance Providers Payer Name Payer Address Payer Phone Subscriber Number Group Number Insured Name Patient Relationship to Insured Coverage Start Date Coverage End Date [facility] [address] [place], [place] [id number] Camilo Zuniga Self - patient is the insured Medical (General) History Medical History History ICD Code COPD Prostate CANCER Hernia Urinary incontinence Cerebrovascular Accident Surgical History Surgery Date(Month/Year) radical prostatectomy 2004 carotid endarterectomy throat mass, benign Hospitalization History Reason Date(Month/Year) psych x4 hospitalizations 2021 surgeries
--- OUTSIDE RECORDS SUMMARY | 2023-07-31 06:50 | XMS_ITS | Patient Health Record ---
Author Name Unknown Organization [facility] Address [address] [place] [address] Care Team Providers Care Leaf Sucker Operator Name Role Phone Los INDUSTRIAL CAFETERIA MANAGER, Joseline Primary Care Provider Unavail able Joselito Light Unavailable [phone] Sav Meza Unavailable [phone] Allergies Allergen (clinical drug ingredient) Drug/Non Drug Allergy documented on EMR Reaction Allergy Type Onset Date Status rosuvastatin Rosuvastatin Unknown Drug Allergy A ctive Reason For Referral Reason Referral to Vitality w/ SHADE Crawley rep Diagnosis 1 Left varicocele (I86 .1) Diagnosis 2 Left testicular pain (N50.812) Referral Organization [facility] Referring Provider First Name Joselito Referring Provider Last Name Kuldeep Referring Provider Speciality Urology Referred Provider Judi Dozier Referred Provider Specialty Family Pract ice Referral Priority Routine Medications Medication SIG (Take, Route, Fr equency, Duration) Notes Start Date End Date Status Escitalopram Oxalate Active Pantoprazole Sodium Active Clopidogrel Bisulfate Active Invega Active Temazepam Active rOPINIRole HCl Activ e Losartan Potassium A ctive Social History Tobacco Use: Social History Observation Description Date Details (start date - stop date) Former Smoker NA - NA xTobacco Use/Smoking Question Answer Notes Are you a former smoker How long has it been since you last smoked? 3-6 months Problems Problem Type SNOMED Code ICD Code Onset Dates Problem Status W/U Status Risk Notes Problem Left testicular pain (08423492962700617 ) Left testicular pain (N50.812) Active confirmed Problem Scrotal pain (58023051) Scrotal pain (N50.82) Active confirmed Problem History of prostatectomy (Z90.79) Active confirmed Problem SI - Stress incontinence (55353032) Stress incontinence (N39.3) Active confirmed Problem History of malignant neoplasm of prostate (809530268) History of prostate cancer (Z85.46) Active confirmed Problem 920255884 Testicular swelling (N50.89) Active confirmed Problem Scrotal varices (92488043) Left varicocele (I86.1) Active confirmed Problem 13968338 Pain in testicle , unspecified laterality (N50.819) Active confirmed Problem Vitamin B12 deficiency (040423233) Vitamin B12 deficiency (266.2) Active confirmed [id number] 911- Problem Androgen deficiency (01191839) Testosterone deficiency (257.2) Active confirmed [id number] 911- Problem Urinary system symptoms (831867833) Other sysmptoms involving urinary system (788.99) Active confirmed [id number] 911- Problem Rash (547407319) Rash (782.1) 012 Problem resolved confirmed [id number] 911- Problem Weak urinary stream (320184979) Weak urinary stream (788.62) 012 Problem resolved confirmed [id number] 911- Problem Intermittent claudication due to atherosclerosis of [place] artery of limb (3863788715076) PVD with claudication (440.21) 012 Problem resolved confirmed [id number] 911- Problem 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 (429423897743424) Atherosclerosis of [place] extremity arteries (440.20) 012 Problem resolved confirmed [id number] 911- Problem Chronic viral hepatitis B without delta-agent (764510139) Chronic hepatitis B (without hepatitis delta) (070.32) Problem resolved confirmed [id number] 911- Problem Erectile dysfunction (660981156) Erectile dysfunction (302.72) 012 Problem resolved confirmed [id number] 911- Vital Signs Heart Rate 78 /min 09/05/2022 Temperature 97.4 degrees Fahrenheit 09/05/2022 Blood pressure diastolic 65 mm Hg 09/05/2022 Weight-kg 60.06 kg 09/05/2022 Height 70 in 09/05/2022 Blood pressure systolic 136 mm Hg 09/05/2022 Weight 132.4 lbs 09/05/2022 BMI 19 kg/m2 09/05/2022 Encounters Encounter Location Date Provider Diagnosis [facility] [address] [place] [id number] 09/05/2022 Joselito Light Left varicocele I86. 1 ; Left testicular pain N50.812 ; Stress incontinence N39.3 ; Scrotal pain [...] Pending Test Test Name Order Date PSA Diagnostic--[id number] 03/27/2022 Insurance Providers Payer Name Payer Address Payer Phone Subscriber Number Group Number Insured Name Patient Relationship to Insured Coverage Start Date Coverage End Date UHC Medicare Dual Complete PPO [address] [address] [place] [phone] [id number] Camilo Schumacher Self - patient is the insured Medical (General) History Medical History History ICD Code COPD Prostate CANCER Hernia Urinary incontinence Cerebrovascular Accident Surgical History Surgery Date(Month/Year) throat mass, benign carotid endarterectomy radical prostatectomy 2004 Hospitalization History Reason Date(Month/Year) surgeries psych x4 hospitalizations 2021
[2023-07-31 07:25] VITALS: BP 165/77; PULSE 91; RESP 18; TEMP 36.4; O2SAT 98
[2023-07-31] MEDS: aspirin 81 mg EC Tablet PO (08:56)
[2023-07-31] MEDS: pregabalin 100 mg Capsule PO (08:56)
[2023-07-31] MEDS: clopidogrel 75 mg Tablet PO (08:56)
--- NOTE | 2023-07-31 10:10 | PC.CHAP ---
Pastoral Care Encounter/Spiritual Assessment Type of Contact [] Declined environmental research project manager visit [] Patient/Family/Request visit [] Outpatient visit [] Follow-up visit [] Physician referral [] Code/Alert [x] Routine visit [] Staff referral [] Actively dying [] Patient sleeping [x] Family support [] [] Out of room [] Palliative care [] [] Receiving care in room [] Pre-surgical visit [] Trauma [] Long length of stay [] ICU visit [] Other: Relational/Emotional Strength [x] Patient feels connected with others/family/visitors/staff [] Distress [] Loneliness/isolation [] Abandonment Spirituality of Patient [x] Person of Linh [] Attends Alevism of their Lin[place] [x] Believes in Prayer [] Reads Bible or Church materials [] There are Spiritual issues to be addressed Business Machine Mechanic Interventions [x] Prayer [] Active listening [] Non-anxious presence [x] Spiritual/emotional support [] Crisis/trauma care [] Spiritual counseling [] Bereavement support [] Provided bereavement packet [] Provided Bible/devotional materials [] Provided toy/stuffed animal, coloring book to patient or family member [] Provided Communion [] Anointing/[place] [] Salvation [x] Completed spiritual assessment [] Other: Impact on Illness or Injury [] Angry [] Fearful [] Anxious [] Often cries [] Exhaustion [] Unable to work [] Unable to attend yarsanism [] Unable to walk/stand [] Unable to read [] Unable to drive [] Unable to eat/drink [] Unable to sleep [] Unable to be with family [] Patient intubated [] Other: Summary Time spent with patient 5 min
[2023-07-31 11:47] VITALS: BP 139/85; PULSE 74; RESP 18; TEMP 36.4; O2SAT 96
--- NOTE | 2023-07-31 12:22 | P.DS_ITS ---
Discharge Providers Date of Admission: 07/30/23 21:44 Date of Discharge: July 31, 2023 Attending Provider at Admission: Maximino Persaud MD Attending Provider at Discharge: Monica Byrd MD Primary Care Provider: GILLIAN Peters Diagnoses at Discharge Discharge Diagnosis (1) Cerebrovascular accident: Status: Acute Reason for Visit Reason for Visit: dr jaramillo, blurred vision, dizzy, weakness Hospital Course Hospital Course Patient presented to the hospital for right peripheral vision loss and unsteadiness on his feet. 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 In the ER patient was diagnosed with acute to subacute infarct of middle left occipital lobe NIH stroke scale 2. Patient out of tPA window. He was admitted for stroke workup. Echo completed as well. Telemetry did not show any underlying A-fib. 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 He was referred to neurosurgery as outpatient. Patient did see PT during hospitalization and had no physical deficits. Patient will be sent home on aspirin Plavix statin. His case was also discussed with neurology. Patient will follow-up with neurology as an outpatient. Patient was set up with an event monitor x 30 days to rule out underlying A-fib. Physical Exam Const: COMMON NORMALS: no acute distress and patient oriented x3 HENMT: COMMON NORMALS: normocephalic HEAD & SCALP: normocephalic Eye: COMMON NORMALS: Equal, round and reactive pupils present PUPIL: Yes Equal, round and reactive pupils present Neck/C-Spine: COMMON NORMALS: no JVD Resp: COMMON NORMALS: normal respiratory effort, No retractions, No use of accessory muscles and clear to auscultation bilaterally AUSCULTATION: clear to auscultation bilaterally Cardio: COMMON NORMALS: no JVD, regular rate, regular rhythm, S1 normal heart sound present and S2 normal heart sound present RATE: regular rate RHYTHM: regular rhythm HEART SOUNDS: S1 normal heart sound present and S2 normal heart sound present GI: COMMON NORMALS: Normal to inspection, nondistended, normoactive bowel so unds present, Soft to palpation and non-tender PALPATION: Yes Soft to palpation Extremity: COMMON NORMALS: no calf tenderness and no pedal edema OTHER: Right hand humerus, pain with palpation, minimal movement due to fracture Neuro: COMMON NORMALS: patient oriented x3, CN's II-XII intact bilaterally, moves all extremities and no focal motor deficits OTHER: Visual florez, right peripheral visual field loss, [id number]-to-[id number] normal bilaterally, Psych: COMMON NORMALS: mental status grossly normal Discharge Data Studies Completed and Pending Completed Studies During Hospitalization Category Date Time Status CT head wo con* [id number] Stat Cat Scan 07/30/23 18:35 Completed CTA head neck [CT angio headneck* [id number]] Stat Cat Scan 07/30/23 18:35 Completed XR chest 1V portable [id number] Stat Exams 07/30/23 16:10 Completed CV. echo complete* [id number] Routine Ultrasound 07/31/23 22:22 Completed Pending at discharge Category Date Time Status ALEXIA Profile Rheumatology Stat Lab 07/30/23 22:03 Received Radiology Impressions Chest X-Ray 07/30/23 16:10 IMPRESSION: No acute findings. Head CT 07/30/23 18:35 IMPRESSION: 1. Acute versus subacute infarct in the medial left occipital lobe. ADDENDUM: 07/30/232024 THIS REPORT CONTAINS FINDINGS THAT MAY BE CRITICAL TO PATIENT CARE. Dr. Ovalle has seen the report and has no questions at 8:23 PM CDT on 07/30/2023. Head/Neck CTA 07/30/23 18:35 IMPRESSION: 1. No large artery occlusion or stenosis. 2. 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 3. Acute versus subacute infarct in the medial left occipital lobe appears less conspicuous. IMPRESSION: 1. 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 This could represent vasculitis, atherosclerosis, or intraluminal thrombus. Dissection is considered less likely but cannot be entirely excluded. 2. Plaque with kinking in the proximal right internal carotid artery with 30% stenosis. REFERENCES: NASCET CRITERIA. The degree of stenosis in the cervical segment of the internal carotid artery is based on NASCET criteria. Normal is no stenosis. Mild is less than 50% stenosis. Moderate is 50-69% stenosis. Severe is 70% to 99% stenosis. Total occlusion is no detectable patent lumen. ADDENDUM: 07/30/232054 THIS REPORT CONTAINS FINDINGS THAT MAY BE CRITICAL TO PATIENT CARE. The findings were verbally communicated via telephone conference with BRETT OVALLE at 8:53 PM CDT on 07/30/2023. The findings were acknowledged and understood. Laboratory Results WBC 11.33 10^3/uL (3.29-11.43) 07/31/23 05:51 RBC 4.60 10^6/uL (3.85-5.65) 07/31/23 05:51 Hgb 14.20 g/dL (11.27-16.99) 07/31/23 05:51 Hct 43.5 % (37-53) 07/31/23 05:51 MCV 94.6 fl (82-101) 07/31/23 05:51 MCH 30.9 pg (27-33) 07/31/23 05:51 MCHC 32.6 g/dL (30-55) 07/31/23 05:51 RDW 14.4 % (12.1-15.1) 07/31/23 05:51 Plt Count 283 10^3/cmm (157-399) 07/31/23 05:51 MPV 10.2 fL (7.4-10.4) 07/31/23 05:51 Neut % (Auto) 78.4 % 07/31/23 05:51 Lymph % (Auto) 11.2 % 07/31/23 05:51 Hand % (Auto) 7.1 % 07/31/23 05:51 Eos % (Auto) 2.5 % 07/31/23 05:51 Baso % (Auto) 0.4 % 07/31/23 05:51 Neut # (Auto) 8.89 10^3/uL (1.8-7.7) H 07/31/23 05:51 Lymph # (Auto) 1.3 10^3/uL (0.8-4.8) 07/31/23 05:51 Hand # (Auto) 0.8 10^3/uL (0.2-0.9) 07/31/23 05:51 Eos # (Auto) 0.3 10^3/uL (0.0-0.8) 07/31/23 05:51 Baso # (Auto) 0.0 10^3/uL (0.0-0.1) 07/31/23 05:51 Nucleated RBC % (auto) 0 % 07/31/23 05:51 Nucleated RBCs # 0.0 /100WBC 07/31/23 05:51 ESR 9 mm/hr (0-10) 07/30/23 22:40 PT 12.70 SECONDS (12.1-14.9) 07/30/23 22:40 INR 0.92 (0.8-1.2) 07/30/23 22:40 Sodium 138 mmol/L (136-145) 07/31/23 05:51 Potassium 4.2 mmol/L (3.5-5.1) 07/31/23 05:51 Chloride 99 mmol/L (98-107) 07/31/23 05:51 Carbon Dioxide 30 mmol/L (22-29) H 07/31/23 05:51 Anion Gap 13.2 (5-19) 07/31/23 05:51 BUN 32 mg/dL (8-23) H 07/31/23 05:51 Creatinine 1.7 mg/dL (0.7-1.2) H 07/31/23 05:51 GFR Calculation Not Reportable 07/31/23 05:51 Glucose 83 mg/dL (65-115) 07/31/23 05:51 Estimat Average Glucose 111 07/30/23 22:40 Hemoglobin A1c 5.5 % (4.0-6.0) 07/30/23 22:40 Calculated Osmolality 292 mOsm/kg (285-295) 07/31/23 05:51 Calcium 8.4 mg/dL (8.5-10.5) L 07/31/23 05:51 Total Bilirubin 0.4 mg/dL (0.15-1.2) 07/30/23 16:38 AST 20 U/L (0-40) 07/30/23 16:38 ALT 18 U/L (0-41) 07/30/23 16:38 Alkaline Phosphatase 130 U/L (40-130) 07/30/23 16:38 NT-Pro-B Natriuret Pep 329 pg/mL (0-450) 07/30/23 22:40 Total Protein 8.1 g/dL (6.6-8.7) 07/30/23 16:38 Albumin 4.4 g/dL (3.5-5.2) 07/30/23 16:38 Globulin 3.7 g/dL (1.3-4.6) 07/30/23 16:38 Triglycerides 404 mg/dL (0-150) H 07/30/23 22:40 Cholesterol 177 mg/dL (0-200) 07/30/23 22:40 LDL Cholesterol Direct 74 mg/dL (0-100) 07/30/23 22:40 LDL Cholesterol, Calc Not Reportable 07/30/23 22:40 HDL Cholesterol 56 mg/dL (60-100) L 07/30/23 22:40 LDL/HDL Ratio Not Reportable 07/30/23 22:40 Cholesterol/HDL Ratio 3.16 mg/dL (1.0-5.00) 07/30/23 22:40 TSH 2.57 uIU/mL (0.27-4.20) 07/30/23 22:40 Urine Color Straw (Yellow) 07/30/23 20:17 Urine Appearance Clear (CLEAR) 07/30/23 20:17 Urine pH 8 (5-7) H 07/30/23 20:17 Ur Specific [place] 1.010 (1.005-1.030) 07/30/23 20:17 Urine Protein Neg (Negative) 07/30/23 20:17 Urine Glucose (UA) Norm (Normal) 07/30/23 20:17 Urine Ketones Negative (Negative) 07/30/23 20:17 Urine Blood Neg (Negative) 07/30/23 20:17 Urine Nitrate Negative (Negative) 07/30/23 20:17 Urine Bilirubin Neg (Negative) 07/30/23 20:17 Prot Sulfosalicylic Acd Negative (Negative) 07/30/23 20:17 Urine Urobilinogen Norm mg/dL (Negative) 07/30/23 20:17 Ur Leukocyte Esterase Negative (Negative) 07/30/23 20:17 Vitals Last Vital Signs Temp 97.5 F L 07/31/23 11:47 Pulse 74 07/31/23 11:47 Resp 18 07/31/23 11:47 BP 139/85 07/31/23 11:47 Pulse Ox 96 07/31/23 11:47 O2 Del Method Room Air 07/31/23 11:47 Discharge Plan Discharge Patient Disposition: Home Condition: Stable Prescriptions: New aspirin 81 mg Tablet,Delayed Release (Dr/Ec) 81 mg PO DAILY Qty: 30 0RF atorvastatin 40 mg Tablet 80 mg PO BEDTIME Qty: 60 0RF clopidogrel 75 mg Tablet 75 mg PO DAILY Qty: 30 0RF Protonix 20 mg tablet,delayed release (DR/EC) 20 mg PO DAILY 28 Days Qty: 30 0RF Continued (DME) TLSO Brace See Rx Instructions .Route .MEDSUPPLY Qty: 1 0RF Rx Instructions: As directed temazepam 30 mg capsule 30 mg PO QPM lactulose 10 gram/15 mL solution 30 ml PO BID PRN (Reason: Constipation) Linzess 290 mcg capsule 290 mcg PO DAILY (DME) Shoulder Sling See Rx Instructions .Route .MEDSUPPLY Qty: 1 0RF Rx Instructions: As directed pregabalin 100 mg capsule 100 mg PO BID melatonin 10 mg Tablet 10 mg PO QPM sennosides-docusate sodium [Senna-S] 8.6-50 mg tablet 2 tab-cap PO DAILY PRN (Reason: Constipation) tramadol 50 mg tablet 50 mg PO BID bumetanide 1 mg tablet 1 mg PO DAILY PRN (Reason: Edema) pantoprazole 40 mg tablet,delayed release (DR/EC) 40 mg PO QAM Held biotin 5 mg Tablet 5 mg PO QPM Hold Instructions: see pcp Discharge Orders: Discharge Order (Routine); Ordered 07/31/23 Ordered By: Monica Byrd Other Ambulatory Orders: DME: Walker (Order) Location: None Selected Ordered By: Monica Byrd MCT/Event Monitor 30 Days (Routine) Timeframe: 1 Day Facility: [facility] - Location: Radiology Ordered By: Monica Byrd Referrals: [facility] [Outside] Nicho Austin MD [Physician] - 1 week (We have notified your physician's clinic of the need for a follow-up appointment to be scheduled. If you have not heard from them within the next 2 business days, please call them directly. ) Zach Hamilton M.D [Physician] - 1 week (We have notified your physician's clinic of the need for a follow-up appointment to be scheduled. If you have not heard from them within the next 2 business days, please call them directly. ) Joseph Umaña MD [Referring] - 1-3 days (Basilar artery aneurysm We have notified your physician's clinic of the need for a follow-up appointment to be scheduled. If you have not heard from them within the next 2 business days, please call them directly. ) Joseline Madison FNP [Primary Care Provider] - 08/07/23 10:30 am Discharge Diet: Cardiac Discharge Activity: Resume usual activity and As per PT/OT instructions Patient Instructions: Aspirin (By mouth), Atorvastatin (By mouth), Clopidogrel (By mouth), Ischemic Stroke (GEN), Opioid Safety, Stroke Stoplight Discharge Attestations Time Spent in Discharge Care*: less than 30 min Quality Metrics Clinical Quality Measures [ No reported AMI, CVA or VTE this stay] Coding Level of Care Code Acute Code for Chg Fwd Diagnoses Cerebrovascular accident I63.9
[2023-07-31] MEDS: sodium chloride 0.9% 1,000 ML 75 ML IV (12:25)
--- NOTE | 2023-07-31 22:22 | USCV_ITS ---
Camilo Zuniga Age: 78 Gender: M : 1945 Exam Date: 07/31/2023 00:08 Ordering Phys: Maximino Persaud MD Technologist: DOMINIQUE Exam Location: [facility] Indication: stroke bilateral peripheral vision loss. BP: 175 / 89 HR: 61 Rhythm: Sinus Technical Quality: Adequate MEASUREMENTS (Male / Female) Normal Values 2D ECHO LV Diastolic Diameter PLAX 3.9 cm 4.2 - 5.9 / 3.9 - 5.3 cm IVS Diastolic Thickness 1.5 cm 0.6 - 1.0 / 0.6 - 0.9 cm IVS Systolic Thickness 1.7 cm LVPW Diastolic Thickness 1.3 cm 0.6 - 1.0 / 0.6 - 0.9 cm LVPW Systolic Thickness 1.7 cm LVOT Diameter 1.8 cm LV Ejection Fraction 2D Teich 70.0 % LV Ejection Fraction MOD 2C 53.8 % LV Ejection Fraction 2C AL 54.1 % LA Diameter 3.8 cm Aorta at Sinotubular Diameter 2.9 cm IVC Diameter 1.0 cm M-MODE LA Ao Ratio MM 1.3 AV Cusp Separation MM 1.4 cm DOPPLER AV Peak Velocity 97.0 cm/s LVOT Peak Velocity 68.0 cm/s AV Area Cont Eq vti 1.8 cm squared AV Area Cont Eq pk 1.7 cm squared MV Peak Velocity 101.0 cm/s MV Area PHT 2.7 cm squared Mitral E to A Ratio 0.6 PV Peak Velocity 95.0 cm/s FINDINGS Left Ventricle Left ventricle is normal in size. LV systolic function is normal with EF 55 to 60%. No regional wall motion abnormalities are seen. Grade 1 diastolic dysfunction. Right Ventricle Normal in size and function Right Atrium Normal in size Left Atrium Normal in size Mitral Valve Structurally normal mitral valve. Mild mitral regurgitation Aortic Valve Structurally normal aortic valve. No significant stenosis or regurgitation. Tricuspid Valve Insufficient TR jet to calculate RVSP Pulmonic Valve Not well visualized Pericardium Normal Aorta Normal in size IVC Appears to be normal CONCLUSIONS LV systolic function is normal with EF 55 to 60%. Grade 1 diastolic dysfunction. Mild mitral regurgitation. Compared to prior echocardiogram from 2021, no significant changes are seen. Zahc Hamilton MD (Electronically Signed) Final Date: 31 Jul 2023 12:17 S
[2023-08-01 13:19] LABS: CENTROMERE B ANTIBODY <1.0 NEG AI (<1.0 NEG); JO-1 ANTIBODY <1.0 NEG AI (<1.0 NEG); RNP ANTIBODY <1.0 NEG AI (<1.0 NEG); SCL-70 ANTIBODY <1.0 NEG AI (<1.0 NEG); SJOGREN'S ANTIBODY (SS-A) <1.0 NEG AI (<1.0 NEG); SM ANTIBODY <1.0 NEG AI (<1.0 NEG); SS-B <1.0 NEG AI (<1.0 NEG)
[2023-08-01 14:19] LABS: COMPLEMENT COMPONENT C3C 124 mg/dL (82-185); COMPLEMENT COMPONENT C4C 16 mg/dL (15-53); COMPLEMENT, TOTAL (CH50) >60 U/mL (31-60)
[2023-08-01 15:59] LABS: ANA SCREEN, IFA NEGATIVE (NEGATIVE)
[2023-08-02 07:29] LABS: THYROID PEROXIDASE ANTIBODIES 4 IU/mL (<9)
[2023-08-08 13:55] LABS: DNA AB (DS) CRITHIDIA,IFA NEGATIVE (NEGATIVE)
== END 2023-07-31 14:31 | disposition home or self-care (01) | DRG 66 ==
LOC: ER 20:26 → MEDSURG 21:14
PROVIDERS: Admitting Provider Family Medicine; Emergency Provider Emergency Medicine; PCP Nurse Practitioner; Visit Provider Internal Medicine
DX: I63.9 Cerebral infarction, unspecified (principal); H54.61 Unqualified visual loss, right eye, normal vision left eye; R53.1 Weakness; R29.702 NIHSS score 2; I10 Essential (primary) hypertension; Z87.891 Personal history of nicotine dependence; E78.5 Hyperlipidemia, unspecified; I72.5 Aneurysm of other precerebral arteries
CPT/HCPCS: 36415; 70450; 70496; 70498; 71045; 80048; 80053; 80061; 81003; 83036; 83721; 83880; 84443; 85025; 85610; 85651; 86160; 86162; 86235; 86255; 86376; 92523; 92610; 93005; 93306; 94664; 96360; 96372; 97162; 97165; 99285; C9113; J1650; J7030; Q9967

== ENCOUNTER → 2023-08-02 12:17 | Outpatient (BNVA) | payer MEDICARE, MEDICAID, SELFPAY | PROVIDERS: PCP Nurse Practitioner; Visit Provider Internal Medicine | DX: I25.10 Atherosclerotic heart disease of native coronary artery without angina pectoris (principal); Z87.891 Personal history of nicotine dependence; Z86.73 Personal history of transient ischemic attack (TIA), and cerebral infarction without residual deficits; I10 Essential (primary) hypertension | CPT/HCPCS: 99204 ==

== ENCOUNTER 2023-09-03 11:21 | Emergency (ER) | payer MEDICARE, MEDICAID, SELFPAY ==
[2023-09-03] VITALS (9 sets, daily range): BP systolic 126–156; BP diastolic 78–92; PULSE 76–99; RESP 16; TEMP 36.8; O2SAT 93–97; BMI 25.7
--- NOTE | 2023-09-03 12:40 | XRR_ITS ---
PROCEDURE INFORMATION: Exam: XR Chest Exam date and time: 09/03/2023 12:48 PM Age: 78 years old Clinical indication: Other: Weakness TECHNIQUE: Imaging protocol: Radiologic exam of the chest. Views: 1 view. COMPARISON: CR XR chest 1V portable [id number] 07/30/2023 4:27 PM FINDINGS: Lungs: Slightly decreased atelectasis and/or pneumonitis in the left lung base. Unchanged calcified granuloma left lung base. Otherwise, unremarkable. Pleural spaces: Unremarkable. No pleural effusion. No pneumothorax. Heart/Mediastinum: Unremarkable. No cardiomegaly. Bones/joints: Some interval healing of the right shoulder fracture. Unchanged scoliosis and spondylosis. XR/XR chest 1V portable [id number] IMPRESSION: Slightly decreased atelectasis and/or pneumonitis in the left lung base.
--- NOTE | 2023-09-03 12:40 | ECG_ITS ---
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 Measurements Intervals [place] Rate: 81 P: 61 NC: 215 QRS: -48 QRSD: 88 T: 80 QT: 376 QTc: 437 Interpretive Statements SINUS RHYTHM WITH FIRST DEGREE AV BLOCK LEFT ANTERIOR FASCICULAR BLOCK [QRS AXIS <= -45, QR IN I, RS IN II] NONSPECIFIC T-WAVE ABNORMALITY Compared to ECG 07/30/2023 16:22:33 First degree AV block now present T-wave abnormality now present Myocardial infarct finding no longer present Electronically Signed On 09-03-2023 12:53:13 CDT by Zach Hamilton M.D. [email or web address] [employer]/store/[id number]
--- NOTE | 2023-09-03 12:40 | CT_ITS ---
WS: [id number] CT HEAD NONCONTRAST HISTORY: Weakness TECHNIQUE: Contiguous axial imaging performed through the brain in 2.0 mm imaging. Bone and soft tiss ue windows. Sagittal and coronal reformats reviewed. All CT scans at [facility] use at least one of these dose optimization techniques: automated exposure control; mA and/or kV adjustment per pa tient size (includes targeted exams where dose is matched to clinical indication); or iterative recon struction. DLP: 1046.60 mGy.cm COMPARISON: 07/30/2023 No acute intracranial hemorrhage, midline shift or mass effect. Moderate atrophy and small vessel ischemic disease. Small lacunar infarcts in the external capsules. Moderate cerebellar atrophy and volume loss. No occipital lobe infarct identified today. Ventricles: Mild enlargement of the ventricles and extra-axial spaces. No inferior displacement of cerebellar tonsils. Paranasal sinuses: As visualized are clear. Mastoid air cells: Well pneumatized. Calvarium and scalp: Skull is intact with no soft tissue edema or swelling. CT/CT head wo con* [id number] IMPRESSION: 1. No acute intracranial hemorrhage or edema. 2. Moderate atrophy and small vessel ischemic disease. Small lacunar infarcts in the external capsules. 3. Moderate cerebellar atrophy. 4. No occipital lobe subacute or chronic infarct identified.
--- NOTE | 2023-09-03 12:59 | ED_ITS ---
HPI - Weakness 2 General: Chief complaint: Weakness Stated complaint: dizzy, weakness Time Seen by Provider: 09/03/23 12:47 History of Present Illness: 78-year-old man with a history of prosta te cancer status post surgical treatment, hypertension, hyperlipidemia and coronary artery disease status post stenting who presents to the emergency room with weakness. He says he has been feeling a little bit dizzy and lightheaded. He says his belly feels like it might be more distended than usual. Said his blood pressures been labile but has been more hypertension than usual. No focal motor deficits. No altered mental status, but he does say he has been feeling a bit foggy. He has had some chest tightness. No known fevers. Family does state that up until a couple days ago they did not have air conditioning and they just put a window unit and. And this had made them very ill. also says she was extremely sick about a week ago and it, and nothing was found. Sounds like she had a viral illness. Review of Systems 2 Narrative: Constitutional symptoms: Negative except as documented in HPI. Skin symptoms: Negative except as documented in HPI. Eye symptoms: Negative except as documented in HPI. ENMT symptoms: Negative except as documented in HPI. Respiratory symptoms: Negative except as documented in HPI. Cardiovascular symptoms: Negative except as documented in HPI. Gastrointestinal symptoms: Negative except as documented in HPI. Genitourinary symptoms: Negative except as documented in HPI. Musculoskeletal symptoms: Negative except as documented in HPI. Neurologic symptoms: Negative except as documented in HPI. Psychiatric symptoms: Negative except as documented in HPI. Endocrine symptoms: Negative except as documented in HPI. PFSH ED 2 PFSH: Medical History Pernicious anemia Benign essential HTN Combined hyperlipidemia Intervertebral disc disorder with radiculopathy of lumbosacral region Cancer of prostate Surgical History History of heart artery stent Hx of heart surgery Family History Father Lung disease Mother Chronic kidney disease (CKD) Hypertension Social History Smoking and tobacco/nicotine status: former use of tobacco/nicotine Alcohol intake: never Substance/Drug Use: never Household members: spouse Marital status: Current occupational status: retired Physical Exam 2 Narrative: EXAM NARRATIVE: General: Alert, no acute distress. Skin: Warm, dry. Head: Normocephalic, atraumatic. Neck: Supple, trachea midline. Eye: Extraocular movements are intact. Ears, nose, mouth and throat: Tacky oral mucosa Cardiovascular: Regular, Normal peripheral perfusion. Respiratory: Lungs are clear to auscultation, respirations are non-labored, breath sounds are equal, Symmetrical chest wall expansion. Gastrointestinal: Soft, Nontender, Non distended, Normal bowel sounds. Musculoskeletal: Normal ROM, no deformity. Neurological: Alert and oriented, No focal neurological deficit observed. Psychiatric: Cooperative, appropriate mood & affect. Course 2 Vital Signs: Vital signs: Vital Signs Temperature 98.3 F 09/03/23 11:26 Pulse Rate 99 09/03/23 11:26 Respiratory Rate 16 09/03/23 11:26 Blood Pressure 134/92 09/03/23 14:30 Pulse Oximetry 94 09/03/23 14:30 Oxygen Delivery Me thod Room Air 09/03/23 11:26 MDM - Weakness Medical Decision Making Medical decision making: Differential diagnosis for patient presenting with generalized weakness including but not limited to and based on the above HPI, review of systems and physical exam: Sepsis. Dehydration. Renal failure. Electrolyte abnormalities. Anemia. Congestive heart failure. Hypotension. Coronary syndrome. Hepatitis. Cirrhosis. Infections such as pneumonia, urinary tract infection, [place] illness, Cellulitis, Viral infections including influenza and Covid-19. Workup: labwork and lab/exam driven imaging ordered to evaluate, rule in and rule out above pathologies. EKG: Time 1246. Rate 81. Normal sinus rhythm, No ST-T changes, no ectopy, first-degree AV block. This was reviewed and interpreted by myself the ER physician at 12:50 PM Lab Review: Laboratory results were reviewed and interpreted by myself the emergency room physician. Patient has a white count of 10,000. Hemoglobin is normal at 14.9. His BUN and creatinine are 26 and 2.1 which is slightly above his baseline which appears to range from about 1.5-1.7. Urinalysis does not show any infection. Chest x-ray: No acute process. No infiltrate. No pneumothorax. No cardiomegaly. This was reviewed and interpreted by myself the ER physician. CT head: Diffuse volume loss and atrophy. No acute intracranial process. no intracranial hemorrhage, no evidence of infarct. no evidence of acute fracture.This was reviewed and interpreted by myself the ER physician. I reviewed the patient's medical record. Reexamination: Patient remained stable. He is had no increased work of breathing. No altered mental status. No focal motor deficits. I discussed the findings and encourage better hydration at home. Also he will probably have improvement with having air conditioning in this heat. Assessment and plan: Dehydration ?1 L normal saline bolus in the emergency room. - Discharged home - Discussed findings and plan with patient. Answered any questions. - All laboratory values were reviewed and interpreted personally by myself, the ER physician - All imaging was reviewed and interpreted personally by myself, the ER physician. - Evaluation and treatment of this problem were appropriate in the emergency setting Lab Data 09/03/23 13:20 09/03/23 13:20 Radiology Impressions Chest X-Ray 09/03/23 12:40 IMPRESSION: Slightly decreased atelectasis and/or pneumonitis in the left lung base. Head CT 09/03/23 12:40 IMPRESSION: 1. No acute intracranial hemorrhage or edema. 2. Moderate atrophy and small vessel ischemic disease. Small lacunar infarcts in the external capsules. 3. Moderate cerebellar atrophy. 4. No occipital lobe subacute or chronic infarct identified. Laboratory Results WBC 10.87 10^3/uL (3.29-11.43) 09/03/23 13:20 RBC 4.80 10^6/uL (3.85-5.65) 09/03/23 13:20 Hgb 14.90 g/dL (11.27-16.99) 09/03/23 13:20 Hct 44.9 % (37-53) 09/03/23 13:20 MCV 93.5 fl (82-101) 09/03/23 13:20 MCH 31.0 pg (27-33) 09/03/23 13:20 MCHC 33.2 g/dL (30-55) 09/03/23 13:20 RDW 13.9 % (12.1-15.1) 09/03/23 13:20 Plt Count 344 10^3/cmm (157-399) 09/03/23 13:20 MPV 9.6 fL (7.4-10.4) 09/03/23 13:20 Neut % (Auto) 75.6 % 09/03/23 13:20 Lymph % (Auto) 15.2 % 09/03/23 13:20 [place] % (Auto) 7.3 % 09/03/23 13:20 Eos % (Auto) 0.9 % 09/03/23 13:20 Baso % (Auto) 0.7 % 09/03/23 13:20 Neut # (Auto) 8.22 10^3/uL (1.8-7.7) H 09/03/23 13:20 Lymph # (Auto) 1.7 10^3/uL (0.8-4.8) 09/03/23 13:20 [place] # (Auto) 0.8 10^3/uL (0.2-0.9) 09/03/23 13:20 Eos # (Auto) 0.1 10^3/uL (0.0-0.8) 09/03/23 13:20 Baso # (Auto) 0.1 10^3/uL (0.0-0.1) 09/03/23 13:20 Nucleated RBC % (auto) 0 % 09/03/23 13:20 Nucleated RBCs # 0.0 /100WBC 09/03/23 13:20 Sodium 140 mmol/L (136-145) 09/03/23 13:20 Potassium 4.6 mmol/L (3.5-5.1) 09/03/23 13:20 Chloride 98 mmol/L (98-107) 09/03/23 13:20 Carbon Dioxide 28 mmol/L (22-29) 09/03/23 13:20 Anion Gap 18.6 (5-19) 09/03/23 13:20 BUN 26 mg/dL (8-23) H 09/03/23 13:20 Creatinine 2.1 mg/dL (0.7-1.2) H 09/03/23 13:20 GFR Calculation Not Reportable 09/03/23 13:20 Glucose 103 mg/dL (65-115) 09/03/23 13:20 Calculated Osmolality 295 mOsm/kg (285-295) 09/03/23 13:20 Lactic Acid 1.9 mmol/L (0.5-2.2) 09/03/23 13:20 Calcium 9.6 mg/dL (8.5-10.5) 09/03/23 13:20 Total Bilirubin 0.4 mg/dL (0.15-1.2) 09/03/23 13:20 AST 19 U/L (0-40) 09/03/23 13:20 ALT 16 U/L (0-41) 09/03/23 13:20 Alkaline Phosphatase 133 U/L (40-130) H 09/03/23 13:20 Troponin T Baseline 30 ng/L (0-15) H 09/03/23 13:20 C-Reactive Protein 10.8 mg/L (0.0-4.9) H 09/03/23 13:20 Total Protein 8.0 g/dL (6.6-8.7) 09/03/23 13:20 Albumin 4.6 g/dL (3.5-5.2) 09/03/23 13:20 Globulin 3.4 g/dL (1.3-4.6) 09/03/23 13:20 Urine Color Yellow (Yellow) 09/03/23 13:34 Urine Appearance Clear (CLEAR) 09/03/23 13:34 Urine pH 7 (5-7) 09/03/23 13:34 Ur Specific [place] 1.005 (1.005-1.030) 09/03/23 13:34 Urine Protein Neg (Negative) 09/03/23 13:34 Urine Glucose (UA) Norm (Normal) 09/03/23 13:34 Urine Ketones Negative (Negative) 09/03/23 13:34 Urine Blood Neg (Negative) 09/03/23 13:34 Urine Nitrate Negative (Negative) 09/03/23 13:34 Urine Bilirubin Neg (Negative) 09/03/23 13:34 Urine Urobilinogen Neg mg/dL (Negative) 09/03/23 13:34 Ur Leukocyte Esterase Negative (Negative) 09/03/23 13:34 Urine RBC None /hpf (0-2) 09/03/23 13:34 Urine WBC Rare /hpf (0-5) 09/03/23 13:34 Ur Squamous Epith Cells Rare /hpf (0-5) 06/17/24 13:34 Amorphous Sediment Not Reportable 09/03/23 13:34 Urine Bacteria None /hpf (NONE) 09/03/23 13:34 All radiology interpretation(s) finalized by discharge Discharge Plan Discharge Patient Disposition: Home Clinical Impression: Dehydration Condition: Stable Prescriptions: No Action (DME) TLSO Brace See Rx Instructions .Route .MEDSUPPLY Qty: 1 0RF Rx Instructions: As directed temazepam 30 mg capsule 30 mg PO QPM lactulose 10 gram/15 mL solution 30 ml PO BID PRN (Reason: Constipation) Linzess 290 mcg capsule 290 mcg PO DAILY (DME) Shoulder Sling See Rx Instructions .Route .MEDSUPPLY Qty: 1 0RF Rx Instructions: As directed melatonin 10 mg Tablet 10 mg PO QPM tramadol 50 mg tablet 50 mg PO BID bumetanide 1 mg tablet 1 mg PO DAILY PRN (Reason: Edema) pantoprazole 40 mg tablet,delayed release (DR/EC) 40 mg PO QAM aspirin 81 mg Tablet,Delayed Release (Dr/Ec) 81 mg PO DAILY Qty: 30 0RF clopidogrel 75 mg Tablet 75 mg PO DAILY Qty: 30 0RF cetirizine 10 mg Tablet 10 mg PO BID ezetimibe 10 mg tablet 10 mg PO DAILY mometasone 0.1 % solution 1 applic TOPICAL DAILY PRN (Reason: Skin Irritation) Discharge Orders: Discharge ED (Routine); Ordered 09/03/23 Ordered By: Yumiko Gonzalez Referrals: Joseline Madison FNP [Primary Care Provider] - 4-7 days Discharge Diet: Usual diet Discharge Activity: Increase activity as tolerated Patient Instructions: Dehydration (ED) Activity Restrictions/Additional Instructions: Thank you for choosing [facility] for your healthcare needs today. Please realize this is an emergency room and that we are providing you with a medical screening exam and this may not be complete and all inclusive of all the testing and or work up that you may need to determine your ailment or severity of your illness. You have been screened and evaluated and felt safe for discharge. Health conditions do change or evolve sometimes and as such it is important that you follow up with your Primary Doctor to be re checked, 3-5 days is a general good time frame for follow up. You are always welcome to return to the ED for re assessment if your symptoms are worsening or you have new concerns Coding Level of Care Code ED Rating Specialist for Jennifer Lopez
[2023-09-03 13:39] LABS: Basophils # 0.1 10^3/uL (0.0-0.1); Basophils % 0.7 %; Eosinophils # 0.1 10^3/uL (0.0-0.8); Eosinophils % 0.9 %; Hematocrit 44.9 % (37-53); Lymphocytes # 1.7 10^3/uL (0.8-4.8); Lymphocytes % 15.2 %; Mean Corpuscular HGB Conc 33.2 g/dL (30-55); Mean Corpuscular Volume 93.5 fl (82-101); Mean Platelet Volume 9.6 fL (7.4-10.4); Monocytes # 0.8 10^3/uL (0.2-0.9); Monocytes % 7.3 %; Neutrophils # 8.22 10^3/uL (1.8-7.7); Neutrophils % 75.6 %; Nucleated Red Blood Cells % 0 %; Platelet Count 344 10^3/cmm (157-399); Red Cell Distribution Width 13.9 % (12.1-15.1); White Blood Count 10.87 10^3/uL (3.29-11.43)
[2023-09-03 13:59] LABS: Alanine Aminotransferase 16 U/L (0-41); Albumin Level 4.6 g/dL (3.5-5.2); Alkaline Phosphatase 133 U/L (40-130); Anion Gap 18.6 (5-19); Aspartate Amino Transferase 19 U/L (0-40); Blood Urea Nitrogen 26 mg/dL (8-23); C Reactive Protein 10.8 mg/L (0.0-4.9); Calcium 9.6 mg/dL (8.5-10.5); Carbon Dioxide 28 mmol/L (22-29); Chloride 98 mmol/L (98-107); Creatinine Clr Calc Pharmacy 29.3611; Globulin 3.4 g/dL (1.3-4.6); Glucose 103 mg/dL (65-115); Osmolality Calculated 295 mOsm/kg (285-295); Potassium 4.6 mmol/L (3.5-5.1); Sodium 140 mmol/L (136-145); Total Bilirubin 0.4 mg/dL (0.15-1.2)
[2023-09-03 14:00] LABS: Lactic Sepsis W/Reflex 1.9 mmol/L (0.5-2.2)
[2023-09-03 14:10] LABS: Bilirubin Urine Neg (Negative); Blood Urine Neg (Negative); Glucose Urine UA Norm (Normal); Ketones Urine Negative (Negative); Leukocyte Esterase Urine Negative (Negative); Nitrate Urine Negative (Negative); Protein Urine Neg (Negative); Specific Gravity, Urine 1.005 (1.005-1.030); Urine Appearance Clear (CLEAR); Urine Color Yellow (Yellow); Urobilinogen Urine Neg (Negative); pH Urine 7 (5-7)
[2023-09-03 14:12] LABS: Squamous Epithelial Cell Urine RARE /hpf (0-5); WBC Urine RARE /hpf (0-5)
[2023-09-03 14:13] LABS: Add Urine Culture? No
[2023-09-03 14:16] LABS: Troponin(5th) Baseline 30 ng/L (0-15)
[2023-09-03] MEDS: sodium chloride 0.9% 1,000 ML 999 ML IV (15:12)
[2023-09-03 15:43] LABS: Troponin 5 2HR 27.27 ng/L (0-15)
[2023-09-03 15:44] LABS: Troponin 5 2HR Delta -2.73 ABS# (0-10)
== END 2023-09-03 15:59 | disposition home or self-care (01) ==
PROVIDERS: Emergency Provider Emergency Medicine; PCP Nurse Practitioner
DX: E86.0 Dehydration (principal); Z79.02 Long term (current) use of antithrombotics/antiplatelets; Z79.82 Long term (current) use of aspirin; I44.0 Atrioventricular block, first degree; I10 Essential (primary) hypertension; E78.2 Mixed hyperlipidemia; Z85.46 Personal history of malignant neoplasm of prostate; Z87.891 Personal history of nicotine dependence
CPT/HCPCS: 70450; 71045; 80053; 81001; 83605; 84484; 85025; 86140; 87040; 93005; 99285; J7030

== ENCOUNTER 2023-09-05 15:40 | Emergency (ER) | payer MEDICARE, MEDICAID, SELFPAY ==
[2023-09-05] VITALS (8 sets, daily range): BP systolic 135–175; BP diastolic 78–96; PULSE 71–90; RESP 13–24; TEMP 36.9; O2SAT 93–100
--- NOTE | 2023-09-05 15:51 | ECG_ITS ---
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 Measurements Intervals [place] Rate: 95 P: 51 GA: 215 QRS: -46 QRSD: 148 T: 112 QT: 388 QTc: 488 Interpretive Statements SINUS RHYTHM WITH FIRST DEGREE AV BLOCK LEFT AXIS DEVIATION [QRS AXIS < -30] LEFT BUNDLE BRANCH BLOCK [120+ ms QRS DURATION, 80+ ms Q/S IN V1/V2, 85+ ms R IN I/aVL/V5/V6] Compared to ECG 09/03/2023 12:46:45 Left-axis deviation now present Left bundle-branch block now present Left anterior fascicular block no longer present T-wave abnormality no longer present Electronically Signed On 09-07-2023 13:34:00 CDT by Kwadwo Baldwin M.D. [id number]
--- NOTE | 2023-09-05 17:29 | XRR_ITS ---
PROCEDURE INFORMATION: Exam: XR Chest Exam date and time: 09/05/2023 5:34 PM Age: 78 years old Clinical indication: Dyspnea; Chest wall pain; Prior surgery; Surgery date: 6+ months; Surgery type: Stent; Additional info: Cp, SOB and dizzy TECHNIQUE: Imaging protocol: Radiologic exam of the chest. Views: 1 view. COMPARISON: CR XR chest 1V portable [id number] 09/03/2023 12:48 PM FINDINGS: Lungs: Unremarkable. No consolidation. Pleural spaces: Unremarkable. No pleural effusion. No pneumothorax. Heart/Mediastinum: Unremarkable. No cardiomegaly. Bones/joints: Unremarkable. XR/XR chest 1V portable [id number] IMPRESSION: No acute findings.
--- NOTE | 2023-09-05 17:29 | ECG_ITS ---
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 Measurements Intervals [place] Rate: 71 P: 58 FL: 210 QRS: -48 QRSD: 155 T: 88 QT: 454 QTc: 496 Interpretive Statements SINUS RHYTHM WITH FIRST DEGREE AV BLOCK Left bundle branch block INTERPRETATION BASED ON A DEFAULT AGE OF 40 YEARS Compared to ECG 09/05/2023 15:51:29 No change Electronically Signed On 09-07-2023 13:35:01 CDT by Kwadwo Baldwin M.D. [id number]
--- NOTE | 2023-09-05 17:33 | CTR_ITS ---
PROCEDURE INFORMATION: Exam: CTA Chest With Contrast Exam date and time: 09/05/2023 6:26 PM Age: 78 years old Clinical indication: Dyspnea; Prior surgery; Surgery date: 6+ months; Surgery type: Heart stent; Patient HX: Chest pain, SOB , bloating TECHNIQUE: Imaging protocol: Computed tomographic angiography of the chest with contrast. Exam focused on the arteries. 3D rendering (Not supervised by radiologist): MIP and/or 3D reconstructed images were created by the technologist. Radiation optimization: All CT scans at this facility use at least one of these dose optimization techniques: automated exposure control; mA and/or kV adjustment per patient size (includes targeted exams where dose is matched to clinical indication); or iterative reconstruction. Contrast material: OMNI 350; Contrast volume: 100 ml; Contrast route: INTRAVENOUS (IV); COMPARISON: CR (CHEST, ) 09/05/2023 5:34 PM RADIATION DOSE METRICS: Total DLP (mGy-cm): 394 FINDINGS: Pulmonary arteries: No pulmonary emboli. Aorta: Unremarkable. No aortic aneurysm. No aortic dissection. Lungs: No focal consolidations. Pleural spaces: Unremarkable. No pneumothorax. No pleural effusion. Heart: Unremarkable. No cardiomegaly. No pericardial effusion. Coronary arteries: Coronary arterial atherosclerotic calcifications are present. Lymph nodes: Unremarkable. No enlarged lymph nodes. Bones/joints: Unremarkable. No acute fracture. Soft tissues: Unremarkable. PROCEDURE INFORMATION: Exam: CT Abdomen And Pelvis With Contrast Exam date and time: 09/05/2023 6:26 PM Age: 78 years old Clinical indication: Dyspnea; Prior surgery; Surgery date: 6+ months; Surgery type: Heart stent; Patient HX: Chest pain, SOB , bloating TECHNIQUE: Imaging protocol: Computed tomography of the abdomen and pelvis with contrast. Radiation optimization: All CT scans at this facility use at least one of these dose optimization techniques: automated exposure control; mA and/or kV adjustment per patient size (includes targeted exams where dose is matched to clinical indication); or iterative reconstruction. Contrast material: OMNI 350; Contrast volume: 100 ml; Contrast route: INTRAVENOUS (IV); COMPARISON: CT abdomen pelvis w con* [id number] 03/28/2023 12:44 PM RADIATION DOSE METRICS: Total DLP (mGy-cm): 691 FINDINGS: Liver: Numerous subcentimeter cystic structures in the left lobe liver. No enhancing lesions. Gallbladder and bile ducts: Normal. No calcified stones. No ductal dilation. Pancreas: Normal. No ductal dilation. Spleen: Normal. No splenomegaly. Adrenal glands: Normal. No mass. Kidneys and ureters: See Bones/joints finding. Stomach and bowel: Unremarkable. No obstruction. No mucosal thickening. Appendix: No evidence of appendicitis. Intraperitoneal space: Unremarkable. No free air. No significant fluid collection. Vasculature: Severe atherosclerotic disease of the abdominal aorta and iliac arteries. Lymph nodes: Unremarkable. No enlarged lymph nodes. Urinary bladder: Unremarkable as visualized. Reproductive: Unremarkable as visualized. Bones/joints: There is an enlarging 1.2 cm, previously 0.8 cm, hypodense lesion along the posterior cortex of the left kidney measuring 40 Hounsfield units. This is not meet imaging criteria for a simple cyst and a three-phase renal CT or renal MRI may be of benefit to more fully characterize this finding. Prior kyphoplasty at L3. Soft tissues: Unremarkable. CT/CT angio chest w abd pel w con IMPRESSION: 1. No pulmonary emboli. 2. No focal consolidations. IMPRESSION: 1. No bowel obstruction or inflammatory process associated with the bowel. 2. No free air or significant free fluid in the abdomen or pelvis. 3. No evidence of appendicitis. 4. There is an enlarging 1.2 cm, previously 0.8 cm, hypodense lesion along the posterior cortex of the left kidney measuring 40 Hounsfield units. This is not meet imaging criteria for a simple cyst and a three-phase renal CT or renal MRI may be of benefit to more fully characterize this finding.
--- NOTE | 2023-09-05 17:34 | W.ED.SOB ---
HPI - SOB/Dyspnea General: Chief Complaint: Shortness of Breath/Dyspnea Stated Complaint: SOB, Dizzy Time Seen by Provider: 09/05/23 17:27 Source: patient Mode of arrival: ambulatory Limitations: no limitations History of Present Illness: HPI Narrative: 78-year-old male states that he has been having some dyspnea throughout the day today with some slight chest pains he states also had increased burping and abdominal discomfort over the last day. He states he had dizziness for over a month he has been seen twice for that and admitted with normal workups he states he did take a nitro earlier and his symptoms have improved denies any severe pain currently Associated symptoms: Reports abdominal pain, chest pain and dizziness; Deny fever(s), nausea or vomiting Review of Systems Const: Denies: fever(s), chills, body aches or change in appetite ENMT: Denies: throat pain or dental pain Card: Reports: chest pain Resp: Reports: dyspnea GI: Reports: abdominal pain; Denies: nausea, vomiting or diarrhea : Denies: dysuria Musc: Denies: neck pain or back pain Skin/Breast: Denies: rash Neuro: Reports: dizziness; Denies: headache(s) PFSH ED PFSH: Medical History Pernicious anemia Benign essential HTN Combined hyperlipidemia Intervertebral disc disorder with radiculopathy of lumbosacral region Cancer of prostate Surgical History History of heart artery stent Hx of heart surgery Family History Father Lung disease Mother Chronic kidney disease (CKD) Hypertension Social History Smoking and tobacco/nicotine status: former use of tobacco/nicotine Alcohol intake: never Substance/Drug Use: never Household members: spouse Marital status: Current occupational status: retired Physical Exam Const: COMMON NORMALS: no acute distress, patient oriented x3 and healthy appearing HENMT: COMMON NORMALS: normocephalic and atraumatic HEAD & SCALP: normocephalic and atraumatic Eye: COMMON NORMALS: Equal, round and reactive pupils present and EOMs intact bilaterally PUPIL: Yes Equal, round and reactive pupils present Neck/C-Spine: COMMON NORMALS: full ROM and supple Chest: COMMONS NORMALS: normal inspection of the chest and normal palpation of entire chest wall Resp: COMMON NORMALS: normal respiratory effort, No retractions, No use of accessory muscles and clear to auscultation bilaterally AUSCULTATION: clear to auscultation bilaterally Cardio: COMMON NORMALS: regular rate, regular rhythm and No murmurs present (Cardio) RATE: regular rate RHYTHM: regular rhythm GI: COMMON NORMALS: Normal to inspection, nondistended, normoactive bowel sounds present, Soft to palpation, non-tender and no masses PALPATION: Yes Soft to palpation Extremity: COMMON NORMALS: normal to inspection and full ROM Neuro: COMMON NORMALS: patient oriented x3, moves all extremities and no focal motor deficits Psych: COMMON NORMALS: mental status grossly normal, Normal thought process present and cooperative THOUGHT PROCESS: Normal thought process present Skin: COMMON NORMALS: no rashes or lesions noted and no wounds GENERAL SKIN EXAM: no rashes or lesions noted Course Vital Signs: Vital signs: Vital Signs Temperature 98.4 F 09/05/23 15:48 Pulse Rate 74 09/05/23 20:30 Respiratory Rate 13 09/05/23 20:30 Blood Pressure 175/93 09/05/23 20:30 Pulse Oximetry 97 09/05/23 20:30 Oxygen Delivery Me thod Room Air 09/05/23 20:30 MDM - SOB/Dyspnea Medical Decision Making Patient presented with lightheadedness chest pain dyspnea and abdominal pain his workup here is normal troponins imaging is all normal no signs of any acute process he is stable for discharge follow-up with PCP return if worsening. Medical Records I reviewed the patient's medical records. Lab Data I reviewed the patient's lab results. 09/05/23 17:39 09/05/23 17:39 Labs/Radiology: Radiology Impressions Chest X-Ray 09/05/23 17:29 IMPRESSION: No acute findings. Chest/Abdomen/Pelvis CT 09/05/23 17:33 IMPRESSION: 1. No pulmonary emboli. 2. No focal consolidations. IMPRESSION: 1. No bowel obstruction or inflammatory process associated with the bowel. 2. No free air or significant free fluid in the abdomen or pelvis. 3. No evidence of appendicitis. 4. There is an enlarging 1.2 cm, previously 0.8 cm, hypodense lesion along the posterior cortex of the left kidney measuring 40 Hounsfield units. This is not meet imaging criteria for a simple cyst and a three-phase renal CT or renal MRI may be of benefit to more fully characterize this finding. Laboratory Results WBC 11.52 10^3/uL (3.29-11.43) H 09/05/23 17:39 RBC 4.45 10^6/uL (3.85-5.65) 09/05/23 17:39 Hgb 14.30 g/dL (11.27-16.99) 09/05/23 17:39 Hct 41.6 % (37-53) 09/05/23 17:39 MCV 93.5 fl (82-101) 09/05/23 17:39 MCH 32.1 pg (27-33) 09/05/23 17:39 MCHC 34.4 g/dL (30-55) 09/05/23 17:39 RDW 13.8 % (12.1-15.1) 09/05/23 17:39 Plt Count 317 10^3/cmm (157-399) 09/05/23 17:39 MPV 9.5 fL (7.4-10.4) 09/05/23 17:39 Neut % (Auto) 72.9 % 09/05/23 17:39 Lymph % (Auto) 17.4 % 09/05/23 17:39 [place] % (Auto) 7.6 % 09/05/23 17:39 Eos % (Auto) 1.0 % 09/05/23 17:39 Baso % (Auto) 0.8 % 09/05/23 17:39 Neut # (Auto) 8.40 10^3/uL (1.8-7.7) H 09/05/23 17:39 Lymph # (Auto) 2.0 10^3/uL (0.8-4.8) 09/05/23 17:39 [place] # (Auto) 0.9 10^3/uL (0.2-0.9) 09/05/23 17:39 Eos # (Auto) 0.1 10^3/uL (0.0-0.8) 09/05/23 17:39 Baso # (Auto) 0.1 10^3/uL (0.0-0.1) 09/05/23 17:39 Nucleated RBC % (auto) 0 % 09/05/23 17:39 Nucleated RBCs # 0.0 /100WBC 09/05/23 17:39 Sodium 142 mmol/L (136-145) 09/05/23 17:39 Potassium 3.4 mmol/L (3.5-5.1) L 09/05/23 17:39 Chloride 100 mmol/L (98-107) 09/05/23 17:39 Carbon Dioxide 27 mmol/L (22-29) 09/05/23 17:39 Anion Gap 18.4 (5-19) 09/05/23 17:39 BUN 18 mg/dL (8-23) 09/05/23 17:39 Creatinine 1.9 mg/dL (0.7-1.2) H 09/05/23 17:39 GFR Calculation Not Reportable 09/05/23 17:39 Glucose 117 mg/dL (65-115) H 09/05/23 17:39 Calculated Osmolality 297 mOsm/kg (285-295) H 09/05/23 17:39 Calcium 9.3 mg/dL (8.5-10.5) 09/05/23 17:39 Total Bilirubin 0.4 mg/dL (0.15-1.2) 09/05/23 17:39 AST 16 U/L (0-40) 09/05/23 17:39 ALT 15 U/L (0-41) 09/05/23 17:39 Alkaline Phosphatase 112 U/L (40-130) 09/05/23 17:39 Troponin T Baseline 22 ng/L (0-15) H 09/05/23 17:39 Troponin T 120 Minute 22.06 ng/L (0-15) H 09/05/23 19:28 Delta Troponin T 0.06 ABS# (0-10) 09/05/23 19:28 Total Protein 8.0 g/dL (6.6-8.7) 09/05/23 17:39 Albumin 4.2 g/dL (3.5-5.2) 09/05/23 17:39 Globulin 3.8 g/dL (1.3-4.6) 09/05/23 17:39 Lipase 28 U/L (13-60) 09/05/23 17:39 All radiology interpretation(s) finalized by discharge Discharge Plan Discharge Patient Disposition: Home Clinical Impression: Dyspnea, Abdominal pain Condition: Stable Prescriptions: No Action (DME) TLSO Brace See Rx Instructions .Route .MEDSUPPLY Qty: 1 0RF Rx Instructions: As directed temazepam 30 mg capsule 30 mg PO QPM lactulose 10 gram/15 mL solution 30 ml PO BID PRN (Reason: Constipation) Linzess 290 mcg capsule 290 mcg PO DAILY (DME) Shoulder Sling See Rx Instructions .Route .MEDSUPPLY Qty: 1 0RF Rx Instructions: As directed melatonin 10 mg Tablet 10 mg PO QPM tramadol 50 mg tablet 50 mg PO BID bumetanide 1 mg tablet 1 mg PO DAILY PRN (Reason: Edema) pantoprazole 40 mg tablet,delayed release (DR/EC) 40 mg PO QAM aspirin 81 mg Tablet,Delayed Release (Dr/Ec) 81 mg PO DAILY Qty: 30 0RF clopidogrel 75 mg Tablet 75 mg PO DAILY Qty: 30 0RF cetirizine 10 mg Tablet 10 mg PO BID ezetimibe 10 mg tablet 10 mg PO DAILY mometasone 0.1 % solution 1 applic TOPICAL DAILY PRN (Reason: Skin Irritation) Discharge Orders: Discharge ED (Routine); Ordered 09/05/23 Ordered By: Vazquez Cedeno Referrals: Joseline Madison FNP [Primary Care Provider] - 4-7 days Discharge Diet: Advance as tolerated Discharge Activity: Resume usual activity Patient Instructions: Abdominal Pain (ED), Dyspnea (ED) Coding Level of Care Code ED Power Transformer Repair Supervisor for Jennifer Lopez
[2023-09-05 18:03] LABS: Basophils # 0.1 10^3/uL (0.0-0.1); Basophils % 0.8 %; Eosinophils # 0.1 10^3/uL (0.0-0.8); Hematocrit 41.6 % (37-53); Lymphocytes % 17.4 %; Mean Corpuscular HGB Conc 34.4 g/dL (30-55); Mean Corpuscular Hemoglobin 32.1 pg (27-33); Mean Corpuscular Volume 93.5 fl (82-101); Mean Platelet Volume 9.5 fL (7.4-10.4); Monocytes # 0.9 10^3/uL (0.2-0.9); Monocytes % 7.6 %; Neutrophils % 72.9 %; Nucleated Red Blood Cells % 0 %; Platelet Count 317 10^3/cmm (157-399); Red Blood Count 4.45 10^6/uL (3.85-5.65); Red Cell Distribution Width 13.8 % (12.1-15.1); Troponin(5th) Baseline 22 ng/L (0-15); White Blood Count 11.52 10^3/uL (3.29-11.43)
[2023-09-05 18:05] LABS: Alanine Aminotransferase 15 U/L (0-41); Albumin Level 4.2 g/dL (3.5-5.2); Alkaline Phosphatase 112 U/L (40-130); Anion Gap 18.4 (5-19); Aspartate Amino Transferase 16 U/L (0-40); Blood Urea Nitrogen 18 mg/dL (8-23); Calcium 9.3 mg/dL (8.5-10.5); Carbon Dioxide 27 mmol/L (22-29); Chloride 100 mmol/L (98-107); Creatinine Clr Calc Pharmacy 32.4518; Globulin 3.8 g/dL (1.3-4.6); Glucose 117 mg/dL (65-115); Lipase 28 U/L (13-60); Osmolality Calculated 297 mOsm/kg (285-295); Potassium 3.4 mmol/L (3.5-5.1); Sodium 142 mmol/L (136-145); Total Bilirubin 0.4 mg/dL (0.15-1.2)
[2023-09-05] MEDS: iohexol 350 mg/mL 500 mL Btl (per mL) IV (18:31)
[2023-09-05] MEDS: sodium chloride 0.9% 1,000 ML 999 ML IV (19:19)
[2023-09-05 20:00] LABS: Troponin 5 2HR 22.06 ng/L (0-15); Troponin 5 2HR Delta 0.06 ABS# (0-10)
--- NOTE | 2023-09-05 20:13 | PC.NURSE ---
WARM BLANKET PROVIDED TO FAMILY PER REQUEST, PT AND FAMILY DENIED FURTHER NEEDS, CALL LIGHT WITHIN REACH.
== END 2023-09-05 20:38 | disposition home or self-care (01) ==
PROVIDERS: Emergency Provider Emergency Medicine; PCP Nurse Practitioner
DX: R06.00 Dyspnea, unspecified (principal); R10.9 Unspecified abdominal pain; I10 Essential (primary) hypertension; E78.2 Mixed hyperlipidemia; Z85.46 Personal history of malignant neoplasm of prostate; Z87.891 Personal history of nicotine dependence; Z79.02 Long term (current) use of antithrombotics/antiplatelets; Z79.82 Long term (current) use of aspirin
CPT/HCPCS: 36415; 71045; 71275; 74177; 80053; 83690; 84484; 85025; 93005; 99285; J7030; Q9967

== ENCOUNTER 2023-11-11 12:16 | Emergency (ER) | payer MEDICARE, MEDICAID, SELFPAY ==
[2023-11-11 12:23] VITALS: BP 175/95; PULSE 58; RESP 24; TEMP 36.4; O2SAT 96; BMI 23.6
--- NOTE | 2023-11-11 12:29 | ECG_ITS ---
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 Measurements Intervals [place] Rate: 69 P: 52 IA: 223 QRS: -55 QRSD: 151 T: 99 QT: 450 QTc: 483 Interpretive Statements SINUS RHYTHM WITH FIRST DEGREE AV BLOCK LEFT AXIS DEVIATION [QRS AXIS < -30] LEFT BUNDLE BRANCH BLOCK [120+ ms QRS DURATION, 80+ ms Q/S IN V1/V2, 85+ ms R IN I/aVL/V5/V6] Compared to ECG 09/05/2023 17:43:19 Left-axis deviation now present Electronically Signed On 11-11-2023 20:34:27 CDT by Holly Lora M.D. [id number]
--- NOTE | 2023-11-11 12:37 | XRR_ITS ---
PROCEDURE INFORMATION: Exam: XR Chest Exam date and time: 11/11/2023 12:48 PM Age: 78 years old Clinical indication: Shortness of breath; Prior surgery; Surgery date: 6+ months; Surgery type: Cardiac stent; Patient HX: SOB TECHNIQUE: Imaging protocol: Radiologic exam of the chest. Views: 1 view. COMPARISON: CT angio chest w abd pel w con 09/05/2023 6:26 PM FINDINGS: Lungs: Small focal stringy opacity in the left base could represent atelectasis or infiltrate. Pleural spaces: Unremarkable. No pleural effusion. No pneumothorax. Heart/Mediastinum: Unremarkable. No cardiomegaly. Bones/joints: Posttraumatic changes in the proximal left humerus are unchanged. No definite acute findings.. XR/XR chest 1V portable [id number] IMPRESSION: Small focal stringy opacity in the left base could represent atelectasis or infiltrate.
--- NOTE | 2023-11-11 12:39 | ED_ITS ---
HPI - SOB/Dyspnea 2 General: Chief Complaint: Shortness of Breath/Dyspnea Stated Complaint: SOB, left side chest pain Time Seen by Provider: 11/11/23 12:31 History of Present Illness: HPI Narrative: 78-year-old man with a history of tobacc o dependence in remission for 3 years, COPD, chronic hypoxemic respiratory failure on as needed oxygen at home, coronary artery disease status post stents, congestive heart failure and a history of a stroke who presents the emergency room with worsening shortness of breath for the last week. He says is much worse today. Some mild cough. He said some mild left chest pain. No lower extremity swelling. No abdominal pain. No nausea or vomiting. No fevers. Family says he seems more confused than usual. However he does not have any slurred speech or facial droop. Related Data Home Medications Medication Instructions Recorded Confirmed pantoprazole 40 mg tablet,delayed 40 mg PO QAM 07/22/21 09/03/23 release lactulose 10 gram/15 mL oral 30 ml PO BID PRN Constipation 03/23/23 09/03/23 solution linaclotide 290 mcg capsule 290 mcg PO DAILY 03/23/23 09/03/23 (Linzess) temazepam 30 mg capsule 30 mg PO QPM 03/23/23 09/03/23 bumetanide 1 mg tablet 1 mg PO DAILY PRN Edema 05/21/23 09/03/23 melatonin 10 mg tablet 10 mg PO QPM 05/21/23 09/03/23 tramadol 50 mg tablet 50 mg PO BID 05/21/23 09/03/23 cetirizine 10 mg tablet 10 mg PO BID 09/03/23 09/03/23 ezetimibe 10 mg tablet 10 mg PO DAILY 09/03/23 09/03/23 mometasone 0.1 % topical solution 1 applic topical DAILY PRN Skin 09/03/23 09/03/23 Irritation Previous Rx's Medication Instructions Recorded TLSO Brace #1 ea 02/16/22 Shoulder Sling #1 ea 05/25/23 aspirin 81 mg tablet,delayed 81 mg PO DAILY #30 tabs 07/31/23 release clopidogrel 75 mg tablet 75 mg PO DAILY #30 tabs 07/31/23 doxycycline hyclate 100 mg capsule 100 mg PO BID 7 days #14 caps 11/11/23 prednisone 20 mg tablet 60 mg (3 x 20 mg) PO DAILY #20 tabs 11/11/23 Allergies Allergy/AdvReac Type Severity Reaction Status Date / Time atorvastatin Allergy ALGY-Hives Verified 09/05/23 15:52 simvastatin Allergy Unknown Verified 09/05/23 15:52 Review of Systems 2 Narrative: Constitutional symptoms: Negative except as documented in HPI. Skin symptoms: Negative except as documented in HPI. Eye symptoms: Negative except as documented in HPI. ENMT symptoms: Negative except as documented in HPI. Respiratory symptoms: Negative except as documented in HPI. Cardiovascular symptoms: Negative except as documented in HPI. Gastrointestinal symptoms: Negative except as documented in HPI. Genitourinary symptoms: Negative except as documented in HPI. Musculoskeletal symptoms: Negative except as documented in HPI. Neurologic symptoms: Negative except as documented in HPI. Psychiatric symptoms: Negative except as documented in HPI. Endocrine symptoms: Negative except as documented in HPI. PFSH ED 2 PFSH: Medical History Pernicious anemia Benign essential HTN Combined hyperlipidemia Intervertebral disc disorder with radiculopathy of lumbosacral region Cancer of prostate Surgical History History of heart artery stent Hx of heart surgery Family History Father Lung disease Mother Chronic kidney disease (CKD) Hypertension Social History Smoking and tobacco/nicotine status: former use of tobacco/nicotine Alcohol intake: never Substance/Drug Use: never Household members: spouse Marital status: Current occupational status: retired Physical Exam 2 Narrative: EXAM NARRATIVE: General: Alert, no acute distress. Skin: Warm, dry. Head: Normocephalic, atraumatic. Neck: Supple, trachea midline. Eye: Extraocular movements are intact. Ears, nose, mouth and throat: Oral mucosa moist. Cardiovascular: Regular rate and rhythm, Normal peripheral perfusion. Respiratory: some expiratory wheeze, mild increased wob, breath sounds are equal, Symmetrical chest wall expansion. Gastrointestinal: Soft, Nontender, Non distended, Normal bowel sounds. Musculoskeletal: Normal ROM, no deformity. Neurological: Alert and oriented to person, place, time, and situation, No focal neurological deficit observed. Psychiatric: Cooperative, appropriate mood & affect. Course 2 Vital Signs: Vital signs: Vital Signs Temperature 97.6 F 11/11/23 12:23 Pulse Rate 76 11/11/23 14:06 Respiratory Rate 16 11/11/23 13:58 Blood Pressure 175/95 11/11/23 12:23 Pulse Oximetry 96 11/11/23 13:58 Oxygen Delivery Me thod Room Air 11/11/23 13:58 MDM - SOB/Dyspnea Medical Decision Making Differential diagnosis for patient with shortness of breath includes but is not limited to and based on the above HPI, review of systems and physical exam: Pneumonia. Bronchitis. Asthma or COPD with acute exacerbation. Acute coronary syndrome / NM. Pulmonary embolism. Anxiety. Congestive heart failure. Viral infections including influenza and Covid-19. Atrial fibrillation. Anxiety. Pleural effusion. Pneumothorax. Workup: Lab work, chest X-ray and EKG ordered to evaluate, rule in and rule out above pathologies EKG: Time 1229. Rate 69. Normal sinus rhythm, No ST-T changes, no ectopy, first-degree AV block, left bundle branch block, This was reviewed and interpreted by myself the ER physician at 1232 Lab Review: Laboratory results were reviewed and interpreted by myself the emergency room physician. Lab work is unremarkable. No leukocytosis. No anemia. AB.4 with an O2 sat of 91% on room air. Patient does have oxygen at home. Chest x-ray: Streaky opacity in the left base that could be an early pneumonia. No pneumothorax. This was reviewed and interpreted by myself the emergency room physician. I also reviewed the radiology report. I reviewed the patient's medical record. Reexamination: Patient remained stable. No increased work of breathing. No altered mental status. No focal motor deficits. Assessment and plan: Community-acquired bacterial pneumonia COPD with acute exacerbation ? IV Solu-Medrol, IV doxycycline and 2 updrafts in the emergency room. - Discharged home - Discussed findings and plan with patient. Answered any questions. - All laboratory values were reviewed and interpreted personally by myself, the ER physician - All imaging was reviewed and interpreted personally by myself, the ER physician. - Evaluation and treatment of this problem were appropriate in the emergency setting Lab Data 11/11/23 12:44 11/11/23 12:44 Labs/Radiology: Radiology Impressions Chest X-Ray 11/11/23 12:37 IMPRESSION: Small focal stringy opacity in the left base could represent atelectasis or infiltrate. Laboratory Results WBC 6.93 10^3/uL (3.29-11.43) 11/11/23 12:44 RBC 4.58 10^6/uL (3.85-5.65) 11/11/23 12:44 Hgb 14.20 g/dL (11.27-16.99) 11/11/23 12:44 Hct 42.6 % (37-53) 11/11/23 12:44 MCV 93.0 fl (82-101) 11/11/23 12:44 MCH 31.0 pg (27-33) 11/11/23 12:44 MCHC 33.3 g/dL (30-55) 11/11/23 12:44 RDW 14.0 % (12.1-15.1) 11/11/23 12:44 Plt Count 295 10^3/cmm (157-399) 11/11/23 12:44 MPV 9.6 fL (7.4-10.4) 11/11/23 12:44 Neut % (Auto) 72.2 % 11/11/23 12:44 Lymph % (Auto) 17.6 % 11/11/23 12:44 [place] % (Auto) 7.8 % 11/11/23 12:44 Eos % (Auto) 1.3 % 11/11/23 12:44 Baso % (Auto) 1.0 % 11/11/23 12:44 Neut # (Auto) 5.00 10^3/uL (1.8-7.7) 11/11/23 12:44 Lymph # (Auto) 1.2 10^3/uL (0.8-4.8) 11/11/23 12:44 [place] # (Auto) 0.5 10^3/uL (0.2-0.9) 11/11/23 12:44 Eos # (Auto) 0.1 10^3/uL (0.0-0.8) 11/11/23 12:44 Baso # (Auto) 0.1 10^3/uL (0.0-0.1) 11/11/23 12:44 Nucleated RBC % (auto) 0 % 11/11/23 12:44 Nucleated RBCs # 0.0 /100WBC 11/11/23 12:44 Specimen Type Arterial 11/11/23 12:46 Sample Site Brachial, right 11/11/23 12:46 ABG pH 7.46 (7.35-7.45) H 11/11/23 12:46 ABG pCO2 38.1 mmHg (35-45) 11/11/23 12:46 ABG pO2 56.8 mmHg (80.0-100.0) L 11/11/23 12:46 ABG PO2/FiO2 Ratio 270 11/11/23 12:46 ABG HCO3 26.7 mmol/L (22-26) H 11/11/23 12:46 ABG O2 Saturation 90.5 11/11/23 12:46 ABG Base Excess 2.8 mmol/L (-2.0-2.0) H 11/11/23 12:46 Sina Test N/a 11/11/23 12:46 A-a O2 Gradient 6.1 mmHg (5-10) 11/11/23 12:46 Hematocrit 43.3 % (42-52) 11/11/23 12:46 Hgb O2 Saturation 88.8 % (95-100) L 11/11/23 12:46 Carboxyhemoglobin 0.8 %THgb (0.4-20.1) 11/11/23 12:46 Methemoglobin 1.1 % (0.4-1.5) 11/11/23 12:46 Total Hemoglobin 14.1 g/dL (14-18) 11/11/23 12:46 Sodium 141.0 mmol/L (131-143) 11/11/23 12:46 Potassium 3.5 mmol/L (3.5-5.0) 11/11/23 12:46 Glucose 103.0 mg/dL (70-115) 11/11/23 12:46 Ionized Calcium 1.2 mmol/L (1.1-1.4) 11/11/23 12:46 O2 Delivery Device Room air 11/11/23 12:46 FiO2 21.0 % 11/11/23 12:46 Multiple Cut Off Saw Operator ID [id number] 11/11/23 12:46 Sodium 140 mmol/L (136-145) 11/11/23 12:44 Potassium 4.1 mmol/L (3.5-5.1) 11/11/23 12:44 Chloride 100 mmol/L (98-107) 11/11/23 12:44 Carbon Dioxide 23 mmol/L (22-29) 11/11/23 12:44 Anion Gap 21.1 (5-19) H 11/11/23 12:44 BUN 16 mg/dL (8-23) 11/11/23 12:44 Creatinine 1.9 mg/dL (0.7-1.2) H 11/11/23 12:44 GFR Calculation Not Reportable 11/11/23 12:44 Glucose 109 mg/dL (65-115) 11/11/23 12:44 Calculated Osmolality 292 mOsm/kg (285-295) 11/11/23 12:44 Lactic Acid 2.1 mmol/L (0.5-2.2) 11/11/23 12:44 Calcium 9.0 mg/dL (8.5-10.5) 11/11/23 12:44 Total Bilirubin 0.7 mg/dL (0.15-1.2) 11/11/23 12:44 AST 22 U/L (0-40) 11/11/23 12:44 ALT 16 U/L (0-41) 11/11/23 12:44 Alkaline Phosphatase 114 U/L (40-130) 11/11/23 12:44 Troponin T Baseline 22 ng/L (0-15) H 11/11/23 12:44 C-Reactive Protein 4.7 mg/L (0.0-4.9) 11/11/23 12:44 NT-Pro-B Natriuret Pep 410 pg/mL (0-450) 11/11/23 12:44 Total Protein 7.4 g/dL (6.6-8.7) 11/11/23 12:44 Albumin 4.3 g/dL (3.5-5.2) 11/11/23 12:44 Globulin 3.1 g/dL (1.3-4.6) 11/11/23 12:44 SARS-CoV-2 Ag (Rapid) Negative (Negative) 11/11/23 13:13 All radiology interpretation(s) finalized by discharge Discharge Plan Discharge Patient Disposition: Home Clinical Impression: Acute exacerbation of chronic obstructive airways disease, Community acquired pneumonia Condition: Stable Prescriptions: New doxycycline hyclate 100 mg capsule 100 mg PO BID 7 Days Qty: 14 0RF prednisone 20 mg tablet 60 mg PO DAILY Qty: 20 0RF Rx Instructions: 3 tabs (60 mg) x 3 days. 2 tabs (40 mg) x 3 days. 1 tab (20 mg) x 3 days. 1/2 tab (10 mg) x 4 days No Action (DME) TLSO Brace See Rx Instructions .Route .MEDSUPPLY Qty: 1 0RF Rx Instructions: As directed temazepam 30 mg capsule 30 mg PO QPM lactulose 10 gram/15 mL solution 30 ml PO BID PRN (Reason: Constipation) Linzess 290 mcg capsule 290 mcg PO DAILY (DME) Shoulder Sling See Rx Instructions .Route .MEDSUPPLY Qty: 1 0RF Rx Instructions: As directed melatonin 10 mg Tablet 10 mg PO QPM tramadol 50 mg tablet 50 mg PO BID bumetanide 1 mg tablet 1 mg PO DAILY PRN (Reason: Edema) pantoprazole 40 mg tablet,delayed release (DR/EC) 40 mg PO QAM aspirin 81 mg Tablet,Delayed Release (Dr/Ec) 81 mg PO DAILY Qty: 30 0RF clopidogrel 75 mg Tablet 75 mg PO DAILY Qty: 30 0RF cetirizine 10 mg Tablet 10 mg PO BID ezetimibe 10 mg tablet 10 mg PO DAILY mometasone 0.1 % solution 1 applic TOPICAL DAILY PRN (Reason: Skin Irritation) Discharge Orders: Discharge ED (Routine); Ordered 11/11/23 Ordered By: Yumiko Gonzalez Referrals: Joseline Madison FNP [Primary Care Provider] - Discharge Diet: Usual diet Discharge Activity: Increase activity as tolerated Patient Instructions: Community Acquired Pneumonia (ED), Chronic Lung Disease and Infection Prevention (ED) Activity Restrictions/Additional Instructions: Thank you for choosing [facility] for your healthcare needs today. Please realize this is an emergency room and that we are providing you with a medical screening exam and this may not be complete and all inclusive of all the testing and or work up that you may need to determine your ailment or severity of your illness. You have been screened and evaluated and felt safe for discharge. Health conditions do change or evolve sometimes and as such it is important that you follow up with your Primary Doctor to be re checked, 3-5 days is a general good time frame for follow up. You are always welcome to return to the ED for re assessment if your symptoms are worsening or you have new concerns Coding Level of Care Code ED Health Benefits Specialist for Jennifer Lopez
[2023-11-11 12:53] LABS: Basophils # 0.1 10^3/uL (0.0-0.1); Eosinophils # 0.1 10^3/uL (0.0-0.8); Eosinophils % 1.3 %; Hematocrit 42.6 % (37-53); Lymphocytes # 1.2 10^3/uL (0.8-4.8); Lymphocytes % 17.6 %; Mean Corpuscular HGB Conc 33.3 g/dL (30-55); Mean Platelet Volume 9.6 fL (7.4-10.4); Monocytes # 0.5 10^3/uL (0.2-0.9); Monocytes % 7.8 %; Neutrophils % 72.2 %; Nucleated Red Blood Cells % 0 %; Platelet Count 295 10^3/cmm (157-399); Red Blood Count 4.58 10^6/uL (3.85-5.65); White Blood Count 6.93 10^3/uL (3.29-11.43)
[2023-11-11 12:58] LABS: ABG PCO2 38.1 mmHg (35-45); ABG PH Result 7.46 (7.35-7.45); Alveolar-Arterial Oxygen Gradi 6.1 mmHg (5-10); Arterial Blood Gas Hematocrit 43.3 % (42-52); Base Excess ABG 2.8 mmol/L (-2.0-2.0); Blood Gas Operator Identificat AMH; Blood Gas Sample Site Brachial, right; Blood Gas Sample Type Arterial; Carboxyhemoglobin 0.8 %THgb (0.4-20.1); HCO3 ABG 26.7 mmol/L (22-26); HGB O2 Sat 88.8 % (95-100); Ionized Calcium Level - ABG 1.2 mmol/L (1.1-1.4); Methemoglobin 1.1 % (0.4-1.5); Oxygen Device ROOM AIR; Oxygen Saturation ABG 90.5; PO2 ABG 56.8 mmHg (80.0-100.0); PO2 FiO2 Ratio Arterial Blood 270; Potassium Level - ABG 3.5 mmol/L (3.5-5.0); Total Hemoglobin 14.1 g/dL (14-18)
[2023-11-11 13:12] LABS: Troponin(5th) Baseline 22 ng/L (0-15)
[2023-11-11 13:16] LABS: Lactic Sepsis W/Reflex 2.1 mmol/L (0.5-2.2)
[2023-11-11 13:26] LABS: Alanine Aminotransferase 16 U/L (0-41); Albumin Level 4.3 g/dL (3.5-5.2); Alkaline Phosphatase 114 U/L (40-130); Anion Gap 21.1 (5-19); Aspartate Amino Transferase 22 U/L (0-40); Blood Urea Nitrogen 16 mg/dL (8-23); C Reactive Protein 4.7 mg/L (0.0-4.9); Carbon Dioxide 23 mmol/L (22-29); Chloride 100 mmol/L (98-107); Globulin 3.1 g/dL (1.3-4.6); Glucose 109 mg/dL (65-115); NT Pro B Type Natriuretic Pept 410 pg/mL (0-450); Osmolality Calculated 292 mOsm/kg (285-295); Potassium 4.1 mmol/L (3.5-5.1); Sodium 140 mmol/L (136-145); Total Bilirubin 0.7 mg/dL (0.15-1.2); Total Protein 7.4 g/dL (6.6-8.7)
[2023-11-11 13:27] LABS: Creatinine Clr Calc Pharmacy 31.3377
[2023-11-11 13:36] LABS: SARS Covid-2 Antigen Negative (Negative)
[2023-11-11] MEDS: ipratropium-albuterol 3 mL Neb INHALATION (13:57)
[2023-11-11] MEDS: albuterol 2.5 mg/3 mL Neb INHALATION (13:57)
[2023-11-11 13:58] VITALS: PULSE 66; RESP 16; O2SAT 96
[2023-11-11 14:06] VITALS: PULSE 76
[2023-11-11] MEDS: methylPREDNISolone sod succ 125 mg/2 mL INJ IVP (14:12)
[2023-11-11] MEDS: doxycycline 100 MG in sodium chloride 0.9% (plus) 100 ML IV (14:12)
[2023-11-11 14:38] LABS: Reflex Lactate Order REFLEX LACTIC ORDERD
--- NOTE | 2023-11-11 14:41 | ECG_ITS ---
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 Measurements Intervals [place] Rate: 91 P: 229 DE: 140 QRS: -54 QRSD: 157 T: 109 QT: 408 QTc: 504 Interpretive Statements SINUS RHYTHM LEFT AXIS DEVIATION [QRS AXIS < -30] LEFT BUNDLE BRANCH BLOCK [120+ ms QRS DURATION, 80+ ms Q/S IN V1/V2, 85+ ms R IN I/aVL/V5/V6] Compared to ECG 11/11/2023 12:29:11 First degree AV block no longer present Electronically Signed On 11-11-2023 20:39:49 CDT by Holly Lora M.D. [id number]
[2023-11-11 14:51] VITALS: BP 154/88; PULSE 96; RESP 16; O2SAT 94
[2023-11-11 15:02] VITALS: BP 154/88; PULSE 96; RESP 16; TEMP 36.4; O2SAT 94
== END 2023-11-11 15:01 | disposition home or self-care (01) ==
PROVIDERS: Emergency Provider Emergency Medicine; PCP Nurse Practitioner
DX: J44.0 Chronic obstructive pulmonary disease with (acute) lower respiratory infection (principal); J18.9 Pneumonia, unspecified organism; J44.1 Chronic obstructive pulmonary disease with (acute) exacerbation; Z79.02 Long term (current) use of antithrombotics/antiplatelets; Z79.82 Long term (current) use of aspirin; I44.7 Left bundle-branch block, unspecified; I44.0 Atrioventricular block, first degree; I10 Essential (primary) hypertension; E78.2 Mixed hyperlipidemia; Z85.46 Personal history of malignant neoplasm of prostate; Z87.891 Personal history of nicotine dependence
CPT/HCPCS: 36600; 71045; 80051; 80053; 82330; 82805; 83605; 83880; 84484; 85025; 86140; 87426; 93005; 94640; 96374; 96375; 99285; J2919; J3490; J7613

== ENCOUNTER 2023-11-17 15:33 | Emergency (ER) | payer MEDICARE, MEDICAID, SELFPAY ==
[2023-11-17 16:05] VITALS: BP 137/84; PULSE 84; RESP 18; TEMP 36.6; O2SAT 97
--- NOTE | 2023-11-17 17:43 | XRR_ITS ---
PROCEDURE INFORMATION: Exam: XR Chest Exam date and time: 11/17/2023 6:50 PM Age: 78 years old Clinical indication: Shortness of breath; Patient HX: SOB TECHNIQUE: Imaging protocol: Radiologic exam of the chest. Views: 1 view. COMPARISON: CR (CHEST, ) 11/11/2023 12:48 PM FINDINGS: Lungs: No focal consolidation. Left lower lobe calcified granuloma. Previously noted left basilar opacities have resolved. Pleural spaces: No sizable pleural effusion. No pneumothorax. Heart/Mediastinum: Unremarkable cardiomediastinal silhouette. Bones/joints: Stable fracture deformity of the right humeral neck. Soft tissues: Soft tissues are unremarkable as visualized. XR/XR chest 1V portable [id number] IMPRESSION: 1. Previously noted left basilar opacities are not visualized in the current examination. 2. No focal consolidation.
[2023-11-17 18:11] LABS: Basophils % 0.1 %; Eosinophils % 0.1 %; Hematocrit 44.4 % (37-53); Lymphocytes # 2.9 10^3/uL (0.8-4.8); Lymphocytes % 24.3 %; Mean Corpuscular Hemoglobin 30.9 pg (27-33); Mean Platelet Volume 9.7 fL (7.4-10.4); Monocytes # 1.1 10^3/uL (0.2-0.9); Monocytes % 9.3 %; Neutrophils # 7.68 10^3/uL (1.8-7.7); Neutrophils % 65.2 %; Nucleated Red Blood Cells % 0 %; Platelet Count 379 10^3/cmm (157-399); Red Blood Count 4.88 10^6/uL (3.85-5.65); Red Cell Distribution Width 14.4 % (12.1-15.1); White Blood Count 11.78 10^3/uL (3.29-11.43)
[2023-11-17 18:40] LABS: Alanine Aminotransferase 36 U/L (0-41); Albumin Level 4.3 g/dL (3.5-5.2); Alkaline Phosphatase 116 U/L (40-130); Anion Gap 21.4 (5-19); Aspartate Amino Transferase 25 U/L (0-40); Blood Urea Nitrogen 39 mg/dL (8-23); Calcium 9.3 mg/dL (8.5-10.5); Carbon Dioxide 27 mmol/L (22-29); Chloride 94 mmol/L (98-107); Globulin 3.3 g/dL (1.3-4.6); Glucose 107 mg/dL (65-115); NT Pro B Type Natriuretic Pept 1457 pg/mL (0-450); Osmolality Calculated 298 mOsm/kg (285-295); Potassium 3.4 mmol/L (3.5-5.1); Sodium 139 mmol/L (136-145); Total Bilirubin 0.7 mg/dL (0.15-1.2); Total Protein 7.6 g/dL (6.6-8.7)
[2023-11-17 19:12] VITALS: BP 147/81; PULSE 77; RESP 20; O2SAT 93
--- NOTE | 2023-11-17 19:14 | CTR_ITS ---
PROCEDURE INFORMATION: Exam: CT Chest With Contrast; Diagnostic Exam date and time: 11/17/2023 7:42 PM Age: 78 years old Clinical indication: Bloating; Abdominal pain; Generalized; Shortness of breath; Chest pressure; Prior surgery; Surgery date: 6+ months; Surgery type: Coronary stent; Patient HX: Chest and abd pain with SOB and distention. Cory. ; Additional info: Chest and abdominal pain, weakness, abd distension TECHNIQUE: Imaging protocol: Diagnostic computed tomography of the chest with contrast. Radiation optimization: All CT scans at this facility use at least one of these dose optimization techniques: automated exposure control; mA and/or kV adjustment per patient size (includes targeted exams where dose is matched to clinical indication); or iterative reconstruction. Contrast material: OMNI 350; Contrast volume: 80 ml; Contrast route: INTRAVENOUS (IV); COMPARISON: CT angio chest w abd pel w con 09/05/2023 6:26 PM RADIATION DOSE METRICS: Total DLP (mGy-cm): 1932.49 FINDINGS: Thyroid: The visualized thyroid gland is normal. Trachea: The central airways are patent. Lungs: Left lower lobe calcified granuloma. No focal consolidation. Mild biapical paraseptal emphysema. Pleural spaces: No significant pleural effusion. No pneumothorax. Heart: The heart is normal in size. No pericardial effusion. Coronary arteries: LAD stent. Lymph nodes: Nonspecific enlarged right hilar lymph node measuring 1.0 cm in short axis. Vasculature: The aorta demonstrates mild atherosclerotic calcification. The aorta is normal in caliber. No aneurysm. Bones/joints: The bones are diffusely demineralized. Subacute to chronic appearing fracture deformity of the right humeral neck. Suggestion of a small right glenohumeral effusion. The spine demonstrates moderate degenerative changes at multiple levels. Soft tissues: Soft tissues are unremarkable as visualized. PROCEDURE INFORMATION: Exam: CT Abdomen And Pelvis With Contrast Exam date and time: 11/17/2023 7:42 PM Age: 78 years old Clinical indication: Bloating; Abdominal pain; Generalized; Shortness of breath; Chest pressure; Prior surgery; Surgery date: 6+ months; Surgery type: Coronary stent; Patient HX: Chest and abd pain with SOB and distention. Cory. ; Additional info: Chest and abdominal pain, weakness, abd distension TECHNIQUE: Imaging protocol: Computed tomography of the abdomen and pelvis with contrast. Radiation optimization: All CT scans at this facility use at least one of these dose optimization techniques: automated exposure control; mA and/or kV adjustment per patient size (includes targeted exams where dose is matched to clinical indication); or iterative reconstruction. Contrast material: OMNI 350; Contrast volume: 80 ml; Contrast route: INTRAVENOUS (IV); COMPARISON: CT angio chest w abd pel w con 09/05/2023 6:26 PM RADIATION DOSE METRICS: Total DLP (mGy-cm): 1932.49 FINDINGS: Liver: Unchanged appearance of multiple clustered cystic lesions throughout the left hepatic lobe measuring up to 1.5 cm. Gallbladder and biliary ducts: The gallbladder is normal. No biliary dilation. Pancreas: The pancreas is unremarkable. Spleen: The spleen is unremarkable. Adrenal glands: The adrenal glands are normal. Kidneys and ureters: Bilateral kidneys are atrophic. Stable 1.3 cm indeterminate left upper pole renal cyst. Stomach and bowel: There is no bowel wall thickening. No bowel obstruction. Appendix: A normal appendix is identified. Intraperitoneal space: No significant peritoneal free fluid. No free peritoneal air. Vasculature: The vasculature demonstrates diffuse marked atherosclerotic calcification. No aneurysm. Lymph nodes: No enlarged lymph nodes by size criteria. Urinary bladder: There is diffuse bladder wall thickening. Reproductive: There has been a prostatectomy. Bones/joints: The bones are diffusely demineralized. Status post L3 vertebroplasty. The spine demonstrates moderate degenerative changes at multiple levels. Soft tissues: There is a small fat-containing ventral hernia. CT/CT chest abdpel w/*[id number] IMPRESSION: 1. No acute intrathoracic findings. 2. Nonspecific prominent right hilar lymph node, possibly reactive. 3. Subacute to chronic appearing fracture deformity of the right humeral neck with suggestion of a small glenohumeral effusion. IMPRESSION: 1. No acute intra-abdominal findings. 2. Unchanged appearance of multiple clustered cystic lesions throughout the left hepatic lobe. 3. Stable 1.3 cm indeterminate left upper pole renal cyst, which should be followed up with renal protocol CT or MRI, if not already obtained. 4. Diffuse bladder wall thickening, possibly sequela of prior radiation given stable appearance. This may also represent cystitis in the appropriate clinical setting.
[2023-11-17] MEDS: iohexol 350 mg/mL 500 mL Btl (per mL) IV (19:48)
--- NOTE | 2023-11-17 19:51 | W.ED.SOB ---
HPI - SOB/Dyspnea General: Chief Complaint: Shortness of Breath/Dyspnea Stated Complaint: SOB Time Seen by Provider: 11/17/23 19:01 History of Present Illness: HPI Narrative: 78-year-old male patient here with shortness of breath and generalized weakness. He was seen last week, diagnosed with a pneumonia, placed on antibiotics which she has been taking. He has had no fever. He has had shortness of breath with exertion. Generalized weakness. Minimal cough he says. No sputum production. Some swelling in his legs. There is abdominal distention and pain as well. They note he has had normal bowel movements. Related Data Home Medications Medication Instructions Recorded Confirmed pantoprazole 40 mg tablet,delayed 40 mg PO QAM 07/22/21 09/03/23 release lactulose 10 gram/15 mL oral 30 ml PO BID PRN Constipation 03/23/23 09/03/23 solution linaclotide 290 mcg capsule 290 mcg PO DAILY 03/23/23 09/03/23 (Linzess) temazepam 30 mg capsule 30 mg PO QPM 03/23/23 09/03/23 bumetanide 1 mg tablet 1 mg PO DAILY PRN Edema 05/21/23 09/03/23 melatonin 10 mg tablet 10 mg PO QPM 05/21/23 09/03/23 tramadol 50 mg tablet 50 mg PO BID 05/21/23 09/03/23 cetirizine 10 mg tablet 10 mg PO BID 09/03/23 09/03/23 ezetimibe 10 mg tablet 10 mg PO DAILY 09/03/23 09/03/23 mometasone 0.1 % topical solution 1 applic topical DAILY PRN Skin 09/03/23 09/03/23 Irritation Previous Rx's Medication Instructions Recorded TLSO Brace #1 ea 02/16/22 Shoulder Sling #1 ea 05/25/23 aspirin 81 mg tablet,delayed 81 mg PO DAILY #30 tabs 07/31/23 release clopidogrel 75 mg tablet 75 mg PO DAILY #30 tabs 07/31/23 doxycycline hyclate 100 mg capsule 100 mg PO BID 7 days #14 caps 11/11/23 prednisone 20 mg tablet 60 mg (3 x 20 mg) PO DAILY #20 tabs 11/11/23 Allergies Allergy/AdvReac Type Severity Reaction Status Date / Time atorvastatin Allergy ALGY-Hives Verified 09/05/23 15:52 simvastatin Allergy Unknown Verified 09/05/23 15:52 PFSH ED PFSH: Medical History Pernicious anemia Benign essential HTN Combined hyperlipidemia Intervertebral disc disorder with radiculopathy of lumbosacral region Cancer of prostate Surgical History History of heart artery stent Hx of heart surgery Family History Father Lung disease Mother Chronic kidney disease (CKD) Hypertension Social History Smoking and tobacco/nicotine status: former use of tobacco/nicotine Alcohol intake: never Substance/Drug Use: never Household members: spouse Marital status: Current occupational status: retired Physical Exam Const: COMMON NORMALS: alert GENERAL APPEARANCE: cooperative and frail appearing ORIENTATION/CONSCIOUSNESS: Yes awake HENMT: COMMON NORMALS: normocephalic HEAD & SCALP: normocephalic FACE & SINUS: normal facial exam Eye: COMMON NORMALS: Equal, round and reactive pupils present and EOMs intact bilaterally PUPIL: Yes Equal, round and reactive pupils present Neck/C-Spine: GENERAL: Yes trachea midline Resp: EFFORT & INSPECTION: Yes tachypneic AUSCULTATION: rhonchi left lower and diminished lung sounds Cardio: COMMON NORMALS: regular rate, regular rhythm and Peripheral pulses 2+ throughout RATE: regular rate RHYTHM: regular rhythm PERIPHERAL PULSES: Peripheral pulses 2+ throughout GI: INSPECTION: Yes abdominal distension PALPATION: Yes Tenderness to palpation present (GI) (Diffuse) PERCUSSION: tympanic to percussion Neuro: SENSORIUM/ORIENTATION: Yes alert Course Vital Signs: Vital signs: Vital Signs Temperature 97.9 F 11/17/23 16:05 Pulse Rate 75 11/17/23 22:56 Respiratory Rate 18 11/17/23 22:56 Blood Pressure 154/107 11/17/23 22:56 Pulse Oximetry 95 11/17/23 22:56 Oxygen Delivery Me thod Room Air 11/17/23 22:11 MDM - SOB/Dyspnea Medical Decision Making Vitals are stable. Hemoglobin is 15. White blood cell count is 12. Creatinine is stable at 1.9. Chest x-ray shows distended bowel elevating the diaphragm a bit bilaterally. Lactic acid is 4. BNP is 1500. He has received a liter of fluid. He had a bowel movement. He notes that he feels better. CT of the chest abdomen pelvis reveals no acute findings. Pneumonia from last week is resolved. Respiratory panel is negative. Lactic acid is coming down. He is feeling improved. It is not discharged home. Lab Data 11/17/23 18:01 11/17/23 18:01 Labs/Radiology: Radiology Impressions Chest X-Ray 11/17/23 17:43 IMPRESSION: 1. Previously noted left basilar opacities are not visualized in the current examination. 2. No focal consolidation. Chest/Abdomen/Pelvis CT 11/17/23 19:14 IMPRESSION: 1. No acute intrathoracic findings. 2. Nonspecific prominent right hilar lymph node, possibly reactive. 3. Subacute to chronic appearing fracture deformity of the right humeral neck with suggestion of a small glenohumeral effusion. IMPRESSION: 1. No acute intra-abdominal findings. 2. Unchanged appearance of multiple clustered cystic lesions throughout the left hepatic lobe. 3. Stable 1.3 cm indeterminate left upper pole renal cyst, which should be followed up with renal protocol CT or MRI, if not already obtained. 4. Diffuse bladder wall thickening, possibly sequela of prior radiation given stable appearance. This may also represent cystitis in the appropriate clinical setting. Laboratory Results WBC 11.78 10^3/uL (3.29-11.43) H 11/17/23 18: RBC 4.88 10^6/uL (3.85-5.65) 11/17/23 18:01 Hgb 15.10 g/dL (11.27-16.99) 11/17/23 18:01 Hct 44.4 % (37-53) 11/17/23 18:01 MCV 91.0 fl (82-101) 11/17/23 18:01 MCH 30.9 pg (27-33) 11/17/23 18:01 MCHC 34.0 g/dL (30-55) 11/17/23 18: RDW 14.4 % (12.1-15.1) 11/17/23 18:01 Plt Count 379 10^3/cmm (157-399) 11/17/23 18:01 MPV 9.7 fL (7.4-10.4) 11/17/23 18:01 Neut % (Auto) 65.2 % 11/17/23 18:01 Lymph % (Auto) 24.3 % 11/17/23 18:01 Christian % (Auto) 9.3 % 11/17/23 18:01 Eos % (Auto) 0.1 % 11/17/23 18:01 Baso % (Auto) 0.1 % 11/17/23 18:01 Neut # (Auto) 7.68 10^3/uL (1.8-7.7) 11/17/23 18:01 Lymph # (Auto) 2.9 10^3/uL (0.8-4.8) 11/17/23 18:01 Christian # (Auto) 1.1 10^3/uL (0.2-0.9) H 11/17/23 18:01 Eos # (Auto) 0.0 10^3/uL (0.0-0.8) 11/17/23 18:01 Baso # (Auto) 0.0 10^3/uL (0.0-0.1) 11/17/23 18:01 Nucleated RBC % (auto) 0 % 11/17/23 18:01 Nucleated RBCs # 0.0 /100WBC 11/17/23 18:01 Specimen Type Arterial 11/17/23 19:50 Sample Site Radial, right 11/17/23 19:50 ABG pH 7.51 (7.35-7.45) H 11/17/23 19:50 ABG pCO2 33.9 mmHg (35-45) L 11/17/23 19:50 ABG pO2 50.4 mmHg (80.0-100.0) L 11/17/23 19:50 ABG HCO3 27.2 mmol/L (22-26) H 11/17/23 19:50 ABG Base Excess 4.5 mmol/L (-2.0-2.0) H 11/17/23 19:50 Sina Test Pos 11/17/23 19:50 Hematocrit 42.9 % (42-52) 11/17/23 19:50 Ash Conveyor Operator ID Cl 11/17/23 19:50 Sodium 139 mmol/L (136-145) 11/17/23 18:01 Potassium 3.4 mmol/L (3.5-5.1) L 11/17/23 18:01 Chloride 94 mmol/L (98-107) L 11/17/23 18:01 Carbon Dioxide 27 mmol/L (22-29) 11/17/23 18:01 Anion Gap 21.4 (5-19) H 11/17/23 18:01 BUN 39 mg/dL (8-23) H 11/17/23 18:01 Creatinine 1.9 mg/dL (0.7-1.2) H 11/17/23 18:01 GFR Calculation Not Reportable 11/17/23 18:01 Glucose 107 mg/dL (65-115) 11/17/23 18:01 Calculated Osmolality 298 mOsm/kg (285-295) H 11/17/23 18:01 Lactic Acid 4.0 mmol/L (0.5-2.2) H 11/17/23 18:01 Lactic Acid (Sepsis) 3.5 mmol/L (0.5-2.2) H 11/17/23 21:25 Calcium 9.3 mg/dL (8.5-10.5) 11/17/23 18:01 Total Bilirubin 0.7 mg/dL (0.15-1.2) 11/17/23 18:01 AST 25 U/L (0-40) 11/17/23 18:01 ALT 36 U/L (0-41) 11/17/23 18:01 Alkaline Phosphatase 116 U/L (40-130) 11/17/23 18:01 NT-Pro-B Natriuret Pep 1457 pg/mL (0-450) H 11/17/23 18:01 Total Protein 7.6 g/dL (6.6-8.7) 11/17/23 18:01 Albumin 4.3 g/dL (3.5-5.2) 11/17/23 18:01 Globulin 3.3 g/dL (1.3-4.6) 11/17/23 18:01 Urine Color Yellow (Yellow) 11/17/23 19:57 Urine Appearance Clear (CLEAR) 11/17/23 19:57 Urine pH 8.0 (5-7) A 11/17/23 19:57 Ur Specific [place] 1.008 (1.005-1.030) 11/17/23 19:57 Urine Protein Negative (Negative) 11/17/23 19:57 Urine Glucose (UA) Negative (Normal) 11/17/23 19:57 Urine Ketones Negative (Negative) 11/17/23 19:57 Urine Blood Negative (Negative) 11/17/23 19:57 Urine Nitrate Negative (Negative) 11/17/23 19:57 Urine Bilirubin Negative (Negative) 11/17/23 19:57 Urine Urobilinogen 0.2 mg/dL (Negative) 11/17/23 19:57 Ur Leukocyte Esterase Negative (Negative) 11/17/23 19:57 Urine RBC 0-2 /hpf (0-2) 11/17/23 19:57 Urine WBC 0-5 /hpf (0-5) 11/17/23 19:57 Ur Squamous Epith Cells 0-5 /hpf (0-5) 11/17/23 19:57 Amorphous Sediment Not Reportable 11/17/23 19:57 Urine Bacteria None seen /hpf (NONE) 11/17/23 19:57 Hyaline Casts 0-4 /lpf H 11/17/23 19:57 Adenovirus (PCR) Not detected (NOT DETECT) 11/17/23 19:57 C. pneumoniae DNA (PCR) Not detected (NOT DETECT) 11/17/23 19:57 Coronavirus 229E (PCR) Not detected (NOT DETECT) 11/17/23 19:57 Human Metapneumovir PCR Not detected (NOT DETECT) 11/17/23 19:57 Influenza A (H1) PCR Not detected (NOT DETECT) 11/17/23 19:57 Influ A (H1/09) PCR Not detected (NOT DETECT) 11/17/23 19:57 Influenza A (H3) PCR Not detected (NOT DETECT) 11/17/23 19:57 Influenza Type A (PCR) Not detected (NOT DETECT) 11/17/23 19:57 Influenza Type B (PCR) Not detected (NOT DETECT) 11/17/23 19:57 M. pneumoniae (PCR) Not detected (NOT DETECT) 11/17/23 19:57 Parainfluenza 1 (PCR) Not detected (NOT DETECT) 11/17/23 19:57 Parainfluenza 2 (PCR) Not detected (NOT DETECT) 11/17/23 19:57 Parainfluenza 3 (PCR) Not detected (NOT DETECT) 11/17/23 19:57 Parainfluenza 4 (PCR) Not detected (NOT DETECT) 11/17/23 19:57 RSV Type A (PCR) Not detected (NOT DETECT) 11/17/23 19:57 RSV Type B (PCR) Not detected (NOT DETECT) 11/17/23 19:57 Entero/Rhino (PCR) Not detected (NOT DETECT) 11/17/23 19:57 SARS-CoV-2 (PCR) Not detected (NOT DETECT) 11/17/23 19:57 All radiology interpretation(s) finalized by discharge Discharge Plan Discharge Patient Disposition: Home Clinical Impression: Weakness Condition: Stable Prescriptions: No Action (DME) TLSO Brace See Rx Instructions .Route .MEDSUPPLY Qty: 1 0RF Rx Instructions: As directed temazepam 30 mg capsule 30 mg PO QPM lactulose 10 gram/15 mL solution 30 ml PO BID PRN (Reason: Constipation) Linzess 290 mcg capsule 290 mcg PO DAILY (DME) Shoulder Sling See Rx Instructions .Route .MEDSUPPLY Qty: 1 0RF Rx Instructions: As directed melatonin 10 mg Tablet 10 mg PO QPM tramadol 50 mg tablet 50 mg PO BID bumetanide 1 mg tablet 1 mg PO DAILY PRN (Reason: Edema) pantoprazole 40 mg tablet,delayed release (DR/EC) 40 mg PO QAM aspirin 81 mg Tablet,Delayed Release (Dr/Ec) 81 mg PO DAILY Qty: 30 0RF clopidogrel 75 mg Tablet 75 mg PO DAILY Qty: 30 0RF cetirizine 10 mg Tablet 10 mg PO BID ezetimibe 10 mg tablet 10 mg PO DAILY mometasone 0.1 % solution 1 applic TOPICAL DAILY PRN (Reason: Skin Irritation) doxycycline hyclate 100 mg capsule 100 mg PO BID 7 Days Qty: 14 0RF prednisone 20 mg tablet 60 mg PO DAILY Qty: 20 0RF Rx Instructions: 3 tabs (60 mg) x 3 days. 2 tabs (40 mg) x 3 days. 1 tab (20 mg) x 3 days. 1/2 tab (10 mg) x 4 days Discharge Orders: Discharge ED (Routine); Ordered 11/17/23 Ordered By: Mark Walker Referrals: Joseline Madison FNP [Primary Care Provider] - 1-3 days Patient Instructions: Opioid Safety, Pain Management, Weakness (Generalized) Activity Restrictions/Additional Instructions: Return for fever greater than 100, worsening shortness of breath, worsening weakness, any other concerning symptoms. See your doctor this coming week. Coding Level of Care Code ED Hand Packer/Packager for Jennifer Lopez
[2023-11-17] MEDS: sodium chloride 0.9% 1,000 ML 999 ML IV (19:54)
[2023-11-17 19:56] LABS: Reflex Lactate Order REFLEX LACTIC ORDERD
[2023-11-17 19:57] LABS: Base Excess ABG 4.5 mmol/L (-2.0-2.0); Blood Gas Allen Test Pos; Blood Gas Operator Identificat CL; Blood Gas Sample Site Radial, right; Blood Gas Sample Type Arterial
[2023-11-17 19:59] LABS: ABG PCO2 33.9 mmHg (35-45); ABG PH Result 7.51 (7.35-7.45); Arterial Blood Gas Hematocrit 42.9 % (42-52); HCO3 ABG 27.2 mmol/L (22-26); PO2 ABG 50.4 mmHg (80.0-100.0)
[2023-11-17 20:00] VITALS: BP 158/86; PULSE 75; RESP 22; O2SAT 97
[2023-11-17 20:33] VITALS: BP 173/88; PULSE 77; RESP 29; O2SAT 97
[2023-11-17 21:42] LABS: Charge for UA Resulting for Rev
[2023-11-17 21:44] LABS: Bilirubin Urine Negative (Negative); Blood Urine Negative (Negative); Glucose Urine UA Negative (Normal); Ketones Urine Negative (Negative); Leukocyte Esterase Urine Negative (Negative); Nitrate Urine Negative (Negative); Protein Urine Negative (Negative); Specific Gravity, Urine 1.008 (1.005-1.030); Urine Appearance Clear (CLEAR); Urine Color Yellow (Yellow); Urobilinogen Urine 0.2 mg/dL (Negative)
[2023-11-17 21:49] LABS: Bacteria Urine None Seen /hpf; Hyaline Casts Urine 0-4 /lpf; RBC Urine 0-2 /hpf (0-2); Squamous Epithelial Cell Urine 0-5 /hpf (0-5); WBC Urine 0-5 /hpf (0-5)
[2023-11-17 22:00] LABS: Lactic Acid level (Lactate) 3.5 mmol/L (0.5-2.2)
[2023-11-17 22:08] LABS: Adenovirus Not Detected (NOT DETECT); Chlamydia Pneumoniae Not Detected (NOT DETECT); Coronavirus 229E,HKU1,NL63,OC4 Not Detected (NOT DETECT); Human Metapneumovirus Not Detected (NOT DETECT); Human Rhinovirus/Enterovirus Not Detected (NOT DETECT); Influenza A Not Detected (NOT DETECT); Influenza A H1 Not Detected (NOT DETECT); Influenza A H1-2009 Not Detected (NOT DETECT); Influenza A H3 Not Detected (NOT DETECT); Influenza B Not Detected (NOT DETECT); Mycoplasma Pneumoniae Not Detected (NOT DETECT); Parainfluenza Virus Type 1 Not Detected (NOT DETECT); Parainfluenza Virus Type 2 Not Detected (NOT DETECT); Parainfluenza Virus Type 3 Not Detected (NOT DETECT); Parainfluenza Virus Type 4 Not Detected (NOT DETECT); Respiratory Syncytial Virus A Not Detected (NOT DETECT); Respiratory Syncytial Virus B Not Detected (NOT DETECT); SARS-COV-2 Not Detected (NOT DETECT)
[2023-11-17 22:11] VITALS: BP 180/95; PULSE 94; RESP 21; O2SAT 91
[2023-11-17 22:56] VITALS: BP 154/107; PULSE 75; RESP 18; O2SAT 95
== END 2023-11-17 22:56 | disposition home or self-care (01) ==
PROVIDERS: Emergency Provider Emergency Medicine; PCP Nurse Practitioner
DX: R53.1 Weakness (principal); Z79.82 Long term (current) use of aspirin; Z79.02 Long term (current) use of antithrombotics/antiplatelets; Z11.52 Encounter for screening for COVID-19; I10 Essential (primary) hypertension; E78.2 Mixed hyperlipidemia; Z85.46 Personal history of malignant neoplasm of prostate; Z87.891 Personal history of nicotine dependence
CPT/HCPCS: 36415; 36600; 71045; 71260; 74177; 80053; 81003; 81015; 82803; 83605; 83880; 85025; 87486; 87581; 87633; 96360; 99285; J7030

== ENCOUNTER 2023-11-25 18:59 | Emergency (ER) | payer MEDICARE, MEDICAID, SELFPAY ==
[2023-11-25 19:00] VITALS: BP 163/108; PULSE 91; RESP 16; TEMP 36.7; O2SAT 99; BMI 23.6
--- NOTE | 2023-11-25 19:05 | XRR_ITS ---
PROCEDURE INFORMATION: Exam: XR Chest Exam date and time: 11/25/2023 7:18 PM Age: 78 years old Clinical indication: Prior surgery; Surgery date: 6+ months; Surgery type: Coronary stents; Patient HX: General weakness with hypertension TECHNIQUE: Imaging protocol: Radiologic exam of the chest. Views: 1 view. COMPARISON: CT chest abdpel w/*[id number] 11/17/2023 7:42 PM FINDINGS: Lungs: Stable scarring at the left lung base. Lungs are hyperinflated. Clear parenchyma. Pleural spaces: No pleural effusion. No pneumothorax. Heart/Mediastinum: Cardiac silhouette is normal in size for technique. Bones/joints: Age appropriate. XR/XR chest 1V portable [id number] IMPRESSION: Hyperinflated but clear lungs. No other acute cardiopulmonary abnormality.
--- NOTE | 2023-11-25 19:07 | ECG_ITS ---
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 Measurements Intervals Clyo Rate: 80 P: 54 LA: 209 QRS: -45 QRSD: 151 T: 107 QT: 420 QTc: 487 Interpretive Statements SINUS RHYTHM LEFT AXIS DEVIATION [QRS AXIS < -30] LEFT BUNDLE BRANCH BLOCK [120+ ms QRS DURATION, 80+ ms Q/S IN V1/V2, 85+ ms R IN I/aVL/V5/V6] Compared to ECG 11/11/2023 14:41:21 No significant changes Electronically Signed On 11-26-2023 11:17:23 CDT by Zach Hamilton M.D. [email or web address]
[2023-11-25 19:12] VITALS: BP 163/108; PULSE 83; O2SAT 97
--- NOTE | 2023-11-25 19:18 | W.ED.WEAKNES ---
HPI - Weakness General: Chief complaint: Weakness Stated complaint: weakness Time Seen by Provider: 11/25/23 19:01 History of Present Illness: 78-year-old man with a history of tobacco dependence in remission for 3 years, COPD, chronic hypoxemic respiratory failure on as needed oxygen at home, coronary artery disease status post stents, congestive heart failure and a history of a stroke who presents the emergency room by ambulance with worsening weakness. His family has been diagnosed with COVID. He says he is had some wet stools. He just is generally weak and shaky. No new focal motor deficits. No altered mental status. No chest pain. No abdominal pain. No vomiting. Review of Systems Narrative: Constitutional symptoms: Negative except as documented in HPI. Skin symptoms: Negative except as documented in HPI. Eye symptoms: Negative except as documented in HPI. ENMT symptoms: Negative except as documented in HPI. Respiratory symptoms: Negative except as documented in HPI. Cardiovascular symptoms: Negative except as documented in HPI. Gastrointestinal symptoms: Negative except as documented in HPI. Genitourinary symptoms: Negative except as documented in HPI. Musculoskeletal symptoms: Negative except as documented in HPI. Neurologic symptoms: Negative except as documented in HPI. Psychiatric symptoms: Negative except as documented in HPI. Endocrine symptoms: Negative except as documented in HPI. [facility] PFSH: Medical History Pernicious anemia Benign essential HTN Combined hyperlipidemia Intervertebral disc disorder with radiculopathy of lumbosacral region Cancer of prostate Surgical History History of heart artery stent Hx of heart surgery Family History Father Lung disease Mother Chronic kidney disease (CKD) Hypertension Social History Smoking and tobacco/nicotine status: former use of tobacco/nicotine Alcohol intake: never Substance/Drug Use: never Household members: spouse Marital status: Current occupational status: retired Physical Exam Narrative: EXAM NARRATIVE: General: Alert, patient does appear slightly tremulous Skin: Warm, dry. Head: Normocephalic, atraumatic. Neck: Supple, trachea midline. Eye: Extraocular movements are intact. Ears, nose, mouth and throat: mucosa moist. Cardiovascular: Regular, Normal peripheral perfusion. Respiratory: Lungs are clear to auscultation, respirations are non-labored, breath sounds are equal, Symmetrical chest wall expansion. Gastrointestinal: Soft, Nontender, Non distended Musculoskeletal: Normal ROM, no deformity. Neurological: Alert and oriented, No focal neurological deficit observed. Psychiatric: Cooperative, appropriate mood & affect. Course Vital Signs: Vital signs: Vital Signs Temperature 98.1 F 11/25/23 19:00 Pulse Rate 83 11/25/23 19:12 Respiratory Rate 16 11/25/23 19:00 Blood Pressure 163/108 11/25/23 19:12 Pulse Oximetry 97 11/25/23 19:12 Oxygen Delivery Me thod Room Air 11/25/23 19:12 MDM - Weakness Medical Decision Making Medical decision making: Differential diagnosis for patient presenting with generalized weakness including but not limited to and based on the above HPI, review of systems and physical exam: Sepsis. Dehydration. Renal failure. Electrolyte abnormalities. Anemia. Congestive heart failure. Hypotension. Coronary syndrome. Hepatitis. Cirrhosis. Infections such as pneumonia, urinary tract infection, [place]ne illness, Cellulitis, Viral infections including influenza and Covid-19. Workup: labwork and lab/exam driven imaging ordered to evaluate, rule in and rule out above pathologies. EKG: Time 1906. Rate 80. Normal sinus rhythm, No ST-T changes, no ectopy, left bundle branch block, This was reviewed and interpreted by myself the ER physician at 1909 Chest x-ray: No acute process. No infiltrate. No pneumothorax. This was reviewed and interpreted by myself the ER physician. Lab Review: Laboratory results were reviewed and interpreted by myself the emergency room physician. No leukocytosis. No anemia. BUN/creatinine are stable at 17 and 1.8. Lactate is mildly elevated at 4. This is been elevated on previous visit. Unclear etiology of why his lactate has been elevated. He has been having some tremors I think it may be secondary to this but there is been no urinary tract infection last time he was here and he still does not have any symptoms. Respiratory panel is negative. I reviewed the patient's medical record. Reexamination: Patient remained stable. No increased work of breathing. No altered mental status. No focal motor deficits. Assessment and plan: Weakness ?Patient has had multiple visits for the same thing and thus far we have been able to not find any specific underlying issues other than he is becoming more debilitated with age. Nothing acute on exam today. I think he needs to follow with his primary as soon as possible. - Discharged home - Discussed plan with patient. Answered any questions. - Evaluation and treatment of this problem were appropriate in the emergency setting. Lab Data 11/25/23 19:07 11/25/23 19:07 Radiology Impressions Chest X-Ray 11/25/23 19:05 IMPRESSION: Hyperinflated but clear lungs. No other acute cardiopulmonary abnormality. Laboratory Results WBC 11.12 10^3/uL (3.29-11.43) 11/25/23 19:07 RBC 5.03 10^6/uL (3.85-5.65) 11/25/23 19:07 Hgb 15.40 g/dL (11.27-16.99) 11/25/23 19:07 Hct 46.0 % (37-53) 11/25/23 19:07 MCV 91.5 fl (82-101) 11/25/23 19:07 MCH 30.6 pg (27-33) 11/25/23 19:07 MCHC 33.5 g/dL (30-55) 11/25/23 19:07 RDW 14.6 % (12.1-15.1) 11/25/23 19:07 Plt Count 288 10^3/cmm (157-399) 11/25/23 19:07 MPV 9.5 fL (7.4-10.4) 11/25/23 19:07 Neut % (Auto) 69.1 % 11/25/23 19:07 Lymph % (Auto) 21.0 % 11/25/23 19:07 [place] % (Auto) 8.4 % 11/25/23 19:07 Eos % (Auto) 0.9 % 11/25/23 19:07 Baso % (Auto) 0.3 % 11/25/23 19:07 Neut # (Auto) 7.69 10^3/uL (1.8-7.7) 11/25/23 19:07 Lymph # (Auto) 2.3 10^3/uL (0.8-4.8) 11/25/23 19:07 [place] # (Auto) 0.9 10^3/uL (0.2-0.9) 11/25/23 19:07 Eos # (Auto) 0.1 10^3/uL (0.0-0.8) 11/25/23 19:07 Baso # (Auto) 0.0 10^3/uL (0.0-0.1) 11/25/23 19:07 Nucleated RBC % (auto) 0 % 11/25/23 19:07 Nucleated RBCs # 0.0 /100WBC 11/25/23 19:07 Sodium 143 mmol/L (136-145) 11/25/23 19:07 Potassium 3.6 mmol/L (3.5-5.1) 11/25/23 19:07 Chloride 96 mmol/L (98-107) L 11/25/23 19:07 Carbon Dioxide 29 mmol/L (22-29) 11/25/23 19:07 Anion Gap 21.6 (5-19) H 11/25/23 19:07 BUN 17 mg/dL (8-23) 11/25/23 19:07 Creatinine 1.8 mg/dL (0.7-1.2) H 11/25/23 19:07 GFR Calculation Not Reportable 11/25/23 19:07 Glucose 105 mg/dL (65-115) 11/25/23 19:07 Calculated Osmolality 298 mOsm/kg (285-295) H 11/25/23 19:07 Lactic Acid 4.2 mmol/L (0.5-2.2) H* 11/25/23 19:07 Calcium 8.7 mg/dL (8.5-10.5) 11/25/23 19:07 Total Bilirubin 0.3 mg/dL (0.15-1.2) 11/25/23 19:07 AST 24 U/L (0-40) 11/25/23 19:07 ALT 38 U/L (0-41) 11/25/23 19:07 Alkaline Phosphatase 129 U/L (40-130) 11/25/23 19:07 Troponin T Baseline 27 ng/L (0-15) H 11/25/23 19:07 C-Reactive Protein 41.1 mg/L (0.0-4.9) H 11/25/23 19:07 Total Protein 7.0 g/dL (6.6-8.7) 11/25/23 19:07 Albumin 4.1 g/dL (3.5-5.2) 11/25/23 19:07 Globulin 2.9 g/dL (1.3-4.6) 11/25/23 19:07 Procalcitonin 0.23 ng/mL (0-0.5) 11/25/23 19:07 Coronavirus (PCR) Negative (Negative) 11/25/23 19:10 Influenza A (PCR) Negative (Negative) 11/25/23 19:10 Influenza Type B (PCR) Negative (Negative) 11/25/23 19:10 RSV (PCR) Negative (Negative) 11/25/23 19:10 All radiology interpretation(s) finalized by discharge Discharge Plan Discharge Patient Disposition: Home Clinical Impression: Weakness Condition: Stable Prescriptions: No Action (DME) TLSO Brace See Rx Instructions .Route .MEDSUPPLY Qty: 1 0RF Rx Instructions: As directed temazepam 30 mg capsule 30 mg PO QPM lactulose 10 gram/15 mL solution 30 ml PO BID PRN (Reason: Constipation) Linzess 290 mcg capsule 290 mcg PO DAILY (DME) Shoulder Sling See Rx Instructions .Route .MEDSUPPLY Qty: 1 0RF Rx Instructions: As directed melatonin 10 mg Tablet 10 mg PO QPM tramadol 50 mg tablet 50 mg PO BID bumetanide 1 mg tablet 1 mg PO DAILY PRN (Reason: Edema) pantoprazole 40 mg tablet,delayed release (DR/EC) 40 mg PO QAM aspirin 81 mg Tablet,Delayed Release (Dr/Ec) 81 mg PO DAILY Qty: 30 0RF clopidogrel 75 mg Tablet 75 mg PO DAILY Qty: 30 0RF cetirizine 10 mg Tablet 10 mg PO BID ezetimibe 10 mg tablet 10 mg PO DAILY mometasone 0.1 % solution 1 applic TOPICAL DAILY PRN (Reason: Skin Irritation) prednisone 20 mg tablet 60 mg PO DAILY Qty: 20 0RF Rx Instructions: 3 tabs (60 mg) x 3 days. 2 tabs (40 mg) x 3 days. 1 tab (20 mg) x 3 days. 1/2 tab (10 mg) x 4 days Discharge Orders: Discharge ED (Routine); Ordered 11/25/23 Ordered By: Yumiko Gonzalez Referrals: Joseline Madison FNP [Primary Care Provider] - Discharge Diet: Usual diet Discharge Activity: Increase activity as tolerated Patient Instructions: Weakness (ED) Activity Restrictions/Additional Instructions: Thank you for choosing [facility] for your healthcare needs today. Please realize this is an emergency room and that we are providing you with a medical screening exam and this may not be complete and all inclusive of all the testing and or work up that you may need to determine your ailment or severity of your illness. You have been screened and evaluated and felt safe for discharge. Health conditions do change or evolve sometimes and as such it is important that you follow up with your Primary Doctor to be re checked, 3-5 days is a general good time frame for follow up. 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 Jennifer Fwd Related Data Home Medications Medication Instructions Recorded Confirmed pantoprazole 40 mg tablet,delayed 40 mg PO QAM 07/22/21 09/03/23 release lactulose 10 gram/15 mL oral 30 ml PO BID PRN Constipation 03/23/23 09/03/23 solution linaclotide 290 mcg capsule 290 mcg PO DAILY 03/23/23 09/03/23 (Linzess) temazepam 30 mg capsule 30 mg PO QPM 03/23/23 09/03/23 bumetanide 1 mg tablet 1 mg PO DAILY PRN Edema 05/21/23 09/03/23 melatonin 10 mg tablet 10 mg PO QPM 05/21/23 09/03/23 tramadol 50 mg tablet 50 mg PO BID 05/21/23 09/03/23 cetirizine 10 mg tablet 10 mg PO BID 09/03/23 09/03/23 ezetimibe 10 mg tablet 10 mg PO DAILY 09/03/23 09/03/23 mometasone 0.1 % topical solution 1 applic topical DAILY PRN Skin 09/03/23 09/03/23 Irritation Previous Rx's Medication Instructions Recorded TLSO Brace #1 ea 02/16/22 Shoulder Sling #1 ea 05/25/23 aspirin 81 mg tablet,delayed 81 mg PO DAILY #30 tabs 07/31/23 release clopidogrel 75 mg tablet 75 mg PO DAILY #30 tabs 07/31/23 prednisone 20 mg tablet 60 mg (3 x 20 mg) PO DAILY #20 tabs 11/11/23 Allergies Allergy/AdvReac Type Severity Reaction Status Date / Time atorvastatin Allergy ALGY-Hives Verified 09/05/23 15:52 simvastatin Allergy Unknown Verified 09/05/23 15:52
[2023-11-25 19:27] LABS: Basophils % 0.3 %; Eosinophils # 0.1 10^3/uL (0.0-0.8); Eosinophils % 0.9 %; Lymphocytes # 2.3 10^3/uL (0.8-4.8); Mean Corpuscular HGB Conc 33.5 g/dL (30-55); Mean Corpuscular Hemoglobin 30.6 pg (27-33); Mean Corpuscular Volume 91.5 fl (82-101); Mean Platelet Volume 9.5 fL (7.4-10.4); Monocytes # 0.9 10^3/uL (0.2-0.9); Monocytes % 8.4 %; Neutrophils # 7.69 10^3/uL (1.8-7.7); Neutrophils % 69.1 %; Nucleated Red Blood Cells % 0 %; Platelet Count 288 10^3/cmm (157-399); Red Blood Count 5.03 10^6/uL (3.85-5.65); Red Cell Distribution Width 14.6 % (12.1-15.1); White Blood Count 11.12 10^3/uL (3.29-11.43)
[2023-11-25 19:51] LABS: Troponin(5th) Baseline 27 ng/L (0-15)
[2023-11-25 19:53] LABS: Alanine Aminotransferase 38 U/L (0-41); Albumin Level 4.1 g/dL (3.5-5.2); Alkaline Phosphatase 129 U/L (40-130); Anion Gap 21.6 (5-19); Aspartate Amino Transferase 24 U/L (0-40); Blood Urea Nitrogen 17 mg/dL (8-23); C Reactive Protein 41.1 mg/L (0.0-4.9); Calcium 8.7 mg/dL (8.5-10.5); Carbon Dioxide 29 mmol/L (22-29); Chloride 96 mmol/L (98-107); Creatinine Clr Calc Pharmacy 33.0787; Globulin 2.9 g/dL (1.3-4.6); Glucose 105 mg/dL (65-115); Osmolality Calculated 298 mOsm/kg (285-295); Potassium 3.6 mmol/L (3.5-5.1); Sodium 143 mmol/L (136-145); Total Bilirubin 0.3 mg/dL (0.15-1.2)
[2023-11-25 19:59] LABS: Procalcitonin 0.23 ng/mL (0-0.5)
[2023-11-25 20:05] LABS: Lactic Sepsis W/Reflex 4.2 mmol/L (0.5-2.2)
[2023-11-25 20:59] LABS: Covid PCR NEGATIVE (Negative); Influenza A NEGATIVE (Negative); Influenza B NEGATIVE (Negative); Respiratory Syncytial Virus Ce NEGATIVE (Negative)
[2023-11-25 21:12] LABS: Reflex Lactate Order REFLEX LACTIC ORDERD
[2023-11-25 21:35] VITALS: BP 152/104; PULSE 97; RESP 20; O2SAT 95
[2023-11-25 21:37] VITALS: BP 157/104; PULSE 18; O2SAT 95
== END 2023-11-25 22:30 | disposition home or self-care (01) ==
PROVIDERS: Emergency Provider Emergency Medicine; PCP Nurse Practitioner
DX: R53.1 Weakness (principal); Z79.02 Long term (current) use of antithrombotics/antiplatelets; Z79.82 Long term (current) use of aspirin; I44.7 Left bundle-branch block, unspecified; I10 Essential (primary) hypertension; E78.2 Mixed hyperlipidemia; Z85.46 Personal history of malignant neoplasm of prostate; Z87.891 Personal history of nicotine dependence
CPT/HCPCS: 0241U; 36415; 71045; 80053; 83605; 84145; 84484; 85025; 86140; 87040; 87077; 87150; 87186; 87205; 93005; 99285

== ENCOUNTER → 2023-12-19 14:20 | Outpatient (BNVA) | payer MEDICARE, MEDICAID, SELFPAY | PROVIDERS: PCP Nurse Practitioner; Visit Provider Surgery | DX: Z12.11 Encounter for screening for malignant neoplasm of colon (principal) | CPT/HCPCS: 99024; 99214 ==

== ENCOUNTER 2023-12-26 14:38 | Emergency (ER) | payer MEDICARE, MEDICAID, SELFPAY ==
--- NOTE | 2023-12-26 14:47 | XR_ITS ---
WS: [id number] XR chest 1V portable [id number] REASON FOR EXAM: sob FINDINGS: The chest is unchanged compared to 11/25/2023. Ill-defined lucencies with thin linear lung opacities and decreased lung markings compatible with beltran tral lobar emphysema. No acute pulmonary parenchymal or pleural abnormality is identified. The heart is not enlarged. No acute pleural abnormality. Moderate degenerative spondylosis in the mid and lower thoracic spine. Old healed fracture of the pro ximal right humerus. XR/XR chest 1V portable [id number] IMPRESSION: Stable abnormal chest with no acute abnormality.
--- NOTE | 2023-12-26 14:49 | ED_ITS ---
HPI - SOB/Dyspnea 2 General: Chief Complaint: Shortness of Breath/Dyspnea Stated Complaint: Resp Distress Time Seen by Provider: 12/26/23 14:40 History of Present Illness: HPI Narrative: 78-year-old male presents with some shor tness of breath. Patient brought in via EMS where they found him to be low bit low on oxygen. Patient is having some and controlled shaking is not sure why. Patient has home O2 as needed. EMS placed him on his oxygen and his O2 came up to under percent. He was using a breathing treatment when they arrived and reports he been using it frequently today. Patient has some known mild abdominal distention and does have a endoscopy scheduled for 01/07. Associated symptoms: Deny chest pain, fever(s), nausea, palpitations or vomiting Related Data Home Medications Medication Instructions Recorded Confirmed pantoprazole 40 mg tablet,delayed 40 mg PO QAM 07/22/21 12/19/23 release linaclotide 290 mcg capsule 290 mcg PO DAILY 03/23/23 12/19/23 (Linzess) temazepam 30 mg capsule 30 mg PO QPM 03/23/23 12/19/23 bumetanide 1 mg tablet 1 mg PO DAILY PRN Edema 05/21/23 12/19/23 tramadol 50 mg tablet 50 mg PO BID 05/21/23 12/19/23 cetirizine 10 mg tablet 10 mg PO BID 09/03/23 12/19/23 mometasone 0.1 % topical solution 1 applic topical DAILY PRN Skin 09/03/23 12/19/23 Irritation Previous Rx's Medication Instructions Recorded TLSO Brace #1 ea 02/16/22 Shoulder Sling #1 ea 05/25/23 aspirin 81 mg tablet,delayed 81 mg PO DAILY #30 tabs 07/31/23 release clopidogrel 75 mg tablet 75 mg PO DAILY #30 tabs 07/31/23 lactulose 10 gram/15 mL oral 30 ml PO BID PRN Constipation 11/25/23 solution #3,000 mL Allergies Allergy/AdvReac Type Severity Reaction Status Date / Time atorvastatin Allergy ALGY-Hives Verified 12/26/23 14:59 simvastatin Allergy Unknown Verified 12/26/23 14:59 Review of Systems 2 Const: Reports: chills, malaise and other (Please see HPI); Denies: fever(s) Card: Denies: chest pain or palpitations Resp: Reports: dyspnea and productive cough GI: Denies: nausea or vomiting Neuro: Reports: other (Please see HPI) PFSH ED 2 PFSH: Medical History Pernicious anemia Benign essential HTN Combined hyperlipidemia Intervertebral disc disorder with radiculopathy of lumbosacral region Cancer of prostate Surgical History History of heart artery stent Hx of heart surgery Family History Father Lung disease Mother Chronic kidney disease (CKD) Hypertension Social History Smoking and tobacco/nicotine status: former use of tobacco/nicotine Alcohol intake: never Substance/Drug Use: never Household members: spouse Marital status: Current occupational status: retired Physical Exam 2 Const: COMMON NORMALS: patient oriented x3 and alert GENERAL APPEARANCE: d isheveled OTHER: Mild shaking Resp: COMMON NORMALS: normal respiratory effort, No retractions and clear to auscultation bilaterally EFFORT & INSPECTION: Yes able to speak in complete sentences AUSCULTATION: clear to auscultation bilaterally Cardio: COMMON NORMALS: regular rate and regular rhythm RATE: regular rate RHYTHM: regular rhythm GI: INSPECTION: Yes abdominal distension (Mild, known chronic) and Yes central obesity Neuro: COMMON NORMALS: patient oriented x3 and no focal motor deficits S ENSORIUM/ORIENTATION: Yes alert Psych: COMMON NORMALS: mental status grossly normal and cooperative Course 2 Vital Signs: Vital signs: Vital Signs Temperature 97.6 F 12/26/23 14:50 Pulse Rate 74 12/26/23 16:30 Respiratory Rate 14 12/26/23 16:00 Blood Pressure 149/96 12/26/23 16:30 Pulse Oximetry 100 12/26/23 16:30 Oxygen Delivery Me thod Room Air 12/26/23 16:30 Oxygen Flow Rate 3.5 12/26/23 15:04 MDM - SOB/Dyspnea Medical Decision Making Patient's diagnostic studies are reviewed and compared to previous ER visits since he has been here multiple times. There is no acute abnormality from his prior visits and appears to be near his baseline. Patient's chest x-ray is normal and tolerated room air without any difficulty. He does have some underlying emphysema which is likely the cause of his occasional shortness of breath. I also suspect he was mildly dehydrated as he felt significantly better following some IV fluids. He does have an appointment upcoming for his abdominal issues with endoscopic use both EGD and colonoscopy scheduled. Patient was stable and discharged home Lab Data 12/26/23 14:19 12/26/23 14:19 Labs/Radiology: Radiology Impressions Chest X-Ray 12/26/23 14:47 IMPRESSION: Stable abnormal chest with no acute abnormality. Laboratory Results WBC 9.01 10^3/uL (3.29-11.43) 12/26/23 14:19 RBC 5.07 10^6/uL (3.85-5.65) 12/26/23 14:19 Hgb 15.80 g/dL (11.27-16.99) 12/26/23 14:19 Hct 46.6 % (37-53) 12/26/23 14:19 MCV 91.9 fl (82-101) 12/26/23 14:19 MCH 31.2 pg (27-33) 12/26/23 14:19 MCHC 33.9 g/dL (30-55) 12/26/23 14:19 RDW 14.5 % (12.1-15.1) 12/26/23 14:19 Plt Count 389 10^3/cmm (157-399) 12/26/23 14:19 MPV 9.6 fL (7.4-10.4) 12/26/23 14:19 Neut % (Auto) 53.5 % 12/26/23 14:19 Lymph % (Auto) 35.4 % 12/26/23 14:19 [place] % (Auto) 9.1 % 12/26/23 14:19 Eos % (Auto) 0.9 % 12/26/23 14:19 Baso % (Auto) 0.9 % 12/26/23 14:19 Neut # (Auto) 4.82 10^3/uL (1.8-7.7) 12/26/23 14:19 Lymph # (Auto) 3.2 10^3/uL (0.8-4.8) 12/26/23 14:19 [place] # (Auto) 0.8 10^3/uL (0.2-0.9) 12/26/23 14:19 Eos # (Auto) 0.1 10^3/uL (0.0-0.8) 12/26/23 14:19 Baso # (Auto) 0.1 10^3/uL (0.0-0.1) 12/26/23 14:19 Nucleated RBC % (auto) 0 % 12/26/23 14:19 Nucleated RBCs # 0.0 /100WBC 12/26/23 14:19 Sodium 139 mmol/L (136-145) 12/26/23 14:19 Potassium 3.5 mmol/L (3.5-5.1) 12/26/23 14:19 Chloride 96 mmol/L (98-107) L 12/26/23 14:19 Carbon Dioxide 28 mmol/L (22-29) 12/26/23 14:19 Anion Gap 18.5 (5-19) 12/26/23 14:19 BUN 13 mg/dL (8-23) 12/26/23 14:19 Creatinine 2.0 mg/dL (0.7-1.2) H 12/26/23 14:19 GFR Calculation Not Reportable 12/26/23 14:19 Glucose 129 mg/dL (65-115) H 12/26/23 14:19 Calculated Osmolality 290 mOsm/kg (285-295) 12/26/23 14:19 Lactic Acid 3.8 mmol/L (0.5-2.2) H 12/26/23 14:19 Calcium 9.0 mg/dL (8.5-10.5) 12/26/23 14:19 Magnesium 2.3 mg/dL (1.7-2.3) 12/26/23 14:19 Total Bilirubin 0.5 mg/dL (0.15-1.2) 12/26/23 14:19 AST 24 U/L (0-40) 12/26/23 14:19 ALT 20 U/L (0-41) 12/26/23 14:19 Alkaline Phosphatase 136 U/L (40-130) H 12/26/23 14:19 NT-Pro-B Natriuret Pep 537 pg/mL (0-450) H 12/26/23 14:19 Total Protein 8.1 g/dL (6.6-8.7) 12/26/23 14:19 Albumin 4.3 g/dL (3.5-5.2) 12/26/23 14:19 Globulin 3.8 g/dL (1.3-4.6) 12/26/23 14:19 Coronavirus (PCR) Negative (Negative) 12/26/23 14:54 Influenza A (PCR) Negative (Negative) 12/26/23 14:54 Influenza Type B (PCR) Negative (Negative) 12/26/23 14:54 RSV (PCR) Negative (Negative) 12/26/23 14:54 All radiology interpretation(s) finalized by discharge Discharge Plan Discharge Patient Disposition: Home Clinical Impression: Generalized muscle weakness, COPD (chronic obstructive pulmonary disease), Mild dehydration Condition: Stable Prescriptions: No Action (DME) TLSO Brace See Rx Instructions .Route .MEDSUPPLY Qty: 1 0RF Rx Instructions: As directed temazepam 30 mg capsule 30 mg PO QPM Linzess 290 mcg capsule 290 mcg PO DAILY (DME) Shoulder Sling See Rx Instructions .Route .MEDSUPPLY Qty: 1 0RF Rx Instructions: As directed tramadol 50 mg tablet 50 mg PO BID bumetanide 1 mg tablet 1 mg PO DAILY PRN (Reason: Edema) pantoprazole 40 mg tablet,delayed release (DR/EC) 40 mg PO QAM aspirin 81 mg Tablet,Delayed Release (Dr/Ec) 81 mg PO DAILY Qty: 30 0RF clopidogrel 75 mg Tablet 75 mg PO DAILY Qty: 30 0RF cetirizine 10 mg Tablet 10 mg PO BID mometasone 0.1 % solution 1 applic TOPICAL DAILY PRN (Reason: Skin Irritation) lactulose 10 gram/15 mL solution 30 ml PO BID PRN (Reason: Constipation) Qty: 3000 0RF Discharge Orders: Discharge ED (Routine); Ordered 12/26/23 Ordered By: Mauro Freed Referrals: Joseline Madison FNP [Primary Care Provider] - Patient Instructions: COPD, Opioid Safety, Pain Management, Weakness (Generalized) Activity Restrictions/Additional Instructions: Please follow-up with your primary care provider early next week for recheck of your symptoms. Please be sure you keep your appointment on the with GI for your scopes. Coding Level of Care Code ED Lithographer Helper for Jennifer Lopez
[2023-12-26 14:50] VITALS: BP 150/101; PULSE 86; TEMP 36.4; O2SAT 100; BMI 25.4
[2023-12-26 15:00] LABS: Basophils # 0.1 10^3/uL (0.0-0.1); Basophils % 0.9 %; Eosinophils # 0.1 10^3/uL (0.0-0.8); Eosinophils % 0.9 %; Hematocrit 46.6 % (37-53); Lymphocytes # 3.2 10^3/uL (0.8-4.8); Lymphocytes % 35.4 %; Mean Corpuscular HGB Conc 33.9 g/dL (30-55); Mean Corpuscular Hemoglobin 31.2 pg (27-33); Mean Corpuscular Volume 91.9 fl (82-101); Mean Platelet Volume 9.6 fL (7.4-10.4); Monocytes # 0.8 10^3/uL (0.2-0.9); Monocytes % 9.1 %; Neutrophils # 4.82 10^3/uL (1.8-7.7); Neutrophils % 53.5 %; Nucleated Red Blood Cells % 0 %; Platelet Count 389 10^3/cmm (157-399); Red Blood Count 5.07 10^6/uL (3.85-5.65); Red Cell Distribution Width 14.5 % (12.1-15.1); White Blood Count 9.01 10^3/uL (3.29-11.43)
[2023-12-26 15:04] VITALS: BP 143/87; PULSE 85; RESP 24; O2SAT 99
[2023-12-26 15:24] LABS: Lactic Sepsis W/Reflex 3.8 mmol/L (0.5-2.2)
[2023-12-26 15:33] LABS: Alanine Aminotransferase 20 U/L (0-41); Albumin Level 4.3 g/dL (3.5-5.2); Alkaline Phosphatase 136 U/L (40-130); Anion Gap 18.5 (5-19); Aspartate Amino Transferase 24 U/L (0-40); Blood Urea Nitrogen 13 mg/dL (8-23); Carbon Dioxide 28 mmol/L (22-29); Chloride 96 mmol/L (98-107); Globulin 3.8 g/dL (1.3-4.6); Glucose 129 mg/dL (65-115); Magnesium 2.3 mg/dL (1.7-2.3); NT Pro B Type Natriuretic Pept 537 pg/mL (0-450); Osmolality Calculated 290 mOsm/kg (285-295); Potassium 3.5 mmol/L (3.5-5.1); Sodium 139 mmol/L (136-145); Total Bilirubin 0.5 mg/dL (0.15-1.2); Total Protein 8.1 g/dL (6.6-8.7)
[2023-12-26 15:48] LABS: Covid PCR NEGATIVE (Negative); Influenza A NEGATIVE (Negative); Influenza B NEGATIVE (Negative); Respiratory Syncytial Virus Ce NEGATIVE (Negative)
[2023-12-26 16:00] VITALS: BP 116/83; PULSE 77; RESP 14; O2SAT 97
[2023-12-26] MEDS: sodium chloride 0.9% 1,000 ML 999 ML IV (16:13)
[2023-12-26 16:30] VITALS: BP 149/96; PULSE 74; O2SAT 100
[2023-12-26 16:43] LABS: Reflex Lactate Order REFLEX LACTIC ORDERD
[2023-12-26 17:35] VITALS: BP 128/98; PULSE 68; O2SAT 98
== END 2023-12-26 17:36 | disposition home or self-care (01) ==
PROVIDERS: Emergency Provider Student in an Organized Health Care Education/Training Program; PCP Nurse Practitioner
DX: R53.1 Weakness (principal); J44.9 Chronic obstructive pulmonary disease, unspecified; E86.0 Dehydration; Z79.02 Long term (current) use of antithrombotics/antiplatelets; Z79.82 Long term (current) use of aspirin; Z11.52 Encounter for screening for COVID-19; Z87.891 Personal history of nicotine dependence; I10 Essential (primary) hypertension; E78.2 Mixed hyperlipidemia; Z85.46 Personal history of malignant neoplasm of prostate
CPT/HCPCS: 0241U; 71045; 80053; 83605; 83735; 83880; 85025; 96360; 99284; J7030

== ENCOUNTER 2024-01-08 06:37 | Day surgery (SDC) | payer MEDICARE, MEDICAID, SELFPAY ==
--- NOTE | 2024-01-08 05:58 | P.HPUD_ITS ---
Surgery/Procedure H&P Update DATE OF PROCEDURE: January 08, 2024 DATE H&P PERFORMED: 12/19/23 H&P UPDATE INFORMATION: I have reviewed H&P completed within last 30 days, I have examined patient prior to procedure, No changes to prior documentation and H&P is in [facility] [place] [place] EMR on date indicated PLANNED PROCEDURE: Operation Date: 01/08/24 07:40 Proposed Procedures p Colonoscopy - 24812, G0105, Z12.11(Not Applicable) - Luigi Campo MD
[2024-01-08 06:55] VITALS: BP 150/86; PULSE 103; RESP 18; TEMP 36.2; O2SAT 98; BMI 25.4
[2024-01-08] MEDS: sodium chloride 0.9% 1,000 ML 30 ML IV (07:10)
--- NOTE | 2024-01-08 07:32 | ANES.PREANE2 ---
Pre-Anesthetic Assessment Height/Weight: Height 1.73 m Weight 75.75 kg Temp Pulse Resp BP Pulse Ox O2 Del Method 97.1 F L 103 H 18 150/86 98 Room Air 01/08/24 06:55 01/08/24 06:55 01/08/24 06:55 01/08/24 06:55 01/08/24 06:55 01/08/24 06:55 Operation Date: 01/08/24 07:40 Proposed Procedures p Colonoscopy - 70021, G0105, Z12.11(Not Applicable) - Luigi Campo MD Familial anesthetic complications: NOne Was Beta Rickey taken within 24 hours: N/A Was Clonidine taken within 24 hours: N/A Last intake: Intake Last Liquid Date 01/07/24 Last Liquid Time 20:00 Last Solid Date 01/06/24 Last Solid Time 08:00 Social No alcohol and No tobacco former smoker Exam alert, oriented x 3, clear to auscultation bilaterally and regular rate & rhythm Airway Mallampati: Class II Dentition: other (no teeth) Comments: Comments: full hines CV/HEM Arrythmia and Coronary Artery Disease (stent) Neuropsych Cerebrovascular Accident posterior aneurysm (stable, no plans for intervention per patient family) Anesthetic Plan ASA status: 3 Anesthesia: MAC Risk of > 500 ml blood loss (7ml/kg in children): No Medications/Allergies Home Medications Medication Instructions Recorded Confirmed Last Taken Type pantoprazole 40 mg tablet,delayed 40 mg PO QAM 07/22/21 01/08/24 01/07/24 History release TLSO Brace #1 ea 02/16/22 01/08/24 Unknown Rx linaclotide 290 mcg capsule 290 mcg PO DAILY 03/23/23 01/08/24 01/07/24 History (Linzess) temazepam 30 mg capsule 30 mg PO QPM 03/23/23 01/08/24 01/07/24 History bumetanide 1 mg tablet 1 mg PO DAILY PRN Edema 05/21/23 01/08/24 12/29/23 History tramadol 50 mg tablet 50 mg PO BID 05/21/23 01/08/24 01/07/24 History Shoulder Sling #1 ea 05/25/23 01/08/24 Unknown Rx aspirin 81 mg tablet,delayed 81 mg PO DAILY #30 tabs 07/31/23 01/08/2424 Rx release clopidogrel 75 mg tablet 75 mg PO DAILY #30 tabs 07/31/23 01/08/24 12/29/23 Rx cetirizine 10 mg tablet 10 mg PO BID 09/03/23 01/08/24 01/07/24 History mometasone 0.1 % topical solution 1 applic topical DAILY PRN Skin 09/03/23 01/08/24 3 Weeks Ago History Irritation ~12/13/23 lactulose 10 gram/15 mL oral 30 ml PO BID PRN Constipation 11/25/23 01/08/24 1 Month Ago Rx solution #3,000 mL ~12/04/23 magnesium hydroxide 400 mg/5 mL 5 ml PO DAILY 01/03/24 01/08/24 01/07/24 History oral suspension (Milk of Magnesia) Allergies Allergy/AdvReac Type Severity Reaction Status Date / Time atorvastatin Allergy ALGY-Hives Verified 01/03/24 14:43 simvastatin Allergy ALGY-Rash Verified 01/03/24 14:43 Current Medications Generic Name Dose Route Start Last Admin Trade Name Freq PRN Reason Stop Dose Admin Sodium Chloride 1,000 mls @ 30 mls/hr 01/08/24 06:45 01/08/24 07:10 Sodium Chloride 0.9% IV 30 mls/hr .Q24H LOVE Administration PFSH Anesthesia Medical History Pernicious anemia Benign essential HTN Combined hyperlipidemia Intervertebral disc disorder with radiculopathy of lumbosacral region Cancer of prostate Surgical History History of heart artery stent Hx of heart surgery Family History Father Lung disease Mother Chronic kidney disease (CKD) Hypertension Social History Smoking and tobacco/nicotine status: former use of tobacco/nicotine Alcohol intake: never Substance/Drug Use: never Household members: spouse Marital status: Current occupational status: retired Data Anesthesia Cardiac Studies: Echocardiogram 07/31/23 Cardiac Event Monitor 08/02/23
[2024-01-08 09:00] VITALS: BP 130/77; PULSE 67; RESP 20; TEMP 36.1; O2SAT 98
[2024-01-08 09:21] VITALS: BP 132/79; PULSE 70; RESP 18; O2SAT 99
--- NOTE | 2024-01-08 09:30 | ANE.PACU2 ---
Inpatient post-anesthesia follow up: Airway intact: Yes Vital signs: Temperature 97 F Pulse Rate 70 Respiratory Rate 18 Blood Pressure 132/79 Pulse Oximetry 99 Oxygen Delivery Me thod Room Air Oxygen Flow Rate Fraction of Inspir ed Oxygen Hydration adequate: Yes Nausea and vomiting: No Pain level: 1 Mental status: Baseline
== END 2024-01-08 09:36 | disposition home or self-care (01) ==
PROVIDERS: PCP Nurse Practitioner; Visit Provider Surgery
PROC: 0DJD8ZZ Inspection of Lower Intestinal Tract, Via Natural or Artificial Opening Endoscopic (ICD-10-PCS; CPT 45378; principal; 2024-01-08 07:40)
DX: Z12.11 Encounter for screening for malignant neoplasm of colon (principal); D12.2 Benign neoplasm of ascending colon; D12.4 Benign neoplasm of descending colon; D12.5 Benign neoplasm of sigmoid colon; D12.3 Benign neoplasm of transverse colon; Z87.891 Personal history of nicotine dependence; I25.10 Atherosclerotic heart disease of native coronary artery without angina pectoris; Z95.5 Presence of coronary angioplasty implant and graft; Z86.73 Personal history of transient ischemic attack (TIA), and cerebral infarction without residual deficits; E78.2 Mixed hyperlipidemia; I10 Essential (primary) hypertension; Z85.46 Personal history of malignant neoplasm of prostate
CPT/HCPCS: 45380; 45385; 88305; J2704; J7030

== ENCOUNTER → 2024-01-22 15:04 | Outpatient (BNVA) | payer MEDICARE, MEDICAID, SELFPAY | PROVIDERS: PCP Nurse Practitioner; Visit Provider Surgery | DX: Z86.0100 Personal history of colon polyps, unspecified (principal) | CPT/HCPCS: 99212 ==

== ENCOUNTER 2024-01-29 11:41 | Outpatient (CLI) | payer MEDICARE, MEDICAID, SELFPAY ==
[2024-01-29 12:58] LABS: Creatinine Urine, Random 152 mg/dL (39-259); Microalbum Creatinine Ratio Ur 7 mg/dL (0-20); Microalbumin Random Urine 1 ug/dL (0-20)
[2024-01-29 13:00] LABS: Calcium 9.2 mg/dL (8.5-10.5)
[2024-01-29 13:02] LABS: Albumin Level 4.1 g/dL (3.5-5.2); Anion Gap 15.7 (5-19); Blood Urea Nitrogen 11 mg/dL (8-23); Carbon Dioxide 27 mmol/L (22-29); Chloride 100 mmol/L (98-107); Glucose 95 mg/dL (65-115); Phosphorus 2.4 mg/dL (2.5-4.5); Potassium 4.7 mmol/L (3.5-5.1); Sodium 138 mmol/L (136-145)
[2024-01-29 13:07] LABS: Parathyroid Hormone 34.1 pg/mL (15-65)
== END 2024-01-29 11:42 | disposition home or self-care (01) ==
LOC: LAB 11:42
PROVIDERS: PCP Nurse Practitioner; Visit Provider Internal Medicine
DX: N18.32 Chronic kidney disease, stage 3b (principal)
CPT/HCPCS: 36415; 80069; 82044; 82310; 83970

== ENCOUNTER → 2024-02-07 15:30 | Outpatient (BNVA) | payer MEDICARE, MEDICAID, SELFPAY | PROVIDERS: PCP Nurse Practitioner; Visit Provider Internal Medicine | DX: I25.10 Atherosclerotic heart disease of native coronary artery without angina pectoris (principal); Z86.73 Personal history of transient ischemic attack (TIA), and cerebral infarction without residual deficits; R07.89 Other chest pain; Z87.891 Personal history of nicotine dependence; I10 Essential (primary) hypertension | CPT/HCPCS: 99214 ==

== ENCOUNTER 2024-07-22 06:55 | Outpatient (CLI) | payer MEDICARE, MEDICAID, SELFPAY ==
--- NOTE | 2024-07-22 07:01 | US_ITS ---
WS: [id number] RIGHT UPPER QUADRANT ULTRASOUND HISTORY: Nausea COMPARISON: None available. Liver: 13.7 cm in length. Normal size with coarsened echotexture. No mass or intrahepatic dilatation. Portal Vein: Normal hepatopetal flow with monophasic waveform. Gallbladder: Slightly contracted gallbladder with numerous stones. Several large stones are present. No wall thickening or pericholecystic fluid. CBD: 0.5 cm Pancreas: Completely obscured by bowel gas. Right kidney: 8.5 cm in length. Low normal size kidney with diffuse cortical thinning and increased echogenicity. No hydronephrosis. Cortical cyst from the lower pole measures 1.0 x 0.9 x 1.0 cm. Aorta and IVC: Atherosclerotic plaque aorta. No ascites. US/US gall bladder [id number] IMPRESSION: 1. Cholelithiasis. Numerous large stones present in the gallbladder. No eviden ce for acute cholecystitis at this time. Recommend evaluation by surgery. 2. Hepatic steatosis. 3. Low normal size RIGHT kidney with diffuse cortical thinning.
== END 2024-07-22 06:56 | disposition home or self-care (01) ==
PROVIDERS: PCP Nurse Practitioner; Visit Provider Nurse Practitioner
DX: R11.0 Nausea (principal); R14.0 Abdominal distension (gaseous); I63.9 Cerebral infarction, unspecified; E53.8 Deficiency of other specified B group vitamins; R20.2 Paresthesia of skin; K80.20 Calculus of gallbladder without cholecystitis without obstruction; K76.0 Fatty (change of) liver, not elsewhere classified; R93.421 Abnormal radiologic findings on diagnostic imaging of right kidney; N28.1 Cyst of kidney, acquired; I70.0 Atherosclerosis of aorta
CPT/HCPCS: 76705

== ENCOUNTER → 2024-07-24 07:57 | Outpatient (BNVA) | payer MEDICARE, MEDICAID, SELFPAY | PROVIDERS: PCP Nurse Practitioner; Referring Provider Nurse Practitioner; Visit Provider Specialist | DX: Z86.73 Personal history of transient ischemic attack (TIA), and cerebral infarction without residual deficits (principal); I65.01 Occlusion and stenosis of right vertebral artery; F32.A Depression, unspecified; G47.10 Hypersomnia, unspecified; I63.9 Cerebral infarction, unspecified | CPT/HCPCS: 99205 ==

== ENCOUNTER → 2024-07-30 12:24 | Outpatient (BNVA) | payer MEDICARE, MEDICAID, SELFPAY | PROVIDERS: PCP Nurse Practitioner; Visit Provider Surgery | DX: R10.11 Right upper quadrant pain (principal) | CPT/HCPCS: 99214 ==

== ENCOUNTER → 2024-08-05 15:00 | Outpatient (BNVA) | payer MEDICARE, MEDICAID, SELFPAY | PROVIDERS: PCP Nurse Practitioner; Visit Provider Internal Medicine | DX: I25.10 Atherosclerotic heart disease of native coronary artery without angina pectoris (principal); Z79.02 Long term (current) use of antithrombotics/antiplatelets; Z79.82 Long term (current) use of aspirin; Z95.5 Presence of coronary angioplasty implant and graft; Z86.73 Personal history of transient ischemic attack (TIA), and cerebral infarction without residual deficits; Z87.891 Personal history of nicotine dependence; R07.9 Chest pain, unspecified; R06.02 Shortness of breath | CPT/HCPCS: 99214 ==

== ENCOUNTER → 2024-08-12 08:57 | Outpatient (BNVA) | payer MEDICARE, MEDICAID, SELFPAY | PROVIDERS: PCP Nurse Practitioner; Visit Provider Family Medicine | DX: Z01.818 Encounter for other preprocedural examination (principal) | CPT/HCPCS: 80053; 85025; 93005 ==

== ENCOUNTER 2024-08-19 09:43 | Outpatient (CLI) | payer MEDICARE, MEDICAID, SELFPAY ==
--- NOTE | 2024-08-19 | ECG_ITS ---
[facility] Date: 2024-08-19 Pat Name: Camilo Zuniga Department: Room: Gender: Male [employer]: : 1945 Requested By: Zach Hamilton Order Number: [id number] Dori MD: Zach Hamilton M.D. Interpretive Statements LEXISCAN SESTAMIBI STRESS TEST Procedure: At the baseline, the blood pressure was 149/79 mmHg with a heart rate of 77 bpm. The electrocardiogram showed normal sinus rhythm, left bundle branch block with normal ST and T's. The Lexiscan was infused over a period of 20 seconds. A total of 0.4 mg of Lexiscan was infused. The stress phase was continued for a total of 5 minutes. Heart rate was at the end of stress phase was 80 bpm and a blood pressure of 126/69 mmHg. The EKG at the peak infusion revealed normal sinus rhythm with no significant ST-T wave changes. Sestamibi was injected 20 seconds after the Lexiscan infusion. Blood pressure at the end of recovery phase was 132/72 mmHg with a heart rate of 81 bpm. Conclusion: 1. Normal EKG response to Lexiscan infusion 2. No Lexiscan induced chest pain or cardiac arrhythmia. 3. Normal blood pressure and heart rate response. 4. Sestamibi/sestamibi perfusion scan pending; see separate report. Electronically Signed On 09-04-2024 10:41:56 CDT by Zach Hamilton M.D. [email or web address]
[2024-08-19 09:50] VITALS: BMI 23.7
--- NOTE | 2024-08-19 09:51 | NMCV_ITS ---
NM air perf SPECT r/s* [id number] Camilo Zuniga Age: 79 Gender: M : 1945 Exam Date: 08/19/2024 10:37 Ordering Phys: Zach Hamilton M.D ([email or web address]) Technologist: TRUONG Vega Exam Location: [facility] Indications: cp STRESS TEST [facility] IMAGE PROTOCOL Rest/Stress 1 Lexiscan Day Radiopharmaceutical Dose (mCi) Administration Site Administered by Rest: Tc-99m 10.6 IV TRUONG Vega Sestamibi Stress:Tc-99m 32.9 IV TRUONG Delgado Sestamibi Rest: 19-Aug-2024 60 Discovery 630 Stress: 19-Aug-2024 30 Discovery 630 0.4mg Lexiscan. Images obtained in supine and prone position. SPECT RESULTS Technical Quality: Good Raw Data Analysis: Normal Image Corrections: No attenuation or motion correction applied Summed Stress Score: 1 Summed Rest Score: 2 Summed Difference Score: 1 PERFUSION FINDINGS Small area of fixed perfusion defects in apical lateral wall. This is consistent with small area of prior infarct in left circumflex artery territory. No evidence of ischemia. FUNCTIONAL RESULTS (calculated via Gated SPECT) Stress Image LV EF (%): 76 Stress EDV (mL):66 TID: 0.85 Stress ESV (mL):16 FUNCTIONAL FINDINGS: There is normal left ventricular systolic function. IMPRESSIONS 1. Small area of prior infarct seen in the left circumflex artery territory. No evidence of ischemia 2. LV systolic function is normal Zach Hamilton MD (Electronically Signed) Final Date: 25 August 2024 11:14 S
[2024-08-19] MEDS: regadenoson 0.4 Mg/5 ml Syringe IVP (10:59)
[2024-08-19 11:12] VITALS: BP 132/72; PULSE 81
== END 2024-08-19 09:44 | disposition home or self-care (01) ==
PROVIDERS: PCP Nurse Practitioner; Visit Provider Internal Medicine
DX: R07.9 Chest pain, unspecified (principal); R06.02 Shortness of breath
CPT/HCPCS: 36415; 78452; 93017; 96374; A9500; J2785

== ENCOUNTER 2024-09-01 06:59 | Day surgery (SDC) | payer MEDICARE, MEDICAID, SELFPAY ==
[2024-09-01] VITALS (13 sets, daily range): BP systolic 150–173; BP diastolic 82–92; PULSE 78–85; RESP 11–18; TEMP 36.1–36.2; O2SAT 91–97; BMI 23.8
--- NOTE | 2024-09-01 07:16 | ANES.PREANE2 ---
Pre-Anesthetic Assessment Height/Weight: Height 5 ft 8 in Preop Diagnosis: Chronic cholecystitis Operation Date: 09/01/24 08:40 Proposed Procedures p Laparoscopic POSSIBLE Open Cholecystectomy(Not Applicable) - Luigi Campo MD Was Beta Rickey taken within 24 hours: N/A Was Clonidine taken within 24 hours: N/A Social No alcohol and No tobacco Quit smoking years ago Exam alert, oriented x 3, clear to auscultation bilaterally and regular rate & rhythm Airway Submandibular: within normal limits Cervical ROM: within normal limits Mallampati: Class IV Comments: Comments: Edentulous, large hines Anesthetic Plan ASA status: 3 Anesthesia: General Other: No prior issues with anesthesia NPO since yesterday evening Patient states that he is incoherent a lot , A&O x 3 today History of hypertension on amlodipine 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 Patient with SOB during stress test but per nursing report, stress test was negative. Final report has not been completed Plan for general anesthesia Medications/Allergies Home Medications ?Medication ?Instructions ?Recorded ?Confirmed ?Last Taken ?Type pantoprazole 40 mg tablet,delayed 40 mg PO QAM 07/22/21 09/01/24 08/31/24 History release TLSO Brace #1 ea 02/16/22 08/05/24 Unknown Rx linaclotide 290 mcg capsule 290 mcg PO DAILY 03/23/23 09/01/24 08/31/24 History (Linzess) temazepam 30 mg capsule 30 mg PO QPM 03/23/23 09/01/24 08/31/24 History tramadol 50 mg tablet 50 mg PO BID 05/21/23 09/01/24 08/31/24 History Shoulder Sling #1 ea 05/25/23 08/05/24 Unknown Rx aspirin 81 mg tablet,delayed 81 mg PO DAILY #30 tabs 07/31/23 08/28/24 08/23/24 Rx release clopidogrel 75 mg tablet 75 mg PO DAILY #30 tabs 07/31/23 09/01/24 08/23/24 Rx mometasone 0.1 % topical solution 1 applic topical DAILY PRN Skin 09/03/23 09/01/24 3 Weeks Ago History Irritation ~12/13/23 lactulose 10 gram/15 mL oral 30 ml PO BID PRN Constipation 11/25/23 09/01/24 1 Month Ago Rx solution #3,000 mL ~12/04/23 magnesium hydroxide 400 mg/5 mL 5 ml PO DAILY 01/03/24 09/01/24 08/28/24 History oral suspension (Milk of Magnesia) amlodipine 2.5 mg tablet 2.5 mg PO DAILY 07/24/24 09/01/24 08/31/24 History simethicone 250 mg capsule 250 mg PO BID 45 days #90 caps 07/30/24 09/01/24 08/31/24 Rx ipratropium 0.5 mg-albuterol 3 mg 3 ml inhalation PRN 08/12/24 09/01/24 08/31/24 History (2.5 mg base)/3 mL nebulization soln melatonin 10 mg capsule 10 mg PO DAILY 08/12/24 09/01/24 08/31/24 History Allergies Allergy/AdvReac Type Severity Reaction Status Date / Time atorvastatin Allergy ALGY-Hives Verified 09/01/24 07:10 simvastatin Allergy ALGY-Rash Verified 09/01/24 07:10 [facility] Anesthesia Medical History Pernicious anemia Benign essential HTN Combined hyperlipidemia Intervertebral disc disorder with radiculopathy of lumbosacral region Cancer of prostate Surgical History History of heart artery stent Hx of heart surgery Family History Father Lung disease Mother Chronic kidney disease (CKD) Hypertension Social History Smoking and tobacco/nicotine status: former use of tobacco/nicotine Alcohol intake: never Substance/Drug Use: never Household members: spouse Marital status: Current occupational status: retired Data Anesthesia Cardiac Studies: Echocardiogram 07/31/23 Sestamibi Stress Test (Cardiology) 08/19/24 Cardiac Event Monitor 08/02/23
[2024-09-01] MEDS: sodium chloride 0.9% 1,000 ML 30 ML IV (07:20)
--- NOTE | 2024-09-01 07:29 | P.HPUD_ITS ---
Surgery/Procedure H&P Update DATE OF PROCEDURE: September 01, 2024 DATE H&P PERFORMED: 08/12/24 H&P UPDATE INFORMATION: I have reviewed H&P completed within last 30 days, I have examined patient prior to procedure, No changes to prior documentation, H&P is in [facility] EMR on date indicated and Risks and benefits of the procedure reviewed CHANGES TO PREVIOUS DOCUMENTATION: I went over again about risks and benefits of this procedure. Patient and family member showed understanding. They are aware that there is a good chance of despite gallbladder removal her symptoms are persistent as patient symptoms are nonspecific and mostly located in the mid abdomen. Patient shows understanding and agrees PLANNED PROCEDURE: Operation Date: 09/01/24 08:40 Proposed Procedures p Laparoscopic POSSIBLE Open Cholecystectomy(Not Applicable) - Luigi Campo MD
[2024-09-01] MEDS: ceFAZolin 2,000 mg SDV 2000 MG IVP (07:47)
[2024-09-01] MEDS: lidocaine-epi 1% 20 mL INJ 10 ML INJECTION (08:40)
[2024-09-01] MEDS: BUPivacaine 0.25% INJ 10 mL INJECTION (08:40)
--- NOTE | 2024-09-01 08:53 | P.OP_ITS ---
Operative Report Date of procedure: September 01, 2024 Pre-op diagnosis: Symptomatic cholelithiasis Post-op diagnosis: Same Post-op findings: Normal biliary anatomy, there was a very small cyst of the liver adjacent to the fundus of the gallbladder that was left undisturbed. There was a tiny fat- containing umbilical hernia Procedure done: Laparoscopic cholecystectomy Surgeon: Luigi Campo MD Estimated blood loss: 5 Complications: None apparent Brief History: This is a 79-year-old male with chronic abdominal pain that was found to have a stones in imaging. After discussion we will resume benefits as documented in my preop note with side to proceed to the OR for laparoscopic cholecystectomy Procedure: Patient was brought into the OR, he was placed in a supine position. General anesthesia was given. The abdomen was prepped and draped in the usual sterile fashion. The abdomen was accessed via 5 mm trocar in the left upper quadrant with Optiview technique. Initial pneumoperitoneum was obtained and no evidence of visceral injury during entry was noted. Abdomen Demeter trocar was placed in the umbilical region through the hernia under direct visualization. An additional 5 mm trocars were placed in the right upper quadrant right flank and epigastrium under direct visualization. Patient was placing reverse Trendelenburg with the left side down. The gallbladder was retracted cephalad from the fundus. I then retracted the infundibulum and the inferolateral direction exposing the hepatocystic triangle. I then opened the peritoneum in the hepatocystic triangle, I carried this opening in the medial and lateral distal direction to the edges of the liver and then on the sides of the gallbladder to improve visualization. With careful blunt dissection and electrocautery I was able to encircle the cystic duct and artery and I also elevated the lower third of the gallbladder from the liver bed thus creating a critical view of safety. The cystic duct and artery were double clipped proximally and single clipped distally and transected. The gallbladder was removed from the liver bed using electrocautery. There was a small liver cyst near the fundus of the gallbladder that was left undisturbed. The specimen was retrieved in an Endo Catch bag. Umbilical trocar site. Hemostasis was verified, the clips appeared to be in good position no evidence of bleeding or bile leak. I then proceeded to close the umbilical trocar site using a 0 Vicryl on a Nikos-Stella suture passer under direct visualization. The epigastrium right upper quadrant and right flank trocars were removed under direct visualization the left upper quadrant was used to be quite as pneumoperitoneum and subsequently removed. Wounds were closed in layers using #3 Vicryl for subcutaneous tissue #4 Monocryl for the skin and Dermabond was applied. At the end of the procedure all counts were correct the patient tolerated well the procedure was transferred to PACU in stable condition
[2024-09-01] MEDS: fentaNYL 50 mcg/mL INJ 2mL IVP (09:20)
--- NOTE | 2024-09-01 10:43 | ANE.PACU2 ---
Inpatient post-anesthesia follow up: Airway intact: Yes Vital signs: Temperature 97.0 F Pulse Rate 79 Respiratory Rate 16 Blood Pressure 162/85 Pulse Oximetry 94 Oxygen Delivery Me thod Room Air Oxygen Flow Rate Fraction of Inspir ed Oxygen Hydration adequate: Yes Nausea and vomiting: No Pain level: 2 Mental status: Baseline
== END 2024-09-01 10:43 | disposition home or self-care (01) ==
PROVIDERS: PCP Nurse Practitioner; Visit Provider Surgery
PROC: 0FT44ZZ Resection of Gallbladder, Percutaneous Endoscopic Approach (ICD-10-PCS; CPT 47562; principal; 2024-09-01 08:30)
DX: K80.10 Calculus of gallbladder with chronic cholecystitis without obstruction (principal); K76.89 Other specified diseases of liver; K42.9 Umbilical hernia without obstruction or gangrene; I10 Essential (primary) hypertension; Z86.73 Personal history of transient ischemic attack (TIA), and cerebral infarction without residual deficits; Z99.81 Dependence on supplemental oxygen; Z86.79 Personal history of other diseases of the circulatory system; K21.9 Gastro-esophageal reflux disease without esophagitis; Z79.82 Long term (current) use of aspirin; D51.0 Vitamin B12 deficiency anemia due to intrinsic factor deficiency; E78.2 Mixed hyperlipidemia; Z82.49 Family history of ischemic heart disease and other diseases of the circulatory system; Z85.46 Personal history of malignant neoplasm of prostate; Z95.5 Presence of coronary angioplasty implant and graft; Z87.891 Personal history of nicotine dependence; J44.9 Chronic obstructive pulmonary disease, unspecified
CPT/HCPCS: 47562; 88304; A4216; J0690; J1100; J2405; J2704; J3010; J3490; J7030; J9999

== ENCOUNTER → 2024-09-03 08:10 | Outpatient (BNVA) | payer MEDICARE, MEDICAID, SELFPAY | PROVIDERS: PCP Nurse Practitioner; Visit Provider Nurse Practitioner Family | DX: L21.8 Other seborrheic dermatitis (principal); D17.1 Benign lipomatous neoplasm of skin and subcutaneous tissue of trunk; L57.8 Other skin changes due to chronic exposure to nonionizing radiation; L81.4 Other melanin hyperpigmentation; L82.1 Other seborrheic keratosis; X32.XXXA Exposure to sunlight, initial encounter; D48.5 Neoplasm of uncertain behavior of skin | CPT/HCPCS: 11104; 99204 ==

== ENCOUNTER 2024-09-06 15:42 | Emergency (ER) | payer MEDICARE, MEDICAID, SELFPAY ==
[2024-09-06 15:47] VITALS: BP 127/85; PULSE 82; RESP 18; TEMP 36.4; O2SAT 95; BMI 23.0
--- NOTE | 2024-09-06 16:03 | CTR_ITS ---
PROCEDURE INFORMATION: Exam: CT Head Without Contrast Exam date and time: 09/06/2024 4:53 PM Age: 79 years old Clinical indication: Pain; Headache; Additional info: FLOWERS TECHNIQUE: Imaging protocol: Computed tomography of the head without contrast. Radiation optimization: All CT scans at this facility use at least one of these dose optimization techniques: automated exposure control; mA and/or kV adjustment per patient size (includes targeted exams where dose is matched to clinical indication); or iterative reconstruction. COMPARISON: CT head wo con* [id number] 09/03/2023 1:04 PM RADIATION DOSE METRICS: Total DLP (mGy-cm): 1061.74 FINDINGS: Brain: There are bilateral periventricular white matter and centrum semiovale hypodensities, consistent with chronic ischemic small vessel disease. No recent infarct, intracranial bleed or mass effect. Old lacunar infarct in the left external capsule. Cerebral ventricles: No ventriculomegaly. Pituitary gland and sella: There is a normal empty pituitary sella. Paranasal sinuses: Visualized sinuses are unremarkable. No fluid levels. Mastoid air cells: Visualized mastoid air cells are well aerated. Orbital cavities: Post bilateral cataract surgery. Bones: Unremarkable. No acute fracture. Soft tissues: Unremarkable. CT/CT head wo con* [id number] IMPRESSION: No large territorial infarct or intracranial bleed.
--- NOTE | 2024-09-06 16:14 | W.ED.HA ---
Documented by User: Jr Seymour, 09/08/24 05:45 HPI - Headache General: Chief Complaint: Headache Stated Complaint: head pressure, ams Time Seen by Provider: 09/06/24 15:44 History of Present Illness: 79-year-old presents to the emergency room complaining of pressure in his head and pressure throughout his entire body. Patient is 5 days postop laparoscopic cholecystectomy. He denies any chest pain denies any shortness of breath. No fever sweats or chills no productive cough. Family states he has some cognitive and decline which has been a little bit worse since the surgery. He is complaining of some mild dizziness poor appetite 79-year-old male patient seen earlier by Dr. Seymour. He complains of a headache, some pressure, some alteration in his mental status. He had a cholecystectomy 09/01. No complaints of belly pain. No fever. Associated symptoms: Deny chest pain, fever(s) or rash Related Data Home Medications ?Medication ?Instructions ?Recorded ?Confirmed pantoprazole 40 mg tablet,delayed 40 mg PO QAM 07/22/21 09/01/24 release linaclotide 290 mcg capsule 290 mcg PO DAILY 03/23/23 09/01/24 (Linzess) temazepam 30 mg capsule 30 mg PO QPM 03/23/23 09/01/24 mometasone 0.1 % topical solution 1 applic topical DAILY PRN Skin 09/03/23 09/01/24 Irritation magnesium hydroxide 400 mg/5 mL 5 ml PO DAILY 01/03/24 09/01/24 oral suspension (Milk of Magnesia) amlodipine 2.5 mg tablet 2.5 mg PO DAILY 07/24/24 09/01/24 ipratropium 0.5 mg-albuterol 3 mg 3 ml inhalation PRN 08/12/24 09/01/24 (2.5 mg base)/3 mL nebulization soln melatonin 10 mg capsule 10 mg PO DAILY 08/12/24 09/01/24 Previous Rx's ?Medication ?Instructions ?Recorded TLSO Brace #1 ea 02/16/22 Shoulder Sling #1 ea 05/25/23 aspirin 81 mg tablet,delayed 81 mg PO DAILY #30 tabs 07/31/23 release Held on 09/01/24. Instructions: Resume on 09/05/24. clopidogrel 75 mg tablet 75 mg PO DAILY #30 tabs 07/31/23 Held on 09/01/24. Instructions: Resume on 09/05/24. lactulose 10 gram/15 mL oral 30 ml PO BID PRN Constipation 11/25/23 solution #3,000 mL simethicone 250 mg capsule 250 mg PO BID 45 days #90 caps 07/30/24 tramadol 50 mg tablet 50 mg PO Q6H PRN pain #30 tabs 09/01/24 Allergies Allergy/AdvReac Type Severity Reaction Status Date / Time atorvastatin Allergy ALGY-Hives Verified 09/01/24 07:10 simvastatin Allergy ALGY-Rash Verified 09/01/24 07:10 Review of Systems Const: Denies: fever(s) or chills Card: Denies: chest pain Resp: Denies: dyspnea GI: Denies: abdominal pain : Denies: dysuria, urinary frequency or urinary urgency Musc: Denies: neck pain or back pain Skin/Breast: Denies: rash PFSH ED PFSH: Medical History Pernicious anemia Benign essential HTN Combined hyperlipidemia Intervertebral disc disorder with radiculopathy of lumbosacral region Cancer of prostate Surgical History History of heart artery stent Hx of heart surgery Family History Father Lung disease Mother Chronic kidney disease (CKD) Hypertension Social History Smoking and tobacco/nicotine status: former use of tobacco/nicotine Alcohol intake: never Substance/Drug Use: never Household members: spouse Marital status: Current occupational status: retired Physical Exam Const: COMMON NORMALS: no acute distress GENERAL APPEARANCE: cooperative and comfortable ORIENTATION/CONSCIOUSNESS: Yes awake, Yes oriented to person, Yes oriented to place and Yes oriented to time HENMT: COMMON NORMALS: normocephalic, atraumatic and hearing grossly normal bilaterally HEAD & SCALP: normocephalic and atraumatic Resp: COMMON NORMALS: normal respiratory effort, No retractions, No use of accessory muscles and clear to auscultation bilaterally AUSCULTATION: clear to auscultation bilaterally Cardio: COMMON NORMALS: regular rate, regular rhythm and No murmurs present (Cardio) RATE: regular rate RHYTHM: regular rhythm GI: COMMON NORMALS: Soft to palpation and No hepatosplenomegaly present AUSCULTATION: Yes normoactive bowel sounds PALPATION: Yes Soft to palpation, No Tenderness to palpation present (GI), No Guarding due to palpation present (GI) and Yes No hepatosplenomegaly present Extremity: COMMON NORMALS: normal to inspection, capillary refill normal, no clubbing, cyanosis or edema, no calf tenderness and no pedal edema Neuro: SENSORIUM/ORIENTATION: Yes oriented to person, Yes oriented to place and Yes oriented to time Skin: COMMON NORMALS: no rashes or lesions noted GENERAL SKIN EXAM: no rashes or lesions noted Course Vital Signs: Vital signs: Vital Signs Temperature 97.6 F 09/06/24 15:47 Pulse Rate 76 09/06/24 20:40 Respiratory Rate 16 09/06/24 20:40 Blood Pressure 155/92 09/06/24 20:40 Pulse Oximetry 93 09/06/24 20:40 Oxygen Delivery Me thod Room Air 09/06/24 15:47 MDM - Headache Medical Decision Making Care signed out to Dr. Walker at change of shift. See final notes for diagnosis and disposition. Patient's vitals are normal. CBC is normal. Creatinine is 1.6. Head CT is nonacute. Urinalysis is negative. Head pressure is gone after medication. Mental status is essentially baseline at this point. He will be discharged home to return for any worsening symptoms. Lab Data 09/06/24 16:38 09/06/24 16:[address] 09/06/24 16:03 IMPRESSION: No large territorial infarct or intracranial bleed. Laboratory Results WBC 9.41 10^3/uL (3.29-11.43) 09/06/24 16:38 RBC 4.41 10^6/uL (3.85-5.65) 09/06/24 16:38 Hgb 13.90 g/dL (11.27-16.99) 09/06/24 16:38 Hct 42.2 % (37-53) 09/06/24 16:38 MCV 95.7 fl (82-101) 09/06/24 16:38 MCH 31.5 pg (27-33) 09/06/24 16:38 MCHC 32.9 g/dL (30-55) 09/06/24 16:38 RDW 13.5 % (12.1-15.1) 09/06/24 16:38 Plt Count 305 10^3/cmm (157-399) 09/06/24 16:38 MPV 9.3 fL (7.4-10.4) 09/06/24 16:38 Neut % (Auto) 74.2 % 09/06/24 16:38 Lymph % (Auto) 15.8 % 09/06/24 16:38 Page % (Auto) 8.2 % 09/06/24 16:38 Eos % (Auto) 1.0 % 09/06/24 16:38 Baso % (Auto) 0.6 % 09/06/24 16:38 Neut # (Auto) 6.98 10^3/uL (1.8-7.7) 09/06/24 16:38 Lymph # (Auto) 1.5 10^3/uL (0.8-4.8) 09/06/24 16:38 Page # (Auto) 0.8 10^3/uL (0.2-0.9) 09/06/24 16:38 Eos # (Auto) 0.1 10^3/uL (0.0-0.8) 09/06/24 16:38 Baso # (Auto) 0.1 10^3/uL (0.0-0.1) 09/06/24 16:38 Nucleated RBC % (auto) 0 % 09/06/24 16:38 Nucleated RBCs # 0.0 /100WBC 09/06/24 16:38 Sodium 137 mmol/L (136-145) 09/06/24 16:38 Potassium 4.6 mmol/L (3.5-5.1) 09/06/24 16:38 Chloride 99 mmol/L (98-107) 09/06/24 16:38 Carbon Dioxide 26 mmol/L (22-29) 09/06/24 16:38 Anion Gap 16.6 (5-19) 09/06/24 16:38 BUN 18 mg/dL (8-23) 09/06/24 16:38 Creatinine 1.6 mg/dL (0.7-1.2) H 09/06/24 16:38 GFR Calculation Not Reportable 09/06/24 16:38 Glucose 99 mg/dL (65-115) 09/06/24 16:38 Calculated Osmolality 286 mOsm/kg (285-295) 09/06/24 16:38 Calcium 9.0 mg/dL (8.5-10.5) 09/06/24 16:38 Total Bilirubin 0.5 mg/dL (0.15-1.2) 09/06/24 16:38 AST 15 U/L (0-40) 09/06/24 16:38 ALT 10 U/L (0-41) 09/06/24 16:38 Alkaline Phosphatase 106 U/L (40-130) 09/06/24 16:38 Total Protein 7.2 g/dL (6.6-8.7) 09/06/24 16:38 Albumin 4.0 g/dL (3.5-5.2) 09/06/24 16:38 Globulin 3.2 g/dL (1.3-4.6) 09/06/24 16:38 Lipase 17 U/L (13-60) 09/06/24 16:38 Urine Color Yellow (Yellow) 09/06/24 19:30 Urine Appearance Cloudy (CLEAR) A 09/06/24 19: Urine pH 8.0 (5-7) A 09/06/24 19:30 Ur Specific [place] 1.017 (1.005-1.030) 09/06/24 19:30 Urine Protein Negative (Negative) 09/06/24 19:30 Urine Glucose (UA) Negative (Normal) 09/06/24 19:30 Urine Ketones Trace (Negative) 09/06/24 19:30 Urine Blood Negative (Negative) 09/06/24 19:30 Urine Nitrate Negative (Negative) 09/06/24 19: Urine Bilirubin Negative (Negative) 09/06/24 19: Urine Urobilinogen 1.0 mg/dL (Negative) 09/06/24 19:30 Ur Leukocyte Esterase Negative (Negative) 09/06/24 19:30 Urine RBC 0-2 /hpf (0-2) 09/06/24 19:30 Urine WBC 0-5 /hpf (0-5) 09/06/24 19:30 Ur Squamous Epith Cells 0-5 /hpf (0-5) 09/06/24 19:30 Amorphous Sediment Not Reportable 09/06/24 19:30 Urine Bacteria None seen /hpf (NONE) 09/06/24 19:30 Hyaline Casts 0-4 /lpf H 09/06/24 19:30 Discharge Plan Discharge Patient Disposition: Home Clinical Impression: Headache Condition: Stable Prescriptions: No Action (DME) TLSO Brace See Rx Instructions .Route .MEDSUPPLY Qty: 1 0RF Rx Instructions: As directed temazepam 30 mg capsule 30 mg PO QPM Linzess 290 mcg capsule 290 mcg PO DAILY (DME) Shoulder Sling See Rx Instructions .Route .MEDSUPPLY Qty: 1 0RF Rx Instructions: As directed amlodipine 2.5 mg tablet 2.5 mg PO DAILY simethicone 250 mg capsule 250 mg PO BID 45 Days Qty: 90 0RF Rx Instructions: administer after meals melatonin 10 mg capsule 10 mg PO DAILY ipratropium-albuterol 0.5 mg-3 mg(2.5 mg base)/3 mL solution for nebulization 3 ml inhalation PRN pantoprazole 40 mg tablet,delayed release (DR/EC) 40 mg PO QAM aspirin 81 mg Tablet,Delayed Release (Dr/Ec) 81 mg PO DAILY Qty: 30 0RF clopidogrel 75 mg Tablet 75 mg PO DAILY Qty: 30 0RF mometasone 0.1 % solution 1 applic TOPICAL DAILY PRN (Reason: Skin Irritation) lactulose 10 gram/15 mL solution 30 ml PO BID PRN (Reason: Constipation) Qty: 3000 0RF magnesium hydroxide [Milk of Magnesia] 400 mg/5 mL Suspension 5 ml PO DAILY tramadol 50 mg tablet 50 mg PO Q6H PRN (Reason: pain) Qty: 30 0RF Discharge Orders: Discharge ED (Routine); Ordered 09/06/24 Ordered By: Mark Walker Referrals: Joseline Madison FNP [Primary Care Provider, Nurse Practitioner] Patient Instructions: Acute Headache (ED), Opioid Safety, Pain Management Activity Restrictions/Additional Instructions: Return for fever, worsening mental status, weakness, other concerning symptoms. Call your doctor Sunday to follow-up. Print Language: Belarusian Coding Level of Care Code ED Chief Credit Officer for Chg Fwd Documented by User: Mark Walker, DO 09/06/24 22:52 HPI - Headache General: Chief Complaint: Headache Stated Complaint: head pressure, ams Time Seen by Provider: 09/06/24 15:44 History of Present Illness: 79-year-old male patient seen earlier by Dr. Seymour. He complains of a headache, some pressure, some alteration in his mental status. He had a cholecystectomy 09/01. No complaints of belly pain. No fever. Related Data Home Medications ?Medication ?Instructions ?Recorded ?Confirmed pantoprazole 40 mg tablet,delayed 40 mg PO QAM 07/22/21 09/01/24 release linaclotide 290 mcg capsule 290 mcg PO DAILY 03/23/23 09/01/24 (Linzess) temazepam 30 mg capsule 30 mg PO QPM 03/23/23 09/01/24 mometasone 0.1 % topical solution 1 applic topical DAILY PRN Skin 09/03/23 09/01/24 Irritation magnesium hydroxide 400 mg/5 mL 5 ml PO DAILY 01/03/24 09/01/24 oral suspension (Milk of Magnesia) amlodipine 2.5 mg tablet 2.5 mg PO DAILY 07/24/24 09/01/24 ipratropium 0.5 mg-albuterol 3 mg 3 ml inhalation PRN 08/12/24 09/01/24 (2.5 mg base)/3 mL nebulization soln melatonin 10 mg capsule 10 mg PO DAILY 08/12/24 09/01/24 Previous Rx's ?Medication ?Instructions ?Recorded TLSO Brace #1 ea 02/16/22 Shoulder Sling #1 ea 05/25/23 aspirin 81 mg tablet,delayed 81 mg PO DAILY #30 tabs 07/31/23 release Held on 09/01/24. Instructions: Resume on 09/05/24. clopidogrel 75 mg tablet 75 mg PO DAILY #30 tabs 07/31/23 Held on 09/01/24. Instructions: Resume on 09/05/24. lactulose 10 gram/15 mL oral 30 ml PO BID PRN Constipation 11/25/23 solution #3,000 mL simethicone 250 mg capsule 250 mg PO BID 45 days #90 caps 07/30/24 tramadol 50 mg tablet 50 mg PO Q6H PRN pain #30 tabs 09/01/24 Allergies Allergy/AdvReac Type Severity Reaction Status Date / Time atorvastatin Allergy ALGY-Hives Verified 09/01/24 07:10 simvastatin Allergy ALGY-Rash Verified 09/01/24 07:10 PFSH ED PFSH: Medical History Pernicious anemia Benign essential HTN Combined hyperlipidemia Intervertebral disc disorder with radiculopathy of lumbosacral region Cancer of prostate Surgical History History of heart artery stent Hx of heart surgery Family History Father Lung disease Mother Chronic kidney disease (CKD) Hypertension Social History Smoking and tobacco/nicotine status: former use of tobacco/nicotine Alcohol intake: never Substance/Drug Use: never Household members: spouse Marital status: Current occupational status: retired Course Vital Signs: Vital signs: Vital Signs Temperature 97.6 F 09/06/24 15:47 Pulse Rate 76 09/06/24 20:40 Respiratory Rate 16 09/06/24 20:40 Blood Pressure 155/92 09/06/24 20:40 Pulse Oximetry 93 09/06/24 20:40 Oxygen Delivery Me thod Room Air 09/06/24 15:47 MDM - Headache Medical Decision Making Patient's vitals are normal. CBC is normal. Creatinine is 1.6. Head CT is nonacute. Urinalysis is negative. Head pressure is gone after medication. Mental status is essentially baseline at this point. He will be discharged home to return for any worsening symptoms. Lab Data 09/06/24 16:38 09/06/24 16:[address] 09/06/24 16:03 IMPRESSION: No large territorial infarct or intracranial bleed. Laboratory Results WBC 9.41 10^3/uL (3.29-11.43) 09/06/24 16:38 RBC 4.41 10^6/uL (3.85-5.65) 09/06/24 16:38 Hgb 13.90 g/dL (11.27-16.99) 09/06/24 16:38 Hct 42.2 % (37-53) 09/06/24 16:38 MCV 95.7 fl (82-101) 09/06/24 16:38 MCH 31.5 pg (27-33) 09/06/24 16:38 MCHC 32.9 g/dL (30-55) 09/06/24 16:38 RDW 13.5 % (12.1-15.1) 09/06/24 16:38 Plt Count 305 10^3/cmm (157-399) 09/06/24 16:38 MPV 9.3 fL (7.4-10.4) 09/06/24 16:38 Neut % (Auto) 74.2 % 09/06/24 16:38 Lymph % (Auto) 15.8 % 09/06/24 16:38 Page % (Auto) 8.2 % 09/06/24 16:38 Eos % (Auto) 1.0 % 09/06/24 16:38 Baso % (Auto) 0.6 % 09/06/24 16:38 Neut # (Auto) 6.98 10^3/uL (1.8-7.7) 09/06/24 16:38 Lymph # (Auto) 1.5 10^3/uL (0.8-4.8) 09/06/24 16:38 Page # (Auto) 0.8 10^3/uL (0.2-0.9) 09/06/24 16:38 Eos # (Auto) 0.1 10^3/uL (0.0-0.8) 09/06/24 16:38 Baso # (Auto) 0.1 10^3/uL (0.0-0.1) 09/06/24 16:38 Nucleated RBC % (auto) 0 % 09/06/24 16:38 Nucleated RBCs # 0.0 /100WBC 09/06/24 16:38 Sodium 137 mmol/L (136-145) 09/06/24 16:38 Potassium 4.6 mmol/L (3.5-5.1) 09/06/24 16:38 Chloride 99 mmol/L (98-107) 09/06/24 16:38 Carbon Dioxide 26 mmol/L (22-29) 09/06/24 16:38 Anion Gap 16.6 (5-19) 09/06/24 16:38 BUN 18 mg/dL (8-23) 09/06/24 16:38 Creatinine 1.6 mg/dL (0.7-1.2) H 09/06/24 16:38 GFR Calculation Not Reportable 09/06/24 16:38 Glucose 99 mg/dL (65-115) 09/06/24 16:38 Calculated Osmolality 286 mOsm/kg (285-295) 09/06/24 16:38 Calcium 9.0 mg/dL (8.5-10.5) 09/06/24 16:38 Total Bilirubin 0.5 mg/dL (0.15-1.2) 09/06/24 16:38 AST 15 U/L (0-40) 09/06/24 16:38 ALT 10 U/L (0-41) 09/06/24 16:38 Alkaline Phosphatase 106 U/L (40-130) 09/06/24 16:38 Total Protein 7.2 g/dL (6.6-8.7) 09/06/24 16:38 Albumin 4.0 g/dL (3.5-5.2) 09/06/24 16:38 Globulin 3.2 g/dL (1.3-4.6) 09/06/24 16:38 Lipase 17 U/L (13-60) 09/06/24 16:38 Urine Color Yellow (Yellow) 09/06/24 19:30 Urine Appearance Cloudy (CLEAR) A 09/06/24 19: Urine pH 8.0 (5-7) A 09/06/24 19: Ur Specific [place] 1.017 (1.005-1.030) 09/06/24 19: Urine Protein Negative (Negative) 09/06/24 19: Urine Glucose (UA) Negative (Normal) 09/06/24 19:30 Urine Ketones Trace (Negative) 09/06/24 19: Urine Blood Negative (Negative) 09/06/24: Urine Nitrate Negative (Negative) 09/06/24 19:30 Urine Bilirubin Negative (Negative) 09/06/24 19:30 Urine Urobilinogen 1.0 mg/dL (Negative) 09/06/24 19:30 Ur Leukocyte Esterase Negative (Negative) 09/06/24 19:30 Urine RBC 0-2 /hpf (0-2) 09/06/24 19:30 Urine WBC 0-5 /hpf (0-5) 09/06/24 19:30 Ur Squamous Epith Cells 0-5 /hpf (0-5) 09/06/24 19:30 Amorphous Sediment Not Reportable 09/06/24 19:30 Urine Bacteria None seen /hpf (NONE) 09/06/24 19:30 Hyaline Casts 0-4 /lpf H 09/06/24 19:30 All radiology interpretation(s) finalized by discharge Discharge Plan Discharge Patient Disposition: Home Clinical Impression: Headache Condition: Stable Prescriptions: No Action (DME) TLSO Brace See Rx Instructions .Route .MEDSUPPLY Qty: 1 0RF Rx Instructions: As directed temazepam 30 mg capsule 30 mg PO QPM Linzess 290 mcg capsule 290 mcg PO DAILY (DME) Shoulder Sling See Rx Instructions .Route .MEDSUPPLY Qty: 1 0RF Rx Instructions: As directed amlodipine 2.5 mg tablet 2.5 mg PO DAILY simethicone 250 mg capsule 250 mg PO BID 45 Days Qty: 90 0RF Rx Instructions: administer after meals melatonin 10 mg capsule 10 mg PO DAILY ipratropium-albuterol 0.5 mg-3 mg(2.5 mg base)/3 mL solution for nebulization 3 ml inhalation PRN pantoprazole 40 mg tablet,delayed release (DR/EC) 40 mg PO QAM aspirin 81 mg Tablet,Delayed Release (Dr/Ec) 81 mg PO DAILY Qty: 30 0RF clopidogrel 75 mg Tablet 75 mg PO DAILY Qty: 30 0RF mometasone 0.1 % solution 1 applic TOPICAL DAILY PRN (Reason: Skin Irritation) lactulose 10 gram/15 mL solution 30 ml PO BID PRN (Reason: Constipation) Qty: 3000 0RF magnesium hydroxide [Milk of Magnesia] 400 mg/5 mL Suspension 5 ml PO DAILY tramadol 50 mg tablet 50 mg PO Q6H PRN (Reason: pain) Qty: 30 0RF Discharge Orders: Discharge ED (Routine); Ordered 09/06/24 Ordered By: Mark Walker Referrals: Joseline aMdison FNP [Primary Care Provider, Nurse Practitioner] Patient Instructions: Acute Headache (ED), Opioid Safety, Pain Management Activity Restrictions/Additional Instructions: Return for fever, worsening mental status, weakness, other concerning symptoms. Call your doctor Sunday to follow-up. Print Language: Belarusian Coding Level of Care Code ED Chief Credit Officer for Jennifer Lopez
[2024-09-06 16:47] LABS: Basophils # 0.1 10^3/uL (0.0-0.1); Basophils % 0.6 %; Eosinophils # 0.1 10^3/uL (0.0-0.8); Hematocrit 42.2 % (37-53); Lymphocytes # 1.5 10^3/uL (0.8-4.8); Lymphocytes % 15.8 %; Mean Corpuscular HGB Conc 32.9 g/dL (30-55); Mean Corpuscular Hemoglobin 31.5 pg (27-33); Mean Corpuscular Volume 95.7 fl (82-101); Mean Platelet Volume 9.3 fL (7.4-10.4); Monocytes # 0.8 10^3/uL (0.2-0.9); Monocytes % 8.2 %; Neutrophils # 6.98 10^3/uL (1.8-7.7); Neutrophils % 74.2 %; Nucleated Red Blood Cells % 0 %; Platelet Count 305 10^3/cmm (157-399); Red Blood Count 4.41 10^6/uL (3.85-5.65); Red Cell Distribution Width 13.5 % (12.1-15.1); White Blood Count 9.41 10^3/uL (3.29-11.43)
[2024-09-06 17:04] LABS: Alanine Aminotransferase 10 U/L (0-41); Alkaline Phosphatase 106 U/L (40-130); Anion Gap 16.6 (5-19); Aspartate Amino Transferase 15 U/L (0-40); Blood Urea Nitrogen 18 mg/dL (8-23); Carbon Dioxide 26 mmol/L (22-29); Chloride 99 mmol/L (98-107); Creatinine Clr Calc Pharmacy 36.2215; Globulin 3.2 g/dL (1.3-4.6); Glucose 99 mg/dL (65-115); Lipase 17 U/L (13-60); Osmolality Calculated 286 mOsm/kg (285-295); Potassium 4.6 mmol/L (3.5-5.1); Sodium 137 mmol/L (136-145); Total Bilirubin 0.5 mg/dL (0.15-1.2); Total Protein 7.2 g/dL (6.6-8.7)
[2024-09-06] MEDS: sodium chloride 0.9% 1,000 ML 999 ML IV (17:47)
[2024-09-06] MEDS: ketorolac 30 mg/mL INJ 15 MG IVP (17:49)
[2024-09-06 19:38] VITALS: RESP 16
[2024-09-06] MEDS: morphine 4 mg/mL SDV 1 mL IVP (19:38)
[2024-09-06] MEDS: metoclopramide 5 mg/mL SDV 2 mL 10 MG IVP (19:39)
[2024-09-06 19:47] LABS: Bilirubin Urine Negative (Negative); Blood Urine Negative (Negative); Glucose Urine UA Negative (Normal); Ketones Urine Trace (Negative); Leukocyte Esterase Urine Negative (Negative); Nitrate Urine Negative (Negative); Protein Urine Negative (Negative); Specific Gravity, Urine 1.017 (1.005-1.030); Urine Appearance Cloudy (CLEAR); Urine Color Yellow (Yellow)
[2024-09-06 19:53] LABS: Add Urine Microscopic? YES; Bacteria Urine None Seen /hpf; Hyaline Casts Urine 0-4 /lpf; RBC Urine 0-2 /hpf (0-2); Squamous Epithelial Cell Urine 0-5 /hpf (0-5); WBC Urine 0-5 /hpf (0-5)
[2024-09-06 20:40] VITALS: BP 155/92; PULSE 76; RESP 16; O2SAT 93
== END 2024-09-06 20:41 | disposition home or self-care (01) ==
PROVIDERS: Physician Assistant; Emergency Provider Emergency Medicine; PCP Nurse Practitioner
DX: R51.9 Headache, unspecified (principal); Z79.82 Long term (current) use of aspirin; Z79.02 Long term (current) use of antithrombotics/antiplatelets; Z87.891 Personal history of nicotine dependence; E78.5 Hyperlipidemia, unspecified; I10 Essential (primary) hypertension
CPT/HCPCS: 36415; 70450; 80053; 81001; 83690; 85025; 96361; 96374; 96375; 99285; J1885; J2270; J2765; J7030

== ENCOUNTER → 2024-09-17 13:01 | Outpatient (BNVA) | payer MEDICARE, MEDICAID, SELFPAY | PROVIDERS: PCP Nurse Practitioner; Visit Provider Surgery | DX: R10.9 Unspecified abdominal pain (principal); Z98.890 Other specified postprocedural states; Z90.49 Acquired absence of other specified parts of digestive tract | CPT/HCPCS: 99024 ==

== ENCOUNTER → 2024-09-24 09:09 | Outpatient (BNVA) | payer MEDICARE, MEDICAID, SELFPAY | PROVIDERS: PCP Nurse Practitioner; Visit Provider Dermatology | DX: D17.30 Benign lipomatous neoplasm of skin and subcutaneous tissue of unspecified sites (principal); L21.8 Other seborrheic dermatitis; D22.39 Melanocytic nevi of other parts of face; L82.1 Other seborrheic keratosis | CPT/HCPCS: 99214 ==

== ENCOUNTER 2024-10-13 10:49 | Outpatient (CLI) | payer MEDICARE, MEDICAID, SELFPAY ==
[2024-10-13 12:11] LABS: Hematocrit 43.1 % (37-53); Hemoglobin 14.60 g/dL (11.27-16.99); Mean Corpuscular HGB Conc 33.9 g/dL (30-55); Mean Corpuscular Hemoglobin 32.0 pg (27-33); Mean Corpuscular Volume 94.5 fl (82-101); Nucleated Red Blood Cells % 0 %; Platelet Count 315 10^3/cmm (157-399); Red Blood Count 4.56 10^6/uL (3.85-5.65); White Blood Count 8.21 10^3/uL (3.29-11.43)
[2024-10-13 12:33] LABS: Alanine Aminotransferase 11 U/L (0-41); Albumin Level 4.1 g/dL (3.5-5.2); Alkaline Phosphatase 106 U/L (40-130); Anion Gap 15.7 (5-19); Aspartate Amino Transferase 17 U/L (0-40); Blood Urea Nitrogen 20 mg/dL (8-23); Calcium 9.1 mg/dL (8.5-10.5); Carbon Dioxide 27 mmol/L (22-29); Chloride 101 mmol/L (98-107); Globulin 3.2 g/dL (1.3-4.6); Glucose 80 mg/dL (65-115); Osmolality Calculated 290 mOsm/kg (285-295); Potassium 4.7 mmol/L (3.5-5.1); Sodium 139 mmol/L (136-145); Total Protein 7.3 g/dL (6.6-8.7)
[2024-10-13 12:35] LABS: Creatinine Urine, Random 36 mg/dL (39-259); Microalbum Creatinine Ratio Ur 28 mg/dL (0-20)
[2024-10-13 12:37] LABS: Calcium 9.0 mg/dL (8.5-10.5)
== END 2024-10-13 10:50 | disposition home or self-care (01) ==
PROVIDERS: PCP Nurse Practitioner; Visit Provider Nurse Practitioner Family
DX: I13.0 Hypertensive heart and chronic kidney disease with heart failure and stage 1 through stage 4 chronic kidney disease, or unspecified chronic kidney disease (principal); N18.32 Chronic kidney disease, stage 3b; I50.32 Chronic diastolic (congestive) heart failure
CPT/HCPCS: 36415; 80053; 80069; 82044; 82310; 83970; 85025

== ENCOUNTER → 2024-11-25 10:41 | Outpatient (BNVA) | payer OTHER, MEDICAID, SELFPAY | PROVIDERS: PCP Nurse Practitioner; Visit Provider Student in an Organized Health Care Education/Training Program | DX: M25.551 Pain in right hip (principal); M25.552 Pain in left hip; M54.50 Low back pain, unspecified | CPT/HCPCS: 73522; 99213 ==

== ENCOUNTER → 2024-12-09 13:32 | Outpatient (BNVA) | payer OTHER, MEDICAID, SELFPAY | PROVIDERS: PCP Nurse Practitioner; Visit Provider Orthopaedic Surgery | DX: S32.000A Wedge compression fracture of unspecified lumbar vertebra, initial encounter for closed fracture (principal); X58.XXXA Exposure to other specified factors, initial encounter; M25.511 Pain in right shoulder; M19.011 Primary osteoarthritis, right shoulder | CPT/HCPCS: 73030; 99213 ==

== ENCOUNTER → 2024-12-16 08:04 | Outpatient (BNVA) | payer OTHER, MEDICAID, SELFPAY | PROVIDERS: PCP Nurse Practitioner; Visit Provider Orthopaedic Surgery | DX: S32.030A Wedge compression fracture of third lumbar vertebra, initial encounter for closed fracture (principal); M25.78 Osteophyte, vertebrae; X58.XXXA Exposure to other specified factors, initial encounter | CPT/HCPCS: 72100; 72110; 99213 ==

== ENCOUNTER → 2025-01-02 11:16 | Outpatient (BNVA) | payer OTHER, MEDICAID, SELFPAY | PROVIDERS: PCP Nurse Practitioner; Visit Provider Student in an Organized Health Care Education/Training Program | DX: M19.011 Primary osteoarthritis, right shoulder (principal); Z71.89 Other specified counseling | CPT/HCPCS: 20610; 77002; J3301; J9999 ==

== ENCOUNTER 2025-03-09 13:48 | Emergency (ER) | payer MEDICARE, MEDICAID, SELFPAY ==
--- NOTE | 2025-03-09 13:54 | XR_ITS ---
WS: [id number] Portable AP upright chest, 03/09/2025 Clinical Data: dyspnea/cough Comparison: Portable chest, 12/26/2023 Findings: There is minimal patchy opacity at the left costophrenic angle. No nodules, masses or effusions are seen. The heart is normal. The pulmonary vascularity is not increased. No pneumonia or pneumothorax is seen. The diaphragms are flattened. There is an old fracture of the right humeral neck. XR/XR chest 1V portable [id number] Impression: 1. Minimal patchy opacity at left costophrenic angle which could indicate atele ctasis and/or minimal pneumonia. 2. Hyperinflation.
--- NOTE | 2025-03-09 13:59 | CT_ITS ---
WS: [id number] CT HEAD NONCONTRAST HISTORY: Dizzy shaky history CVA TECHNIQUE: Contiguous axial imaging performed through the brain. Bone and soft tissue windows. Sagittal and coronal reformats reviewed. All CT scans at [facility] use at least one of these dose optimization techniques: automated exposure control; mA and/or kV adjustment per patient size (includes targeted exams where dose is matched to clinical indication); or iterative reconstruction. DLP: 1137.68 mGy.cm COMPARISON: 09/06/2024 No acute intracranial hemorrhage, midline shift or mass effect. Mild symmetric cerebral and cerebellar atrophy. Mild small vessel changes. There are a few small lacunar infarcts in the basal ganglia. Ventricles: Normal size with no hydrocephalus. Mild atherosclerosis intracranial carotid arteries. Paranasal sinuses: As visualized are clear. Mastoid air cells: Well pneumatized. Calvarium and scalp: Skull is intact with no soft tissue edema or swelling. CT/CT head wo con* [id number] IMPRESSION: 1. No acute intracranial hemorrhage or edema. 2. Mild cerebral and cerebellar atrophy and small vessel disease. Similar to .
--- NOTE | 2025-03-09 14:00 | ECG_ITS ---
[employer] [facility] Test Date: 2025-03-09 Pat Name: Camilo Zuniga Department: Room: Gender: Male Adapted Physical Education Aide: : 1945 Requested By: Jr Woodward Order Number: [id number] Reading MD: NARESH MARTINEZ Measurements Intervals [place] Rate: 91 P: 58 IN: 220 QRS: -38 QRSD: 148 T: 109 QT: 394 QTc: 485 Interpretive Statements SINUS RHYTHM WITH FIRST DEGREE AV BLOCK POSSIBLE LEFT ATRIAL ENLARGEMENT [-0.1mV P-WAVE IN V1/V2] LEFT AXIS DEVIATION [QRS AXIS < -30] LEFT BUNDLE BRANCH BLOCK [120+ ms QRS DURATION, 80+ ms Q/S IN V1/V2, 85+ ms R IN I/aVL/V5/V6] Compared to ECG 08/12/2024 09:07:00 Left-axis deviation now present Electronically Signed On 03-10-2025 11:56:50 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
[2025-03-09 14:01] VITALS: BP 142/102; PULSE 82; RESP 18; TEMP 36.6; O2SAT 98; BMI 21.7
--- OUTSIDE RECORDS SUMMARY | 2025-03-09 14:02 | XMS_ITS | Encounter Summary ---
Author Organization [facility] Address [address] [place] [address] Care Team Providers Care Spray Gun Striper Name Role Phone Joseline Madison SUPERVISOR [employer]SELING [employer]W Primary Care Provider [phone] Encounter Details Date Type Department Care Team (Latest Contact Info) Description 06/10/1999 Outpatient Historical [facility]- [address] Entrance B, 3rd [place] [id number] Benjamin Barfield MD NO ADDRESS ON FILE Impotence of organic origin (Primary Dx); Spermatocele Social History Tobacco Use Types Packs/Day Years Used Date Smoking Tobacco: Never Assessed Sex and Gender Information Value Date Recorded Sex Assigned at Not on file Legal Sex Male 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
--- OUTSIDE RECORDS SUMMARY | 2025-03-09 14:02 | XMS_ITS | Clinical Summary ---
Author Organization [facility] Address [address] [place] [address] Care Team Providers Care Olive Brine Tester Name Role Phone Joseline Maidson GUN SEALING MACHINE OPERATOR Primary Care Provider [phone] Allergies Active Allergy Reactions Criticality Noted Date Comments Simvastatin Muscle Pain Low 01/16/2017 Muscle ache and pain in chest and hips Medications topiramate (TOPAMAX) 25 mg Oral tablet Take 25 mg by mouth 2 times daily. Active montelukast (SINGULAIR) 10 mg tablet Take 10 mg by mouth daily at bedtime. Active mirtazapine (REMERON) 15 mg tablet Take 15 mg by mouth daily at bedtime. 4 Active DIVALPROEX SODIUM (DEPAKOTE ORAL) Take by mouth. Activ e pantoprazole (PROTONIX) 40 mg Tablet, Delayed Release (E.C.) TAKE 1 TABLET BY MOUTH EVERY DAY BEFORE BREAKFAST 90 Tablet 3 7 Active nitroglycerin (NITROSTAT) 0.[address], [address] 1 Tablet (0.4 mg) under tongue every 5 minutes as needed for Chest Pain (Not to exceed 3 doses, notify physician if chest pain not relieved, hold if systolic BP less than or equal to 90 mmHg). 25 Tablet 2 7 Active gabapentin (NEURONTIN) 300 mg capsule Take 300 mg by mouth daily. Active clopidogrel (PLAVIX) 75 mg Tablet TAKE 1 TABLET BY MOUTH EVERY DAY 90 Tablet 3 7 Active carvedilol (COREG) 6.25 mg tablet Take 1 Tablet (6.25 mg) by mouth 2 times daily with meals TAKE 1 TABLET BY MOUTH TWICE DAILY WITH MEALS. 180 Tablet 3 8 Active rOPINIRole (REQUIP) 1 mg tablet TK 1 T PO QHS 5 9 Active CANNABIDIOL, CBD, EXTRACT ORAL Take by mouth. Activ e furosemide (LASIX) 20 mg tablet Take 1 Tablet (20 mg) by mouth daily. 90 Tablet 3 0 Active hydrALAZINE (APRESOLINE) 10 mg tablet Take 1 Tablet (10 mg) by mouth every 12 hours. 180 Tablet 3 0 Active isosorbide mononitrate (IMDUR) 30 mg Extended Release 24 hour tablet Take 1 Tablet (30 mg) by mouth daily early head start director. 90 Tablet 3 0 Active Active Problems Problem Noted Date Diagnosed Date Cold feeling 02/20/2018 Long-term use of high-risk medication 01/16/2017 Old [place] (myocardial infarction) 12/20/2016 CAD (coronary artery disease) 01/15/2014 S/P carotid endarterectomy 01/15/2014 Overview (01/15/2014): Right 2010 Right vocal cord paralysis, complete 01/24/2011 Unspecified essential hypertension 12/14/2010 Renal insufficiency 12/14/2010 Tobacco use disorder 12/02/2010 Carotid artery stenosis 12/02/2010 Diastasis of muscle 01/19/2009 Immunizations Immunization Administration Dates Next Due (PNEUMOVAX 23)(50 YRS UP) PN EUMOCOCCAL POLYSACCHARIDE (PPV23) 0.5 ML, IM 12/15/2010 (PREVNAR 13)(6 WKS UP) PNEUM OCOCCAL CONJUGATE (PCV13) 0.5 ML, IM 01/17/2014 Influenza Seasonal Unspecified Formulation IM Family History Medical History Relation Name Comments Heart Disease Brother 1 Unknown Brother 2 Heart Disease Father High Cholesterol Father Kidney Disease Father Stroke Father Diabetes Mother Heart Disease Mother High Cholesterol Mother Kidney Disease Mother Stroke Mother Heart Disease Sister 1 Unknown Sister 1 Heart Disease Sister 2 Unknown Sister 2 Unknown Sister 3 Relation Name Status Comments Brother 1 Brother 2 Alive Father Mother Sister 1 Alive Sister 2 Alive Sister 3 Alive Social History Tobacco Use Types Packs/Day Years Used Date Smoking Tobacco: Every Day Cigarettes 0.5 Last attempted to quit: 03/22/2013 Pipe Smokeless Tobacco: Never Alcohol Use Standard Drinks/Week Comments No 0 (1 standard drink = 0.6 oz pure alcohol) abstinent from alcohol since 1989 Sex and Gender Information Value Date Recorded Sex Assigned at Not on file 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 Gender Identity Not on file Sexual Orientation Not on file Last Filed Vital Signs Vital Sign Reading Time Taken Comments Blood Pressure 102/72 11/14/2019 9:52 AM CDT Pulse 76 11/14/2019 9:52 AM CDT Temperature 36.3 C (97.4 F) 11/17/2016 6:43 PM CDT Respiratory Rate 20 11/17/2016 9:40 PM CDT Oxygen Saturation 97% 11/17/2016 9:40 PM CDT Inhaled Oxygen Concentration - - Weight 80.6 kg (177 lb 9.6 oz) 11/14/2019 9:52 A M CDT Height 175.3 cm (5' 9 ) 11/14/2019 9:52 AM CDT Body Mass Index 26.23 11/14/2019 9:52 AM CDT Plan of Treatment Health Maintenance Due Date Last Done Comments DTAP/TDAP/TD VACCINES (1 - Tdap) 1962 ZOSTER VACCINE (1 of 2) 1993 RSV VACCINE (60+ or ) (1 - 1-dose 75+ series) 2018 INFLUENZA VACCINE (#1) 2024 9, 10/17/2016, 01/04/2014 PNEUMOCOCCAL VACCINE 50+ YEARS Completed 01/17/2014 , 12/15/2010 Medical Devices Implanted Type Area Poultry Debeaker Device Identifier Shelf Expiration Date Model / Serial / Lot Log [id number] - Tissue Substitutes & Biologicals - 1 - Patch Vascu-Guard [id number] Implanted:Qty: 1 on 12/14/2010 at [facility] Biological Right: Carotid [employer] 08/03/2015 [id number] / [id number] / [id number] Insurance MEDICAID [place] [facility] DUAL COMPLETE MCR PPO D-SNP Advance Directives For more information, please contact: [phone] Documents on File Type Date Recorded Patient Hand Tool Filer Expl anation Advance Directive POA 12/14/2010 Advanc e Directive POA Advance Directive Living Will 12/14/2010 * Full Code (Latest Code Status on File) Date Activated Date Inactivated Comments 12/14/2010 1:25 PM 12/14/2010 4:54 PM * Full Code Date Activated Date Inactivated Comments 12/14/2010 8:54 AM 12/14/2010 1:25 PM Care Teams Olive Brine Tester Relationship Specialty Start Date End Date Joseline Madison NP PCP - General NURSE PRACTITIONER 01/24/11
--- OUTSIDE RECORDS SUMMARY | 2025-03-09 14:02 | XMS_ITS | Encounter Summary ---
Author Organization [facility] Address [address] [place] [address] Care Team Providers Care Bureau Director Name Role Phone Joseline Madison CLOTH GRADER Primary Care Provider [phone] Encounter Details Date Type Department Care Team (Late st Contact Info) Description 05/26/1999 Outpatient Historical [facility] [place] [address] [place] [address] Ulisses Youssef, DO [address] [place] [id number] Other specified disorder of male genital organs(608.89) (Primary Dx) Social History Tobacco Use Types Packs/Day Years Used Date Smoking Tobacco: Never Assessed Sex and Gender Information Value Date Recorded Sex Assigned at Not on file 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
--- OUTSIDE RECORDS SUMMARY | 2025-03-09 14:02 | XMS_ITS | Patient Health Record ---
Author Organization [facility] Address [address] [place] [address] Care Team Providers Care Web Marketing Specialist Name Role Phone Los PUBLIC SPEAKING COACH, Joseline Primary Care Provider Unavail able Joselito Light Unavailable [phone] Samuel Vargas Unavailable [phone] Allergies Allergen (clinical drug ingredient) Drug/Non Drug Allergy documented on EMR Reaction Allergy Type Onset Date Status rosuvastatin Rosuvastatin Unknown Drug Allergy A ctive Reason For Referral Reason History of prostate cancer Diagnosis 1 History of prostate cancer (Z85.46) Referred Organization [facility] Referred Provider Samuel Vargas Referred Address [address],[place], [place],[address], Referred Provider Specialty Urology General Notes Jenna Huerta 11/18 09:43:24 AM CDT > Patient has a [facility] plan which we do not accept, patient was going to go elsewhere Referral Priority Routine Medications Medication SIG (Take, Route, Fr equency, Duration) Notes Start Date End Date Status Escitalopram Oxalate Active Pantoprazole Sodium Active Clopidogrel Bisulfate Active Invega Active Temazepam Active rOPINIRole HCl Activ e Losartan Potassium A ctive Social History Tobacco Use: Social History Observation Description Date Details (start date - stop date) Former Smoker NA - NA Social History Tobacco Use: Social Info Question Answer Notes xTobacco Use/Smoking Are you a former smoker How long has it been since you last smoked? 3-6 months Additional Details Category Social Info Options Details zzMigrated Social History Migrated Social History Advance Directive: Current and Verified Signed on 06/05/2011 Organ Donation: Patient refuses Organ Donation Problems Problem Type SNOMED Code ICD Code Onset Dates Problem Status W/U Status Risk Notes Problem Left testicular pain (82072393630971 100) Left testicular pain (N50.812) Active confirmed Problem Scrotal pain (55129256) Scrotal pain (N50.82) Active confirmed Problem History of prostatectomy (Z90.79) Active confirmed Problem SI - Stress incontinence (89238816) Stress incontinence (N39.3) Active confirmed Problem History of malignant neoplasm of prostate (597887731) History of prostate cancer (Z85.46) Active confirmed Problem Swelling of testicle (finding) (728564609) Testicular swelling (N50.89) Active confirmed Problem Left varicocele (I86.1) Active confirmed Problem Pain in testicle (finding) (93123720) Pain in testicle, unspecified laterality (N50.819) Active confirmed Problem Vitamin B12 deficiency (542225101) Vitamin B12 deficiency (266.2) 10/09/19 12 Active confirmed [id number] 911- Problem Androgen deficiency (07646305) Testosterone deficiency (257.2) 10/09/19 12 Active confirmed [id number] 911- Problem Urinary system symptoms (565397140) Other sysmptoms involving urinary system (788.99) 11/22/19 12 Active confirmed [id number] 911- Problem Rash (901386161) Rash (782.1) 08/31/19 12 Problem resolved confirmed [id number] 911- Problem Weak urinary stream (976689883) Weak urinary stream (788.62) 06/05/19 12 Problem resolved confirmed [id number] 911- Problem PVD with claudication (440.21) 08/31/19 12 Problem resolved confirmed [id number] 911- Problem Atherosclerosis of hopi extremity arteries (440.20) 06/05/19 12 Problem resolved confirmed [id number] 911- Problem Chronic viral hepatitis B without delta-agent (710253364) Chronic hepatitis B (without hepatitis delta) (070.32) 09/25/19 12 Problem resolved confirmed [id number] 911- Problem Erectile dysfunction (035622880) Erectile dysfunction (302.72) 06/05/19 12 Problem resolved confirmed [id number] 911- Encounters Encounter Location Date Provider Diagnosis [facility] [address] [place] [address] 12/11/2024 Samuel Vargas Plan Of Treatment Pending Test Test Name Order Date PSA Diagnostic--[id number] 03/27/2022 Insurance Providers Payer Name Payer Address Payer Phone Subscriber Number Group Number Insured Name Patient Relationship to Insured Coverage Start Date Coverage End Date UHC Medicare Dual Complete PPO [address] [address] [place] [address] [id number] Camilo Schumacher Self - patient is the insured Medical (General) History Medical History History ICD Code COPD Prostate CANCER Hernia Urinary incontinence Cerebrovascular Accident Surgical History Surgery Date(Month/Year) radical prostatectomy 2004 carotid endarterectomy throat mass, benign Hospitalization History Reason Date(Month/Year) surgeries psych x4 hospitalizations 2021
--- OUTSIDE RECORDS SUMMARY | 2025-03-09 14:02 | XMS_ITS | Encounter Summary ---
Author Organization [facility] Address [address] [facility] [address] [place] [address] Phone Care Team Providers Care Tufter Name Role Phone Maciej Ortega MD Primary Care Provider [phone] Encounter Details Date Type Department Care Team ([facility] Contact Info) Description 01/24/2019 Orders Only [facility] [address] [place] [address] Desiree Garrett NP [address] [facility] [address] [place] [address] Chronic kidney disease stage 3 (HCC) Social History Tobacco Use Types Packs/Day Years Used Date Smoking Tobacco: Former Cigarettes 0 Q uit: 03/22/2013 Smokeless Tobacco: Never Alcohol Use Standard Drinks/Week Comments Not Currently 0 (1 standard drink = 0.6 oz pur e alcohol) AUDIT-C Answer Date Recorded Frequency of Alcohol Consumption Never 07/18/2018 Average Number of Drinks Not on file 019 Frequency of Binge Drinking Not on file 04/2018 Sex and Gender Information Value Date Recorded Sex Assigned at Not on file Legal Sex Male 12:39 PM EST Gender Identity Not on file Sexual Orientation Not on file documented as of this encounter Plan of Treatment Upcoming Encounters Date Type Department Care Team ([facility] Contact Info) Description 04/21/2025 2:30 PM SHOCK ABSORPTION FLOOR LAYER Office Visit [facility] [address] [place] [address] Crispin Lora MD [address] [facility] [address] [place] [address] documented as of this encounter Visit Diagnoses Diagnosis Chronic kidney disease stage 3 (HCC) documented in this encounter Care Teams Tufter Relationship Specialty Start Date End Date Maciej Ortega MD [address] [place] [address] PCP - General Family Medicine 07/18/18 documented as of this encounter
--- OUTSIDE RECORDS SUMMARY | 2025-03-09 14:02 | XMS_ITS | Encounter Summary ---
Author Organization [facility] Address [address] [place] [address] Care Team Providers Care Photoflash Powder Mixer Name Role Phone Joseline Madison NP Primary Care Provider [phone] Encounter Details Date Type Department Care Team (Latest Contact Info) Description 05/29/2018 Ancillary Orders [facility] Pre-Registration [place] CALL TO MAKE APPOINTMENT ONLY [address] [place] [address] Joseline Madison NP [address] [place] [address] Essential hypertension, benign; Cancer of prostate (CMS/HCC); Combined hyperlipidemia; Pernicious anemia; Chronic diarrhea Social History Tobacco Use Types Packs/Day Years Used Date Smoking Tobacco: Former Cigarettes 1 Q uit: 03/22/2013 Pipe Smokeless Tobacco: Never Alcohol Use Standard Drinks/Week Comments No 0 (1 standard drink = 0.6 oz pure alcohol) abstinent from alcohol since 1989 Sex and Gender Information Value Date Recorded Sex Assigned at Not on file Legal Sex Male 5:00 AM PHYS ASST Gender Identity Not on file Sexual Orientation Not on file documented as of this encounter Plan of Treatment Not on file documented as of this encounter Visit Diagnoses Diagnosis Essential hypertension, benign Cancer of prostate (CMS/HCC) Malignant neoplasm of prostate Combined hyperlipidemia Mixed hyperlipidemia Pernicious anemia Chronic diarrhea Diarrhea documented in this encounter Care Teams Photoflash Powder Mixer Relationship Specialty Start Date End Date Joseline Madison NP PCP - General NURSE PRACTITIONER 01/24/11 documented as of this encounter
--- OUTSIDE RECORDS SUMMARY | 2025-03-09 14:02 | XMS_ITS | Encounter Summary ---
Author Organization [facility] Address [address] [place] [address] Phone Care Team Providers Care Stretcher Leveler Operator Name Role Phone Maciej Ortega MD Primary Care Provider [phone] Encounter Details Date Type Department Care Team ([facility] Contact Info) Description 07/06/2018 Orders Only [facility] [address] [place] [address] Crispin Lora MD [address] [place] [address] Chronic kidney disease, not otherwise specified Social History Tobacco Use Types Packs/Day Years Used Date Smoking Tobacco: Former Cigarettes 0 Q uit: 03/22/2013 Sex and Gender Information Value Date Recorded Sex Assigned at Not on file Legal Sex Male 12:39 PM EST Gender Identity Not on file Sexual Orientation Not on file documented as of this encounter Plan of Treatment Upcoming Encounters Date Type Department Care Team (Late Contact Info) Description 04/21/2025 2:30 PM LANCE CREWMEMBER/MLRS SERGEANT Office Visit [facility] [address] [place], [place] [address] Crispin Lora MD [address] [place] [address] documented as of this encounter Visit Diagnoses Diagnosis Chronic kidney disease, not otherwise specified documented in this encounter Care Teams Stretcher Leveler Operator Relationship Specialty Start Date End Date Maciej Ortega MD [address] [place] [address] PCP - General Family Medicine 07/18/18 documented as of this encounter
--- OUTSIDE RECORDS SUMMARY | 2025-03-09 14:02 | XMS_ITS | Encounter Summary ---
Author Organization [facility] Address [address] 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
--- OUTSIDE RECORDS SUMMARY | 2025-03-09 14:03 | XMS_ITS | Clinical Summary ---
Author Organization [facility] Address [address] [place]: Epic Prelude ADT [place] [address] Care Team Providers Care Cue Worker Name Role Phone Joseline Madison NP Primary Care Provider [phone] Allergies Active Allergy Reactions Criticality Noted Date Comments Simvastatin Muscle Pain Low 01/16/2017 Muscle ache and pain in chest and hips Medications rOPINIRole (REQUIP) 1 mg tablet Take 2 mg by mouth daily at bedtime. 5 9 Active furosemide (LASIX) 20 mg tablet TAKE 1 TABLET(20 MG) BY MOUTH DAILY 90 Tablet 1 Active nitroglycerin (NITROSTAT) 0.4 mg Tablet, Sublingual Place 1 Tablet (0.4 mg) under tongue every 5 minutes as needed for Chest Pain (Not to exceed 3 doses, notify physician if chest pain not relieved, hold if systolic BP less than or equal to 90 mmHg). 25 Tablet 2 7 Active clopidogreL (PLAVIX) 75 mg Tablet TAKE 1 TABLET BY MOUTH EVERY DAY 90 Tablet 3 7 Active pantoprazole (PROTONIX) 40 mg Tablet, Delayed Release (E.C.) TAKE 1 TABLET BY MOUTH EVERY DAY BEFORE BREAKFAST 90 Tablet 3 7 Active LORazepam (ATIVAN) 0.5 mg tabletIndicatio ns:Anxiety state Take 1 Tablet (0.5 mg) by mouth every 6 hours as needed for Anxiety. 6 Tablet 2 Active venlafaxine (Effexor XR) 37.5 mg Extended Release 24 hour capsule Take 1 Capsule (37.5 mg) by mouth daily. 30 Capsule 2 Active busPIRone (BUSPAR) 10 mg tablet Take 1 Tablet (10 mg) by mouth 3 times daily. 90 Tablet 2 Active hydrOXYzine HCL (ATARAX) 25 mg tablet Take 1 Tablet (25 mg) by mouth every 6 hours as needed for Anxiety. 30 Tablet 2 Active gabapentin (NEURONTIN) 300 mg capsule Take 300 mg by mouth daily. 7 Active Active Problems Problem Noted Date Diagnosed Date Anxiety disorder 11/14/2021 Shortness of breath 11/14/2021 Choking sensation 11/14/2021 Dysphagia 11/14/2021 Atrophy of muscle of multiple sites 11/14/2021 Stage 3b chronic kidney disease 11/14/2021 Protein-calorie malnutrition, moderate 2 Syncope 09/27/2021 Bradycardia 09/27/2021 Cold feeling 02/20/2018 Long-term use of high-risk medication 01/16/2017 Old [place] (myocardial infarction) 12/20/2016 S/P carotid endarterectomy 01/15/2014 Overview (07/15/2020): Right 2011 CAD (coronary artery disease) 01/15/2014 Right vocal cord paralysis, complete 01/24/2011 Renal insufficiency 12/14/2010 Essential hypertension 12/14/2010 Tobacco use disorder 12/02/2010 Carotid artery [...] Heart Disease Sister 1 Unknown Sister 1 Unknown Sister 2 Heart Disease Sister 3 Unknown Sister 3 Relation Name Status Comments Brother 1 Brother 2 Alive Father Mother Sister 1 Alive Sister 2 Alive Sister 3 Alive Social History Tobacco Use Types Packs/Day Years Used Date Smoking Tobacco: Former Cigarettes 0.5 Q uit: 06/05/2021 Smokeless Tobacco: Never Alcohol Use Standard Drinks/Week Comments No 0 (1 standard drink = 0.6 oz pur e alcohol) Sex and Gender Information Value Date Recorded Sex Assigned at Not on file Legal Sex Male 12:39 PM COLLEGE OR UNIVERSITY FACULTY MEMBER Gender Identity Not on file Sexual Orientation Not on file Last Filed Vital Signs Vital Sign Reading Time Taken Comments Blood Pressure 156/73 01/06/2022 2:00 PM CDT Pulse 72 01/06/2022 2:00 PM CDT Temperature 36.7 C (98.1 F) 01/06/2022 2:00 PM CDT Respiratory Rate 17 01/07/2022 5:36 PM CDT Oxygen Saturation 99% 01/06/2022 2:00 PM CDT Inhaled Oxygen Concentration - - Weight 64.4 kg (142 lb) 11/13/2021 1:50 PM CDT Height 175.3 cm (5' 9 ) 11/13/2021 1:50 PM CDT Body Mass Index 20.97 11/13/2021 1:50 PM CDT Plan of Treatment Health Maintenance Due Date Last Done Comments DTAP/TDAP/TD VACCINES (1 - Tdap) 1962 ZOSTER VACCINE (1 of 2) 1993 RSV VACCINE (60+ or ) (1 - 1-dose 75+ series) 2018 INFLUENZA VACCINE (#1) 2024 9, 10/17/2016, 01/04/2014 PNEUMOCOCCAL VACCINE 50+ YEARS Completed 01/17/2014 , 12/15/2010 Medical Devices Implanted Type Area Baby Formula Worker Device Identifier Shelf Expiration Date Model / Serial / Lot Log [id number] - Tissue Substitutes & Biologicals - 1 - Patch Vascu-Guard [id number] Implanted:Qty: 1 on 12/14/2010 Biological Right: Carotid [employer] 08/03/2015 [id number] / [id number] / [id number] Insurance [place] [place] [address] DUAL COMPLETE HMO [facility] [id number] Advance Directives For more information, please contact: [phone] Documents on File Type Date Recorded Patient Profiling Machine Set Up Operator Expl anation Advance Directive POA 01/02/2022 8:03 PM Advance Directive POA * Default Full Code - Needs Discussion (Latest Code Status on File) Date Activated Date Inactivated Comments 11/14/2021 2:58 AM 11/14/2021 4:49 PM * Full Code Date Activated Date Inactivated Comments 09/27/2021 7:25 PM 09/28/2021 5:55 PM Care Teams Cue Worker Relationship Specialty Start Date End Date Joseline Madison NP [address] [place] [address] PCP - General NURSE PRACTITIONER 01/24/11
--- OUTSIDE RECORDS SUMMARY | 2025-03-09 14:03 | XMS_ITS | Clinical Summary ---
Author Organization [facility] Facility Address [address] [address] Care Team Providers Care Pill Packer Name Role Phone Maciej Ortega MD Primary Care Provider [phone] Allergies Active Allergy Reactions Criticality Noted Date Comments Simvastatin Low 01/16/2017 Muscle ache and pain in chest and hips Medications * This document contains information received from the source organization and may not represent a complete record from that organization. clopidogrel (PLAVIX) 75 MG tablet Take 1 tablet by mouth 1 (one) time each day 3 9 Active pantoprazole (PROTONIX) 40 MG EC tablet Take 1 tablet by mouth 1 (one) time each day before breakfast 7 Active Cyanocobalamin 1000 MCG/ML kit Inject 1 mg under the skin every 28 (twenty-eight) days Active furosemide (LASIX) 20 MG tablet Take 1 tablet by mouth 1 (one) time each day if needed 0 Active albuterol HFA (PROVENTIL HFA;VENTOLIN HFA) 108 (90 Base) MCG/ACT inhaler Inhale 2 puffs 4 times a day 3 Active temazepam (RESTORIL) 30 MG capsule Take 30 mg by mouth at night if needed 3 Active neomycin-polymy te-hydrocortis one (CORTISPORIN) 3.5-31450-5 otic suspension 3 Active traMADol (ULTRAM) 50 MG tablet in the morning and in the evening. 3 Active Linzess 290 MCG capsule Take 1 capsule by mouth 1 (one) time each day 4 Active amLODIPine (NORVASC) 2.5 MG tablet Take 2.5 mg by mouth 1 (one) time each day 5 Active ketoconazole (NIZORAL) 2 % cream APPLY TO RED/FLAKING AREAS AND BEHIND EARS TWICE DAILY NEEDED 5 Active Active Problems Problem Noted Date Diagnosed Date Vitamin D deficiency 07/27/2020 Stage 3b chronic kidney disease 07/24/2018 Assessment & Plan (07/24/2018 5:49 PM CDT): GFR stable, no history of proteinuria. BP controlled. See back in 6 months. Patient is aware of CKD and current GFR. Patient is aware of importance of adequate fluid intake, low sodium diet and avoiding NSAID's. I do not find any renal imaging. He has a history of prostate cancer with radiation treatment and has been followed at [facility]. Will check records at [facility]. If no renal imaging is found then would order a renal ultrasound. 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 No changes at this time. Volume status is stable. Urethral stricture <Male> 07/24/2018 Overview (07/24/2018): History of urethral stricture. Does in and out catheter monthly to keep open. Has history of prostatectomy. Assessment & Plan (07/24/2018 4:04 PM CDT): He follows with urology at [facility]. He does in and out catheter once monthly to keep urethral sricture patent. Coronary arteriosclerosis 01/15/2014 Essential hypertension 12/14/2010 Assessment & Plan (07/24/2018 5:47 PM CDT): Hypertension is controlled without orthostatic symptoms. Continue ARB. Continue current treatment regimen. Dietary sodium restriction. Continue current medications. Blood pressure will be reassessed at the next regular appointment. Immunizations Immunization Administration Dates Next Due Influenza Split High Dose Preservative Free IM 0 11/19/2018,10/17/2016 Influenza TIV (IM) 01/04/2014 Pneumococcal Conjugate 13-Valent 01/17/2014 Pneumococcal Polysaccharide 12/15/2010 Family History Medical History Relation Comments Heart disease Brother Cancer Father Dementia Father Heart disease Father Hypertension Father Stroke Father Cancer Mother Dementia Mother Diabetes Mother Heart disease Mother Hypertension Mother Stroke Mother Relation Status Comments Brother Father Mother Social History Tobacco Use Types Packs/Day Years Used Date Smoking Tobacco: Former Cigarettes 0.5 Q uit: 2021 Passive Smoke Exposure: Past Smokeless Tobacco: Never Tobacco Cessation:Counseling Given: Not Answered Alcohol Use Standard Drinks/Week Comments Not Currently [...] Sign Reading Time Taken Comments Blood Pressure 106/72 10/22/2024 3:19 PM CDT Pulse 83 10/22/2024 3:19 PM CDT Temperature 36.8 C (98.3 F) 07/27/2020 1:43 PM CDT Respiratory Rate - - Oxygen Saturation 94% 10/22/2024 3:19 PM CDT Inhaled Oxygen Concentration - - Weight 67.8 kg (149 lb 6.4 oz) 10/22/2024 3:19 P M CDT Height 175.3 cm (5' 9 ) 10/22/2024 3:19 PM CDT Body Mass Index 22.06 10/22/2024 3:19 PM CDT Plan of Treatment Upcoming Encounters Date Type Department Care Team (Late st Contact Info) Description 04/21/2025 2:30 PM SUPERINTENDENT JOB Office Visit [facility] [address] [place] [address] Crispin Lora MD [facility] [address] [facility] [address] [place] [id number] Health Maintenance Due Date Last Done Comments Influenza Vaccine (#1) 2024 9, 10/17/2016, 01/04/2014 Pneumococcal Vaccine: 50+ Years Completed 01/17/2014, 12/15/2010 Pneumococcal Vaccine: Peds (0 to 5 Years) and At-Risk Patients (6 to 49 Years) Discontinued 01/17/2014, 12/15/2010 Hepatitis B Vaccine Aged Out No longe r eligible based on patient's age to complete this topic Insurance Medicaid [place] ([id number]) Dual Complete [place] [address] Care Teams Pill Packer Relationship Specialty Start Date End Date Maciej Ortega MD [facility] [place] [address] PCP - General Family Medicine 07/18/18
--- OUTSIDE RECORDS SUMMARY | 2025-03-09 14:03 | XMS_ITS | Encounter Summary ---
Author Organization [facility] Address [address] [place] [address] Care Team Providers Care Human Resource Assistant Name Role Phone Joseline Madison SEARCH DEVELOPER Primary Care Provider [phone] Encounter Details Date Type Department Care Team (Latest Contact Info) Description 11/18/2010 Ancillary Orders [facility] Pre-Registration [place] CALL TO MAKE APPOINTMENT ONLY [address] [place] [address] Joseline Madison NP [address] [place], [place] [address] Unspecified transient cerebral ischemia Social History Tobacco Use Types Packs/Day Years Used Date Smoking Tobacco: Every Day Cigarettes Pipe Smokeless Tobacco: Never Alcohol Use Standard Drinks/Week Comments No 0 (1 standard drink = 0.6 oz pur e alcohol) Sex and Gender Information Value Date Recorded Sex Assigned at Not on file 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
--- OUTSIDE RECORDS SUMMARY | 2025-03-09 14:03 | XMS_ITS | Encounter Summary ---
Author Organization [facility] Address [address] [place] [address] Care Team Providers Care Data Entry Associate Name Role Phone Joseline Madison TELEVISION INSTALLER Primary Care Provider [phone] Encounter Details Date Type Department Care Team (Latest Contact Info) Description 11/14/2010 Ancillary Orders [facility] Pre-Registration [place] CALL TO MAKE APPOINTMENT ONLY [address] [place] [address] Joseline Madison NP [address] [place], [place] [address] Unspecified transient cerebral ischemia Social History Tobacco Use Types Packs/Day Years Used Date Smoking Tobacco: Every Day Cigarettes Pipe Smokeless Tobacco: Never Alcohol Use Standard Drinks/Week Comments No 0 (1 standard drink = 0.6 oz pur e alcohol) Sex and Gender Information Value Date Recorded Sex Assigned at Not on file 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
--- OUTSIDE RECORDS SUMMARY | 2025-03-09 14:03 | XMS_ITS | Encounter Summary ---
Author Organization [facility] Address [address] [place] [address] Care Team Providers Care Broadcast Designer Name Role Phone Joseline Madison NP Primary Care Provider [phone] Reason for Referral * Outpatient Services (Routine) - Closed Specialty Diagnoses / Procedures Referred By Nickie corona Referred To Contact Diagnoses Unspecified transient cerebral ischemia Procedures CT HEAD WO CONTRAST Joseline Madison NP [address] [place] [address] Phone: tel: fax: Referral ID Status Reason Start Date Expiration Date Visits Re quested Visits Authorized [id number] Closed 11/18/2010 11/18/2011 1 1 Encounter Details Date Type Department Care Team (Latest Contact Info) Description 11/18/2010 Ancillary Orders [facility] Pre-Registration [place] CALL TO MAKE APPOINTMENT ONLY [address] [place] [address] Joseline Madison NP [address] [place] [address] Unspecified transient cerebral ischemia Social History Tobacco Use Types Packs/Day Years Used Date Smoking Tobacco: Every Day Cigarettes Pipe Smokeless Tobacco: Never Alcohol Use Standard Drinks/Week Comments No 0 (1 standard drink = 0.6 oz pur e alcohol) Sex and Gender Information Value Date Recorded Sex Assigned at Not on file 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 cah - uploaded from [employer] - Narrative 11/22/2010 7:32 AM CDT Exam: CT HEAD WO CONTRAST Date/Time of Exam: Nov 18, 2010 03:37:00 PM Reason For Exam: UNSPECIFIED TRANSIENT CEREBRAL ISCHEMIA. Technique: CT of the head was performed without the administration of intravenous contrast. No comparison study is available. Ventricles are normal in size. No mass, hemorrhage or abnormal extra-axial fluid collection is seen. No significant bony abnormalities identified. Procedure Note Ulisses Gordon MD - 11/22/2010 Exam: CT HEAD WO CONTRAST Date/Time of Exam: Nov 18, 2010 03:37:00 PM Reason For Exam: UNSPECIFIED TRANSIENT CEREBRAL ISCHEMIA. Technique: CT of the head was performed without the administration of intravenous contrast. No comparison study is available. Ventricles are normal in size. No mass, hemorrhage or abnormal extra-axial fluid collection is seen. No significant bony abnormalities identified. IMPRESSION Impression: Unremarkable exam. cah - uploaded from [employer] - Joseline Madison NP CT ORDERABLES Final Res ult documented in this encounter Visit Diagnoses Diagnosis Unspecified transient cerebral ischemia Unspecified transient cerebral ischemia documented in this encounter Care Teams Broadcast Designer Relationship Specialty Start Date End Date Joseline Madison NP PCP - General NURSE PRACTITIONER 01/24/11 documented as of this encounter
--- OUTSIDE RECORDS SUMMARY | 2025-03-09 14:03 | XMS_ITS | Patient Health Record ---
Author Organization [facility] Address [address] [place] [address] Care Team Providers Care Medical Reception Specialist Name Role Phone Los PRICE, Joseline Primary Care Provider Unavail able MARY LARA Unavailable [phone] Allergies Allergen (clinical drug ingredient) Drug/Non Drug Allergy documented on EMR Reaction Allergy Type Onset Date Status rosuvastatin Rosuvastatin Unknown Drug Allergy A ctive Reason For Referral No Information Medications Medication SIG (Take, Route, Frequency, Duration) [...] Status Risk Notes Problem Left testicular pain (43893544683233 100) Left testicular pain (N50.812) Active confirmed Problem Scrotal pain (15503163) Scrotal pain (N50.82) Active confirmed Problem History of malignant neoplasm of prostate (131657847) History of prostate cancer (Z85.46) Active confirmed Problem History of prostatectomy (Z90.79) Active confirmed Problem SI - Stress incontinence (30720148) Stress incontinence (N39.3) Active confirmed Problem Pain in testicle (finding) (80156804) Pain in testicle, unspecified laterality (N50.819) Active confirmed Problem Swelling of testicle (finding) (211875412) Testicular swelling (N50.89) Active confirmed Problem Left varicocele (I86.1) Active confirmed Problem Urinary system symptoms (612944135) Other sysmptoms involving urinary system (788.99) 11/22/19 12 Active confirmed [id number] 911- Problem Androgen deficiency (89417817) Testosterone deficiency (257.2) 10/09/19 12 Active confirmed [id number] 911- Problem Vitamin B12 deficiency (528091461) Vitamin B12 deficiency (266.2) 10/09/19 12 Active confirmed [id number] 911- Problem Weak urinary stream (586228711) Weak urinary stream (788.62) 06/05/19 12 Problem resolved confirmed [id number] 911- Problem PVD with claudication (440.21) 08/31/19 12 Problem resolved confirmed [id number] 911- Problem Atherosclerosis of [place] extremity arteries (440.20) 06/05/19 12 Problem resolved confirmed [id number] 911- Problem Chronic viral hepatitis B without delta-agent (618057124) Chronic hepatitis B (without hepatitis delta) (070.32) 09/25/19 12 Problem resolved confirmed [id number] 911- Problem Erectile dysfunction (000417784) Erectile dysfunction (302.72) 06/05/19 12 Problem resolved confirmed [id number] 911- Problem Rash (657332048) Rash (782.1) 08/31/19 12 Problem resolved confirmed [id number] 911- Plan Of Treatment Pending Test Test Name Order Date PSA Diagnostic--[id number] 03/27/2022 PSA, TOTAL (5363) 03/06/2023 Insurance Providers Payer Name Payer Address Payer Phone Subscriber Number Group Number Insured Name Patient Relationship to Insured Coverage Start Date Coverage End Date [facility] [address] [address] [place], [place] [id number] Camilo Zuniga Self - patient is the insured Medical (General) History Medical History History ICD Code COPD Prostate CANCER Hernia Urinary incontinence Cerebrovascular Accident Surgical History Surgery Date(Month/Year) throat mass, benign carotid endarterectomy radical prostatectomy 2004 Hospitalization History Reason Date(Month/Year) psych x4 hospitalizations 2021 surgeries
[2025-03-09 14:04] VITALS: PULSE 94; O2SAT 95
--- NOTE | 2025-03-09 14:23 | W.ED.WEAKNES ---
HPI - Weakness General: Chief complaint: Weakness Stated complaint: dizzy, shakey, headache Time Seen by Provider: 03/09/25 13:53 History of Present Illness: 80-year-old male presents emergency room complaining of dizziness headache extreme weakness. Family reports she has had a steady decline over the last several weeks worse over the last 3 days. 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 He denies any chest pain he has been somewhat short of breath. No vomiting no diarrhea. Associated symptoms: Denies chest pain, chills, dysuria or fever(s) Related Data Home Medications ?Medication ?Instructions ?Recorded ?Confirmed pantoprazole 40 mg tablet,delayed 40 mg PO QAM 07/22/21 03/09/25 release linaclotide 290 mcg capsule 290 mcg PO DAILY 03/23/23 03/09/25 (Linzess) temazepam 30 mg capsule 30 mg PO QPM 03/23/23 03/09/25 magnesium hydroxide 400 mg/5 mL 5 ml PO DAILY PRN Constipation 01/03/24 03/09/25 oral suspension (Milk of Magnesia) melatonin 10 mg capsule 10 mg PO BEDTIME 08/12/24 03/09/25 meclizine 25 mg tablet 25 mg PO BID 01/02/25 03/09/25 amlodipine 2.5 mg tablet 2.5 mg PO DAILY 03/09/25 03/09/25 ibuprofen 600 mg tablet 600 mg PO BID 03/09/25 03/09/25 sennosides 8.6 mg tablet (Senokot) 17.2 mg PO BID 03/09/25 03/09/25 simethicone 250 mg capsule 250 mg PO BID PRN Indigestion 03/09/25 03/09/25 Previous Rx's ?Medication ?Instructions ?Recorded TLSO Brace #1 ea 02/16/22 Shoulder Sling #1 ea 05/25/23 aspirin 81 mg tablet,delayed 81 mg PO DAILY #30 tabs 07/31/23 release Held on 09/01/24. Instructions: Resume on 09/05/24. clopidogrel 75 mg tablet 75 mg PO DAILY #30 tabs 07/31/23 Held on 09/01/24. Instructions: Resume on 09/05/24. tramadol 50 mg tablet 50 mg PO Q6H PRN pain #30 tabs 09/01/24 albuterol sulfate 90 mcg/actuation 2 inh inhalation Q4H PRN shortness 03/09/25 aerosol inhaler of breath or wheezing #18 grams levofloxacin 750 mg tablet 750 mg PO DAILY 7 days #7 tabs 03/09/25 Allergies Allergy/AdvReac Type Severity Reaction Status Date / Time atorvastatin Allergy ALGY-Hives Verified 01/02/25 11:20 simvastatin Allergy ALGY-Rash Verified 01/02/25 11:20 Review of Systems Const: Denies: fever(s) or chills Card: Denies: chest pain Resp: Denies: dyspnea GI: Denies: abdominal pain : Denies: dysuria, urinary frequency or urinary urgency Musc: Denies: neck pain or back pain Skin/Breast: Denies: rash PFSH ED PFSH: Medical History Pernicious anemia Benign essential HTN Combined hyperlipidemia Intervertebral disc disorder with radiculopathy of lumbosacral region Cancer of prostate Surgical History History of heart artery stent Hx of heart surgery Family History Father Lung disease Mother Chronic kidney disease (CKD) Hypertension Social History Smoking and tobacco/nicotine status: never used tobacco/nicotine Alcohol intake: never Substance/Drug Use: never Household members: spouse Marital status: Current occupational status: retired Physical Exam Const: COMMON NORMALS: no acute distress GENERAL APPEARANCE: cooperative ORIENTATION/CONSCIOUSNESS: Yes awake HENMT: COMMON NORMALS: normocephalic, atraumatic and hearing grossly normal bilaterally HEAD & SCALP: normocephalic and atraumatic Resp: COMMON NORMALS: normal respiratory effort, No retractions, No use of accessory muscles and clear to auscultation bilaterally AUSCULTATION: clear to auscultation bilaterally Cardio: COMMON NORMALS: regular rate, regular rhythm and No murmurs present (Cardio) RATE: regular rate RHYTHM: regular rhythm GI: COMMON NORMALS: Soft to palpation and No hepatosplenomegaly present AUSCULTATION: Yes normoactive bowel sounds PALPATION: Yes Soft to palpation, No Tenderness to palpation present (GI), No Guarding due to palpation present (GI) and Yes No hepatosplenomegaly present Extremity: COMMON NORMALS: normal to inspection, capillary refill normal, no clubbing, cyanosis or edema, no calf tenderness and no pedal edema Skin: COMMON NORMALS: no rashes or lesions noted GENERAL SKIN EXAM: no rashes or lesions noted Course Vital Signs: Vital signs: Vital Signs Temperature 97.9 F 03/09/25 14:01 Pulse Rate 82 03/09/25 15:56 Respiratory Rate 16 03/09/25 15:00 Blood Pressure 135/89 03/09/25 15:56 Pulse Oximetry 94 03/09/25 15:56 Oxygen Delivery Me thod Room Air 03/09/25 15:30 MDM - Weakness Medical Decision Making Medical decision making Social determinants: Needs assistance today GL is due to decline in overall condition and weakness I reviewed the patient's medical record. I reviewed the patient's current home meds. Alternate historians: and daughter at the bedside Differential diagnosis: Infection, anemia, pneumonia, CVA, metabolic encephalopathy Lab Review: Labs CBC unremarkable no leukocytosis hemoglobin 14.9 hematocrit 43 2 platelets 408 chemistry panel creatinine 1.6 which is at patient's baseline electrolytes are normal ranges liver functions T. bili normal. Troponin initial 23 follow-up 22.2 urine does not show any signs of infection Imaging: CT head no acute findings no bleed no acute CVA or subacute CVA. Chest x-ray Shows questionable early infiltrate at the left costophrenic angle no effusions no increased vascular markings Assessment of risk Level of risk: Moderate Hospitalization considerations: On after initial evaluation possible hospitalization pending findings of any of the things listed on differential could result in hospitalization Reexamination: Slightly improved after IV fluids Assessment and plan: Chest x-ray shows mild infiltrate oxygen saturations normal no indication for hospitalization at this time. Will start on oral antibiotics, albuterol as needed. Follow-up with primary care. Lab Data 03/09/25 14:09 03/09/25 14:09 Radiology Impressions Chest X-Ray 03/09/25 13:54 Impression: 1. Minimal patchy opacity at left costophrenic angle which could indicate atelectasis and/or minimal pneumonia. 2. Hyperinflation. Head CT 03/09/25 13:59 IMPRESSION: 1. No acute intracranial hemorrhage or edema. 2. Mild cerebral and cerebellar atrophy and small vessel disease. Similar to 09/06/2024. Laboratory Results WBC 10.60 10^3/uL (3.29-11.43) 03/09/25 14:09 RBC 4.57 10^6/uL (3.85-5.65) 03/09/25 14:09 Hgb 14.90 g/dL (11.27-16.99) 03/09/25 14:09 Hct 43.2 % (37-53) 03/09/25 14:09 MCV 94.5 fl (82-101) 03/09/25 14:09 MCH 32.6 pg (27-33) 03/09/25 14:09 MCHC 34.5 g/dL (30-55) 03/09/25 14:09 RDW 14.5 % (12.1-15.1) 03/09/25 14:09 Plt Count 408 10^3/cmm (157-399) H 03/09/25 14:09 MPV 8.9 fL (7.4-10.4) 03/09/25 14:09 Neut % (Auto) 78.3 % 03/09/25 14:09 Lymph % (Auto) 15.8 % 03/09/25 14:09 [place] % (Auto) 4.5 % 03/09/25 14:09 Eos % (Auto) 0.6 % 03/09/25 14:09 Baso % (Auto) 0.6 % 03/09/25 14:09 Neut # (Auto) 8.30 10^3/uL (1.8-7.7) H 03/09/25 14:09 Lymph # (Auto) 1.7 10^3/uL (0.8-4.8) 03/09/25 14:09 [place] # (Auto) 0.5 10^3/uL (0.2-0.9) 03/09/25 14:09 Eos # (Auto) 0.1 10^3/uL (0.0-0.8) 03/09/25 14:09 Baso # (Auto) 0.1 10^3/uL (0.0-0.1) 03/09/25 14:09 Nucleated RBC % (auto) 0 % 03/09/25 14:09 Nucleated RBCs # 0.0 /100WBC 03/09/25 14:09 Sodium 137 mmol/L (136-145) 03/09/25 14:09 Potassium 4.0 mmol/L (3.5-5.1) 03/09/25 14:09 Chloride 98 mmol/L (98-107) 03/09/25 14:09 Carbon Dioxide 25 mmol/L (22-29) 03/09/25 14:09 Anion Gap 18.0 (5-19) 03/09/25 14:09 BUN 16 mg/dL (8-23) 03/09/25 14:09 Creatinine 1.6 mg/dL (0.7-1.2) H 03/09/25 14:09 GFR Calculation Not Reportable 03/09/25 14:09 Glucose 142 mg/dL (65-115) H 03/09/25 14:09 Calculated Osmolality 288 mOsm/kg (285-295) 03/09/25 14:09 Calcium 9.1 mg/dL (8.5-10.5) 03/09/25 14:09 Total Bilirubin 0.3 mg/dL (0.15-1.2) 03/09/25 14:09 AST 21 U/L (0-40) 03/09/25 14:09 ALT 13 U/L (0-41) 03/09/25 14:09 Alkaline Phosphatase 89 U/L (40-130) 03/09/25 14:09 Troponin T Baseline 23 ng/L (0-15) H 03/09/25 14:09 Troponin T 60 Minute 22.22 ng/L (0-15) H 03/09/25 14:59 Delta Troponin T -0.78 ABS# (0-10) L 03/09/25 14:59 Total Protein 6.7 g/dL (6.6-8.7) 03/09/25 14:09 Albumin 4.4 g/dL (3.5-5.2) 03/09/25 14:09 Globulin 2.3 g/dL (1.3-4.6) 03/09/25 14:09 Urine Color Yellow (Yellow) 03/09/25 14:18 Urine Appearance Clear (CLEAR) 03/09/25 14:18 Urine pH 5.0 (5-7) 03/09/25 14:18 Ur Specific [place] 1.013 (1.005-1.030) 03/09/25 14:18 Urine Protein Trace (Negative) A 03/09/25 14:18 Urine Glucose (UA) Negative (Normal) 03/09/25 14:18 Urine Ketones Negative (Negative) 03/09/25 14:18 Urine Blood Negative (Negative) 03/09/25 14:18 Urine Nitrate Negative (Negative) 03/09/25 14:18 Urine Bilirubin Negative (Negative) 03/09/25 14:18 Urine Urobilinogen 0.2 mg/dL (Negative) 03/09/25 14:18 Ur Leukocyte Esterase Negative (Negative) 03/09/25 14:18 Urine RBC 0-2 /hpf (0-2) 03/09/25 14:18 Urine WBC 0-5 /hpf (0-5) 03/09/25 14:18 Ur Squamous Epith Cells 0-5 /hpf (0-5) 03/09/25 14:18 Amorphous Sediment 3+ /hpf 03/09/25 14:18 Urine Bacteria None seen /hpf (NONE) 03/09/25 14:18 Hyaline Casts 3.30 /lpf 03/09/25 14:18 All radiology interpretation(s) finalized by discharge EKG Data EKG 1: I personally reviewed and interpreted this EKG as follows: Interpretation: EKG 03/09/2025 1404 p.m. sinus rhythm first-degree AV block rate of 91 IA interval 228 QTc 485. Left bundle branch block present which was present previously. There is no acute ST elevation nothing that meet Sgarbossa's criteria compared to EKG 08/12/2024 no significant change EKG 2: I personally reviewed and interpreted this EKG as follows: Interpretation: EKG 03/09/2025 1505 sinus rhythm rate of 81 IA interval 216 QTc 495 left bundle branch block present present on previous EKGs no acute ST changes noted. Compared to EKG done earlier same day first-degree AV block no longer present Discharge Plan Discharge Patient Disposition: Home Clinical Impression: Pneumonia Condition: Stable Prescriptions: New levofloxacin 750 mg tablet 750 mg PO DAILY 7 Days Qty: 7 0RF albuterol sulfate 90 mcg/actuation HFA aerosol inhaler 2 inh INHALATION Q4H PRN (Reason: shortness of breath or wheezing) Qty: 18 0RF No Action (DME) TLSO Brace See Rx Instructions .Route .MEDSUPPLY Qty: 1 0RF Rx Instructions: As directed temazepam 30 mg capsule 30 mg PO QPM Linzess 290 mcg capsule 290 mcg PO DAILY (DME) Shoulder Sling See Rx Instructions .Route .MEDSUPPLY Qty: 1 0RF Rx Instructions: As directed melatonin 10 mg capsule 10 mg PO BEDTIME meclizine 25 mg tablet 25 mg PO BID pantoprazole 40 mg tablet,delayed release (DR/EC) 40 mg PO QAM aspirin 81 mg Tablet,Delayed Release (Dr/Ec) 81 mg PO DAILY Qty: 30 0RF clopidogrel 75 mg Tablet 75 mg PO DAILY Qty: 30 0RF magnesium hydroxide [Milk of Magnesia] 400 mg/5 mL Suspension 5 ml PO DAILY PRN (Reason: Constipation) tramadol 50 mg tablet 50 mg PO Q6H PRN (Reason: pain) Qty: 30 0RF amlodipine 2.5 mg tablet 2.5 mg PO DAILY sennosides [Senokot] 8.6 mg Tablet 17.2 mg PO BID ibuprofen 600 mg tablet 600 mg PO BID simethicone 250 mg capsule 250 mg PO BID PRN (Reason: Indigestion) Rx Instructions: administer after meals Discharge Orders: Discharge ED (Routine); Ordered 03/09/25 Ordered By: Jr Seymour Referrals: Joseline Madison FNP [Primary Care Provider, Nurse Practitioner] Discharge Diet: Usual diet Discharge Activity: Resume usual activity Patient Instructions: Opioid Safety, Pain Management, Patient Portal & Zoran Instructions Activity Restrictions/Additional Instructions: Thank you for choosing [facility] for your healthcare needs today. It is very important that you follow up as instructed or that you return to the Emergency Department should you have concerns or if your condition changes or worsens in any way. Emergency department visits are focused on emergent conditions, in some cases you may require further evaluation on an outpatient basis. You were seen in the emergency room with complaint of generally feeling weak your white count is normal chest x-ray shows a small pneumonia. A CT of your head was negative on exam there is no findings showing new acute stroke. Will discharge you from home recommend you continue your clopidogrel and aspirin. Also start you on oral antibiotics once daily for 7 days follow-up your primary care doctor. (Please note that included in your discharge packet is information concerning opioid safety and pain management. This information is given to all patients were discharged from the ER regardless of their discharge diagnosis or the medicines they usually take or are prescribed.) Print Language: Croatian Coding Level of Care Code ED Window Glazier Helper for Jennifer Lopez
[2025-03-09 14:26] LABS: Hematocrit 43.2 % (37-53); Hemoglobin 14.90 g/dL (11.27-16.99); Mean Corpuscular HGB Conc 34.5 g/dL (30-55); Mean Corpuscular Hemoglobin 32.6 pg (27-33); Mean Corpuscular Volume 94.5 fl (82-101); Nucleated Red Blood Cells % 0 %; Platelet Count 408 10^3/cmm (157-399); Red Blood Count 4.57 10^6/uL (3.85-5.65); White Blood Count 10.60 10^3/uL (3.29-11.43)
[2025-03-09 14:31] LABS: Glucose Urine UA Negative (Normal); Nitrate Urine Negative (Negative); Specific Gravity, Urine 1.013 (1.005-1.030)
[2025-03-09 14:33] LABS: Add Urine Microscopic? YES; Universal Test for UA Present (0)
[2025-03-09 14:48] LABS: Troponin(5th) Baseline 23 ng/L (0-15)
[2025-03-09 14:56] LABS: UA Slide Review UA Slide Review Perf
[2025-03-09 14:57] LABS: Alanine Aminotransferase 13 U/L (0-41); Albumin Level 4.4 g/dL (3.5-5.2); Alkaline Phosphatase 89 U/L (40-130); Anion Gap 18.0 (5-19); Aspartate Amino Transferase 21 U/L (0-40); Blood Urea Nitrogen 16 mg/dL (8-23); Calcium 9.1 mg/dL (8.5-10.5); Carbon Dioxide 25 mmol/L (22-29); Chloride 98 mmol/L (98-107); Globulin 2.3 g/dL (1.3-4.6); Glucose 142 mg/dL (65-115); Osmolality Calculated 288 mOsm/kg (285-295); Potassium 4.0 mmol/L (3.5-5.1); Sodium 137 mmol/L (136-145); Total Protein 6.7 g/dL (6.6-8.7)
[2025-03-09 15:00] VITALS: BP 147/84; PULSE 81; RESP 16; O2SAT 95
--- NOTE | 2025-03-09 15:00 | ECG_ITS ---
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: : 1945 Requested By: Jr Woodward Order Number: [id number] Reading MD: NARESH MARTINEZ Measurements Intervals [place] Rate: 81 P: 50 CO: 216 QRS: -34 QRSD: 144 T: 95 QT: 424 QTc: 493 Interpretive Statements SINUS RHYTHM WITH FIRST DEGREE AV BLOCK LEFT AXIS DEVIATION [QRS AXIS < -30] LEFT BUNDLE BRANCH BLOCK [120+ ms QRS DURATION, 80+ ms Q/S IN V1/V2, 85+ ms R IN I/aVL/V5/V6] Compared to ECG 03/09/2025 14:04:23 No significant changes Electronically Signed On 03-11-2025 20:41:00 DINING SERVICES MANAGER by NARESH MARTINEZ [email or web address]
[2025-03-09 15:30] VITALS: BP 155/89; PULSE 83; O2SAT 94
[2025-03-09 15:56] VITALS: BP 135/89; PULSE 82; O2SAT 94
== END 2025-03-09 15:57 | disposition home or self-care (01) ==
PROVIDERS: Emergency Provider Family Medicine; PCP Nurse Practitioner
DX: J18.9 Pneumonia, unspecified organism (principal); Z79.82 Long term (current) use of aspirin; Z79.02 Long term (current) use of antithrombotics/antiplatelets; E78.2 Mixed hyperlipidemia; I10 Essential (primary) hypertension
CPT/HCPCS: 36415; 70450; 71045; 80053; 81001; 84484; 85025; 93005; 99285

== ENCOUNTER 2025-03-16 16:44 | Emergency (ER) | payer MEDICARE, MEDICAID, SELFPAY ==
--- OUTSIDE RECORDS SUMMARY | 2025-03-16 16:53 | XMS_ITS | Encounter Summary ---
Author Organization [facility] Address [address] [place] [address] Phone Care Team Providers Care Saddle Cutter Name Role Phone Maciej Ortega MD Primary Care Provider [phone] Encounter Details Date Type Department Care Team ([facility] Contact Info) Description 07/06/2018 Orders Only [facility] [address] [place] [address] Crispin Lora MD [address] [place] [address] Chronic kidney disease, not otherwise [...] (Late Contact Info) Description 04/21/2025 2:30 PM PERIOPERATIVE ASSISTANT Office Visit [facility] [address], [place] [address] Crispin Lora MD [address] [place] [address] documented as of this encounter Visit Diagnoses Diagnosis Chronic kidney disease, not otherwise specified documented in this encounter Care Teams Saddle Cutter Relationship Specialty Start Date End Date Maciej Ortega MD [address] [place] [address] PCP - General Family Medicine 07/18/18 documented as of this encounter
--- OUTSIDE RECORDS SUMMARY | 2025-03-16 16:53 | XMS_ITS | Clinical Summary ---
Author Organization [facility] Address [address] 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 Gender Identity Not on file Sexual Orientation [...] , 12/15/2010 Medical Devices Implanted Type Area Remote Ruby On Rails Developer Device Identifier Shelf Expiration Date Model / Serial / Lot Log [id number] - Tissue Substitutes & Biologicals - 1 - Patch Vascu-Guard [id number] Implanted:Qty: 1 on 12/14/2010 Biological Right: Carotid [employer] 08/03/2015 [id number] / [id number] / [id number] Insurance [place] [address] DUAL COMPLETE HMO DSNP [facility] [id number] Advance Directives For more information, please contact: [phone] Documents on File Type Date Recorded Patient Director Of Staff Development Expl anation Advance Directive POA 01/02/2022 8:03 PM Advance Directive POA * Default Full Code - Needs Discussion (Latest Code Status on File) Date Activated Date Inactivated Comments 11/14/2021 2:58 AM 11/14/2021 4:49 PM * Full Code Date Activated Date Inactivated Comments 09/27/2021 7:25 PM 09/28/2021 5:55 PM Care Teams Library Services Dean Relationship Specialty Start Date End Date Joseline Madison NP [address] [place] [address] PCP - General NURSE PRACTITIONER 01/24/11
--- OUTSIDE RECORDS SUMMARY | 2025-03-16 16:53 | XMS_ITS | Encounter Summary ---
Author Organization [facility] Address [address] [place] [address] Care Team Providers Care Joss House Keeper Name Role Phone Joseline Madison NP Primary Care Provider [phone] Reason for Referral * Outpatient Services (Routine) - Closed Specialty Diagnoses / Procedures Referred By Nickie corona Referred To Contact Diagnoses Unspecified transient cerebral ischemia Procedures CT HEAD WO CONTRAST Joseline Madison NP [address] [place] [address] Phone: tel: fax: Referral ID Status Reason Start Date Expiration Date Visits Re quested Visits Authorized [id number] Closed 11/18/2010 11/18/2011 1 1 Encounter Details Date Type Department Care Team (Latest Contact Info) Description 11/18/2010 Ancillary Orders [facility] Pre-Registration [place] CALL TO MAKE APPOINTMENT ONLY [address] [place] [address] Joseline Madison NP [address] [place] [address] Unspecified transient cerebral ischemia Social History Tobacco Use Types Packs/Day Years Used Date Smoking Tobacco: Every Day Cigarettes Pipe Smokeless Tobacco: Never Alcohol Use Standard Drinks/Week Comments No 0 (1 standard drink = 0.6 oz pur e alcohol) Sex and Gender Information Value Date Recorded Sex Assigned at Not on file 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 cah - uploaded from [employer] - Narrative 11/22/2010 7:32 AM CDT Exam: [...] Impression: Unremarkable exam. cah - uploaded from [employer] - Joseline Madison NP CT ORDERABLES Final Res ult documented in this encounter Visit Diagnoses Diagnosis Unspecified transient cerebral ischemia Unspecified transient cerebral ischemia documented in this encounter Care Teams Joss House Keeper Relationship Specialty Start Date End Date Joseline Madison NP PCP - General NURSE PRACTITIONER 01/24/11 documented as of this encounter
--- OUTSIDE RECORDS SUMMARY | 2025-03-16 16:53 | XMS_ITS | Encounter Summary ---
Author Organization [facility] Address [address] [place] [address] Care Team Providers Care Clinical Operations Consultant Name Role Phone Joseline Madison INFORMATION SYSTEMS PLANNER Primary Care Provider [phone] Encounter Details Date Type Department Care Team (Latest Contact Info) Description 06/10/1999 Outpatient Historical [facility]- [address]tr[address], 3[address] [place] [address] Benjamin Barfield MD NO ADDRESS ON FILE Impotence of organic origin (Primary Dx); Spermatocele Social History Tobacco Use Types Packs/Day Years Used Date Smoking Tobacco: Never Assessed Sex and Gender Information Value Date Recorded Sex Assigned at Not on file 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
--- OUTSIDE RECORDS SUMMARY | 2025-03-16 16:53 | XMS_ITS | Patient Health Record ---
Author Organization [facility] Address [address] [place] [address] Care Team Providers Care Steam Box Tender Name Role Phone Los CASKET TRIMMER, Joseline Primary Care Provider Unavail able Joselito Light Unavailable [phone] Samuel Vargas Unavailable [phone] Allergies Allergen (clinical drug ingredient) Drug/Non Drug Allergy documented on EMR Reaction Allergy Type Onset Date Status rosuvastatin Rosuvastatin Unknown Drug Allergy A ctive Reason For Referral Reason History of prostate cancer Diagnosis 1 History of prostate cancer (Z85.46) Referred Organization [facility] Referred Provider Samuel Vargas Referred Address [address],[place], [place],[address], Referred Provider Specialty Urology General Notes Jenna Huerta 11/18 09:43:24 AM CDT > Patient has a [facility] plan which we do not accept, patient [...] Status Risk Notes Problem Left testicular pain (99471245692200 100) Left testicular pain (N50.812) Active confirmed Problem Scrotal pain (14637507) Scrotal pain (N50.82) Active confirmed Problem History of prostatectomy (Z90.79) Active confirmed Problem SI - Stress incontinence (28514258) Stress incontinence (N39.3) Active confirmed Problem History of malignant neoplasm of prostate (082229625) History of prostate cancer (Z85.46) Active confirmed Problem Swelling of testicle (finding) (665266556) Testicular swelling (N50.89) Active confirmed Problem Left varicocele (I86.1) Active confirmed Problem Pain in testicle (finding) (15954411) Pain in testicle, unspecified laterality (N50.819) Active confirmed Problem Vitamin B12 deficiency (699808391) Vitamin B12 deficiency (266.2) 10/09/19 12 Active confirmed [id number] 911- Problem Androgen deficiency (35728202) Testosterone deficiency (257.2) 10/09/19 12 Active confirmed [id number] 911- Problem Urinary system symptoms (592088814) Other sysmptoms involving urinary system (788.99) 11/22/19 12 Active confirmed [id number] 911- Problem Rash (165146697) Rash (782.1) 08/31/19 12 Problem resolved confirmed [id number] 911- Problem Weak urinary stream (664811014) Weak urinary stream (788.62) 06/05/19 12 Problem resolved confirmed [id number] 911- Problem PVD with claudication (440.21) 08/31/19 12 Problem resolved confirmed [id number] 911- Problem Atherosclerosis of [place] extremity arteries (440.20) 06/05/19 12 Problem resolved confirmed [id number] 911- Problem Chronic viral hepatitis B without delta-agent (246682517) Chronic hepatitis B (without hepatitis delta) (070.32) 09/25/19 12 Problem resolved confirmed [id number] 911- Problem Erectile dysfunction (837129626) Erectile dysfunction (302.72) 06/05/19 12 Problem resolved confirmed [id number] 911- Encounters Encounter Location Date Provider Diagnosis [facility] [address] [place] [address] 12/11/2024 Samuel Vargas Plan Of Treatment Pending Test Test Name Order Date PSA Diagnostic--[id number] 03/27/2022 Insurance Providers Payer Name Payer Address Payer Phone Subscriber Number Group Number Insured Name Patient Relationship to Insured Coverage Start Date Coverage End Date UHC Medicare Dual Complete PPO [address] [address] [place] [address] [phone] [id number] Camilo Schumacher Self - patient is the insured Medical (General) History Medical History History ICD Code COPD Prostate CANCER Hernia Urinary incontinence Cerebrovascular Accident Surgical History Surgery Date(Month/Year) throat mass, benign carotid endarterectomy radical prostatectomy 2004 Hospitalization History Reason Date(Month/Year) surgeries psych x4 hospitalizations 2021
--- OUTSIDE RECORDS SUMMARY | 2025-03-16 16:53 | XMS_ITS | Encounter Summary ---
Author Organization [facility] Address [address] [place] [address] Care Team Providers Care Medical Records Director Name Role Phone Joseline Madison PER DIEM RN Primary Care Provider [phone] Encounter Details Date Type Department Care Team (Late st Contact Info) Description 05/26/1999 Outpatient Historical [facility] [place] [address] [place] [address] Ulisses Youssef, DO [address] [place] [id number] Other specified disorder of male genital organs(608.89) (Primary Dx) Social History Tobacco Use Types Packs/Day Years Used Date Smoking Tobacco: Never Assessed Sex and Gender Information Value Date Recorded Sex Assigned at Not on file 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
--- OUTSIDE RECORDS SUMMARY | 2025-03-16 16:53 | XMS_ITS | Clinical Summary ---
Author Organization [facility] Facility Address [address] [address] Care Team Providers Care Aerobics Instructor Name Role Phone Maciej Ortega MD Primary Care Provider [phone] Allergies Active Allergy Reactions Criticality Noted Date [...] needed 3 Active neomycin-polymy te-hydrocortis one (CORTISPORIN) 3.5-47910-2 otic suspension 3 Active traMADol (ULTRAM) 50 [...] radiation treatment and has been followed at [facility]. Will check records at [facility]. If no renal imaging is found [...] PM CDT): He follows with urology at [facility]. He does in and out catheter [...] st Contact Info) Description 04/21/2025 2:30 PM FOREIGN LANGUAGE STENOGRAPHER Office Visit [facility] [address] [place] [address] Crispin Lora MD [facility] [facility] [address] [place] [address] Health Maintenance Due Date Last Done Comments Influenza Vaccine (#1) 2024 9, 10/17/2016, 01/04/2014 Pneumococcal Vaccine: 50+ Years Completed 01/17/2014, 12/15/2010 Pneumococcal Vaccine: Peds (0 to 5 Years) and At-Risk Patients (6 to 49 Years) Discontinued 01/17/2014, 12/15/2010 Hepatitis B Vaccine Aged Out No longe r eligible based on patient's age to complete this topic Insurance Medicaid [place] ([id number]) Dual Complete Choice [place] Care Teams Aerobics Instructor Relationship Specialty Start Date End Date Maciej Ortega MD [facility] [place] [address] PCP - General Family Medicine 07/18/18
--- OUTSIDE RECORDS SUMMARY | 2025-03-16 16:53 | XMS_ITS | Encounter Summary ---
Author Organization [facility] Address [address] [place] [address] Care Team Providers Care Residential Team Leader Name Role Phone Joseline Madison MACHINE OPERATORS Primary Care Provider [phone] Encounter Details Date Type Department Care Team (Latest Contact Info) Description 11/14/2010 Ancillary Orders [facility] Pre-Registration [place] CALL TO MAKE APPOINTMENT ONLY [address] [place] [address] Joseline Madison NP [address] [place], [place] [address] Unspecified transient cerebral ischemia Social History Tobacco Use Types Packs/Day Years Used Date Smoking Tobacco: Every Day Cigarettes Pipe Smokeless Tobacco: Never Alcohol Use Standard Drinks/Week Comments No 0 (1 standard drink = 0.6 oz pur e alcohol) Sex and Gender Information Value Date Recorded Sex Assigned at Not on file 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
--- OUTSIDE RECORDS SUMMARY | 2025-03-16 16:53 | XMS_ITS | Patient Health Record ---
Author Organization [facility], [facility] Address [address] [place] [address] Care Team Providers Care Systems Navigator Name Role Phone Los PRICE, Joseline Primary Care Provider Unavail able MARY LARA Unavailable [phone] Allergies Allergen (clinical drug ingredient) Drug/Non Drug [...] *Pick strength-form from Med[employer] for eRX* Active Social History Social History Additional Details Category Social Info Options Details Migrated Social History Tobacco Use: (Tobacco Use/Smoking):Are you a: former smoker , How long has it been since you last smoked?: 3-6 months Problems Problem Type SNOMED Code ICD Code Onset Dates Problem Status W/U Status Risk Notes Problem Left testicular pain (06702400444522 100) Left testicular pain (N50.812) Active confirmed Problem Scrotal pain (89590022) Scrotal pain (N50.82) Active confirmed Problem History of malignant neoplasm of prostate (564931871) History of prostate cancer (Z85.46) Active confirmed Problem History of prostatectomy (Z90.79) Active confirmed Problem SI - Stress incontinence (92435216) Stress incontinence (N39.3) Active confirmed Problem Pain in testicle (finding) (08048840) Pain in testicle, unspecified laterality (N50.819) Active confirmed Problem Swelling of testicle (finding) (891179238) Testicular swelling (N50.89) Active confirmed Problem Left varicocele (I86.1) Active confirmed Problem Urinary system symptoms (467024621) Other sysmptoms involving urinary system (788.99) 11/22/19 12 Active confirmed [id number] 911- Problem Androgen deficiency (05678374) Testosterone deficiency (257.2) 10/09/19 12 Active confirmed [id number] 911- Problem Vitamin B12 deficiency (912617966) Vitamin B12 deficiency (266.2) 10/09/19 12 Active confirmed [id number] 911- Problem Weak urinary stream (403905680) Weak urinary stream (788.62) 06/05/19 12 Problem resolved confirmed [id number] 911- Problem PVD with claudication (440.21) 08/31/19 12 Problem resolved confirmed [id number] 911- Problem Atherosclerosis of [place] extremity arteries (440.20) 06/05/19 12 Problem resolved confirmed [id number] 911- Problem Chronic viral hepatitis B without delta-agent (295781630) Chronic hepatitis B (without hepatitis delta) (070.32) 09/25/19 12 Problem resolved confirmed [id number] 911- Problem Erectile dysfunction (612930180) Erectile dysfunction (302.72) 06/05/19 12 Problem resolved confirmed [id number] 911- Problem Rash (333567416) Rash (782.1) 08/31/19 12 Problem resolved confirmed [id number] 911- Plan Of Treatment Pending Test Test Name Order Date PSA Diagnostic--39260 03/27/2022 PSA, TOTAL (5363) 03/06/2023 Insurance Providers Payer Name Payer Address Payer Phone Subscriber Number Group Number Insured Name Patient Relationship to Insured Coverage Start Date Coverage End Date [facility] [address] [address] [place], [place] [phone] [id number] Camilo Zuniga Self - patient is the insured Medical (General) History Medical History History ICD Code COPD Prostate CANCER Hernia Urinary incontinence Cerebrovascular Accident Surgical History Surgery Date(Month/Year) radical prostatectomy 2004 carotid endarterectomy throat mass, benign Hospitalization History Reason Date(Month/Year) psych x4 hospitalizations 2021 surgeries
--- OUTSIDE RECORDS SUMMARY | 2025-03-16 16:53 | XMS_ITS | Encounter Summary ---
Author Organization [facility] Address [address] [place] [address] Care Team Providers Care It Sales Representative Name Role Phone Joseline Madison BANK CONSULTANT Primary Care Provider [phone] Encounter Details Date Type Department Care Team (Latest Contact Info) Description 11/18/2010 Ancillary Orders [facility] Pre-Registration [place] CALL TO MAKE APPOINTMENT ONLY [address] [place] [address] Joseline Madison NP [address] [place], [place] [address] Unspecified transient cerebral ischemia Social History Tobacco Use Types Packs/Day Years Used Date Smoking Tobacco: Every Day Cigarettes Pipe Smokeless Tobacco: Never Alcohol Use Standard Drinks/Week Comments No 0 (1 standard drink = 0.6 oz pur e alcohol) Sex and Gender Information Value Date Recorded Sex Assigned at Not on file 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
--- OUTSIDE RECORDS SUMMARY | 2025-03-16 16:53 | XMS_ITS | Encounter Summary ---
Author Organization [facility] Address [address] 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
--- OUTSIDE RECORDS SUMMARY | 2025-03-16 16:53 | XMS_ITS | Clinical Summary ---
Author Organization [facility] Address [address] [place] [address] Care Team Providers Care Artist Manager Name Role Phone Joseline Madison CODING EDUCATOR Primary Care Provider [phone] Allergies Active Allergy Reactions Criticality Noted Date [...] 1 Tablet (30 mg) by mouth daily supervisor riprap placing. 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 Gender Identity Not on file Sexual [...] , 12/15/2010 Medical Devices Implanted Type Area Broadband Installer Device Identifier Shelf Expiration Date Model / Serial / Lot Log [id number] - Tissue Substitutes & Biologicals - 1 - Patch Vascu-Guard [id number] Implanted:Qty: 1 on 12/14/2010 at [facility] Biological Right: Carotid [employer] 08/03/2015 [id number] / [id number] / [id number] Insurance MEDICAID [place] [facility] DUAL COMPLETE MCR PPO D-SNP Advance Directives For more information, please contact: [phone] Documents on File Type Date Recorded Patient Wet Room Supervisor Expl anation Advance Directive POA 12/14/2010 Advanc e Directive POA Advance Directive Living Will 12/14/2010 * Full Code (Latest Code Status on File) Date Activated Date Inactivated Comments 12/14/2010 1:25 PM 12/14/2010 4:54 PM * Full Code Date Activated Date Inactivated Comments 12/14/2010 8:54 AM 12/14/2010 1:25 PM Care Teams Artist Manager Relationship Specialty Start Date End Date Joseline Madison NP PCP - General NURSE PRACTITIONER 01/24/11
--- OUTSIDE RECORDS SUMMARY | 2025-03-16 16:53 | XMS_ITS | Encounter Summary ---
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
--- OUTSIDE RECORDS SUMMARY | 2025-03-16 16:53 | XMS_ITS | Encounter Summary ---
Author Organization [facility], [facility] Address [address] [facility] [address] [place] [address] Phone Care Team Providers Care Senior Consultant Name Role Phone Maciej Ortega MD Primary Care Provider [phone] Encounter Details Date Type Department Care Team ([facility] Contact Info) Description 01/24/2019 Orders Only [facility] [employer] [address] [place] [address] Desiree Garrett NP [address] [facility] [address] [place] [address] Chronic kidney disease stage 3 [...] Upcoming Encounters Date Type Department Care Team ([facility] Contact Info) Description 04/21/2025 2:30 PM RESIDENTIAL SOLAR SALES CONSULTANT Office Visit [facility] [address] [place] [address] Crispin Lora MD [address] [facility] [address] [place] [address] documented as of this encounter Visit Diagnoses Diagnosis Chronic kidney disease stage 3 (HCC) documented in this encounter Care Teams Senior Consultant Relationship Specialty Start Date End Date Maciej Ortega MD [address] [place] [address] PCP - General Family Medicine 07/18/18 documented as of this encounter
[2025-03-16 16:55] VITALS: BP 125/88; PULSE 96; TEMP 36.4; O2SAT 96; BMI 21.4
[2025-03-16 18:22] LABS: Hematocrit 40.9 % (37-53); Hemoglobin 13.70 g/dL (11.27-16.99); Mean Corpuscular HGB Conc 33.5 g/dL (30-55); Mean Corpuscular Hemoglobin 32.4 pg (27-33); Mean Corpuscular Volume 96.7 fl (82-101); Nucleated Red Blood Cells % 0 %; Platelet Count 342 10^3/cmm (157-399); Red Blood Count 4.23 10^6/uL (3.85-5.65); White Blood Count 8.61 10^3/uL (3.29-11.43)
[2025-03-16 18:45] LABS: Alanine Aminotransferase 8 U/L (0-41); Albumin Level 4.2 g/dL (3.5-5.2); Alkaline Phosphatase 72 U/L (40-130); Anion Gap 20.0 (5-19); Aspartate Amino Transferase 16 U/L (0-40); Blood Urea Nitrogen 28 mg/dL (8-23); Calcium 9.1 mg/dL (8.5-10.5); Carbon Dioxide 24 mmol/L (22-29); Chloride 99 mmol/L (98-107); Globulin 2.8 g/dL (1.3-4.6); Glucose 92 mg/dL (65-115); Lipase 24 U/L (13-60); Osmolality Calculated 293 mOsm/kg (285-295); Potassium 4.0 mmol/L (3.5-5.1); Sodium 139 mmol/L (136-145); Total Protein 7.0 g/dL (6.6-8.7)
[2025-03-16 18:46] VITALS: BP 157/102; PULSE 75; O2SAT 97
--- NOTE | 2025-03-16 18:47 | W.ED.ABDPA2 ---
HPI - Abdominal Pain General: Chief Complaint: Abdominal Pain Stated Complaint: vomitting, dizziness Time Seen by Provider: 03/16/25 18:34 History of Present Illness: 80-year-old male presents emergency room complaining of generalized weakness and vomiting nauseous abdominal pain. Reports abdominal pain whenever he eats. No hematochezia melena hematemesis cough cramps denies dysuria urgency or frequency no fever. Associated Symptoms: Denies chills, dysuria and fever(s) Related Data Home Medications ?Medication ?Instructions ?Recorded ?Confirmed pantoprazole 40 mg tablet,delayed 40 mg PO QAM 07/22/21 03/09/25 release linaclotide 290 mcg capsule 290 mcg PO DAILY 03/23/23 03/09/25 (Linzess) temazepam 30 mg capsule 30 mg PO QPM 03/23/23 03/09/25 magnesium hydroxide 400 mg/5 mL 5 ml PO DAILY PRN Constipation 01/03/24 03/09/25 oral suspension (Milk of Magnesia) melatonin 10 mg capsule 10 mg PO BEDTIME 08/12/24 03/09/25 meclizine 25 mg tablet 25 mg PO BID 01/02/25 03/09/25 amlodipine 2.5 mg tablet 2.5 mg PO DAILY 03/09/25 03/09/25 ibuprofen 600 mg tablet 600 mg PO BID 03/09/25 03/09/25 sennosides 8.6 mg tablet (Senokot) 17.2 mg PO BID 03/09/25 03/09/25 simethicone 250 mg capsule 250 mg PO BID PRN Indigestion 03/09/25 03/09/25 Previous Rx's ?Medication ?Instructions ?Recorded TLSO Brace #1 ea 02/16/22 Shoulder Sling #1 ea 05/25/23 aspirin 81 mg tablet,delayed 81 mg PO DAILY #30 tabs 07/31/23 release Held on 09/01/24. Instructions: Resume on 09/05/24. clopidogrel 75 mg tablet 75 mg PO DAILY #30 tabs 07/31/23 Held on 09/01/24. Instructions: Resume on 09/05/24. tramadol 50 mg tablet 50 mg PO Q6H PRN pain #30 tabs 09/01/24 albuterol sulfate 90 mcg/actuation 2 inh inhalation Q4H PRN shortness 03/09/25 aerosol inhaler of breath or wheezing #18 grams ondansetron HCl 4 mg tablet 4 mg PO Q6H PRN nausea and 03/16/25 vomiting #20 tabs Allergies Allergy/AdvReac Type Severity Reaction Status Date / Time atorvastatin Allergy ALGY-Hives Verified 03/16/25 17:01 simvastatin Allergy ALGY-Rash Verified 03/16/25 17:01 Review of Systems Const: Denies: fever(s) or chills Card: Denies: chest pain Resp: Denies: dyspnea GI: Denies: abdominal pain : Denies: dysuria, urinary frequency or urinary urgency Musc: Denies: neck pain or back pain Skin/Breast: Denies: rash PFSH ED PFSH: Medical History Pernicious anemia Benign essential HTN Combined hyperlipidemia Intervertebral disc disorder with radiculopathy of lumbosacral region Cancer of prostate Surgical History History of heart artery stent Hx of heart surgery Family History Father Lung disease Mother Chronic kidney disease (CKD) Hypertension Social History Smoking and tobacco/nicotine status: never used tobacco/nicotine Alcohol intake: never Substance/Drug Use: never Household members: spouse Marital status: Current occupational status: retired Physical Exam Const: COMMON NORMALS: no acute distress GENERAL APPEARANCE: cooperative and comfortable ORIENTATION/CONSCIOUSNESS: Yes awake, Yes oriented to person, Yes oriented to place and Yes oriented to time HENMT: COMMON NORMALS: normocephalic, atraumatic and hearing grossly normal bilaterally HEAD & SCALP: normocephalic and atraumatic Resp: COMMON NORMALS: normal respiratory effort, No retractions, No use of accessory muscles and clear to auscultation bilaterally AUSCULTATION: clear to auscultation bilaterally Cardio: COMMON NORMALS: regular rate, regular rhythm and No murmurs present (Cardio) RATE: regular rate RHYTHM: regular rhythm GI: COMMON NORMALS: Soft to palpation and No hepatosplenomegaly present AUSCULTATION: Yes normoactive bowel sounds PALPATION: Yes Soft to palpation, No Tenderness to palpation present (GI), No Guarding due to palpation present (GI) and Yes No hepatosplenomegaly present Extremity: COMMON NORMALS: normal to inspection, capillary refill normal, no clubbing, cyanosis or edema, no calf tenderness and no pedal edema Neuro: SENSORIUM/ORIENTATION: Yes oriented to person, Yes oriented to place and Yes oriented to time Skin: COMMON NORMALS: no rashes or lesions noted GENERAL SKIN EXAM: no rashes or lesions noted Course Vital Signs: Vital signs: Vital Signs Temperature 97.6 F 03/16/25 16:55 Pulse Rate 75 03/16/25 22:31 Blood Pressure 126/78 03/16/25 22:31 Pulse Oximetry 96 03/16/25 22:31 Oxygen Delivery Me thod Room Air 03/16/25 18:46 MDM - Abdominal Pain Medical Decision Making Labs and imaging reviewed as on the chart. White count is normal patient does have a mild acute kidney injury with a creatinine of 2.[address] of the abdomen showed possible colitis. No signs of bowel obstruction no perforation. Reviewed findings with the patient will discharge home with ondansetron to use as needed. His white count is normal and do not believe this is an infectious process. Clear liquid diet for 24 to 48 hours and advance as tolerated. Stressed the patient is very important that he was kidney function rechecked in the next few days. Return to the emergency room as any change in symptoms develops any hematochezia or hematemesis. Medical Records I reviewed the patient's medical records. Lab Data I reviewed the patient's lab results. 03/16/25 17:58 03/16/25 17:58 Labs/Radiology: Radiology Impressions Abdomen/Pelvis CT 03/16/25 18:48 IMPRESSION: Fluid attenuation luminal material within the cecum and ascending colon, may be related to ingested material although can not exclude mild colitis or diarrhea related process. COMMENTS: Consistent with the [employer]'s Incidental Findings Committee white paper (J Am Celeste Radiol 2018): Any incidental renal lesion less than 1 cm or classified as too small to characterize, or any incidental cystic renal lesion characterized as simple-appearing, is likely benign. No follow-up imaging is recommended for these lesions per consensus recommendations based on imaging criteria. Laboratory Results WBC 8.61 10^3/uL (3.29-11.43) 03/16/25 17:58 RBC 4.23 10^6/uL (3.85-5.65) 03/16/25 17:58 Hgb 13.70 g/dL (11.27-16.99) 03/16/25 17:58 Hct 40.9 % (37-53) 03/16/25 17:58 MCV 96.7 fl (82-101) 03/16/25 17:58 MCH 32.4 pg (27-33) 03/16/25 17:58 MCHC 33.5 g/dL (30-55) 03/16/25 17:58 RDW 14.6 % (12.1-15.1) 03/16/25 17:58 Plt Count 342 10^3/cmm (157-399) 03/16/25 17:58 MPV 9.3 fL (7.4-10.4) 03/16/25 17:58 Neut % (Auto) 69.7 % 03/16/25 17:58 Lymph % (Auto) 19.3 % 03/16/25 17:58 [place] % (Auto) 7.9 % 03/16/25 17:58 Eos % (Auto) 2.0 % 03/16/25 17:58 Baso % (Auto) 0.9 % 03/16/25 17:58 Neut # (Auto) 6.00 10^3/uL (1.8-7.7) 03/16/25 17:58 Lymph # (Auto) 1.7 10^3/uL (0.8-4.8) 03/16/25 17:58 [place] # (Auto) 0.7 10^3/uL (0.2-0.9) 03/16/25 17:58 Eos # (Auto) 0.2 10^3/uL (0.0-0.8) 03/16/25 17:58 Baso # (Auto) 0.1 10^3/uL (0.0-0.1) 03/16/25 17:58 Nucleated RBC % (auto) 0 % 03/16/25 17:58 Nucleated RBCs # 0.0 /100WBC 03/16/25 17:58 Sodium 139 mmol/L (136-145) 03/16/25 17:58 Potassium 4.0 mmol/L (3.5-5.1) 03/16/25 17:58 Chloride 99 mmol/L (98-107) 03/16/25 17:58 Carbon Dioxide 24 mmol/L (22-29) 03/16/25 17:58 Anion Gap 20.0 (5-19) H 03/16/25 17:58 BUN 28 mg/dL (8-23) H 03/16/25 17:58 Creatinine 2.3 mg/dL (0.7-1.2) H 03/16/25 17:58 GFR Calculation Not Reportable 03/16/25 17:58 Glucose 92 mg/dL (65-115) 03/16/25 17:58 Calculated Osmolality 293 mOsm/kg (285-295) 03/16/25 17:58 Calcium 9.1 mg/dL (8.5-10.5) 03/16/25 17:58 Total Bilirubin 0.4 mg/dL (0.15-1.2) 03/16/25 17:58 AST 16 U/L (0-40) 03/16/25 17:58 ALT 8 U/L (0-41) 03/16/25 17:58 Alkaline Phosphatase 72 U/L (40-130) 03/16/25 17:58 Total Protein 7.0 g/dL (6.6-8.7) 03/16/25 17:58 Albumin 4.2 g/dL (3.5-5.2) 03/16/25 17:58 Globulin 2.8 g/dL (1.3-4.6) 03/16/25 17:58 Lipase 24 U/L (13-60) 03/16/25 17:58 Urine Color Yellow (Yellow) 03/16/25 20:07 Urine Appearance Clear (CLEAR) 03/16/25 20:07 Urine pH 5.0 (5-7) 03/16/25 20:07 Ur Specific [place] 1.018 (1.005-1.030) 03/16/25 20:07 Urine Protein Trace (Negative) A 03/16/25 20:07 Urine Glucose (UA) Negative (Normal) 03/16/25 20:07 Urine Ketones 1+ (Negative) H 03/16/25 20:07 Urine Blood Negative (Negative) 03/16/25 20:07 Urine Nitrate Negative (Negative) 03/16/25 20:07 Urine Bilirubin Negative (Negative) 03/16/25 20:07 Urine Urobilinogen 0.2 mg/dL (Negative) 03/16/25 20:07 Ur Leukocyte Esterase Negative (Negative) 03/16/25 20:07 Urine RBC 0-2 /hpf (0-2) 03/16/25 20:07 Urine WBC 0-5 /hpf (0-5) 03/16/25 20:07 Ur Squamous Epith Cells 0-5 /hpf (0-5) 03/16/25 20:07 Amorphous Sediment Not Reportable 03/16/25 20:07 Urine Bacteria None seen /hpf (NONE) 03/16/25 20:07 Hyaline Casts 7.85 /lpf 03/16/25 20:07 All radiology interpretation(s) finalized by discharge Discharge Plan Discharge Patient Disposition: Home Clinical Impression: Colitis, Acute kidney injury Condition: Stable Prescriptions: New ondansetron HCl 4 mg tablet 4 mg PO Q6H PRN (Reason: nausea and vomiting) Qty: 20 0RF No Action (DME) TLSO Brace See Rx Instructions .Route .MEDSUPPLY Qty: 1 0RF Rx Instructions: As directed temazepam 30 mg capsule 30 mg PO QPM Linzess 290 mcg capsule 290 mcg PO DAILY (DME) Shoulder Sling See Rx Instructions .Route .MEDSUPPLY Qty: 1 0RF Rx Instructions: As directed melatonin 10 mg capsule 10 mg PO BEDTIME meclizine 25 mg tablet 25 mg PO BID pantoprazole 40 mg tablet,delayed release (DR/EC) 40 mg PO QAM aspirin 81 mg Tablet,Delayed Release (Dr/Ec) 81 mg PO DAILY Qty: 30 0RF clopidogrel 75 mg Tablet 75 mg PO DAILY Qty: 30 0RF magnesium hydroxide [Milk of Magnesia] 400 mg/5 mL Suspension 5 ml PO DAILY PRN (Reason: Constipation) tramadol 50 mg tablet 50 mg PO Q6H PRN (Reason: pain) Qty: 30 0RF amlodipine 2.5 mg tablet 2.5 mg PO DAILY albuterol sulfate 90 mcg/actuation HFA aerosol inhaler 2 inh INHALATION Q4H PRN (Reason: shortness of breath or wheezing) Qty: 18 0RF sennosides [Senokot] 8.6 mg Tablet 17.2 mg PO BID ibuprofen 600 mg tablet 600 mg PO BID simethicone 250 mg capsule 250 mg PO BID PRN (Reason: Indigestion) Rx Instructions: administer after meals Discharge Orders: Discharge ED (Routine); Ordered 03/16/25 Ordered By: Jr Seymour Referrals: Joseline Madison FNP [Primary Care Provider, Nurse Practitioner] Discharge Diet: Clear Liquid Discharge Activity: Increase activity as tolerated Patient Instructions: Abdominal Pain (ED), Opioid Safety, Pain Management, Patient Portal & [place] Instructions Activity Restrictions/Additional Instructions: [facility] needs [facility]. It is very important that you follow up as instructed or that you return to the Emergency Department should you have concerns or if your condition changes or worsens in any way. Emergency department visits are focused on emergent conditions, in some cases you may require further evaluation on an outpatient basis. You were seen in the emergency room with complaints of abdominal discomfort and nausea. CT did not show any acute abnormalities but did show signs of fluid buildup in the colon suggestive of mild colitis your white count was normal. You did have a slight increase in your kidney function today as well. We gave you IV fluids in the emergency room. You should see your primary care doctor within the next 3 to 5 days and have your kidney function rechecked. Avoid taking any ibuprofen until you follow-up with your primary care doctor. (Please note that included in your discharge packet is information concerning opioid safety and pain management. This information is given to all patients were discharged from the ER regardless of their discharge diagnosis or the medicines they usually take or are prescribed.) Print Language: Japanese Coding Level of Care Code ED [employer] for Jennifer [employer]
--- NOTE | 2025-03-16 18:48 | CTR_ITS ---
PROCEDURE INFORMATION: Exam: CT Abdomen And Pelvis Without Contrast Exam date and time: 03/16/2025 6:56 PM Age: 80 years old Clinical indication: Abdominal pain; Additional info: Abd pain TECHNIQUE: Imaging protocol: Computed tomography of the abdomen and pelvis without contrast. Radiation optimization: All CT scans at this facility use at least one of these dose optimization techniques: automated exposure control; mA and/or kV adjustment per patient size (includes targeted exams where dose is matched to clinical indication); or iterative reconstruction. COMPARISON: CT abdomen pelvis w con* [id number] 03/28/2023 12:44 PM RADIATION DOSE METRICS: Total DLP (mGy-cm): 410.5 FINDINGS: Liver: Normal. No mass. Gallbladder and biliary ducts: Cholecystectomy clips. Pancreas: Mild fatty atrophy of the pancreas. Spleen: Normal. No splenomegaly. Adrenal glands: Normal. No mass. Kidneys and ureters: Nonspecific although commonly benign renal cysts. Probable mild renal atrophy bilaterally. Stomach and bowel: Fluid attenuation luminal material within the cecum and ascending colon, may be related to ingested material although can not exclude mild colitis or diarrhea related process. Appendix: No evidence of appendicitis. Intraperitoneal space: Unremarkable. No free air. No significant fluid collection. Vasculature: Unremarkable. No abdominal aortic aneurysm. Lymph nodes: Unremarkable. No enlarged lymph nodes. Urinary bladder: Unremarkable as visualized. Reproductive: Unremarkable as visualized. Bones/joints: Moderate degenerative changes of the lumbar vertebral bodies. Post vertebroplasty changes of the L3. Soft tissues: Unremarkable. CT/CT abdomen pelvis wo con [id number] IMPRESSION: Fluid attenuation luminal material within the cecum and ascending colon, may be related to ingested material although can not exclude mild colitis or diarrhea related process. COMMENTS: Consistent with the [employer]'s Incidental Findings Committee white paper (J Am Celeste Radiol 2018): Any incidental renal lesion less than 1 cm or classified as too small to characterize, or any incidental cystic renal lesion characterized as simple-appearing, is likely benign. No follow-up imaging is recommended for these lesions per consensus recommendations based on imaging criteria.
[2025-03-16 20:36] LABS: Glucose Urine UA Negative (Normal); Nitrate Urine Negative (Negative); Specific Gravity, Urine 1.018 (1.005-1.030)
[2025-03-16 20:42] LABS: Add Urine Microscopic? YES
[2025-03-16 20:54] LABS: UA Slide Review UA Slide Review Perf
--- NOTE | 2025-03-16 20:54 | PC.NURSE ---
This RN calling to find bladder scanner.
[2025-03-16 22:04] VITALS: BP 126/78; PULSE 74; O2SAT 95
[2025-03-16 22:31] VITALS: BP 126/78; PULSE 75; O2SAT 96
== END 2025-03-16 22:33 | disposition home or self-care (01) ==
PROVIDERS: Physician Assistant; Emergency Provider Family Medicine; PCP Nurse Practitioner
DX: K52.9 Noninfective gastroenteritis and colitis, unspecified (principal); N17.9 Acute kidney failure, unspecified; Z79.82 Long term (current) use of aspirin; Z79.02 Long term (current) use of antithrombotics/antiplatelets; E78.2 Mixed hyperlipidemia; I10 Essential (primary) hypertension; Z85.46 Personal history of malignant neoplasm of prostate
CPT/HCPCS: 36415; 51798; 74176; 80053; 81001; 83690; 85025; 99284; J7030; J7040